=== PATIENT | male | born 1965 | race Caucasian/White ===

== ENCOUNTER 2019-03-23 18:26 | Emergency (ER) | payer OTHER, SELFPAY ==
--- NOTE | 2019-03-23 18:22 | DI.CT.S_ITS ---
PROCEDURE: CT HEAD/BRAIN WO CON INDICATIONS: LOC/CODE STROKE TECHNIQUE: Noncontrast 4.5 mm thick angled axial sections acquired from the foramen magnum to the vertex, with coronal and sagittal reformats. For radiation dose reduction, the following was used: automated exposure control, adjustment of mA and/or kV according to patient size. COMPARISON: [facility], CT, CT ANGIO HEAD AND NECK, 03/23/2019, 18:19. FINDINGS: Image quality: Diagnostic CSF spaces: Basal cisterns are patent. No extra-axial fluid collections. Ventricles are normal in size and shape. Brain: No midline shift. No intracranial masses or hemorrhage. Finn-white matter interface is normal. Skull and face: Calvarium and visualized facial bones are intact, without suspicious lesions. Sinuses: Visualized sinuses and mastoids are clear. IMPRESSION: No acute intracranial hemorrhage is seen. If there is strong clinical suspicion for an acute stroke, please consider an MRI for further evaluation, as it is more sensitive (assuming that there is no contraindication to MRI). Note: Case discussed by telephone with Crystal Pierre at 7:26 PM on 03/23/19. Dictated by: Felix Barrera M.D. on 03/23/2019 at 19:25 Approved by: Felix Barrera M.D. on 03/23/2019 at 19:29
--- NOTE | 2019-03-23 18:24 | DI.CT.S_ITS ---
PROCEDURE: CT ANGIO HEAD AND NECK INDICATIONS: left weakness eye deviation code stroke TECHNIQUE: Pre-contrast 4.5 mm thick sections acquired from the foramen magnum to the vertex. After the administration of intravenous contrast, 1 mm thick sections acquired from the aortic arch through the [place] of [place]. Post-contrast 4.5 mm thick sections then re-acquired from the foramen magnum to the vertex. 3-dimensional vwymbhp-jsrfhbxnc-xgiesuymcq (MIP) and/or volume rendering reformats were acquired of the central intracranial vasculature and neck separately. COMPARISON: [facility], CT, CT HEAD/BRAIN WO CON, 03/23/2019, 18:19. FINDINGS: Image quality: Excellent. BRAIN: CSF spaces: Ventricles are normal in size and shape. Basal cisterns are patent. No extra-axial fluid collections. Brain: No midline shift. No intracranial bleeds or masses. Finn-white matter interface appears intact. Skull and face: Calvarium and facial bones appear intact, without suspicious lesions. Orbits appear normal. Sinuses: Sinuses and mastoids are clear. HEAD CT ANGIOGRAPHY: Anterior circulation: There is almost no flow seen within the intracranial internal carotid artery, with a small amount of retrograde flow supplied by collateral circulation. The flow within the paired anterior cerebral arteries is normal and symmetric. The flow within the middle cerebral arteries is normal and symmetric. The anterior communicating artery is seen. No aneurysms are seen. Posterior circulation: Visualized portions of the vertebral arteries demonstrate normal caliber, and join to form a normal appearing basilar artery. Flow within the posterior cerebral arteries is normal and symmetric. No aneurysms are seen. NECK CT ANGIOGRAPHY: Carotid system: The great vessels demonstrate a conventional anatomy as they arise from the aortic arch. The origins of the common carotid arteries appear patent. The common carotid arteries demonstrate normal caliber and courses. There is occlusion of the right internal carotid artery near the craniocervical junction, as on series 20 image 58. No significant abnormality of the left true carotid artery is seen. Posterior circulation: The origins of the vertebral arteries both appear widely patent. The more superior extracranial portions of both vertebral arteries also demonstrate normal courses and calibers. They join to form a normal appearing basilar artery. Soft tissues: Visualized neck soft tissues demonstrate no suspicious abnormalities. Bones: No suspicious bony lesions. Visualized cervical spine appears normally aligned. Lower cervical spine degenerative changes are seen. 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 Please correlate with dissection. Note: Case discussed by telephone with Crystal Ignacio at 7:29 PM on 03/23/19. Any quantitative measurements of stenosis were performed using NASCET criteria. Dictated by: Felix Barrera M.D. on 03/23/2019 at 19:29 Approved by: eFlix Barrera M.D. on 03/23/2019 at 19:33
[2019-03-23 18:33] VITALS: BP 152/90; PULSE 73; RESP 20; O2SAT 99
--- NOTE | 2019-03-23 18:47 | ED.NEUROSD ---
HPI - Neuro Symptoms/Deficit General Chief Complaint: Neuro Symptoms/Deficit Stated Complaint: unresponsive, code Time Seen by Provider: 03/23/19 18:29 Source: patient, family and EMS Mode of arrival: EMS Limitations: no limitations History of Present Illness HPI Narrative: Patient comes emergency department after being found on the floor with an unknown down time by his . states that the last time she talked to the patient was at 7:30 a.m. this morning, and that the patient at that time was feeling nauseated and done well. states the entire family has had the same illness, and that they have all been vomiting. states the patient dropped their daughter off at school and 930 this morning. It is unknown what happened after that, as the states she texted her several times during the day and that while he normally answers, he did not answer today. When she got home, she found him at the bottom of the stairs on the floor. She states there was feces and vomit around, and that the patient stated he had slipped in his vomit and rolled down the stairs. states the patient was not moving his left side. Patient states currently that his back hurts him. He denies any neck pain. No headache. he was not aware of having any weakness on 1 side or the other. He states that he only remembers slipping and vomit. He does not remember anything else that happened today between dropping his daughter off at school and the fall. He denies chest pain, abdominal pain, or shortness breath. no other complaints at this time. Related Data Previous Rx's Medication Instructions Recorded albuterol sulfate [Ventolin HFA] 0 INH Q4H #8 gm 09/20/16 benzonatate [Tessalon Perles] 100 mg PO TID #12 cap 09/20/16 prednisone 0 PO QDAY #7 tab 09/20/16 promethazine-codeine 5 - 10 ml PO Q4HP PRN #60 ml 09/20/16 azithromycin [Zithromax] 0 PO QDAY #1 packet 09/21/16 Allergies Allergy/AdvReac Type Severity Reaction Status Date / Time No Known Allergies Allergy Uncoded 10/16/17 12:42 Review of Systems Constitutional Constitutional: Denies chills, Denies fatigue, Denies fever(s), Denies frequent falls, Denies lethargy and Denies weakness Eyes Eyes: Denies change in vision, Denies eye discharge, Denies irritation and Denies loss of vision ENT Ears, Nose, Mouth, and Throat: Denies change in voice, Denies dizziness, Denies neck pain, Denies sore throat and Denies throat swelling Cardiovascular Cardiovascular: Denies chest pain, Denies irregular heart rhythm, Denies lightheadedness, Denies palpitations, Denies dyspnea, Denies dyspnea on exertion and Denies orthopnea Respiratory Respiratory: Denies cough, Denies dyspnea, Denies dyspnea on exertion and Denies wheezing Gastrointestinal Gastrointestinal: Denies abdominal pain, Denies change in bowel habits, Denies diarrhea, Reports nausea and Reports vomiting Genitourinary Genitourinary: Denies hematuria, Denies flank pain, Denies urinary incontinence and Denies urinary urgency Musculoskeletal Musculoskeletal: Reports back pain, Denies muscle weakness, Denies neck pain, Denies numbness and Denies tingling Integumentary/Breasts Skin/Breast: Denies pruritus, Denies erythema, Denies rash and Denies wounds Neurologic Neurologic: Denies behavioral changes, Denies confusion, Denies dizziness, Denies frequent falls, Denies loss of vision, Denies numbness, Denies tingling and Denies weakness Psychiatric Psychiatric: Denies anxiety, Denies behavioral changes, Denies confusion, Denies depression, Denies homicidal ideation and Denies suicidal ideation Endocrine Endocrine: Denies fatigue, Denies flushing and Denies palpitations Hematologic/Lymphatic Hematologic/Lymphatic: Denies easy bruising Allergic/Immunologic Allergic/Immunologic: Denies urticaria, Denies throat swelling and Denies wheezing [facility] Medical History (Updated 03/23/19 @ 20:03 by Blanka Silverio MD) Healthy adult (Acute) Surgical History (Updated 03/23/19 @ 18:58 by Blanka Silverio MD) No pertinent past surgical history (Acute) Social History (Updated 03/23/19 @ 18:58 by Blanka Silverio MD) Smoking Status: Never smoker Social History (Updated 03/23/19 @ 18:58 by Blanka Silverio MD) Smoking Status: Never smoker Exam Initial Vital Signs Initial Vital Signs: Vital Signs Pulse Rate 73 03/23/19 18:33 Respiratory Rate 20 03/23/19 18:33 Blood Pressure 152/90 H 03/23/19 18:33 Pulse Oximetry 99 03/23/19 18:33 Const General: cooperative and well developed Nutritional Appearance: well nourished Orientation: alert, awake, oriented x3 and not confused [facility] Head: normocephalic and atraumatic Ears: external ears normal and TM's normal bilaterally Nose: external nose normal and No nasal discharge Face and sinus: sinuses nontender, face symmetric, no sinus tenderness and No dry mucous membranes Mouth: oral mucosae normal and moist mucous membranes Teeth and gingiva: dentition normal Throat: tonsils normal and uvula midline Eyes General: appearance normal, both eyes and all related structures Eyelids: eyelids normal Conjunctivae: conjunctivae normal Sclera: sclerae normal Pupils: PERRL EOM: EOM intact bilaterally Neck Neck: normal visual inspection, trachea midline, No lymphadenopathy, No midline deformity and No JVD Lymphatic: No lymphedema Chest Chest: normal inspection of the chest Resp Effort & Inspection: normal respiratory effort, able to speak in complete sentences, no respiratory distress and no use of accessory muscles Auscultation: clear to auscultation bilaterally, no rales, no rhonchi and no wheezes Cardio Rate: regular rate Rhythm: regular rhythm Heart Sounds: no click, no gallops, no murmurs and no rubs Pulses: normal peripheral pulses GI Inspection: non-distended Palpation: soft, no hepatosplenomegaly, No guarding, No pulsatile mass and No tender Auscultation: normal bowel sounds Back/Spine/Pelvis Back: No CVA tenderness Cervical Spine: cervical ROM normal and No pain with cervical ROM Thoracic/Lumbar Spine: thoracic and lumbar spine normal to inspection Skin General: no rashes or lesions noted, No jaundice and No petechiae Neuro General: awake and oriented x3 Other: Patient has complete paralysis of his left upper extremity. He has absent sensation the left upper extremity as well. The patient has only slight effort in his left hip flexors, with no movement whatsoever of his left foot or lower leg. Patient has mild left lower facial weakness. Patient has left-sided neglect. His tongue deviates slightly to the left. Patient has 5+ strength in his right upper extremity, without ataxia. He is slightly drowsy, but answers questions appropriately with only slight delay. His speech is slightly slurred. He is able to say his name and the month. His sensation is intact on his left face, but absent in both the left upper and left lower extremities. Sensation is intact in the right upper and lower extremities, as well as the right face. His NIH stroke scale score is 16, with 1 for level of consciousness, 2 for gaze palsy, 1 for minor paralysis of the face, for for left arm motor, 4 for left leg motor, to for sensation, 1 for dysarthria, and 1 for extinction/inattention. Extrem General: full ROM, no clubbing, cyanosis or edema, no pedal edema and no calf tenderness Psych Appearance: well kempt Mental Status: mental status grossly normal Attitude: cooperative Thought Content: normal and suicidality Judgment: judgment good Course Course Course Narrative: Patient was sent for CT of the head immediately upon arrival in the emergency department. This is found to be negative, as the patient immediately had a CT angio of the head and neck performed. Neurology at [facility] was paged, and I spoke with Dr. Vogel, who agreed to accept the patient in transfer, after looking at the patient's CT and determining that it appeared the patient had an MCA distribution CVA. I discussed the plan with the patient and , who were agreeable. Patient was given aspirin in the emergency department. Orders Ordered: Discontinued Medications Aspirin (Aspirin) 300 mg PA NOW ONE Stop: 03/23/19 19:31 Last Admin: 03/23/19 19:56 Dose: 300 mg Documented by: CPRUITT Sodium Chloride (Normal Saline 0.9%) 1,000 mls @ 150 mls/hr IV CONT COCO Sodium Chloride (Normal Saline 0.9%) 1,000 mls @ 1,000 mls/hr IV BOLUS ONE Stop: 03/23/19 20:29 Last Admin: 03/23/19 19:52 Dose: 1,000 mls/hr Documented by: CPRUITT Vital Signs Vital signs: Vital Signs - 8 hr 03/23/19 18:33 Pulse Rate 73 Respiratory Rate 20 Blood Pressure [Right Arm] 152/90 H Pulse Oximetry 99 MDM - Neuro Symptoms/Deficit Medical Records Attestation: I reviewed the patient's medical records. Lab Data Attestation: I reviewed the patient's lab results. Result diagrams: 03/23/19 19:16 03/23/19 18:56 Labs: Lab Results 03/23/19 03/23/19 03/23/19 Range/Units 18:56 19:16 19:16 WBC 9.3 (4.5-11.0) X10^3/uL RBC 4.83 (4.5-5.9) X10^6/uL Hgb 15.1 (13.5-17.5) g/dL Hct 42.9 (41-53) % MCV 88.8 (80-100) fL MCH 31.3 (26-34) PG MCHC 35.3 (30-36) % RDW 13.1 (11.6-14.8) % Plt Count 198 (150-400) X10^3/uL Neut % (Auto) 87.2 H (50-75) % Lymph % (Auto) 8.7 L (25-40) % Love % (Auto) 3.8 (3-14) % Eos % (Auto) 0.0 L (2-4) % Baso % (Auto) 0.3 (0-2) % Neut # (Auto) 8100 H (2654-7675) /uL Lymph # (Auto) 800 L (9482-2244) /uL Love # (Auto) 400 (0-900) /uL Eos # (Auto) 0 (0-450) /uL Baso # (Auto) 0 (0-100) /uL PT 12.2 (10.1-12.7) SECONDS INR 1.1 (0.9-1.3) APTT 30 (26.4-36.2) SECONDS Sodium 137 (137-145) mmol/L Potassium 4.1 (3.4-5.1) mmol/L Chloride 101 (98-107) mmol/L Carbon Dioxide 26 (22-32) mmol/L BUN 12 (9-20) mg/dL Creatinine 0.70 (0.66-1.25) mg/dL Estimated GFR > 60.0 (>60) mL/min BUN/Creatinine Ratio 17.1 (6-22) Glucose 112 H (70-100) mg/dL Calcium 9.0 (8.4-10.2) mg/dL Point of Care Testing Glucose POC [address] scan - head: Radiologist's impression: PROCEDURE: CT HEAD/BRAIN WO CON INDICATIONS: LOC/CODE STROKE TECHNIQUE: Noncontrast 4.5 mm thick angled axial sections acquired from the foramen magnum to the vertex, with coronal and sagittal reformats. For radiation dose reduction, the following was used: automated exposure control, adjustment of mA and/or kV according to patient size. COMPARISON: [facility], CT, CT ANGIO HEAD AND NECK, 03/23/2019, 18:19. FINDINGS: Image quality: Diagnostic CSF spaces: Basal cisterns are patent. No extra-axial fluid collections. Ventricles are normal in size and shape. Brain: No midline shift. No intracranial masses or hemorrhage. Finn-white matter interface is normal. Skull and face: Calvarium and visualized facial bones are intact, without suspicious lesions. Sinuses: Visualized sinuses and mastoids are clear. IMPRESSION: No acute intracranial hemorrhage is seen. If there is strong clinical suspicion for an acute stroke, please consider an MRI for further evaluation, as it is more sensitive (assuming that there is no contraindication to MRI). Note: Case discussed by telephone with Crystal Tonymak at 7:26 PM on 03/23/19. Dictated by: Felix Barrera M.D. on 03/23/2019 at 19:25 Approved by: Felix Barrera M.D. on 03/23/2019 at 19:29 CTA head and neck: Radiologist's impression: PROCEDURE: CT ANGIO HEAD AND NECK INDICATIONS: left weakness eye deviation code stroke TECHNIQUE: Pre-contrast 4.5 mm thick sections acquired from the foramen magnum to the vertex. After the administration of intravenous contrast, 1 mm thick sections acquired from the aortic arch through the [place] of [place]. Post-contrast 4.5 mm thick sections then re-acquired from the foramen magnum to the vertex. 3-dimensional zglterm-uoegxrozf-tqmlrvtblp (MIP) and/or volume rendering reformats were acquired of the central intracranial vasculature and neck separately. COMPARISON: [facility], CT, CT HEAD/BRAIN WO CON, 03/23/2019, 18:19. FINDINGS: Image quality: Excellent. BRAIN: CSF spaces: Ventricles are normal in size and shape. Basal cisterns are patent. No extra-axial fluid collections. Brain: No midline shift. No intracranial bleeds or masses. Finn-white matter interface appears intact. Skull and face: Calvarium and facial bones appear intact, without suspicious lesions. Orbits appear normal. Sinuses: Sinuses and mastoids are clear. HEAD CT ANGIOGRAPHY: Anterior circulation: There is almost no flow seen within the intracranial internal carotid artery, with a small amount of retrograde flow supplied by collateral circulation. The flow within the paired anterior cerebral arteries is normal and symmetric. The flow within the middle cerebral arteries is normal and symmetric. The anterior communicating artery is seen. No aneurysms are seen. Posterior circulation: Visualized portions of the vertebral arteries demonstrate normal caliber, and join to form a normal appearing basilar artery. Flow within the posterior cerebral arteries is normal and symmetric. No aneurysms are seen. NECK CT ANGIOGRAPHY: Carotid system: The great vessels demonstrate a conventional anatomy as they arise from the aortic arch. The origins of the common carotid arteries appear patent. The common carotid arteries demonstrate normal caliber and courses. There is occlusion of the right internal carotid artery near the craniocervical junction, as on series 20 image 58. No significant abnormality of the left true carotid artery is seen. Posterior circulation: The origins of the vertebral arteries both appear widely patent. The more superior extracranial portions of both vertebral arteries also demonstrate normal courses and calibers. They join to form a normal appearing basilar artery. Soft tissues: Visualized neck soft tissues demonstrate no suspicious abnormalities. Bones: No suspicious bony lesions. Visualized cervical spine appears normally aligned. Lower cervical spine degenerative changes are seen. 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 Please correlate with dissection. Note: Case discussed by telephone with Crystal Pierre at 7:29 PM on 03/23/19. Any quantitative measurements of stenosis were performed using NASCET criteria. Dictated by: Felix Barrera M.D. on 03/23/2019 at 19:29 Approved by: Felix Barrera M.D. on 03/23/2019 at 19:33 L spine x-ray: Radiologist's impression: PROCEDURE: XR LUMBAR SPINE 2-3V INDICATIONS: back pain after fall TECHNIQUE: 2 views of the lumbar spine were acquired. COMPARISON: None. FINDINGS: Bones: 5 [id number] vertebrae are present. There is normal bony alignment. No vertebral body compression fractures. No suspicious bony lesions. There is degenerative disc disease, moderate at L5-S1, and mild at other levels. There is moderate facet arthropathy at L5-S1. Soft tissues: Overlying bowel gas pattern is normal. No suspicious soft tissue calcifications. Excreted IV contrast is noted in kidneys. IMPRESSION: No fractures. Degenerative changes in lumbar spine. Dictated by: Lakisha Corrales M.D. on 03/23/2019 at 20:43 Approved by: Lakisha Corrales M.D. on 03/23/2019 at 20:45 Chest x-ray: Radiologist's impression: PROCEDURE: XR CHEST 1V INDICATIONS: fall/diffuse rib pain TECHNIQUE: One view of the chest was acquired. COMPARISON: None. FINDINGS: Surgical changes and devices: None. Lungs and pleura: Shallow inspiration. Lungs are clear. No pleural effusions or pneumothorax. Mediastinum: Mediastinal contours appear normal. Heart size is normal. Bones and chest wall: No suspicious bony lesions. Overlying soft tissues appear unremarkable. IMPRESSION: Shallow inspiration. No acute cardiopulmonary disease. Dictated by: Lakisha Corrales M.D. on 03/23/2019 at 20:42 Approved by: Lakisha Corrales M.D. on 03/23/2019 at 20:43 ECG Data Attestation: I personally reviewed and interpreted this ECG as follows: (No atrial fibrillation; normal sinus rhythm; no significant ST T wave changes; no prior EKG for comparison, as interpreted by ED MD. ) Discharge Plan Departure Patient Disposition: [facility] Clinical Impression: Acute cerebrovascular accident (CVA) Discharge Date/Time: 03/23/19 20:40 Prescriptions: No Action prednisone 20 MG tablet 0 PO QDAY Qty: 7 RF: 0 promethazine-codeine 6.25 MG/10 MG syrup 5 - 10 ml PO Q4HP PRNQty: 60 RF: 0 benzonatate [Tessalon Perles] 100 MG capsule 100 mg PO TID Qty: 12 RF: 0 albuterol sulfate [Ventolin HFA] 90 MCG/PUFF HFA aerosol inhaler 0 INH Q4H Qty: 8 RF: 0 azithromycin [Zithromax] 250 MG tablet 0 PO QDAY Qty: 1 RF: 0
[2019-03-23 18:55] VITALS: BP 152/90; PULSE 67; RESP 20; TEMP 36.6; O2SAT 98; BMI 34.2
[2019-03-23 19:23] LABS: Add Manual Diff / Slide Review NO; Basophils Absolute Auto 0 /uL (0-100); Basophils Percent Auto 0.3 % (0-2); Eosinophils Absolute Auto 0 /uL (0-450); Hematocrit 42.9 % (41-53); Hemoglobin 15.1 g/dL (13.5-17.5); Lymphocytes Absolute Auto 800 /uL (1100-4500); Lymphocytes Percent Auto 8.7 % (25-40); Mean Corpuscular HGB Conc 35.3 % (30-36); Mean Corpuscular Hemoglobin 31.3 PG (26-34); Mean Corpuscular Volume 88.8 fL (80-100); Monocytes Absolute Auto 400 /uL (0-900); Monocytes Percent Auto 3.8 % (3-14); Neutrophils Absolute Auto 8100 /uL (1500-7000); Neutrophils Percent Auto 87.2 % (50-75); Platelet Count 198 X10^3/uL (150-400); Red Blood Cell Count 4.83 X10^6/uL (4.5-5.9); Red Cell Distribution Width 13.1 % (11.6-14.8); White Blood Cell Count 9.3 X10^3/uL (4.5-11.0)
[2019-03-23 19:23] LABS: BUN Creatinine Ratio 17.1 (6-22); Blood Urea Nitrogen 12 mg/dL (9-20); Carbon Dioxide 26 mmol/L (22-32); Chloride 101 mmol/L (98-107); Estimated Glomerular Filt Rate > 60.0 mL/min (>60); Glucose 112 mg/dL (70-100); Potassium 4.1 mmol/L (3.4-5.1); Sodium 137 mmol/L (137-145)
[2019-03-23 19:28] LABS: HEMOLYSIS 68 (0-50)
[2019-03-23 19:33] LABS: INR 1.1 (0.9-1.3); Prothrombin Time 12.2 SECONDS (10.1-12.7)
[2019-03-23 19:35] LABS: PTT Partial Thromboplastin Tim 30 SECONDS (26.4-36.2)
--- NOTE | 2019-03-23 19:51 | DI.RAD.S_ITS ---
PROCEDURE: XR LUMBAR SPINE 2-3V INDICATIONS: back pain after fall TECHNIQUE: 2 views of the lumbar spine were acquired. COMPARISON: None. FINDINGS: Bones: 5 qjr-kex-qtnuneu vertebrae are present. There is normal bony alignment. No vertebral body compression fractures. No suspicious bony lesions. There is degenerative disc disease, moderate at L5-S1, and mild at other levels. There is moderate facet arthropathy at L5-S1. Soft tissues: Overlying bowel gas pattern is normal. No suspicious soft tissue calcifications. Excreted IV contrast is noted in kidneys. IMPRESSION: No fractures. Degenerative changes in lumbar spine. Dictated by: Lakisha Corrales M.D. on 03/23/2019 at 20:43 Approved by: Lakisha Corrales M.D. on 03/23/2019 at 20:45
[2019-03-23] MEDS: SODIUM CHLORIDE 0.9% 1,000 ML 1000 ML IV (19:52)
[2019-03-23] MEDS: ASPIRIN 300 MG SUPP PR (19:56)
--- NOTE | 2019-03-23 19:57 | DI.RAD.S_ITS ---
PROCEDURE: XR CHEST 1V INDICATIONS: fall/diffuse rib pain TECHNIQUE: One view of the chest was acquired. COMPARISON: None. FINDINGS: Surgical changes and devices: None. Lungs and pleura: Shallow inspiration. Lungs are clear. No pleural effusions or pneumothorax. Mediastinum: Mediastinal contours appear normal. Heart size is normal. Bones and chest wall: No suspicious bony lesions. Overlying soft tissues appear unremarkable. IMPRESSION: Shallow inspiration. No acute cardiopulmonary disease. Dictated by: Lakisha Corrales M.D. on 03/23/2019 at 20:42 Approved by: Lakisha Corrales M.D. on 03/23/2019 at 20:43
[2019-03-23 20:15] VITALS: BP 122/106; PULSE 82; RESP 18; O2SAT 99
--- NOTE | 2019-04-06 14:40 | PC.NURSE ---
late entry per RN, IV Fluid of NS completed at 2034 just prior to patient departure.
== END 2019-03-23 20:40 | disposition short-term general hospital (02) ==
PROVIDERS: Emergency Medicine; Emergency Provider Emergency Medicine
DX: I63.9 Cerebral infarction, unspecified (principal); R07.81 Pleurodynia; M54.9 Dorsalgia, unspecified; R11.2 Nausea with vomiting, unspecified; W19.XXXA Unspecified fall, initial encounter
CPT/HCPCS: 70450; 70496; 70498; 71045; 72100; 80048; 82962; 85025; 85610; 85730; 93005; 96360; 96361; 99282; 99291; 99292

== ENCOUNTER 2019-04-27 17:57 | Emergency (ER) | payer OTHER, SELFPAY ==
[2019-04-27 18:00] VITALS: BP 122/97; PULSE 79; RESP 18; O2SAT 94
[2019-04-27 18:02] VITALS: BP 113/91; PULSE 80; RESP 18; TEMP 36.7; O2SAT 95
--- NOTE | 2019-04-27 18:11 | ED_ITS ---
HPI - Fall General Chief Complaint: Fall Stated Complaint: Fall, CVA 1 week ago, L hip Time Seen by Provider: 04/27/19 18:11 Source: patient and EMS Mode of arrival: EMS Limitations: no limitations History of Present Illness HPI Narrative: 54-year-old male comes in with complaint of ground level fall. Patient was sitting in a chair, he states he tried to adjust his weight and fell to his left side out of the chair and onto the ground. He did strike his head. Patient recently had a craniotomy for acute CVA in March. He denies headache, he denies vision changes, he denies any chest pain or shortness of b reath, he denies any nausea or vomiting. No changes with bowel movements. He continues to have a dense left hemiparesis does not have use of his left side, he has some mild to moderate sensation. Patient states that he had has have some pain in his neck but he always has some pain in his neck because he wears a helmet and how he gets position. He is not sure if it is any worse today from the fall. He does not appreciate any other injuries. He states he has had left hip issues and that they partially dislocated his hip at [facility] but that it did not require intervention. He states that he does not think that it was injured today. Patient is currently staying at a care facility. He denies fevers, chills or other new neurologic changes. Related Data Previous Rx's Medication Instructions Recorded albuterol sulfate [Ventolin HFA] 0 INH Q4H #8 gm 09/20/16 benzonatate [Tessalon Perles] 100 mg PO TID #12 cap 09/20/16 prednisone 0 PO QDAY #7 tab 09/20/16 promethazine-codeine 5 - 10 ml PO Q4HP PRN #60 ml 09/20/16 azithromycin [Zithromax] 0 PO QDAY #1 packet 09/21/16 Allergies Allergy/AdvReac Type Severity Reaction Status Date / Time No Known Drug Allergies Allergy Verified 04/27/19 18:09 Review of Systems Review of Systems ROS Unobtainable: All systems reviewed & are unremarkable except as noted in HPI and below Patient History Medical History (Updated 04/27/19 @ 20:33 by Lola Marcum RN) Cerebral infarction due to unspecified occlusion or stenosis of unspecified carotid artery (Acute) Hemiplegia and hemiparesis following cerebral infarction affecting left non- dominant side (Acute) Major depressive disorder (Acute) Surgical History (Updated 04/27/19 @ 20:33 by Lola Marcum RN) H/O craniotomy (Acute) Social History Smoking Status: Never smoker alcohol intake frequency: 0-2 drinks per day Substance Use Type: does not use Exam Narrative Exam Narrative: GEN: Patient appears in no acute distress. HEAD: No evidence of trauma, no raccoon/Albrecht sign. NECK: Nontender, painless range of motion, trachea midline Negative Nexus criteria, no line tenderness, distracting injury, altered mental status, positive neuro deficit although this is patient's prior deficit from his recent CVA, no recent EtOH. EYES: PERRLA, EOMI ENT: External inspection normal, trachea is midline, TM's are normal no hemotypanum, Nares are clear, no septal hematoma, no dental or oral injury, airway is normal and with normal occlusion, No bony tenderness RESP: Chest is nontender and has symmetric movement, no ecchymosis, breath soun ds are normal no crackles, wheezes or rales CVS: Heart sounds are normal, no murmur noted, No JVD. ABG/GI: Nontender, soft, normal bowel sounds, no distention, no organomegaly, pelvic rock is negative NEURO: Oriented AOx3, patient has normal movement of his right upper and left lower extremity, patient has left hemiparesis, normal sensation on the right, on the left patient does have some sensation but states it has decreased and his typical baseline, cranial nerves II through XII are intact, GCS is 15 PSYCH: Normal mood and affect SKIN: Intact, warm and dry, no crepitus and without decubitus BACK: No CVA tenderness, no vertebral tenderness, no step-off's, no crepitus EXT: Atraumatic, hips are nontender, no pedal edema, normal color and temperature, normal range of motion of right extremity, with normal tendon exam bilaterally, 2+ pulses in all four extremities Initial Vital Signs Initial Vital Signs: Vital Signs Pulse Rate 79 04/27/19 18:00 Respiratory Rate 18 04/27/19 18:00 Blood Pressure 122/97 H 04/27/19 18:00 Pulse Oximetry 94 04/27/19 18:00 Scores GCS [place] coma scale eye opening: Spontaneous [place] coma scale verbal response: Orientated [place] coma scale motor response: Obey commands [place] coma scale total score: 15 Course Orders Ordered: ED Orders 04/27/19 18:22 CT cervical spine wo con Stat CT head/brain wo con Stat 04/27/19 18:55 Complete Blood Count AUTO DIFF Stat Comprehensive Metabolic Panel Stat Partial Thromboplastin Time Stat Prothrombin Time INR Stat Vital Signs Vital signs: Vital Signs - 8 hr 04/27/19 18:00 04/27/19 18:02 04/27/19 18:30 Temperature 98.1 F Pulse Rate 79 80 74 Respiratory Rate 18 18 14 Blood Pressure 113/91 H Blood Pressure [Right Arm] 122/97 H 106/61 Pulse Oximetry 94 95 98 04/27/19 20:00 Temperature Pulse Rate 72 Respiratory Rate 14 Blood Pressure Blood Pressure [Right Arm] 117/70 Pulse Oximetry 98 MDM - Fall Lab Data Attestation: I reviewed the patient's lab results. Result diagrams: 04/27/19 18:55 04/27/19 18:55 Labs: Lab Results 04/27/19 04/27/19 04/27/19 Range/Units 18:55 18:55 18:55 WBC 4.6 (4.5-11.0) X10^3/uL RBC 4.76 (4.5-5.9) X10^6/uL Hgb 14.9 (13.5-17.5) g/dL Hct 43.3 (41-53) % MCV 91.0 (80-100) fL MCH 31.3 (26-34) PG MCHC 34.4 (30-36) % RDW 14.5 (11.6-14.8) % Plt Count 163 (150-400) X10^3/uL Neut % (Auto) 65.3 (50-75) % Lymph % (Auto) 23.3 L (25-40) % [place] % (Auto) 7.4 (3-14) % Eos % (Auto) 3.4 (2-4) % Baso % (Auto) 0.6 (0-2) % Neut # (Auto) 3000 (5435-2508) /uL Lymph # (Auto) 1100 (7180-4958) /uL [place] # (Auto) 300 (0-900) /uL Eos # (Auto) 200 (0-450) /uL Baso # (Auto) 0 (0-100) /uL PT 15.8 H (10.1-12.7) SECONDS INR 1.4 H (0.9-1.3) APTT 36 D (26.4-36.2) SECONDS Sodium 136 L (137-145) mmol/L Potassium 4.1 (3.4-5.1) mmol/L Chloride 100 (98-107) mmol/L Carbon Dioxide 30 (22-32) mmol/L BUN 12 (9-20) mg/dL Creatinine 0.80 (0.66-1.25) mg/dL Estimated GFR > 60.0 (>60) mL/min BUN/Creatinine Ratio 15.0 (6-22) Glucose 117 H (70-100) mg/dL Calcium 9.2 (8.4-10.2) mg/dL Total Bilirubin 1.0 (0.2-1.3) mg/dL AST 24 (17-59) IU/L ALT 48 (21-72) IU/L Alkaline Phosphatase 87 (38-126) U/L Total Protein 6.4 (6.3-8.2) g/dL Albumin 3.9 (3.5-5.0) g/dL Globulin 2.5 (1.7-4.1) g/dL Albumin/Globulin Ratio 1.6 (1.0-2.8) Imaging Data CT scan - head: Radiologist's impression: [place] [address] CT Scan Report Signed Patient: Jose Le#: [id number] : 1965Acct:[id number] Age/Sex: 54 / MDate of Service: 04/27/19 Loc: ED Accession Number: [id number] Procedure: CT head/brain wo con Ordering Provider: Marcia Zuniga D.O. PROCEDURE: CT HEAD/BRAIN WO CON INDICATIONS: fall, recent craniotomy, hit head, no helmet on. no pain TECHNIQUE: Noncontrast 4.5 mm thick angled axial sections acquired from the foramen magnum to the vertex, with coronal and sagittal reformats. For radiation dose reduction, the following was used: automated exposure control, adjustment of mA and/or kV according to patient size. COMPARISON: [facility], CT, CT ANGIO HEAD AND NECK, 03/23/2019, 18:19. [facility], CT, CT HEAD/BRAIN WO CON, 03/23/2019, 18:19. FINDINGS: Image quality: Artifact is present within the right cerebral hemisphere secondary to recent postsurgical change. CSF spaces: Basal cisterns are patent. No extra-axial fluid collections. Ventricles are normal in size and shape. Prominent focus of hypoattenuation is present within the distribution of the right middle cerebral artery consistent with ischemia. Brain: No midline shift. No intracranial masses or hemorrhage. Finn-white matter interface is normal. Skull and face: Calvarium and visualized facial bones are intact, without suspicious lesions. Sinuses: Visualized sinuses and mastoids are clear. IMPRESSION: 1. Prominent right MCA distribution infarction which has evolved as expected since 03/23/19. No visualized superimposed hemorrhage. Adjacent craniotomy defect is identified. Dictated by: Nuria Frey M.D. on 04/27/2019 at 19:06 Approved by: Nuria Frey M.D. on 04/27/2019 at 19:10 CT C-spine: Radiologist's impression: [place] [address] CT Scan Report Signed Patient: Jose Le#: [id number] : 1965Acct:[id number] Age/Sex: 54 / MDate of Service: 04/27/19 Loc: ED Accession Number: [id number] Procedure: CT cervical spine wo con Ordering Provider: Marcia Zuniga D.O. PROCEDURE: CT CERVICAL SPINE WO CON INDICATIONS: ? acute vs chronic neck pain TECHNIQUE: Noncontrast 3 mm thick sections acquired from the skull base to the T4 level. Sagittal and coronal reformats were then constructed. For radiation dose reduction, the following was used: automated exposure control, adjustment of mA and/or kV according to patient size. COMPARISON: [facility], CT, CT HEAD/BRAIN WO CON, 04/27/2019, 18:29. FINDINGS: Image quality: Excellent. Bones: No fractures or dislocations. Visualized superior ribs are intact. Multilevel degenerative changes are present. Soft tissues: Prevertebral soft tissues are normal in thickness. No paravertebral hematomas. No apical pneumothoraces. IMPRESSION: 1. Degenerative changes without visualized fracture. Dictated by: Nuria Frey M.D. on 04/27/2019 at 19:10 Approved by: Nuria Frey M.D. on 04/27/2019 at 19:12 [facility] Narrative Medical decision making narrative: Head CT and C-spine are negative, lab work does not show major changes. Patient needs to wear his helmet regularly so that he does not fall out of chairs and hit his head when he does not have a skull. Discharge Plan Departure Patient Disposition: Home Clinical Impression: Fall, S/P craniotomy Discharge Date/Time: 04/27/19 22:00 Activity Restrictions/Additional Instructions: Patient needs to wear his helmet at all times. Continue home medications as prescribed. Return to the emergency department for new changes in mental status, new headaches, vision changes, persistent vomiting, new neck or back pain, new neurologic changes or other new or concerning symptoms. Prescriptions: No Action prednisone 20 MG tablet 0 PO QDAY Qty: 7 RF: 0 promethazine-codeine 6.25 MG/10 MG syrup 5 - 10 ml PO Q4HP PRNQty: 60 RF: 0 benzonatate [Tessalon Perles] 100 MG capsule 100 mg PO TID Qty: 12 RF: 0 albuterol sulfate [Ventolin HFA] 90 MCG/PUFF HFA aerosol inhaler 0 INH Q4H Qty: 8 RF: 0 azithromycin [Zithromax] 250 MG tablet 0 PO QDAY Qty: 1 RF: 0
--- NOTE | 2019-04-27 18:22 | DI.CT.S_ITS ---
PROCEDURE: CT HEAD/BRAIN WO CON INDICATIONS: fall, recent craniotomy, hit head, no helmet on. no pain TECHNIQUE: Noncontrast 4.5 mm thick angled axial sections acquired from the foramen magnum to the vertex, with coronal and sagittal reformats. For radiation dose reduction, the following was used: automated exposure control, adjustment of mA and/or kV according to patient size. COMPARISON: [facility], CT, CT ANGIO HEAD AND NECK, 03/23/2019, 18:19. [facility], CT, CT HEAD/BRAIN WO CON, 03/23/2019, 18:19. FINDINGS: Image quality: Artifact is present within the right cerebral hemisphere secondary to recent postsurgical change. CSF spaces: Basal cisterns are patent. No extra-axial fluid collections. Ventricles are normal in size and shape. Prominent focus of hypoattenuation is present within the distribution of the right middle cerebral artery consistent with ischemia. Brain: No midline shift. No intracranial masses or hemorrhage. Finn-white matter interface is normal. Skull and face: Calvarium and visualized facial bones are intact, without suspicious lesions. Sinuses: Visualized sinuses and mastoids are clear. IMPRESSION: 1. Prominent right MCA distribution infarction which has evolved as expected since 03/23/19. No visualized superimposed hemorrhage. Adjacent craniotomy defect is identified. Dictated by: Nuria Frey M.D. on 04/27/2019 at 19:06 Approved by: Nuria Frey M.D. on 04/27/2019 at 19:10
--- NOTE | 2019-04-27 18:22 | DI.CT.S_ITS ---
PROCEDURE: CT CERVICAL SPINE WO CON INDICATIONS: ? acute vs chronic neck pain TECHNIQUE: Noncontrast 3 mm thick sections acquired from the skull base to the T4 level. Sagittal and coronal reformats were then constructed. For radiation dose reduction, the following was used: automated exposure control, adjustment of mA and/or kV according to patient size. COMPARISON: [facility], CT, CT HEAD/BRAIN WO CON, 04/27/2019, 18:29. FINDINGS: Image quality: Excellent. Bones: No fractures or dislocations. Visualized superior ribs are intact. Multilevel degenerative changes are present. Soft tissues: Prevertebral soft tissues are normal in thickness. No paravertebral hematomas. No apical pneumothoraces. IMPRESSION: 1. Degenerative changes without visualized fracture. Dictated by: Nuria Frey M.D. on 04/27/2019 at 19:10 Approved by: Nuria Frey M.D. on 04/27/2019 at 19:12
[2019-04-27 18:30] VITALS: BP 106/61; PULSE 74; RESP 14; O2SAT 98
[2019-04-27 19:08] LABS: Add Manual Diff / Slide Review NO; Basophils Absolute Auto 0 /uL (0-100); Basophils Percent Auto 0.6 % (0-2); Eosinophils Absolute Auto 200 /uL (0-450); Eosinophils Percent Auto 3.4 % (2-4); Hematocrit 43.3 % (41-53); Hemoglobin 14.9 g/dL (13.5-17.5); Lymphocytes Absolute Auto 1100 /uL (1100-4500); Lymphocytes Percent Auto 23.3 % (25-40); Mean Corpuscular HGB Conc 34.4 % (30-36); Mean Corpuscular Hemoglobin 31.3 PG (26-34); Monocytes Absolute Auto 300 /uL (0-900); Monocytes Percent Auto 7.4 % (3-14); Neutrophils Absolute Auto 3000 /uL (1500-7000); Neutrophils Percent Auto 65.3 % (50-75); Platelet Count 163 X10^3/uL (150-400); Red Blood Cell Count 4.76 X10^6/uL (4.5-5.9); Red Cell Distribution Width 14.5 % (11.6-14.8); White Blood Cell Count 4.6 X10^3/uL (4.5-11.0)
[2019-04-27 19:16] LABS: INR 1.4 (0.9-1.3); Prothrombin Time 15.8 SECONDS (10.1-12.7)
[2019-04-27 19:18] LABS: PTT Partial Thromboplastin Tim 36 SECONDS (26.4-36.2)
[2019-04-27 19:19] LABS: Alanine Aminotransferase 48 IU/L (21-72); Albumin 3.9 g/dL (3.5-5.0); Albumin Globulin Ratio 1.6 (1.0-2.8); Alkaline Phosphatase 87 U/L (38-126); Aspartate Aminotransferase 24 IU/L (17-59); Blood Urea Nitrogen 12 mg/dL (9-20); Calcium 9.2 mg/dL (8.4-10.2); Carbon Dioxide 30 mmol/L (22-32); Chloride 100 mmol/L (98-107); Estimated Glomerular Filt Rate > 60.0 mL/min (>60); Globulin 2.5 g/dL (1.7-4.1); Glucose 117 mg/dL (70-100); Potassium 4.1 mmol/L (3.4-5.1); Sodium 136 mmol/L (137-145); Total Protein 6.4 g/dL (6.3-8.2)
[2019-04-27 19:27] LABS: HEMOLYSIS < 15 (0-50)
[2019-04-27 20:00] VITALS: BP 117/70; PULSE 72; RESP 14; O2SAT 98
--- NOTE | 2019-04-27 21:02 | PC.NURSE ---
Per pt request, message left for his , Nohemy, at [phone].
== END 2019-04-27 22:00 | disposition home or self-care (01) ==
PROVIDERS: Emergency Provider Emergency Medicine
DX: Z98.890 Other specified postprocedural states (principal); S09.90XA Unspecified injury of head, initial encounter; M54.2 Cervicalgia; W18.30XA Fall on same level, unspecified, initial encounter
CPT/HCPCS: 36415; 70450; 72125; 80053; 85025; 85610; 85730; 99284

== ENCOUNTER 2019-05-08 10:48 | Emergency (ER) | payer OTHER, SELFPAY ==
--- NOTE | 2019-05-08 10:57 | ED_ITS ---
HPI - General Adult General Chief complaint: Headache Stated complaint: swelling on head/post op Time Seen by Provider: 05/08/19 10:57 Source: patient, family and EMS Mode of arrival: EMS Limitations: no limitations History of Present Illness HPI narrative: This is a 54-year-old male who comes to the emergency department with complaint of swelling in his head and headache. Patient had a stroke in craniotomy for acute CVA in March patient ended up having edema and had a craniotomy secondary to the edema. patient continues to have left-sided hemiplegia. Today he had a bowel movement, was on the call button but done nursing did not make it in time this made him nauseated and vomit and he and his states that he has swelling at the craniotomy site. Patient has been complaining of a headache for a couple days. He states that he does feel nauseated at this time. He has photophobia but states that he often has photophobia. Patient denies any changes to bowel movements or new changes to urination. He takes Tylenol sometimes for headaches. He did have a fall on 04/27 and was evaluated here by myself and had a negative head CT at that time. Patient has not had any other new neurologic changes or changes in his neurologic status according to him or his . She states he seems at his nor mal baseline. He is verbal and able to answer majority of questions himself. Related Data Home Medications Medication Instructions Recorded Confirmed Health Shake 240 ml PO TID 05/08/19 05/08/19 acetaminophen 650 mg PO Q4H PRN MDD 3000 mg 05/08/19 05/08/19 amantadine HCl 100 mg PO BID 05/08/19 05/08/19 amlodipine 10 mg PO DAILY 05/08/19 05/08/19 apixaban 5 mg PO BID 05/08/19 05/08/19 aspirin 81 mg PO DAILY 05/08/19 05/08/19 atorvastatin 20 mg PO BEDTIME 05/08/19 05/08/19 bisacodyl 5 mg PO PRN PRN 05/08/19 05/08/19 bisacodyl 10 mg ND PRN PRN 05/08/19 05/08/19 famotidine 20 mg PO BID 05/08/19 05/08/19 fluoxetine 20 mg PO DAILY 05/08/19 05/08/19 ondansetron 4 mg PO QID 05/08/19 05/08/19 polyethylene glycol 3350 17 g PO DAILY 05/08/19 05/08/19 polyethylene glycol 3350 [Miralax] 17 g PO PRN PRN 05/08/19 05/08/19 sennosides [senna] 8.6 mg PO DAILY 05/08/19 05/08/19 Allergies Allergy/AdvReac Type Severity Reaction Status Date / Time No Known Drug Allergies Allergy Verified 04/27/19 18:09 Review of Systems Review of Systems ROS Unobtainable: All systems reviewed & are unremarkable except as noted in HPI and below Patient History Medical History Cerebral infarction due to unspecified occlusion or stenosis of unspecified carotid artery (Acute) Hemiplegia and hemiparesis following cerebral infarction affecting left non- dominant side (Acute) Major depressive disorder (Acute) Surgical History H/O craniotomy (Acute) Social History Smoking Status: Never smoker alcohol intake frequency: 0-2 drinks per day Substance Use Type: does not use Exam Narrative Exam Narrative: GEN: well nourished, well appearing male, alert and oriented x 3, patient appears to be in mild distress. HEENT: Atraumatic patient does have swelling over the right parietal cranium, it is soft does not feel tense, pupils are equal round reactive to light, mild photophobia, extraocular movements are intact, nares are clear, TMs are clear with no fluid, there is no conjunctival pallor. Throat is clear without any exudates, erythema, tonsillar enlargement or uvular deviation, no facial droop. HEART: Regular rate and rhythm without murmur, clicks, rubs. Pulses are equal in upper and lower extremities LUNGS:Lungs clear to auscultation, no wheezes, rales, crackles, chest moves symmetrically ABD:bowel sounds normal, soft, non-tender, no guarding, rebound, rigidity, no masses noted, no hepatosplenomegaly :No CVA tenderness MSCL: Non-tender, patient has normal range of motion of the right upper and lower extremity, patient has left hemiplegia. NEURO:CN 2-12 intact. SKIN: No erythema, no petechiae, no rashes noted. Initial Vital Signs Initial Vital Signs: Vital Signs Temperature 98.4 F 05/08/19 11:00 Pulse Rate 75 05/08/19 11:00 Respiratory Rate 18 05/08/19 11:00 Blood Pressure 127/95 H 05/08/19 11:00 Pulse Oximetry 97 05/08/19 11:00 Course Orders Ordered: ED Orders 05/08/19 10:57 Complete Blood Count AUTO DIFF Stat Comprehensive Metabolic Panel Stat Lipase Stat 05/08/19 11:01 EKG-12 Lead Routine 05/08/19 11:09 CT head/brain wo con Stat 05/08/19 13:31 Consult to VEGETABLE PREPARER - Doula Stat Discontinued Medications Acetaminophen (Tylenol) 975 mg PO NOW ONE Stop: 05/08/19 11:06 Last Admin: 05/08/19 11:27 Dose: 975 mg Documented by: KASSIDY Morphine Sulfate (Morphine) 2 mg IV NOW ONE Stop: 05/08/19 12:24 Last Admin: 05/08/19 12:39 Dose: 2 mg Documented by: KASSIDY Ondansetron HCl (Zofran) 4 mg IV NOW ONE Stop: 05/08/19 11:06 Last Admin: 05/08/19 11:24 Dose: 4 mg Documented by: KASSIDY Ondansetron HCl (Zofran) 4 mg IV NOW ONE Stop: 05/08/19 13:20 Last Admin: 05/08/19 13:36 Dose: 4 mg Documented by: KASSIDY Vital Signs Vital signs: Vital Signs - 8 hr 05/08/19 11:00 05/08/19 11:30 05/08/19 12:29 Temperature 98.4 F Pulse Rate 75 77 64 Respiratory Rate 18 17 16 Blood Pressure 127/95 H Blood Pressure [Left Arm] 136/89 137/94 H Pulse Oximetry 97 94 94 05/08/19 13:21 05/08/19 14:06 Temperature Pulse Rate 65 72 Respiratory Rate 15 12 Blood Pressure Blood Pressure [Left Arm] 127/90 142/89 H Pulse Oximetry 93 95 Medical Decision Making Lab Data Lab results reviewed: Yes I reviewed the patient's lab results. Result diagrams: 05/08/19 10:57 05/08/19 10:57 Labs: Lab Results 05/08/19 05/08/19 Range/Units 10:57 10:57 WBC 5.0 (4.5-11.0) X10^3/uL RBC 4.90 (4.5-5.9) X10^6/uL Hgb 15.4 (13.5-17.5) g/dL Hct 44.0 (41-53) % MCV 89.8 (80-100) fL MCH 31.5 (26-34) PG MCHC 35.0 (30-36) % RDW 14.4 (11.6-14.8) % Plt Count 208 (150-400) X10^3/uL Neut % (Auto) 68.3 (50-75) % Lymph % (Auto) 22.8 L (25-40) % [place] % (Auto) 6.0 (3-14) % Eos % (Auto) 2.4 (2-4) % Baso % (Auto) 0.5 (0-2) % Neut # (Auto) 3400 (1924-1031) /uL Lymph # (Auto) 1100 (0977-6300) /uL [place] # (Auto) 300 (0-900) /uL Eos # (Auto) 100 (0-450) /uL Baso # (Auto) 0 (0-100) /uL Sodium 137 (137-145) mmol/L Potassium 4.0 (3.4-5.1) mmol/L Chloride 100 (98-107) mmol/L Carbon Dioxide 27 (22-32) mmol/L BUN 7 L (9-20) mg/dL Creatinine 0.60 L (0.66-1.25) mg/dL Estimated GFR > 60.0 (>60) mL/min BUN/Creatinine Ratio 11.7 (6-22) Glucose 111 H (70-100) mg/dL Calcium 9.4 (8.4-10.2) mg/dL Total Bilirubin 1.2 (0.2-1.3) mg/dL AST 33 (17-59) IU/L ALT 36 (<50) IU/L Alkaline Phosphatase 91 (38-126) U/L Total Protein 6.6 (6.3-8.2) g/dL Albumin 4.3 (3.5-5.0) g/dL Globulin 2.3 (1.7-4.1) g/dL Albumin/Globulin Ratio 1.9 (1.0-2.8) Lipase 116 (23-300) U/L [facility] Narrative Medical decision making narrative: Recheck to after Tylenol and Zofran Patient's head CT has prominent brain edema and swelling today, no superimposed hemorrhagic transformation noted. Patient does appear to have more edema than he did on prior head CT 1021. He does have headache, he has been nauseated but not actively vomiting except for once while at the nursing and this was medially after had a bowel movement was sitting in his own stool which he states is what made him vomit. Images were pushed to Finnish and case discussed with Dr. Mcarthur patient's neurosurgeon. He recommends repeat imaging in 1 week, and they will set up follow-up in the office. Patient's family and caregivers are to watch for acute neurologic changes, increased somnolence. He recommends patient being more upright than lying flat as frequently as possible. If patient starts exhibit these changes they would ask that patient return immediately to the emergency department. Discussed with patient's . She is comfortable the plan with Neurosurgery but they are not particularly happy with his care at their care facility. Patient family preferred patient to be at a no other facility but they were told that facility was not available to them. I did have social work consult and evaluate. That facility was outside their care plan. But they were encouraged to follow up with disability as patient would likely qualify. Discharge Plan Departure Patient Disposition: Home Clinical Impression: Brain edema, H/O craniotomy, Status post craniotomy Discharge Date/Time: 05/08/19 15:47 Activity Restrictions/Additional Instructions: Follow up with Dr. Mcarthur for recheck in the next week. Dr. Mcarthur would like for you to have a repeat Head CT in 1 week and done prior to your office visit. Take a copy of the images with you to the visit. Continue home medications as prescribed. Return to the emergency department for fevers greater 100.4 F, new changes to mental status, new neurologic changes such as new weakness, new changes speech, sudden vision changes, persistent vomiting, new chest pain, shortness of breath or other new or concerning symptoms. Prescriptions: No Action amantadine HCl 100 mg Tablet 100 mg PO BID RF: 0 sennosides [senna] 8.6 mg Tablet 8.6 mg PO DAILY RF: 0 atorvastatin 20 mg Tablet 20 mg PO BEDTIME RF: 0 polyethylene glycol 3350 17 gram Powder In Packet 17 g PO DAILY RF: 0 aspirin 81 mg Tablet,Delayed Release (Dr/Ec) 81 mg PO DAILY RF: 0 famotidine 20 mg Tablet 20 mg PO BID RF: 0 amlodipine 10 mg Tablet 10 mg PO DAILY RF: 0 fluoxetine 20 mg Tablet 20 mg PO DAILY RF: 0 ondansetron 4 mg Tablet,Disintegrating 4 mg PO QID RF: 0 apixaban 5 mg Tablet 5 mg PO BID RF: 0 Health Shake liquid 240 ml PO TID RF: 0 acetaminophen 325 mg Tablet 650 mg PO Q4H MDD 3000 mg PRN (Reason: pain) RF: 0 polyethylene glycol 3350 [Miralax] 17 gram Powder In Packet 17 g PO PRN PRN (Reason: no BM x 3 days) RF: 0 bisacodyl 10 mg Suppository 10 mg ND PRN PRN (Reason: Constipation) RF: 0 bisacodyl 5 mg Tablet,Delayed Release (Dr/Ec) 5 mg PO PRN PRN (Reason: no bm x 3 days) RF: 0 Referrals: Pavan Gallgeo MD [Primary Care Provider] -
[2019-05-08 11:00] VITALS: BP 127/95; PULSE 75; RESP 18; TEMP 36.9; O2SAT 97
--- NOTE | 2019-05-08 11:09 | DI.CT.S_ITS ---
PROCEDURE: CT HEAD/BRAIN WO CON INDICATIONS: swelling at craniotomy site, post op had CVA prior TECHNIQUE: Noncontrast 4.5 mm thick angled axial sections acquired from the foramen magnum to the vertex, with coronal and sagittal reformats. For radiation dose reduction, the following was used: automated exposure control, adjustment of mA and/or kV according to patient size. COMPARISON: [facility], CT, CT HEAD/BRAIN WO CON, 03/23/2019, 18:19. [facility], CT, CT ANGIO HEAD AND NECK, 03/23/2019, 18:19. [facility], CT, CT HEAD/BRAIN WO CON, 04/27/2019, 18:29. FINDINGS: Image quality: Excellent. CSF spaces: Basal cisterns are patent. No extra-axial fluid collections. Ventricles are normal in size and shape. Brain: There is a prominent right MCA distribution infarction seen, with associated edema and brain swelling. No superimposed acute hemorrhage can be seen. No midline shift. No intracranial masses or hemorrhage. Finn-white matter interface is normal. Skull and face: Right sided craniectomy changes are seen. Calvarium and visualized facial bones are intact, without suspicious lesions. Sinuses: Visualized sinuses and mastoids are clear. IMPRESSION: Prominent right MCA distribution infarction with prominent brain edema and swelling. No superimposed hemorrhagic transformation can be seen. Craniectomy changes are seen. Dictated by: Felix Barrera M.D. on 05/08/2019 at 10:30 Approved by: Felix Barrera M.D. on 05/08/2019 at 10:32
[2019-05-08 11:12] LABS: Add Manual Diff / Slide Review NO; Basophils Absolute Auto 0 /uL (0-100); Basophils Percent Auto 0.5 % (0-2); Eosinophils Absolute Auto 100 /uL (0-450); Eosinophils Percent Auto 2.4 % (2-4); Hemoglobin 15.4 g/dL (13.5-17.5); Lymphocytes Absolute Auto 1100 /uL (1100-4500); Lymphocytes Percent Auto 22.8 % (25-40); Mean Corpuscular Hemoglobin 31.5 PG (26-34); Mean Corpuscular Volume 89.8 fL (80-100); Monocytes Absolute Auto 300 /uL (0-900); Neutrophils Absolute Auto 3400 /uL (1500-7000); Neutrophils Percent Auto 68.3 % (50-75); Platelet Count 208 X10^3/uL (150-400); Red Cell Distribution Width 14.4 % (11.6-14.8)
[2019-05-08 11:18] LABS: Alanine Aminotransferase 36 IU/L (<50); Albumin 4.3 g/dL (3.5-5.0); Albumin Globulin Ratio 1.9 (1.0-2.8); Alkaline Phosphatase 91 U/L (38-126); Aspartate Aminotransferase 33 IU/L (17-59); BUN Creatinine Ratio 11.7 (6-22); Bilirubin Total 1.2 mg/dL (0.2-1.3); Blood Urea Nitrogen 7 mg/dL (9-20); Calcium 9.4 mg/dL (8.4-10.2); Carbon Dioxide 27 mmol/L (22-32); Chloride 100 mmol/L (98-107); Estimated Glomerular Filt Rate > 60.0 mL/min (>60); Globulin 2.3 g/dL (1.7-4.1); Glucose 111 mg/dL (70-100); HEMOLYSIS 32 (0-50); Lipase 116 U/L (23-300); Sodium 137 mmol/L (137-145); Total Protein 6.6 g/dL (6.3-8.2)
[2019-05-08] MEDS: ONDANSETRON 4 MG/2 ML INJ IV ×2 (11:24→13:36)
[2019-05-08] MEDS: ACETAMINOPHEN 325 MG TABLET 975 MG PO (11:27)
[2019-05-08 11:30] VITALS: BP 136/89; PULSE 77; RESP 17; O2SAT 94
[2019-05-08 12:29] VITALS: BP 137/94; PULSE 64; RESP 16; O2SAT 94
[2019-05-08] MEDS: MORPHINE 2 MG/ML INJ IV (12:39)
[2019-05-08 13:21] VITALS: BP 127/90; PULSE 65; RESP 15; O2SAT 93
--- NOTE | 2019-05-08 13:45 | PC.NURSE ---
patient spouse is speaking with our [employer] [facility]CHNICIAN in [facility].
[2019-05-08 14:06] VITALS: BP 142/89; PULSE 72; RESP 12; O2SAT 95
--- NOTE | 2019-05-08 15:09 | PC.NURSE ---
, Kaitlyn updated on pt's condition and length of ambulance ride wait. I called [facility] and asked them to send his wheelchair so we could eddie him into his chair and he can return to [facility] sooner. Report called to [facility] [phone]. they are sending a wheelchair over at this time.
== END 2019-05-08 15:47 | disposition home or self-care (01) ==
PROVIDERS: Emergency Provider Emergency Medicine; Family Provider Family Medicine; PCP Family Medicine
DX: G93.6 Cerebral edema (principal); Z98.890 Other specified postprocedural states; R51 Headache; R11.2 Nausea with vomiting, unspecified
CPT/HCPCS: 70450; 80053; 83690; 85025; 93005; 93010; 96374; 96375; 96376; 99283; 99285; J2270; J2405

== ENCOUNTER 2019-05-10 08:02 | Emergency (ER) | payer OTHER, SELFPAY ==
[2019-05-10 07:59] VITALS: BP 119/87; PULSE 73; RESP 18; TEMP 37; O2SAT 93
[2019-05-10] MEDS: ACETAMINOPHEN 325 MG TABLET 650 MG PO (08:42)
--- NOTE | 2019-05-10 08:50 | ED_ITS ---
HPI - Neuro Symptoms/Deficit General Chief Complaint: Neuro Symptoms/Deficit Stated Complaint: Tingling L Side Time Seen by Provider: 05/10/19 08:05 Source: patient, family and EMS Mode of arrival: Ambulatory History of Present Illness HPI Narrative: Patient comes emergency department complaining tingling of his left ribs area that started this morning after he turned over onto his side. Patient states that the tingling is still there, but has not progressed. Patient denies any fevers or chills. No nausea vomiting. No new headache. No visual changes or new weakness. Patient is recovering from an extensive MCA distribution CVA and craniotomy in March, and has chronic left-sided deficits. He is currently residing at [facility] and undergoing physical therapy. Related Data Home Medications Medication Instructions Recorded Confirmed Health Shake 240 ml PO TID 05/08/19 05/08/19 acetaminophen 650 mg PO Q4H PRN MDD 3000 mg 05/08/19 05/08/19 amantadine HCl 100 mg PO BID 05/08/19 05/08/19 amlodipine 10 mg PO DAILY 05/08/19 05/08/19 apixaban 5 mg PO BID 05/08/19 05/08/19 aspirin 81 mg PO DAILY 05/08/19 05/08/19 atorvastatin 20 mg PO BEDTIME 05/08/19 05/08/19 bisacodyl 5 mg PO PRN PRN 05/08/19 05/08/19 bisacodyl 10 mg NE PRN PRN 05/08/19 05/08/19 famotidine 20 mg PO BID 05/08/19 05/08/19 fluoxetine 20 mg PO DAILY 05/08/19 05/08/19 ondansetron 4 mg PO QID 05/08/19 05/08/19 polyethylene glycol 3350 17 g PO DAILY 05/08/19 05/08/19 polyethylene glycol 3350 [Miralax] 17 g PO PRN PRN 05/08/19 05/08/19 sennosides [senna] 8.6 mg PO DAILY 05/08/19 05/08/19 Allergies Allergy/AdvReac Type Severity Reaction Status Date / Time No Known Drug Allergies Allergy Verified 05/10/19 08:27 Review of Systems Constitutional Constitutional: Denies chills, Denies fatigue, Denies fever(s), Denies frequent falls, Reports headache(s), Denies lethargy and Denies weakness Eyes Eyes: Denies change in vision, Denies eye discharge, Denies irritation and Denies loss of vision ENT Ears, Nose, Mouth, and Throat: Denies change in voice, Denies dizziness, Reports headache(s), Denies neck pain, Denies sore throat and Denies throat swelling Cardiovascular Cardiovascular: Denies chest pain, Denies irregular heart rhythm, Denies lightheadedness, Denies palpitations, Denies dyspnea, Denies dyspnea on exertion and Denies orthopnea Respiratory Respiratory: Denies cough, Denies dyspnea, Denies dyspnea on exertion and Denies wheezing Gastrointestinal Gastrointestinal: Denies abdominal pain, Denies change in bowel habits, Denies diarrhea, Denies nausea and Denies vomiting Genitourinary Genitourinary: Denies hematuria, Denies flank pain, Denies urinary incontinence and Denies urinary urgency Musculoskeletal Musculoskeletal: Denies back pain, Denies muscle weakness, Denies neck pain, Denies numbness and Reports tingling (Left ribs) Integumentary/Breasts Skin/Breast: Denies pruritus, Denies erythema, Denies rash and Denies wounds Neurologic Neurologic: Denies behavioral changes, Denies confusion, Denies dizziness, Denies frequent falls, Reports headache(s), Denies loss of vision, Denies numbness, Reports tingling (Left ribs) and Denies weakness Psychiatric Psychiatric: Denies anxiety, Denies behavioral changes, Denies confusion, Denies depression, Denies homicidal ideation and Denies suicidal ideation Endocrine Endocrine: Denies fatigue, Denies flushing and Denies palpitations Hematologic/Lymphatic Hematologic/Lymphatic: Denies easy bruising Allergic/Immunologic Allergic/Immunologic: Denies urticaria, Denies throat swelling and Denies whee zing Patient History Medical History Cerebral infarction due to unspecified occlusion or stenosis of unspecified carotid artery (Acute) Hemiplegia and hemiparesis following cerebral infarction affecting left non- dominant side (Acute) Major depressive disorder (Acute) Surgical History H/O craniotomy (Acute) Social History Smoking Status: Never smoker alcohol intake frequency: 0-2 drinks per day Substance Use Type: does not use Exam Initial Vital Signs Initial Vital Signs: Vital Signs Temperature 98.6 F 05/10/19 07:59 Pulse Rate 73 05/10/19 07:59 Respiratory Rate 18 05/10/19 07:59 Blood Pressure 119/87 05/10/19 07:59 Pulse Oximetry 93 05/10/19 07:59 Const General: cooperative and well developed Nutritional Appearance: well nourished Orientation: alert, awake, oriented x3 and not confused [facility] Head: normocephalic and atraumatic Ears: external ears normal and TM's normal bilaterally Nose: external nose normal and No nasal discharge Face and sinus: sinuses nontender, face symmetric, no sinus tenderness and No dry mucous membranes Mouth: oral mucosae normal and moist mucous membranes Teeth and gingiva: dentition normal Throat: tonsils normal and uvula midline Eyes General: appearance normal, both eyes and all related structures Eyelids: eyelids normal Conjunctivae: conjunctivae normal Sclera: sclerae normal Pupils: PERRL EOM: EOM intact bilaterally Neck Neck: normal visual inspection, trachea midline, No lymphadenopathy, No midline deformity and No JVD Lymphatic: No lymphedema Chest Chest: normal inspection of the chest Resp Effort & Inspection: normal respiratory effort, able to speak in complete sentences, no respiratory distress and no use of accessory muscles Auscultation: clear to auscultation bilaterally, no rales, no rhonchi and no wheezes Cardio Rate: regular rate Rhythm: regular rhythm Heart Sounds: no click, no gallops, no murmurs and no rubs Pulses: normal peripheral pulses GI Inspection: non-distended Palpation: soft, no hepatosplenomegaly, No guarding, No pulsatile mass and No tender Auscultation: normal bowel sounds Back/Spine/Pelvis Back: No CVA tenderness Cervical Spine: cervical ROM normal and No pain with cervical ROM Thoracic/Lumbar Spine: thoracic and lumbar spine normal to inspection Skin General: no rashes or lesions noted, No jaundice and No petechiae Neuro General: alert, awake and oriented x3 Speech: speech normal Other: Patient has flaccid weakness of his left arm leg. No weakness of the right side noted on exam. Extrem General: full ROM, no clubbing, cyanosis or edema, no pedal edema and no calf tenderness Psych Appearance: well kempt Mental Status: mental status grossly normal Attitude: cooperative Thought Content: normal and suicidality Judgment: judgment good Course Course Course Narrative: The patient came to the emergency department reporting left truncal tingling, but otherwise, no new symptoms of any kind. He was alert and coherent, and patient's stated they preferred that the patient not have a CT scan unless significant or concerning new symptoms were identified. I did discuss with the patient and his that at this point in time, the patient already has extensive left-sided deficits of both a motor and sensory nature, and that the tingling does not necessarily warrant another CT. The patient has had 2 CT scans of the brain in the last 2 weeks and is scheduled for another one via his neurosurgeon in the next week. We have discussed that if there are new, significant right-sided symptoms, or change in mental status, then CT of the head should certainly be considered. This time, however, the patient has requested a dose of Tylenol for headache, and he and his are both comfortable with him returning to his care facility. We have discussed the usual indications for return. Orders Ordered: Discontinued Medications Acetaminophen (Tylenol) 650 mg PO NOW ONE Stop: 05/10/19 08:37 Last Admin: 05/10/19 08:42 Dose: 650 mg Documented by: ESTIVEN Vital Signs Vital signs: Vital Signs - 8 hr 05/10/19 07:59 Temperature 98.6 F Pulse Rate 73 Respiratory Rate 18 Blood Pressure 119/87 Pulse Oximetry 93 MDM - Neuro Symptoms/Deficit Medical Records Attestation: I reviewed the patient's medical records. Discharge Plan Departure Patient Disposition: Home Clinical Impression: Paresthesia Discharge Date/Time: 05/10/19 09:00 Instructions: DI for Numbness/tingling Prescriptions: No Action amantadine HCl 100 mg Tablet 100 mg PO BID RF: 0 sennosides [senna] 8.6 mg Tablet 8.6 mg PO DAILY RF: 0 atorvastatin 20 mg Tablet 20 mg PO BEDTIME RF: 0 polyethylene glycol 3350 17 gram Powder In Packet 17 g PO DAILY RF: 0 aspirin 81 mg Tablet,Delayed Release (Dr/Ec) 81 mg PO DAILY RF: 0 famotidine 20 mg Tablet 20 mg PO BID RF: 0 amlodipine 10 mg Tablet 10 mg PO DAILY RF: 0 fluoxetine 20 mg Tablet 20 mg PO DAILY RF: 0 ondansetron 4 mg Tablet,Disintegrating 4 mg PO QID RF: 0 apixaban 5 mg Tablet 5 mg PO BID RF: 0 Health Shake liquid 240 ml PO TID RF: 0 acetaminophen 325 mg Tablet 650 mg PO Q4H MDD 3000 mg PRN (Reason: pain) RF: 0 polyethylene glycol 3350 [Miralax] 17 gram Powder In Packet 17 g PO PRN PRN (Reason: no BM x 3 days) RF: 0 bisacodyl 10 mg Suppository 10 mg NE PRN PRN (Reason: Constipation) RF: 0 bisacodyl 5 mg Tablet,Delayed Release (Dr/Ec) 5 mg PO PRN PRN (Reason: no bm x 3 days) RF: 0 Referrals: Pavan Gallego MD [Primary Care Provider] -
== END 2019-05-10 09:00 | disposition home or self-care (01) ==
PROVIDERS: Emergency Provider Emergency Medicine; PCP Family Medicine
DX: R20.2 Paresthesia of skin (principal); R51 Headache
CPT/HCPCS: 99282; 99283

== ENCOUNTER → 2019-05-11 14:36 | Outpatient (CLI) | payer OTHER, SELFPAY ==
--- NOTE | 2019-05-11 | DI.CT.S_ITS ---
PROCEDURE: CT HEAD/BRAIN WO CON INDICATIONS: Cerebral edema TECHNIQUE: Noncontrast 4.5 mm thick angled axial sections acquired from the foramen magnum to the vertex, with coronal and sagittal reformats. For radiation dose reduction, the following was used: automated exposure control, adjustment of mA and/or kV according to patient size. COMPARISON: [facility], CT, CT HEAD/BRAIN WO CON, 04/27/2019, 18:29. [facility], CT, CT HEAD/BRAIN WO CON, 03/23/2019, 18:19. [facility], CT, CT HEAD/BRAIN WO CON, 05/08/2019, 11:08. FINDINGS: Image quality: Excellent. CSF spaces: Basal cisterns are patent. Right subdural hygroma unchanged, herniated outside of the previous right calvarium through a right frontotemporal calvarial defect . Ventricles midline. Ex-vacuo dilatation of the right lateral ventricle is unchanged. Brain: Large right MCA distribution infarct again noted, with quite low density consistent with a combination of encephalomalacia and persistent edema, with unchanged herniation of infarcted brain parenchyma outside of the calvarial defect. No interval hemorrhage. No new infarcts. Skull and face: Right frontotemporal craniotomy, as before. Calvarium and visualized facial bones are otherwise intact, without suspicious lesions. Sinuses: Visualized sinuses and mastoids are clear. IMPRESSION: 1. Findings are stable since 04/27/19. Patient has undergone a right-sided craniotomy for a large right MCA distribution infarct. There is a right subdural hygroma, and there is infarcted right MCA distribution brain parenchyma, which is undergone a combination of encephalomalacia and edema, and extends beyond the previous location of the calvarium. 2. No interval infarct or hemorrhage. 3. Ventricles are midline. Dictated by: Darren Ayala M.D. on 05/11/2019 at 16:27 Approved by: Darren Ayala M.D. on 05/11/2019 at 16:35
== END ==
PROVIDERS: Family Provider Family Medicine; PCP Family Medicine; Visit Provider Emergency Medicine
DX: G93.6 Cerebral edema (principal); G93.89 Other specified disorders of brain; G96.0 Cerebrospinal fluid leak; Z86.73 Personal history of transient ischemic attack (TIA), and cerebral infarction without residual deficits; Z98.890 Other specified postprocedural states
CPT/HCPCS: 70450

== ENCOUNTER 2019-07-31 16:57 | Emergency (ER) | payer OTHER, SELFPAY ==
--- NOTE | 2019-07-31 16:57 | DI.CT.S_ITS ---
PROCEDURE: CT HEAD/BRAIN WO CON INDICATIONS: seizure TECHNIQUE: Noncontrast 4.5 mm thick angled axial sections acquired from the foramen magnum to the vertex, with coronal and sagittal reformats. For radiation dose reduction, the following was used: automated exposure control, adjustment of mA and/or kV according to patient size. COMPARISON: None. FINDINGS: Image quality: Excellent. CSF spaces: Basal cisterns are patent. No extra-axial fluid collections. Compensatory enlargement of the right lateral ventricle post large chronic right MCA infarct with encephalomalacia. Ventricles are otherwise normal in size and shape. Brain: No midline shift. No intracranial masses or hemorrhage. Large chronic right MCA infarct with encephalomalacia. Finn-white matter interface is otherwise normal. no acute stroke, hemorrhage, or mass. Skull and face: Interval conversion of right temporal craniectomy 2 right temporal craniotomy with replacement of calvarium. There is no longer herniation of brain parenchyma outside the expected confines of the skull. Calvarium and visualized facial bones are otherwise intact, without suspicious lesions. Sinuses: Visualized sinuses and mastoids are clear. IMPRESSION: 1. Large old right MCA distribution infarct. 2. No evidence of acute stroke, hemorrhage, or mass. Dictated by: Darren Ayala M.D. on 07/31/2019 at 16:15 Approved by: Darren Ayala M.D. on 07/31/2019 at 16:18
[2019-07-31] MEDS: ONDANSETRON 4 MG/2 ML INJ ×2 (17:04→18:44)
[2019-07-31] MEDS: SODIUM CHLORIDE 0.9% 1,000 ML 1000 ML IV (17:26)
[2019-07-31] MEDS: levETIRAcetam 1,000 MG in SODIUM CHLORIDE 0.9% 100 ML 440 ML IV (17:26)
[2019-07-31 17:30] VITALS: BP 113/70; PULSE 82; RESP 15; O2SAT 95
[2019-07-31 17:32] VITALS: BP 113/70; PULSE 85; RESP 18; TEMP 36.7; O2SAT 94; BMI 29.2
--- NOTE | 2019-07-31 17:32 | ED.SEIZURE ---
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 The patient has been on antihypertensive agents as well as anticholesterol medications. He was originally on Eliquis which was changed to Pradaxa and the patient took his 1st dose last night. The patient was intensely nauseous today and was given Zofran at 4:00 p.m. and shortly afterwards had a generalized grand mal seizure witnessed by his . She states that the seizure seem to of lasted for ever but probably lasted only 1 minutes. The patient remains in a postictal state at this time. There is a questionable history of hypertension but no diabetes mellitus and no myocardial infarction. The patient did not use any drugs drink alcohol to tobacco vapor or smoke cigarettes. 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 The patient was sick and up all night which she thought was secondary to the Pradaxa. He was extremely nauseous but did not vomit last night but vomited multiple times today. He has had no diarrhea or chest pain the patient has had a headache with chills but no documented fever. The patient has periodic sweats. He has had no loss of vision or diplopia. He has been having nasal drainage with sinus congestion and a sore throat. He has had a congested cough productive of a clear sputum. Related Data Home Medications Medication Instructions Recorded Confirmed acetaminophen 650 mg PO Q4H PRN MDD 3000 mg 05/08/19 05/08/19 amantadine HCl 100 mg PO BID 05/08/19 05/08/19 amlodipine 10 mg PO DAILY 05/08/19 07/31/19 aspirin 81 mg PO DAILY 05/08/19 05/08/19 atorvastatin 20 mg PO BEDTIME 05/08/19 07/31/19 famotidine 20 mg PO BID 05/08/19 07/31/19 fluoxetine 20 mg PO DAILY 05/08/19 05/08/19 ondansetron 4 mg PO QID 05/08/19 05/08/19 dabigatran etexilate [Pradaxa] 150 mg PO BID 07/31/19 07/31/19 gabapentin 300 mg PO TID 07/31/19 07/31/19 potassium chloride 10 meq PO DAILY 07/31/19 07/31/19 quetiapine 25 mg PO DAILY 07/31/19 07/31/19 Previous Rx's Medication Instructions Recorded levetiracetam [Keppra] 500 mg PO Q12H #60 tab 07/31/19 ondansetron HCl [Zofran] 8 mg PO Q8H #14 tab 07/31/19 Allergies Allergy/AdvReac Type Severity Reaction Status Date / Time No Known Drug Allergies Allergy Verified 05/10/19 08:27 Review of Systems <Nasir Talbert MD - Last Filed: 08/03/19 20:58> Review of Systems Narrative: All review of systems were negative except for those mentioned in the history of present illness. Patient History <Nasir Talbert MD - Last Filed: 08/03/19 20:58> Medical History Cerebral infarction due to unspecified occlusion or stenosis of unspecified carotid artery (Acute) Hemiplegia and hemiparesis following cerebral infarction affecting left non-dominant side (Acute) Major depressive disorder (Acute) Surgical History H/O craniotomy (Acute) Social History household members: spouse and children Smoking Status: Never smoker Smoking Status: Never smoker alcohol intake frequency: 0-2 drinks per day Substance Use Type: does not use Exam <Nasir Talbert MD - Last Filed: 08/03/19 20:58> Narrative Exam Narrative: PHYSICAL EXAM: CONSTITUTIONAL: The patient is lying supine in bed periodically speaks clearly requesting a blanket because he is cold but exposed ictal and slow to respond otherwise. HEAD: AT/NC EENT: PERRL, FROM of eyes, No epistaxis or nasal drainage Oral mucosa is moist and pink, posterior pharynx is without erythema or exudate. NECK: Supple, no obvious JVD, Trachea is midline without stridor, no palpable LN or masses. SPINE: No gross deformity, no palpable tenderness of the cervical, spine. THORAX: No deformity, retractions, chest wall tenderness, subcutaneous air or crepitice. LUNGS: Clear with symmetrical breath sounds without respiratory distress HEART: Normal heart tones, regular rhythm and rate without murmur. Heart tones are distant and muffled ABDOMEN: Soft, non-tender, normal bowel sounds without guarding, rebound, rigidity or palpable mass EXTREMITIES: No edema, cyanosis, deformity or tenderness. SKIN: No rash, bruising, petechiae or purpura. NEURO: The patient is postictal. There is no focal facial asymmetry. Cranial nerves appear to be symmetrical. The patient does not move his left arm or his left leg and has increased tone. Initial Vital Signs Initial Vital Signs: Vital Signs Pulse Rate 82 07/31/19 17:30 Respiratory Rate 15 07/31/19 17:30 Blood Pressure 113/70 07/31/19 17:30 Pulse Oximetry 95 07/31/19 17:30 <Geoffrey Araiza DO - Last Filed: 08/01/19 06:54> Initial Vital Signs Initial Vital Signs: Vital Signs Pulse Rate 82 07/31/19 17:30 Respiratory Rate 15 07/31/19 17:30 Blood Pressure 113/70 07/31/19 17:30 Pulse Oximetry 95 07/31/19 17:30 <Tameka Rosales DO - Last Filed: 08/01/19 16:59> Initial Vital Signs Initial Vital Signs: Vital Signs Pulse Rate 82 07/31/19 17:30 Respiratory Rate 15 07/31/19 17:30 Blood Pressure 113/70 07/31/19 17:30 Pulse Oximetry 95 07/31/19 17:30 Course <Nasir Talbert MD - Last Filed: 08/03/19 20:58> Course Course Narrative: 174: With a history that the patient has been on Eliquis change to Pradaxa yesterday, and his history of having had a major stroke with left hemiparesis with a witnessed grand mal seizure the patient was immediately sent to CT scan and a loading dose of Keppra 1000 mg ordered for the patient. With the Smith complaints of the patient's recent illness and upper respiratory infections the patient will be checked for influenza and a chest x-ray obtained to rule out pneumonia. [address] scan reveals that he has a large old right middle cerebral artery distribution infarct. There are no new acute stroke hemorrhage or mass noted. His laboratory chemistries revealed his CBC to be within normal limits an acceptable as well as a glucose at 1:11 a.m.. His electrolytes were also normal. 1900 the patient chest x-ray suggested slight edema with increased vascularity there is no evidence of any pneumonia or infiltrate. The patient continues to complain of a severe headache after his seizure. He was administered Toradol 30 mg for the pain and discomfort. He continues to be nauseous and has been administered a total of 12 mg of Zofran. His laboratory chemistries remain pending. Or report will be provided Dr. Araiza. Orders Ordered: Discontinued Medications Acetaminophen (Tylenol) 975 mg PO NOW ONE Stop: 07/31/19 20:22 Last Admin: 07/31/19 20:37 Dose: 975 mg Documented by: АЛЕКСАНДР Dabigatran (Pradaxa) 150 mg PO NOW ONE Stop: 08/01/19 08:20 Last Admin: 08/01/19 08:47 Dose: 150 mg Documented by: JEREMIAH Levetiracetam 1,000 mg/ Sodium (Chloride) 110 mls @ 440 mls/hr IV NOW ONE Stop: 07/31/19 17:04 Last Infusion: 07/31/19 17:45 Dose: 0 mls/hr Documented by: АЛЕКАСНДР Admin: 07/31/19 17:26 Dose: 440 mls/hr Documented by: АЛЕКСАНДР Sodium Chloride (Normal Saline 0.9%) 1,000 mls @ 1,000 mls/hr IV BOLUS ONE Stop: 07/31/19 18:02 Last Infusion: 07/31/19 18:40 Dose: 0 mls/hr Documented by: АЛЕКСАНДР Admin: 07/31/19 17:26 Dose: 1,000 mls/hr Documented by: АЛЕКСАНДР Ketorolac Tromethamine (Toradol) 30 mg IV NOW ONE Stop: 07/31/19 18:45 Last Admin: 07/31/19 18:51 Dose: 30 mg Documented by: АЛЕКСАНДР Levetiracetam (Keppra) 500 mg PO NOW ONE Stop: 08/01/19 05:26 Last Admin: 08/01/19 05:34 Dose: 500 mg Documented by: HAIM Levetiracetam (Keppra) 500 mg PO NOW ONE Stop: 08/01/19 16:52 Last Admin: 08/01/19 17:11 Dose: 500 mg Documented by: JAME Metoclopramide HCl (Reglan) 10 mg IV NOW ONE Stop: 07/31/19 21:15 Last Admin: 07/31/19 21:47 Dose: 10 mg Documented by: АЛЕКСАНДР Ondansetron HCl (Zofran) 4 mg IV NOW ONE Stop: 07/31/19 18:46 Last Admin: 07/31/19 18:52 Dose: 4 mg Documented by: АЛЕКСАНДР Vital Signs Vital signs: Vital Signs - 8 hr 08/01/19 09:45 08/01/19 10:45 08/01/19 11:42 Pulse Rate 71 67 Respiratory Rate 18 21 Blood Pressure [Left Arm] 195/74 H 132/70 117/79 08/01/19 12:33 Pulse Rate 68 Respiratory Rate 15 Blood Pressure [Left Arm] 118/69 <Geoffrey Araiza DO - Last Filed: 08/01/19 06:54> Orders Ordered: Discontinued Medications Acetaminophen (Tylenol) 975 mg PO NOW ONE Stop: 07/31/19 20:22 Last Admin: 07/31/19 20:37 Dose: 975 mg Documented by: АЛЕКСАНДР Dabigatran (Pradaxa) 150 mg PO NOW ONE Stop: 08/01/19 08:20 Last Admin: 08/01/19 08:47 Dose: 150 mg Documented by: JEREMIAH Levetiracetam 1,000 mg/ Sodium (Chloride) 110 mls @ 440 mls/hr IV NOW ONE Stop: 07/31/19 17:04 Last Infusion: 07/31/19 17:45 Dose: 0 mls/hr Documented by: АЛЕКСАНДР Admin: 07/31/19 17:26 Dose: 440 mls/hr Documented by: АЛЕКСАНДР Sodium Chloride (Normal Saline 0.9%) 1,000 mls @ 1,000 mls/hr IV BOLUS ONE Stop: 07/31/19 18:02 Last Infusion: 07/31/19 18:40 Dose: 0 mls/hr Documented by: АЛЕКСАНДР Admin: 07/31/19 17:26 Dose: 1,000 mls/hr Documented by: АЛЕКСАНДР Ketorolac Tromethamine (Toradol) 30 mg IV NOW ONE Stop: 07/31/19 18:45 Last Admin: 07/31/19 18:51 Dose: 30 mg Documented by: АЛЕКСАНДР Levetiracetam (Keppra) 500 mg PO NOW ONE Stop: 08/01/19 05:26 Last Admin: 08/01/19 05:34 Dose: 500 mg Documented by: HAIM Levetiracetam (Keppra) 500 mg PO NOW ONE Stop: 08/01/19 16:52 Last Admin: 08/01/19 17:11 Dose: 500 mg Documented by: JAME Metoclopramide HCl (Reglan) 10 mg IV NOW ONE Stop: 07/31/19 21:15 Last Admin: 07/31/19 21:47 Dose: 10 mg Documented by: АЛЕКСАНДР Ondansetron HCl (Zofran) 4 mg IV NOW ONE Stop: 07/31/19 18:46 Last Admin: 07/31/19 18:52 Dose: 4 mg Documented by: АЛЕКСАНДР Vital Signs Vital signs: Vital Signs - 8 hr 08/01/19 09:45 08/01/19 10:45 08/01/19 11:42 Pulse Rate 71 67 Respiratory Rate 18 21 Blood Pressure [Left Arm] 195/74 H 132/70 117/79 08/01/19 12:33 Pulse Rate 68 Respiratory Rate 15 Blood Pressure [Left Arm] 118/69 <Tameka Rosales DO - Last Filed: 08/01/19 16:59> Orders Ordered: Discontinued Medications Acetaminophen (Tylenol) 975 mg PO NOW ONE Stop: 07/31/19 20:22 Last Admin: 07/31/19 20:37 Dose: 975 mg Documented by: АЛЕКСАНДР Dabigatran (Pradaxa) 150 mg PO NOW ONE Stop: 08/01/19 08:20 Last Admin: 08/01/19 08:47 Dose: 150 mg Documented by: JEREMIAH Levetiracetam 1,000 mg/ Sodium (Chloride) 110 mls @ 440 mls/hr IV NOW ONE Stop: 07/31/19 17:04 Last Infusion: 07/31/19 17:45 Dose: 0 mls/hr Documented by: АЛЕКСАНДР Admin: 07/31/19 17:26 Dose: 440 mls/hr Documented by: АЛЕКСАНДР Sodium Chloride (Normal Saline 0.9%) 1,000 mls @ 1,000 mls/hr IV BOLUS ONE Stop: 07/31/19 18:02 Last Infusion: 07/31/19 18:40 Dose: 0 mls/hr Documented by: АЛЕКСАНДР Admin: 07/31/19 17:26 Dose: 1,000 mls/hr Documented by: АЛЕКСАНДР Ketorolac Tromethamine (Toradol) 30 mg IV NOW ONE Stop: 07/31/19 18:45 Last Admin: 07/31/19 18:51 Dose: 30 mg Documented by: АЛЕКСАНДР Levetiracetam (Keppra) 500 mg PO NOW ONE Stop: 08/01/19 05:26 Last Admin: 08/01/19 05:34 Dose: 500 mg Documented by: HAIM Levetiracetam (Keppra) 500 mg PO NOW ONE Stop: 08/01/19 16:52 Last Admin: 08/01/19 17:11 Dose: 500 mg Documented by: JAME Metoclopramide HCl (Reglan) 10 mg IV NOW ONE Stop: 07/31/19 21:15 Last Admin: 07/31/19 21:47 Dose: 10 mg Documented by: АЛЕКСАНДР Ondansetron HCl (Zofran) 4 mg IV NOW ONE Stop: 07/31/19 18:46 Last Admin: 07/31/19 18:52 Dose: 4 mg Documented by: АЛЕКСАНДР Vital Signs Vital signs: Vital Signs - 8 hr 08/01/19 09:45 08/01/19 10:45 08/01/19 11:42 Pulse Rate 71 67 Respiratory Rate 18 21 Blood Pressure [Left Arm] 195/74 H 132/70 117/79 08/01/19 12:33 Pulse Rate 68 Respiratory Rate 15 Blood Pressure [Left Arm] 118/69 MDM - Seizure <Nasir Talbert MD - Last Filed: 08/03/19 20:58> Lab Data Result diagrams: 07/31/19 18:50 07/31/19 18:50 Labs: Lab Results 07/31/19 07/31/19 07/31/19 Range/Units 17:55 18:50 18:50 WBC 9.1 (4.5-11.0) X10^3/uL RBC 4.95 (4.5-5.9) X10^6/uL Hgb 15.1 (13.5-17.5) g/dL Hct 43.4 (41-53) % MCV 87.7 (80-100) fL MCH 30.5 (26-34) PG MCHC 34.8 (30-36) % RDW 13.6 (11.6-14.8) % Plt Count 220 (150-400) X10^3/uL Neut % (Auto) 90.7 H (50-75) % Lymph % (Auto) 6.2 L (25-40) % [place] % (Auto) 2.9 L (3-14) % Eos % (Auto) 0.1 L (2-4) % Baso % (Auto) 0.1 (0-2) % Neut # (Auto) 8200 H (3452-4575) /uL Lymph # (Auto) 600 L (9600-2046) /uL [place] # (Auto) 300 (0-900) /uL Eos # (Auto) 0 (0-450) /uL Baso # (Auto) 0 (0-100) /uL Sodium 140 (137-145) mmol/L Potassium 3.8 (3.4-5.1) mmol/L Chloride 103 (98-107) mmol/L Carbon Dioxide 26 (22-32) mmol/L BUN 10 (9-20) mg/dL Creatinine 0.60 L (0.66-1.25) mg/dL Estimated GFR > 60.0 (>60) mL/min BUN/Creatinine Ratio 16.7 (6-22) Glucose 129 H (70-100) mg/dL Calcium 9.7 (8.4-10.2) mg/dL Magnesium 2.1 (1.6-2.3) mg/dL Prolactin 15.4 (3.7-17.9) ng/mL Urine Color Urine Appearance Urine pH (4.5-8.0) Ur Specific [place] (1.000-1.035) Urine Protein (Negative) Urine Glucose (UA) (Negative) g/dL Urine Ketones (NEGATIVE) Urine Occult Blood (Negative) Urine Nitrate (Negative) Urine Bilirubin (NEGATIVE) Urine Urobilinogen (0.2) E.U./dL Ur Leukocyte Esterase (NEGATIVE) U Opiates 300ng/mL cut (Negative) Ur Oxycodone Screen (Negative) Urine Methadone Screen (Negative) Ur Barbiturates Screen (Negative) U Tricyclic Antidepress (Negative) Ur Phencyclidine Scrn (Negative) Ur Amphetamines Screen (Negative) U Methamphetamines Scrn (Negative) Ur MDMA Scrn (Ecstasy) (Negative) U Benzodiazepines Scrn (Negative) Urine Cocaine Screen (Negative) U Marijuana (THC) Screen (Negative) Influenza A (RT-PCR) Flu a negative (NEGATIVE) Influenza B (RT-PCR) Flu b negative (NEGATIVE) 07/31/19 07/31/19 Range/Units 20:15 20:15 WBC (4.5-11.0) X10^3/uL RBC (4.5-5.9) X10^6/uL Hgb (13.5-17.5) g/dL Hct (41-53) % MCV (80-100) fL MCH (26-34) PG MCHC (30-36) % RDW (11.6-14.8) % Plt Count (150-400) X10^3/uL Neut % (Auto) (50-75) % Lymph % (Auto) (25-40) % [place] % (Auto) (3-14) % Eos % (Auto) (2-4) % Baso % (Auto) (0-2) % Neut # (Auto) (9908-9770) /uL Lymph # (Auto) (2967-9340) /uL [place] # (Auto) (0-900) /uL Eos # (Auto) (0-450) /uL Baso # (Auto) (0-100) /uL Sodium (137-145) mmol/L Potassium (3.4-5.1) mmol/L Chloride (98-107) mmol/L Carbon Dioxide (22-32) mmol/L BUN (9-20) mg/dL Creatinine (0.66-1.25) mg/dL Estimated GFR (>60) mL/min BUN/Creatinine Ratio (6-22) Glucose (70-100) mg/dL Calcium (8.4-10.2) mg/dL Magnesium (1.6-2.3) mg/dL Prolactin (3.7-17.9) ng/mL Urine Color Yellow Urine Appearance Clear Urine pH 7.0 (4.5-8.0) Ur Specific [place] 1.020 (1.000-1.035) Urine Protein Trace H (Negative) Urine Glucose (UA) Negative (Negative) g/dL Urine Ketones Trace H (NEGATIVE) Urine Occult Blood Negative (Negative) Urine Nitrate Negative (Negative) Urine Bilirubin Negative (NEGATIVE) Urine Urobilinogen 0.2 (0.2) E.U./dL Ur Leukocyte Esterase Negative (NEGATIVE) U Opiates 300ng/mL cut Negative (Negative) Ur Oxycodone Screen Negative (Negative) Urine Methadone Screen Negative (Negative) Ur Barbiturates Screen Negative (Negative) U Tricyclic Antidepress Negative (Negative) Ur Phencyclidine Scrn Negative (Negative) Ur Amphetamines Screen Negative (Negative) U Methamphetamines Scrn Negative (Negative) Ur MDMA Scrn (Ecstasy) Negative (Negative) U Benzodiazepines Scrn Negative (Negative) Urine Cocaine Screen Negative (Negative) U Marijuana (THC) Screen Negative (Negative) Influenza A (RT-PCR) (NEGATIVE) Influenza B (RT-PCR) (NEGATIVE) Point of Care Testing Glucose POC 174 ECG Data Attestation: I personally reviewed and interpreted this ECG as follows: Interpretation: The patient's EKG obtained on July 31, 2019 reveals a sinus rhythm ventricular rate 88. QRS is 100 milliseconds QTC is 431 milliseconds. EKG has low voltage. Which axis is normal. The computer reads of the EKG as normal however the patient has noises in the baseline and unable to really accurately read the EKG in leads II III AVF aVL. The patient's T-waves appear inverted in leads V1. There are no other acute diagnostic ST or T-wave changes noted. There is noise artifact that is regular throughout the entire EKG. The EKG will need to be repeated. <Geoffrey Araiza, DO - Last Filed: 08/01/19 06:54> Lab Data Labs: Lab Results 07/31/19 07/31/19 07/31/19 Range/Units 17:55 18:50 18:50 WBC 9.1 (4.5-11.0) X10^3/uL RBC 4.95 (4.5-5.9) X10^6/uL Hgb 15.1 (13.5-17.5) g/dL Hct 43.4 (41-53) % MCV 87.7 (80-100) fL MCH 30.5 (26-34) PG MCHC 34.8 (30-36) % RDW 13.6 (11.6-14.8) % Plt Count 220 (150-400) X10^3/uL Neut % (Auto) 90.7 H (50-75) % Lymph % (Auto) 6.2 L (25-40) % [place] % (Auto) 2.9 L (3-14) % Eos % (Auto) 0.1 L (2-4) % Baso % (Auto) 0.1 (0-2) % Neut # (Auto) 8200 H (2409-1166) /uL Lymph # (Auto) 600 L (9260-0202) /uL [place] # (Auto) 300 (0-900) /uL Eos # (Auto) 0 (0-450) /uL Baso # (Auto) 0 (0-100) /uL Sodium 140 (137-145) mmol/L Potassium 3.8 (3.4-5.1) mmol/L Chloride 103 (98-107) mmol/L Carbon Dioxide 26 (22-32) mmol/L BUN 10 (9-20) mg/dL Creatinine 0.60 L (0.66-1.25) mg/dL Estimated GFR > 60.0 (>60) mL/min BUN/Creatinine Ratio 16.7 (6-22) Glucose 129 H (70-100) mg/dL Calcium 9.7 (8.4-10.2) mg/dL Magnesium 2.1 (1.6-2.3) mg/dL Prolactin 15.4 (3.7-17.9) ng/mL Urine Color Urine Appearance Urine pH (4.5-8.0) Ur Specific [place] (1.000-1.035) Urine Protein (Negative) Urine Glucose (UA) (Negative) g/dL Urine Ketones (NEGATIVE) Urine Occult Blood (Negative) Urine Nitrate (Negative) Urine Bilirubin (NEGATIVE) Urine Urobilinogen (0.2) E.U./dL Ur Leukocyte Esterase (NEGATIVE) U Opiates 300ng/mL cut (Negative) Ur Oxycodone Screen (Negative) Urine Methadone Screen (Negative) Ur Barbiturates Screen (Negative) U Tricyclic Antidepress (Negative) Ur Phencyclidine Scrn (Negative) Ur Amphetamines Screen (Negative) U Methamphetamines Scrn (Negative) Ur MDMA Scrn (Ecstasy) (Negative) U Benzodiazepines Scrn (Negative) Urine Cocaine Screen (Negative) U Marijuana (THC) Screen (Negative) Influenza A (RT-PCR) Flu a negative (NEGATIVE) Influenza B (RT-PCR) Flu b negative (NEGATIVE) 07/31/19 07/31/19 Range/Units 20:15 20:15 WBC (4.5-11.0) X10^3/uL RBC (4.5-5.9) X10^6/uL Hgb (13.5-17.5) g/dL Hct (41-53) % MCV (80-100) fL MCH (26-34) PG MCHC (30-36) % RDW (11.6-14.8) % Plt Count (150-400) X10^3/uL Neut % (Auto) (50-75) % Lymph % (Auto) (25-40) % [place] % (Auto) (3-14) % Eos % (Auto) (2-4) % Baso % (Auto) (0-2) % Neut # (Auto) (7513-3311) /uL Lymph # (Auto) (1133-5146) /uL [place] # (Auto) (0-900) /uL Eos # (Auto) (0-450) /uL Baso # (Auto) (0-100) /uL Sodium (137-145) mmol/L Potassium (3.4-5.1) mmol/L Chloride (98-107) mmol/L Carbon Dioxide (22-32) mmol/L BUN (9-20) mg/dL Creatinine (0.66-1.25) mg/dL Estimated GFR (>60) mL/min BUN/Creatinine Ratio (6-22) Glucose (70-100) mg/dL Calcium (8.4-10.2) mg/dL Magnesium (1.6-2.3) mg/dL Prolactin (3.7-17.9) ng/mL Urine Color Yellow Urine Appearance Clear Urine pH 7.0 (4.5-8.0) Ur Specific [place] 1.020 (1.000-1.035) Urine Protein Trace H (Negative) Urine Glucose (UA) Negative (Negative) g/dL Urine Ketones Trace H (NEGATIVE) Urine Occult Blood Negative (Negative) Urine Nitrate Negative (Negative) Urine Bilirubin Negative (NEGATIVE) Urine Urobilinogen 0.2 (0.2) E.U./dL Ur Leukocyte Esterase Negative (NEGATIVE) U Opiates 300ng/mL cut Negative (Negative) Ur Oxycodone Screen Negative (Negative) Urine Methadone Screen Negative (Negative) Ur Barbiturates Screen Negative (Negative) U Tricyclic Antidepress Negative (Negative) Ur Phencyclidine Scrn Negative (Negative) Ur Amphetamines Screen Negative (Negative) U Methamphetamines Scrn Negative (Negative) Ur MDMA Scrn (Ecstasy) Negative (Negative) U Benzodiazepines Scrn Negative (Negative) Urine Cocaine Screen Negative (Negative) U Marijuana (THC) Screen Negative (Negative) Influenza A (RT-PCR) (NEGATIVE) Influenza B (RT-PCR) (NEGATIVE) Point of Care Testing Glucose POC 174 Imaging Data Extremity x-ray #1: Radiologist's Impression: [address] [address] XRay Report Signed Patient: Jose Le#: [id number] : 1965Acct:[id number] Age/Sex: 54 / MDate of Service: 07/31/19 Loc: ED Accession Number: [id number] Procedure: XR shoulder LT min 2V Ordering Provider: Geoffrey Araiza D.O. PROCEDURE: XR SHOULDER LT MIN 2V INDICATIONS: pain after seizure TECHNIQUE: 2 views of the shoulder were acquired. COMPARISON: None. FINDINGS: Bones: No fractures or dislocations. No suspicious bony lesions. Visualized ribs appear intact. There is slight subluxation of the humeral head at the glenohumeral joint without dislocation. Acromioclavicular degenerative narrowing is present. Soft tissues: No suspicious soft tissue calcifications. IMPRESSION: No visualized acute fracture or dislocation. However, if clinical concern and/or pain persist, short interval imaging followup in 7-10 days is recommended, as occult injury cannot be definitively excluded. Dictated by: Nuria Frey M.D. on 07/31/2019 at 21:52 Approved by: Nuria Frey M.D. on 07/31/2019 at 21:53 MDM Narrative Medical decision making narrative: Dr araiza: Received turned over from day provider. Reviewed patient's history and physical and labs and note up to this point. Patient does have a history of a right-sided CVA with left-sided hemiplegia. Recently he had medications changed which I do not think caused his seizure today. Given his CVA history of not surprised that he is having a seizure. He is at risk for this. He has never had a seizure prior to this. Does seem to have a been a very traumatic event for the family. Initial plan from the day provider was to have the patient discharged home however the family refused to take him home. I did discuss with Clement about a transfer to a facility that has neurology however there was no bed availability. Patient was observed here overnight. He slept overnight without any seizure-like activity. Was able to tolerate his medications this morning. During my evaluation he was complaining of left arm pain. The x-ray shows no acute fractures or dislocations. Social work consult was placed. I feel that now he is tolerating oral intake. Has a reason to be having seizures. He has no signs of any acute pathology on any of his labs or radiologic studies. I do not feel the patient needs admitted to the hospital however does seem to be quite a bit of social/family anxiety given his presentation. We were unable to get in touch with his primary doctor. I did inform the patient that he will most likely be discharged today after he Sees social work. Care was turned over to do provided a follow-up after social work <Tameka Rosales DO - Last Filed: 08/01/19 16:59> Lab Data Labs: Lab Results 07/31/19 07/31/19 07/31/19 Range/Units 17:55 18:50 18:50 WBC 9.1 (4.5-11.0) X10^3/uL RBC 4.95 (4.5-5.9) X10^6/uL Hgb 15.1 (13.5-17.5) g/dL Hct 43.4 (41-53) % MCV 87.7 (80-100) fL MCH 30.5 (26-34) PG MCHC 34.8 (30-36) % RDW 13.6 (11.6-14.8) % Plt Count 220 (150-400) X10^3/uL Neut % (Auto) 90.7 H (50-75) % Lymph % (Auto) 6.2 L (25-40) % [place] % (Auto) 2.9 L (3-14) % Eos % (Auto) 0.1 L (2-4) % Baso % (Auto) 0.1 (0-2) % Neut # (Auto) 8200 H (3085-2884) /uL Lymph # (Auto) 600 L (4187-6907) /uL [place] # (Auto) 300 (0-900) /uL Eos # (Auto) 0 (0-450) /uL Baso # (Auto) 0 (0-100) /uL Sodium 140 (137-145) mmol/L Potassium 3.8 (3.4-5.1) mmol/L Chloride 103 (98-107) mmol/L Carbon Dioxide 26 (22-32) mmol/L BUN 10 (9-20) mg/dL Creatinine 0.60 L (0.66-1.25) mg/dL Estimated GFR > 60.0 (>60) mL/min BUN/Creatinine Ratio 16.7 (6-22) Glucose 129 H (70-100) mg/dL Calcium 9.7 (8.4-10.2) mg/dL Magnesium 2.1 (1.6-2.3) mg/dL Prolactin 15.4 (3.7-17.9) ng/mL Urine Color Urine Appearance Urine pH (4.5-8.0) Ur Specific [place] (1.000-1.035) Urine Protein (Negative) Urine Glucose (UA) (Negative) g/dL Urine Ketones (NEGATIVE) Urine Occult Blood (Negative) Urine Nitrate (Negative) Urine Bilirubin (NEGATIVE) Urine Urobilinogen (0.2) E.U./dL Ur Leukocyte Esterase (NEGATIVE) U Opiates 300ng/mL cut (Negative) Ur Oxycodone Screen (Negative) Urine Methadone Screen (Negative) Ur Barbiturates Screen (Negative) U Tricyclic Antidepress (Negative) Ur Phencyclidine Scrn (Negative) Ur Amphetamines Screen (Negative) U Methamphetamines Scrn (Negative) Ur MDMA Scrn (Ecstasy) (Negative) U Benzodiazepines Scrn (Negative) Urine Cocaine Screen (Negative) U Marijuana (THC) Screen (Negative) Influenza A (RT-PCR) Flu a negative (NEGATIVE) Influenza B (RT-PCR) Flu b negative (NEGATIVE) 07/31/19 07/31/19 Range/Units 20:15 20:15 WBC (4.5-11.0) X10^3/uL RBC (4.5-5.9) X10^6/uL Hgb (13.5-17.5) g/dL Hct (41-53) % MCV (80-100) fL MCH (26-34) PG MCHC (30-36) % RDW (11.6-14.8) % Plt Count (150-400) X10^3/uL Neut % (Auto) (50-75) % Lymph % (Auto) (25-40) % [place] % (Auto) (3-14) % Eos % (Auto) (2-4) % Baso % (Auto) (0-2) % Neut # (Auto) (2441-7184) /uL Lymph # (Auto) (8552-2755) /uL Weakley # (Auto) (0-900) /uL Eos # (Auto) (0-450) /uL Baso # (Auto) (0-100) /uL Sodium (137-145) mmol/L Potassium (3.4-5.1) mmol/L Chloride (98-107) mmol/L Carbon Dioxide (22-32) mmol/L BUN (9-20) mg/dL Creatinine (0.66-1.25) mg/dL Estimated GFR (>60) mL/min BUN/Creatinine Ratio (6-22) Glucose (70-100) mg/dL Calcium (8.4-10.2) mg/dL Magnesium (1.6-2.3) mg/dL Prolactin (3.7-17.9) ng/mL Urine Color Yellow Urine Appearance Clear Urine pH 7.0 (4.5-8.0) Ur Specific [place] 1.020 (1.000-1.035) Urine Protein Trace H (Negative) Urine Glucose (UA) Negative (Negative) g/dL Urine Ketones Trace H (NEGATIVE) Urine Occult Blood Negative (Negative) Urine Nitrate Negative (Negative) Urine Bilirubin Negative (NEGATIVE) Urine Urobilinogen 0.2 (0.2) E.U./dL Ur Leukocyte Esterase Negative (NEGATIVE) U Opiates 300ng/mL cut Negative (Negative) Ur Oxycodone Screen Negative (Negative) Urine Methadone Screen Negative (Negative) Ur Barbiturates Screen Negative (Negative) U Tricyclic Antidepress Negative (Negative) Ur Phencyclidine Scrn Negative (Negative) Ur Amphetamines Screen Negative (Negative) U Methamphetamines Scrn Negative (Negative) Ur MDMA Scrn (Ecstasy) Negative (Negative) U Benzodiazepines Scrn Negative (Negative) Urine Cocaine Screen Negative (Negative) U Marijuana (THC) Screen Negative (Negative) Influenza A (RT-PCR) (NEGATIVE) Influenza B (RT-PCR) (NEGATIVE) Point of Care Testing Glucose POC 174 MDM Narrative Medical decision making narrative: Patient signed out to me by Dr. Araiza. Patient is currently sleeping. I've discussed case with social Work who is happy to help set up home services for patient of needs to be at bedside. I've called and spoken with the she is very concerned about him not getting his Pradaxa. She again states that she is unable to take him home and will not pick him. I've called and spoken with social Work who has reached out to her they are currently working on options. Patient has been in the emergency department for almost 16 hours he has had no recurrent seizure he has had [address] Cathie Osei, Neurology through [facility] has been updated patient's symptoms and test results agrees with 500 mg b.i.d. I've spoken with the [facility] doctor as well who was playing and urgent referral for [facility]. Request social work has worked long and hard all day to help get what she needs, which includes long-term care facility however they [address]. Unfortunately this request cannot be met today. However social work has done the best they can. Please refer to their notes 5:00 p.m. is now here to take patient home The patient is given 3rd dose of Keppra in the emergency department. Discharge Plan Departure Patient Disposition: Home Clinical Impression: Grand mal seizure, Intractable nausea and vomiting Discharge Date/Time: 08/01/19 17:15 Instructions: DI for Febrile Seizures, DI for Seizure (Not Epilepsy/Seizure Disorder) Activity Restrictions/Additional Instructions: You need to follow-up with your family physician to monitor your Keppra and adjust the doses as necessary for seizures. The seizure is the result of your previous stroke. You have been prescribed Keppra 500 mg twice a day. You need to follow-up with your family doctor because that medication may need to be increased. Your influenza swabs were negative your chest x-ray was negative for any pneumonia. Your blood work chemistries are within normal limits. Take the Zofran for nausea and vomiting and for your headache you can take Tylenol 1 g every 6 hours. Prescriptions: New levetiracetam [Keppra] 500 mg tablet 500 mg PO Q12H Qty: 60 RF: 0 ondansetron HCl [Zofran] 8 mg tablet 8 mg PO Q8H Qty: 14 RF: 0 No Action amantadine HCl 100 mg Tablet 100 mg PO BID RF: 0 atorvastatin 20 mg Tablet 20 mg PO BEDTIME RF: 0 aspirin 81 mg Tablet,Delayed Release (Dr/Ec) 81 mg PO DAILY RF: 0 famotidine 20 mg Tablet 20 mg PO BID RF: 0 amlodipine 10 mg Tablet 10 mg PO DAILY RF: 0 fluoxetine 20 mg Tablet 20 mg PO DAILY RF: 0 ondansetron 4 mg Tablet,Disintegrating 4 mg PO QID RF: 0 acetaminophen 325 mg Tablet 650 mg PO Q4H MDD 3000 mg PRN (Reason: pain) RF: 0 quetiapine 25 mg Tablet 25 mg PO DAILY RF: 0 potassium chloride 10 mEq Capsule, Extended Release 10 meq PO DAILY RF: 0 gabapentin 300 mg Capsule 300 mg PO TID RF: 0 Pradaxa 150 mg Capsule 150 mg PO BID RF: 0 Referrals: Pavan Gallego MD [Primary Care Provider] -
--- NOTE | 2019-07-31 17:46 | DI.RAD.S_ITS ---
PROCEDURE: XR CHEST 1V INDICATIONS: stroke, left hemiparesis, productive cough,seizure TECHNIQUE: One view of the chest was acquired. COMPARISON: None. FINDINGS: Surgical changes and devices: None. Lungs and pleura: Mild increased pulmonary vascularity is present. Mediastinum: Mediastinal contours appear normal. Heart size is enlarged. Bones and chest wall: No suspicious bony lesions. Overlying soft tissues appear unremarkable. IMPRESSION: Mild increased vascularity suggestive of edema. Dictated by: Nuria Frey M.D. on 07/31/2019 at 18:00 Approved by: Nuria Frey M.D. on 07/31/2019 at 18:01
[2019-07-31 18:00] VITALS: BP 142/76; PULSE 68; RESP 16; O2SAT 92
[2019-07-31 18:34] LABS: Influenza A - CEPHEID Flu A NEGATIVE (NEGATIVE); Influenza B - CEPHEID Flu B NEGATIVE (NEGATIVE)
[2019-07-31] MEDS: KETOROLAC 60 MG/2 ML VIAL 30 MG IV (18:51)
[2019-07-31] MEDS: ONDANSETRON 4 MG/2 ML INJ IV (18:52)
[2019-07-31 19:01] LABS: Add Manual Diff / Slide Review NO; Basophils Absolute Auto 0 /uL (0-100); Basophils Percent Auto 0.1 % (0-2); Eosinophils Absolute Auto 0 /uL (0-450); Eosinophils Percent Auto 0.1 % (2-4); Hematocrit 43.4 % (41-53); Hemoglobin 15.1 g/dL (13.5-17.5); Lymphocytes Absolute Auto 600 /uL (1100-4500); Lymphocytes Percent Auto 6.2 % (25-40); Mean Corpuscular HGB Conc 34.8 % (30-36); Mean Corpuscular Hemoglobin 30.5 PG (26-34); Mean Corpuscular Volume 87.7 fL (80-100); Monocytes Absolute Auto 300 /uL (0-900); Monocytes Percent Auto 2.9 % (3-14); Neutrophils Absolute Auto 8200 /uL (1500-7000); Neutrophils Percent Auto 90.7 % (50-75); Platelet Count 220 X10^3/uL (150-400); Red Blood Cell Count 4.95 X10^6/uL (4.5-5.9); Red Cell Distribution Width 13.6 % (11.6-14.8); White Blood Cell Count 9.1 X10^3/uL (4.5-11.0)
[2019-07-31 19:14] LABS: BUN Creatinine Ratio 16.7 (6-22); Blood Urea Nitrogen 10 mg/dL (9-20); Calcium 9.7 mg/dL (8.4-10.2); Carbon Dioxide 26 mmol/L (22-32); Chloride 103 mmol/L (98-107); Estimated Glomerular Filt Rate > 60.0 mL/min (>60); Glucose 129 mg/dL (70-100); HEMOLYSIS < 15 (0-50); Magnesium 2.1 mg/dL (1.6-2.3); Potassium 3.8 mmol/L (3.4-5.1); Sodium 140 mmol/L (137-145)
[2019-07-31 19:29] VITALS: BP 126/88; PULSE 87; RESP 16; O2SAT 93
[2019-07-31 19:31] LABS: Prolactin 15.4 ng/mL (3.7-17.9)
[2019-07-31 20:02] VITALS: BP 122/72; PULSE 75; RESP 14; O2SAT 98
[2019-07-31] MEDS: ACETAMINOPHEN 325 MG TABLET 975 MG PO (20:37)
[2019-07-31 20:50] LABS: Appearance Urine UA CLEAR; Bilirubin Urine UA NEGATIVE (NEGATIVE); Color Urine UA YELLOW; Glucose Urine UA NEGATIVE (Negative); Ketones Urine UA TRACE (NEGATIVE); Leukocyte Esterase Urine UA NEGATIVE (NEGATIVE); Nitrite Urine UA NEGATIVE (Negative); Occult Blood Urine UA NEGATIVE (Negative); Protein Urine UA TRACE (Negative); Urobilinogen Urine UA 0.2 E.U./dL (0.2)
[2019-07-31 21:00] LABS: UR Morphine/Opiate cutoff 300 Negative (Negative); Ur Creatinine Normal (Normal); Ur Specific Gravity Normal (Normal); Urine Amphetamines Negative (Negative); Urine Barbiturates Negative (Negative); Urine Benzodiazepines Negative (Negative); Urine Cocaine Negative (Negative); Urine MDMA Negative (Negative); Urine Methadone Negative (Negative); Urine Methamphetamines Negative (Negative); Urine Oxycodone Negative (Negative); Urine Phencyclidine Negative (Negative); Urine Tetrahydrocannabinol Negative (Negative); Urine Tricyclic Antidepressant Negative (Negative); Urine pH Normal (Normal)
--- NOTE | 2019-07-31 21:14 | DI.RAD.S_ITS ---
PROCEDURE: XR SHOULDER LT MIN 2V INDICATIONS: pain after seizure TECHNIQUE: 2 views of the shoulder were acquired. COMPARISON: None. FINDINGS: Bones: No fractures or dislocations. No suspicious bony lesions. Visualized ribs appear intact. There is slight subluxation of the humeral head at the glenohumeral joint without dislocation. Acromioclavicular degenerative narrowing is present. Soft tissues: No suspicious soft tissue calcifications. IMPRESSION: No visualized acute fracture or dislocation. However, if clinical concern and/or pain persist, short interval imaging followup in 7-10 days is recommended, as occult injury cannot be definitively excluded. Dictated by: Nuria Frey M.D. on 07/31/2019 at 21:52 Approved by: Nuria Frey M.D. on 07/31/2019 at 21:53
--- NOTE | 2019-07-31 21:26 | PC.NURSE ---
Call Pt , Nohemy Le, at [phone] if Pt is transferred.
[2019-07-31] MEDS: METOCLOPRAMIDE 10 MG/2 ML INJ IV (21:47)
[2019-07-31 22:16] VITALS: BP 110/67; PULSE 89; RESP 18; O2SAT 96
--- NOTE | 2019-07-31 22:17 | PC.NURSE ---
Pts o2 sats dropped to mid 80's with a steady pleth. JOVON Llanes aware and pt was put on 2L of o2 via nasal cannula. Pt now has o2 sat of 98 with a steady pleth
--- NOTE | 2019-07-31 22:52 | PC.NURSE ---
2150 hours: Pt administered evening dose of Pradaxa. Per EDP, Pt will take home medications while boarding.
[2019-08-01] VITALS (11 sets, daily range): BP systolic 110–195; BP diastolic 69–83; PULSE 61–71; RESP 12–21; O2SAT 93–100
--- NOTE | 2019-08-01 02:02 | PC.NURSE ---
assisted patient with urinal. Patient then reported he has to pass stool. Commode brought to right side of bed and patient was able to slide transfer to commode with close 1pa help from this nurse. Pt wiped self. Patient required a heavy 1pa transfer to standing where he was then able to sit self on edge of stretcher. Patient layed self down and rewquired help getting straight in bed. Patient assisted with a boost using his left leg. Patient denies further needs at this time. Call light placed on right side of bed and bed is plugged in so patient can adjust per needs.
[2019-08-01] MEDS: levETIRAcetam 250 MG TABLET 500 MG PO ×2 (05:34→17:11)
--- NOTE | 2019-08-01 07:21 | PC.NURSE ---
Pt was 2 person assist to use commode.
--- NOTE | 2019-08-01 07:48 | PC.NURSE ---
pt made a remark, im dying, i had seizure yesterday, my cant handle me anymore, im too much for her plan waiting for social consult.
[2019-08-01] MEDS: DABIGATRAN 75 MG CAPSULE 150 MG PO (08:47)
--- NOTE | 2019-08-01 12:00 | PT.IIE ---
Surgical History (Last Reviewed 07/31/19 @ 17:41 by Nasir Talbert MD) H/O craniotomy (Acute) Medical History (Last Reviewed 07/31/19 @ 17:41 by Nasir Talbert MD) Cerebral infarction due to unspecified occlusion or stenosis of unspecified carotid artery (Acute) Hemiplegia and hemiparesis following cerebral infarction affecting left non-dominant side (Acute) Major depressive disorder (Acute) Physical Therapy Inpatient Evaluation/Re-Eval M1 PT/OT-IP Prior Functional Status Start: 08/01/19 14:14 Freq: Status: Active Protocol: Document 08/01/19 12:00 AB (Rec: 08/01/19 14:34 AB [id number]) Medical Review Prior Functional Status Medical History Reviewed Yes Communication pt able to make needs known Mobility and Gait [id number] in room and stated that pt requires max a X 1-2 with all mobilities. pt is non-ambulatory and has a manual w/c but ALEJANDRA stated that he is unable to maneuver w/c by himself and needs assistance. pt transfers using a transfer pole. pt also goes down to the floor and does a sitting bump up 15 steps to get to main level of the house and 2 person assists him to get up from the floor. Social History Household Members spouse,children Living Arrangements House Number of Floors (Floors) Two Floors Number of Stairs To Enter/Railing? 15 steps to main level of the house with R rail ascending Home Equipment Manual Wheelchair Additional Social History Comment pt has a transfer pole to transfer toilet/ bed <>w/c M2 PT-IP Current Condition Start: 08/01/19 14:14 Freq: Status: Active Protocol: Document 08/01/19 12:00 AB (Rec: 08/01/19 14:34 [id number]) Physical Therapy Current Condition Current Condition Evaluation Date 08/01/19 Treatment Diagnosis seizure; generalized weakness Onset Date 08/01/2019 Precautions Other Precautions falls; seizures M3 PT-IP Subjective Start: 08/01/19 14:14 Freq: Status: Active Protocol: Document 08/01/19 12:00 AB (Rec: 08/01/19 14:34 [id number]) Subjective Physical Therapy Visit Type Type Initial Evaluation Visit Start Time 12:00 Visit Stop Time 13:12 Total Visit Minutes 72 Number of POOL INSTALLER Visits 0 Physical Therapy Visit Comments Patient Comments pt initially asleep and needs cues to wake up but able to stay awake afterwards M4 PT-IP Mobility and Gait Start: 08/01/19 14:14 Freq: Status: Active Protocol: Document 08/01/19 12:00 AB (Rec: 08/01/19 14:34 AB [id number]) PT-Bed Mobility Assessment Supine to Sit Supine to Sit Minimal Assistance,Bedrails Sit to Supine Sit to Supine Maximum Assistance,2 Person Assistance PT-Transfer Assessment Sit to and From Stand Sit to and from Stand Maximum Assistance,2 Person Assistance,Use of Upper Extremities Equipment Transfer Assistive Device [place] Walker Orthotic/Prosthetic Devices or Brace: No Transfers Transfer Destination Bedside Commode Transfer Technique Stand Step Pivot Transfer Ability Level of Assist Maximum Assistance,2 Person Assistance,Use of Upper Extremities Comments Mobility Comments pt with [id number] in room. pt is very impulsive. completed supine to sit min A and cues using bed rail. has increase posterior trunk leaning requiring min A to lean forward and for balance. pt with increase LLE extensor tone but increase flexor tone on LUE. pt completed sit to stand from EOB max A x 2 and max cues. requires assist to stabilize LLE. completed step pivot max A x 2 and max cues and requires assist with weight shifting to be able to move LLE. pt sat on bedside commode midway through transfer despite cues to take more steps and required max A for controlled descent and for positioning. pt completed stand step transfer back to bed using hemiwalker max A x 2 and max cues. completed sit to supine max A x 2 and max cues. positioned pt in bed. Left pt with family in room. PT-Balance Assessment Sitting Balance and Reactions Static Sitting Balance Ability Fair Dynamic Sitting Balance Ability Poor Standing Balance and Reactions Static Standing Balance Ability Poor Dynamic Standing Balance Ability Poor Device Used hemiwalker M5 PT-IP Objective Assessments Start: 08/01/19 14:14 Freq: Status: Active Protocol: Document 08/01/19 12:00 AB (Rec: 08/01/19 14:34 AB [id number]) Orientation Orientation/Cognition Level of Alertness Alert Orientation Name Safety Awareness Decreased Safety Awareness Gross Range of Motion Lower Extremity ROM Assessment Left Impaired Impairments L ankle ~ 5 degrees less to neutral Strength Lower Extremity Strength Assessment Left Impaired Hip 2+/5 Knee 2-/5 Ankle 1/5 Muscle Tone Muscle Tone WNL No Muscle Tone Location Left Upper Extremity Type of Tone Hypertonicity,Flexor Severity of Tone Moderate Left Lower Extremity Type of Tone Hypertonicity,Extensor,Clonus Severity of Tone Moderate Manifistation of Tone Fluctuation M6 PT-IP Treatment Start: 08/01/19 14:14 Freq: Status: Active Protocol: Document 08/01/19 12:00 AB (Rec: 08/01/19 14:34 AB [id number]) Physical Therapy Treatment Education Education Provided Safety M7 PT-IP Assessment and Plan Start: 08/01/19 14:14 Freq: Status: Active Protocol: Document 08/01/19 12:00 AB (Rec: 08/01/19 14:34 AB [id number]) PT Summary Assessment and Plan Potential Rehabilitation Potential Fair Status of Condition at Evaluation Evolving Summary Impairments Pain,ROM,Strength,Balance, Coordination,Sensation,Tone, Cognition,Bed Mobility, Transfers,Gait,Activity Tolerance Assessment Summary pt requiring max A x 2 and max ues and is impulsive . Pt requires max cues with all tasks for techniques and safety. pt is not safe to go home and will require SNF rehab and possible LTC depending on assistance available at home and pt's progress but at this time, pt is requiring max A x 2 and max cues. Goals Bed Mobility Goal Standby Assistance Transfer Goal Moderate Assistance Gait Goal Moderate Assistance,[place] Walker Gait Distance 25 Days to Meet Goals 10 Frequency of Treatment Frequency Of Treatment Twice a Day Treatment Plan Physical Therapy Treatment Plan Bed Mobility Training,Transfer Training,Gait Training, Therapeutic Exercise,Balance Retraining,Post Op Education, Discharge Planning,Hot or Cold Pack,Neuromuscular Re-ed, Coordination Retraining,Manual Therapy Other Recommendations and Next Treatment sitting/standing balance Focus tolerance, transfers Recommendations To Nursing Amount of Assist Needed 2 Person Assist,Mechanical Lift Discharge Recommendations PT Discharge Recommendations SNF Rehab Transportation Needs at Discharge Wheelchair/Cabulance
--- NOTE | 2019-08-01 14:50 | CM.SWNOTE ---
Addendum entered by LISSET Rebollar 08/01/19 15:59: ADD: Return call from [facility] and their physician review team denied SNF auth. LOPEZ requested they also contact spouse to update as she has been the main person coordinating care for the pt. LOPEZ updated MD on [facility] denial. LOPEZ called spouse and she confirms that [facility] called her with denial. SW updated her that [facility] admissions Elza is aware of pt here and his status and will review their records and call spouse josé miguel with financial information regarding private pay SNF for the pt and determine if spouse is agreeable. SW updated spouse that her second choice for [facility] SNF of [facility] does not accept new admissions over the weekend. Spouse discussed that if [facility] is not a financial option or doesn't have openings then they will figure out taking pt home and continuing to call SNF's to determine if they can find one that has an opening and is somewhat affordable. SW updated MD who plans to call spouse in about half an hour to determine d/c plan of home vs private pay SNF at [facility]. BF Original Note: Patient is a 54 year old male who was admitted on 08/01/19 to [facility] for seizure. SW confirmed that PT kindly agreed to manage to assess pt in the ED for PT eval and recommendation is SNF. SW called [facility] olga/pam [facility] SNF coordinator and updated and return call from [facility] [place] who is reviewing pt for SNF and aware that PT note will be faxed now and will continue review. SW confirmed that their closest SNF's contracted near [place] is [facility] in [place] or [facility]. SW called pt's spouse Nohemy and updated on [facility] ongoing review and discussed SNF preference and spouse states that if [facility] approves SNF then preference would be 1) [facility] 2) [facility] in [place]. Spouse states if [facility] denies SNF auth then preference is 1) [facility] 2) [facility] for private pay SNF. Plan: SW to follow for ongoing [facility] review to determine if they will auth SNF and referrals to SNF's for placement either under pt's insurance or private pay. BF Discharge Planning/Care Management COMMERCIAL CREDIT LEAD - Physician Ophthalmologist Assessment Start: 08/01/19 11:13 Freq: Status: Active Protocol: Document 08/01/19 11:13 BF (Rec: 08/01/19 11:24 BF [id number]) COMMERCIAL CREDIT LEAD/Physician Ophthalmologist Assessment Start date 08/01/19 Visit Start Time 10:00 Orientation (Person/Place/Time) Alert and Oriented x3 Affect tearful, concerned Suicidal Ideation (Plan) No Homicidal Ideation (Plan) No Intervention Patient was admitted to [facility] for seizure activity and has hx of stroke in Mar 2019 with Acute Rehab and SNF rehab at [facility] with recent d/c home on 06/30/19 with [facility] currently open. Spouse states that pt has required 24/7 care and is typically a 2PA at baseline and that she and friends/family have been informally caring for pt in the home but he is requiring too much assist at this time for them to safely keep him in the home. Pt and spouse also have a 7 year old Dtr who has had to help call 911 when pt had seizure yesterday and family had to do chest compressions. 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 Spouse clearly states she cannot safely take pt home at this point and ideally she requests support with [facility] auth for SNF short rehab while they are trying to get [facility] care in place. COMMERCIAL CREDIT LEAD discussed the need for [facility] to review and determine if pt meets criteria for SNF and that pt may be denied and back up plan needed if [facility] does not auth. Spouse confirms she is aware of the [facility] process for SNF and states that she would be willing to private pay for SNF if [facility] does not allow. Pt has hx at [facility] but is considering SNF in [place] and requests support with getting list of [place] SNF's and aware that private pay SNF could be around $300 a day. RA Plan COMMERCIAL CREDIT LEAD updated who is agreeable to place PT order for eval towards possible SNF placement and called weekend Clement Barboza ([phone]) and updated on pt status and she requests COMMERCIAL CREDIT LEAD call the [facility] ER #[phone]) since pt has not been admitted to start the process and she will review clinicals that COMMERCIAL CREDIT LEAD just faxed and aware we are waiting for PT eval. SW called PT and left vocera msg requesting urgent eval if possible. COMMERCIAL CREDIT LEAD to follow closely for PT eval, [facility] review of pt and getting list of [place] [facility]F's for spouse to make preference and begin the process of [facility] approved vs private pay SNF.
== END 2019-08-01 17:15 | disposition home or self-care (01) ==
PROVIDERS: Emergency Medicine; Emergency Provider Emergency Medicine; Family Provider Family Medicine; PCP Family Medicine
DX: G40.409 Other generalized epilepsy and epileptic syndromes, not intractable, without status epilepticus (principal); R11.2 Nausea with vomiting, unspecified; M25.512 Pain in left shoulder
CPT/HCPCS: 36415; 70450; 71045; 73030; 80048; 80305; 81003; 82962; 83735; 84146; 85025; 87502; 93005; 93010; 96361; 96365; 96375; 96376; 97162; 99285; J1885; J1953; J2405; J2765

== ENCOUNTER 2020-07-05 09:30 | Outpatient (RCR) | payer OTHER, SELFPAY ==
--- NOTE | 2020-06-20 15:30 | OT.OP.EVAL ---
Visit Care Team Role Provider Type Pavan Gallego MD Primary Care Provider Non-Staff Specialty: Family Practice Address: [address] [place] [address], [id number] Email: Edson Mesa PA-C Attending Provider Non-Staff Referring Provider Specialty: Medical Address: [address] [place] [address], [phone] Fax: Email: Occupational Therapy Initial Evaluation OT Outpatient Adult Evaluation Start: 06/21/20 09:21 Freq: Status: Active Protocol: Document 06/20/20 15:30 AMS (Rec: 06/21/20 09:28 AMS [id number]) General Information Visit Start Time 12:30 Visit Stop Time 13:20 Total Visit Minutes 50 Plan of Care Dates 06/20/20-09/12/20 Treatment Setting Outpatient Care Note Type Initial Evaluation Identification Confirmed Yes: patient/uncle Goals Treatment ROM. Tone management. Education. Detention Goals 1. Patient will be modified independent with execution of upper extremity home exercise program utilizing provided written and visual instructions with the support of his family and/or caregivers. 2. Patient will be actively utilizing distal left upper extremity functional brace to maintain/minimize contracture formation of the digits/wrist on a daily basis requiring support from his family and/or caregivers with at least donning the brace. 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 Ajith has an 8 year-old daughter and is currently in the process of getting . He receives 24 hour care from his parents and siblings. PMH: Depression; Grand mal seizure (07/2019); h/ o home health PLOF: Independent. Full-time construction coordinator (concrete) . Patient Goals: Be able to cook with his daughter. Evaluation Findings: Arrived in w/c. Has GivMohr sling; did not arrive with sling on. Has Softpro functional distal L UE wrist/hand brace (size Large). Reportedly patient has not been wearing brace d/t issues w/ donning secondary to tone. Has custom AFO. Cueing to support safe transfer. Min phys assist w/c -> EOM going to R; Supervision w/ EOM -> w/ c R. Supervision w/ EOM <-> supine. Functional abilities: Per patient, he is able to don/doff sweatshirt without assistance; he is mod independent with toileting, self-feeding, and g/h tasks ( however, he does receive assistance from sister w/ shaving). He also reported that he needs assistance with bathing (has shower stool that is in shower stall). Additional Findings: Impaired L UE sensation. L sided neglect. Decreased awareness of L UE in space. L g/h subluxation. Poor tone management. R UE AROM WNL. L SHOULDER AROM: 0-0 degrees active L sh flex; 0-10 degrees active L sh ext; 0-0 degrees active L sh abd; 0-0 degrees active L sh ER; 0-0 degrees active L sh IR. ELBOW AROM: 0 -65 degrees active L elbow flex; 0-80 degrees active L elbow ext. 0-0 degrees active forearm pronation/supination. WRIST/HAND AROM: No AROM of wrist/digits/hand observed time of initial evaluation. Poor safety awareness. Cognitive/memory impairments. Poor self-directed tone management. Outpatient OT is recommended to provide education (to maintain available ROM and/or minimize/prevent contracture formation of UE), support identification/use of appropriate g/h subluxation sling, support use of current functional tone wrist/digit brace vs identification of alternative brace to support carry-over, support use of NMES for UE, and to support family's success w/ carry-over of an appropriate HEP and to maintain available functional ROM. Comment 12 weeks Treatment Frequency Once a Week Therapeutic Contents Active Range of Motion, Adaptive Equipment Education, Client Education,Cognitive Skills Development,Functional Activities,Home Exercise Program,Joint Protection, Education,Neurodevelopment Treatment,Neuromuscular Re- Education,Splinting,Stretching /Flexibility Activities, Therapeutic Activities, Therapeutic Exercises, Modalities,Sensory Re- education Modalities As Needed,As Prescribed Types of Modalities E-Stim,Functional Stimulation (FES),T.E.N. Stimulation,TENS Placement/Application
--- NOTE | 2020-06-28 12:25 | OT.OP.TRT ---
Visit Care Team Role Provider Type Pavan Gallego MD Primary Care Provider Non-Staff Specialty: Family Practice Address: [address] [place] [address], [phone] Email: Edson Mesa PA-C Attending Provider Non-Staff Referring Provider Specialty: Medical Address: [address] [place] [address], [phone] Fax: Email: Occupational Therapy Treatment Note OT Outpatient Treatment Note - Adult Start: 06/21/20 09:21 Freq: Status: Active Protocol: Document 06/28/20 12:12 AMS (Rec: 06/28/20 12:25 AMS [id number]) OT Outpatient Adult Treatment Note Session Time Visit Start Time 09:30 Visit Stop Time 10:20 Total Visit Minutes 50 Visit Information Plan of Care Dates 06/20/20-09/12/20 Setting Treatment Setting Outpatient Care Visit Type Note Type Treatment Note General Information General Information Patient is a 55 year-old right hand dominant male referred to outpatient OT secondary to L hemiparesis s/p R CVA which occurred in March of 2019. Ajith has an 8 year-old daughter and is currently in the process of getting . He receives 24 hour care from his parents and siblings. PMH: Depression; Grand mal seizure (07/2019); h/ o home health - Subjective Identification Type Name Identification Reconciled With Medical Record Observations Uncle provided transportation of Ajith to and from treatment session. - Objective Objective Measurements Please refer to below for progress towards meeting established OT goals. Tank Hoop Bender Goals 1. Patient will be modified independent with execution of upper extremity home exercise program utilizing provided written and visual instructions with the support of his family and/or caregivers. 2. Patient will be actively utilizing distal left upper extremity functional brace to maintain/minimize contracture formation of the digits/wrist on a daily basis requiring support from his family and/or caregivers with at least donning the brace. - Treatment 1 Descriptor Tone management. Orientation to midline. Awareness of L UE in space. Exercises 5 Descriptor Theraband L UE exercises. Elbow ext. TB #1. 1x10. Modified sh ext. TB #1. 1x10. 4 Descriptor Elbow AROM. Elbow flex/ext. 1x10. 3 Descriptor Cane exercises. Elbow flex/ext. 1x10. Trunk rotation. 1x10. 2 Descriptor Scapular squeezes. 2x10. 1 Descriptor TT L UE exercises. 2x10. - Assessment Assessment of Improvement Patient did not arrive to treatment session w/ GivMohr sling. Poor tone management. Decreased safety awareness. L sided neglect; decreased attention to L UE (outside of protecting UE while seated - placement of UE in lap). Decreased initiation. Support required throughout exercises to support execution of repetitions. Able to participate in UE exercises with support. Initiated HEP w/ focus on maintaining available L sh ROM for functional purposes ( positioning UE out of yvrose pattern). Outpatient OT is recommended to provide education (to maintain available ROM and/or minimize/prevent contracture formation of UE), support identification/use of appropriate g/h subluxation sling, support use of current functional tone wrist/digit brace vs identification of alternative brace to support carry-over, support use of NMES for UE, and to support family's success w/ carry-over of an appropriate HEP and to maintain available functional ROM. Home Exercise Program Provided written/visual instructions. Focus on positioning of L UE out of yvrose pattern w/ sh abd (no > 90 degrees). - Plan Therapy Recommendations Continue with Current Program, Advance per Rehabilitation Protocol Additional Therapy Recommendations Consult w/ PT.
--- NOTE | 2020-07-05 14:08 | OT.OP.TRT ---
Visit Care Team Role Provider Type Pavan Gallego MD Primary Care Provider Non-Staff Specialty: Family Practice Address: [address] [place] [address], [phone] Email: Edson Mesa PA-C Attending Provider Non-Staff Referring Provider Specialty: Medical Address: [address] [place] [address], [phone] Fax: Email: Occupational Therapy Treatment Note OT Outpatient Treatment Note - Adult Start: 06/21/20 09:21 Freq: Status: Active Protocol: Document 07/05/20 13:58 AMS (Rec: 07/05/20 14:08 AMS [id number]) OT Outpatient Adult Treatment Note Session Time Visit Start Time 09:30 Visit Stop Time 10:20 Total Visit Minutes 50 Visit Information Plan of Care Dates 06/20/20-09/12/20 Setting Treatment Setting Outpatient Care Visit Type Note Type Treatment Note General Information General Information Patient is a 55 year-old right hand dominant male referred to outpatient OT secondary to L hemiparesis s/p R CVA which occurred in March of 2019. Ajith has an 8 year-old daughter and is currently in the process of getting . He receives 24 hour care from his parents and siblings. PMH: Depression; Grand mal seizure (07/2019); h/ o home health - Subjective Identification Type Name Identification Reconciled With Medical Record Observations Uncle provided transportation of Ajith to and from treatment session. Last visit for outpatient OT allowed for 2019 per outpatient clinic front office agent staff. - Objective Objective Measurements Please refer to below for progress towards meeting established OT goals. Fruit Press Operator Goals 1. Patient will be modified independent with execution of upper extremity home exercise program utilizing provided written and visual instructions with the support of his family and/or caregivers. 2. Patient will be actively utilizing distal left upper extremity functional brace to maintain/minimize contracture formation of the digits/wrist on a daily basis requiring support from his family and/or caregivers with at least donning the brace. - Treatment 1 Descriptor Tone management. Orientation to midline. Awareness of L UE in space. Exercises 5 Descriptor Theraband L UE exercises. Elbow ext. TB #1. 1x10. Modified sh ext. TB #1. 1x10. 4 Descriptor Elbow AROM. Elbow flex/ext. 1x10. 3 Descriptor Cane exercises. Elbow flex/ext. 1x10. Trunk rotation. 1x10. 2 Descriptor Scapular squeezes. 2x10. 1 Descriptor TT L UE exercises. 2x10. - Assessment Assessment of Improvement Patient did not arrive to treatment session w/ GivMohr sling (on and/or with him); patient was unable to identify specific reason for non- compliance. Patient reported that he has been trying to stretch his L UE out to the side as previously directed. L sided neglect; decreased attention to L UE. Poor tone management; assistance required to support weight bearing in sitting/standing. Increased success w/ weight bearing in sitting versus standing. Assistance required to support execution of exercises. Last treatment session allotted per 2019. Need to confer w/ outpatient PT to determine ongoing plan. Outpatient OT is recommended to provide education (to maintain available ROM and/or minimize/prevent contracture formation of UE), support identification/use of appropriate g/h subluxation sling, support use of current functional tone wrist/digit brace vs identification of alternative brace to support carry-over, support use of NMES for UE, and to support family's success w/ carry-over of an appropriate HEP and to maintain available functional ROM. Home Exercise Program No changes. - Plan Additional Therapy Recommendations Consult w/ PT.
--- NOTE | 2020-09-14 12:37 | OT.OP.DC ---
Visit Care Team Role Provider Type Pavan Gallego MD Primary Care Provider Non-Staff Address: [address] [place] [address], [id number] Email: dEson Mesa PA-C Attending Provider Non-Staff Referring Provider Address: [address] [place] [address], [phone] Fax: Email: OT Outpatient OT Outpatient Adult Evaluation Start: 06/21/20 09:21 Freq: Status: Active Protocol: Document 06/20/20 15:30 AMS (Rec: 06/21/20 09:28 AMS [id number]) General Information Session Time Visit Start Time 12:30 Visit Stop Time 13:20 Total Visit Minutes 50 Visit Information Plan of Care Dates 06/20/20-09/12/20 Setting Treatment Setting Outpatient Care Visit Type Note Type Initial Evaluation Identification Identification Confirmed Yes: patient/uncle Goals Treatment Treatment ROM. Tone management. Education. Director Funeral Goals Penitentiary Goals 1. Patient will be modified independent with execution of upper extremity home exercise program utilizing provided written and visual instructions with the support of his family and/or caregivers. 2. Patient will be actively utilizing distal left upper extremity functional brace to maintain/minimize contracture formation of the digits/wrist on a daily basis requiring support from his family and/or caregivers with at least donning the brace. Assessment/Plan Assessment Treatment Assessment Patient is a 55 year-old right hand dominant male referred to outpatient OT secondary to L hemiparesis s/p R CVA which occurred in March of 2019. Ajith has an 8 year-old daughter and is currently in the process of getting . He receives 24 hour care from his parents and siblings. PMH: Depression; Grand mal seizure (07/2019); h/ o home health PLOF: Independent. Full-time construction producer (concrete) . Patient Goals: Be able to cook with his daughter. Evaluation Findings: Arrived in w/c. Has GivMohr sling; did not arrive with sling on. Has Softpro functional distal L UE wrist/hand brace (size Large). Reportedly patient has not been wearing brace d/t issues w/ donning secondary to tone. Has custom AFO. Cueing to support safe transfer. Min phys assist w/c -> EOM going to R; Supervision w/ EOM -> w/ c R. Supervision w/ EOM <-> supine. Functional abilities: Per patient, he is able to don/doff sweatshirt without assistance; he is mod independent with toileting, self-feeding, and g/h tasks ( however, he does receive assistance from sister w/ shaving). He also reported that he needs assistance with bathing (has shower stool that is in shower stall). Additional Findings: Impaired L UE sensation. L sided neglect. Decreased awareness of L UE in space. L g/h subluxation. Poor tone management. R UE AROM WNL. L SHOULDER AROM: 0-0 degrees active L sh flex; 0-10 degrees active L sh ext; 0-0 degrees active L sh abd; 0-0 degrees active L sh ER; 0-0 degrees active L sh IR. ELBOW AROM: 0 -65 degrees active L elbow flex; 0-80 degrees active L elbow ext. 0-0 degrees active forearm pronation/supination. WRIST/HAND AROM: No AROM of wrist/digits/hand observed time of initial evaluation. Poor safety awareness. Cognitive/memory impairments. Poor self-directed tone management. Outpatient OT is recommended to provide education (to maintain available ROM and/or minimize/prevent contracture formation of UE), support identification/use of appropriate g/h subluxation sling, support use of current functional tone wrist/digit brace vs identification of alternative brace to support carry-over, support use of NMES for UE, and to support family's success w/ carry-over of an appropriate HEP and to maintain available functional ROM. Plan Comment 12 weeks Treatment Frequency Once a Week Therapeutic Contents Active Range of Motion, Adaptive Equipment Education, Client Education,Cognitive Skills Development,Functional Activities,Home Exercise Program,Joint Protection, Education,Neurodevelopment Treatment,Neuromuscular Re- Education,Splinting,Stretching /Flexibility Activities, Therapeutic Activities, Therapeutic Exercises, Modalities,Sensory Re- education Modalities As Needed,As Prescribed Types of Modalities E-Stim,Functional Stimulation (FES),T.E.N. Stimulation,TENS Placement/Application Sensory Assessment Sensory Profile2 Functional Wrist/Hand Scan Hand Side OT Outpatient Treatment Note - Adult Start: 06/21/20 09:21 Freq: Status: Active Protocol: Document 09/14/20 12:35 AMS (Rec: 09/14/20 12:37 [facility] [id number]) OT Outpatient Adult Treatment Note Visit Information Plan of Care Dates 06/20/20-09/12/20 Setting Treatment Setting Outpatient Care Visit Type Note Type Discharge Summary General Information General Information Patient is a 55 year-old right hand dominant male referred to outpatient OT secondary to L hemiparesis s/p R CVA which occurred in March of 2019. Ajith has an 8 year-old daughter and is currently in the process of getting . He receives 24 hour care from his parents and siblings. PMH: Depression; Grand mal seizure (07/2019); h/ o home health - Subjective Observations Patient has not been in the outpatient setting for OT since 07/05/2020 and the POC on 09/12/20. Thus, recommend d/c and resume outpatient services as deemed appropriate by PCP w/ new referral. - Objective Objective Measurements Please refer to below for progress towards meeting established OT goals. Director Funeral Goals ALL GOALS D/C OF 09/14/20 1. Patient will be modified independent with execution of upper extremity home exercise program utilizing provided written and visual instructions with the support of his family and/or caregivers. 2. Patient will be actively utilizing distal left upper extremity functional brace to maintain/minimize contracture formation of the digits/wrist on a daily basis requiring support from his family and/or caregivers with at least donning the brace. - - Assessment Assessment of Improvement Patient has not been in the outpatient setting for OT since 07/05/2020 and the POC on 09/12/20. Thus, recommend d/c and resume outpatient services as deemed appropriate by PCP w/ new referral. - Plan Therapy Recommendations Discharge from Occupational Therapy
== END 2020-09-30 10:49 ==
LOC: OT 09:30
PROVIDERS: PCP Family Medicine; Referring Provider Physician Assistant; Visit Provider Physician Assistant
DX: G81.94 Hemiplegia, unspecified affecting left nondominant side (principal); R53.1 Weakness
CPT/HCPCS: 97110; 97112; 97166

== ENCOUNTER 2020-09-21 11:00 | Outpatient (RCR) | payer OTHER, SELFPAY ==
--- NOTE | 2020-04-15 16:15 | PT.OIE ---
Current Diagnoses Hemiplegia, unspecified affecting left nondominant side (04/15/20) Other reduced mobility (04/15/20) Past Medical History (Last Reviewed 07/31/19 @ 17:41 by Nasir Talbert MD) Cerebral infarction due to unspecified occlusion or stenosis of unspecified carotid artery (Acute) Hemiplegia and hemiparesis following cerebral infarction affecting left non-dominant side (Acute) Major depressive disorder (Acute) Past Surgical History (Last Reviewed 07/31/19 @ 17:41 by Nasir Talbert MD) H/O craniotomy (Acute) Visit Care Team Role Provider Type Pavan Gallego MD Attending Provider Non-Staff Family Provider Primary Care Provider Referring Provider Specialty: Family Practice Address: [address] [place] [address], [facility] Email: Physical Therapy Initial Evaluation PT-OP-A Visit Information Start: 04/15/20 09:54 Freq: Status: Active Protocol: Document 04/15/20 11:00 AMB (Rec: 04/16/20 15:53 AMB [email or web address]) Out-Patient Physical Therapy Visit Information Visit Information Visit Type Initial Evaluation Visit Start Time 11:00 Visit Stop Time 11:55 Total Visit Minutes 55 Visit Number 1 PT-OP-B Current Condition Start: 04/15/20 09:54 Freq: Status: Active Protocol: Document 04/15/20 10:58 AMB (Rec: 04/15/20 11:58 AMB [id number]) Current Condition History of Current Condition Onset Date Mar 2019 Current Complaints L yvrose s/p R CVA History of Current Condition Ajith had a carotid dissection with subsequent craniotomy 13 months ago. He lives in a 2 level home and just finished with home health. He has an 8 year old daughter and is currently getting . He has 24 hour care from his parents, brother and sisters, he no longer lives with his or daughter. Per his brother's report he transfers independently from his w/c to the couch/bed, but he has had 2 recent falls at home where he got his feet wound up in blankets and then slid out of his bed onto the floor. He has a manual w/c, yvrose walker, and quad cane at home. He doesn't really use the cane or walker. He does walk around the kitchen island if there is someone close by for practice . Treatment Goals Patient/Caregiver Goals To be independent. He wants to be able to go outside with his daughter and work in the yard. 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 Current Functional Impairments (Reported) Functional Limitations- Mobility/Gait Ajith uses a w/c for all mobility, he can transfer in and out of the w/c. Personal Factors Other Personal Factors That May Effect Prior history of ACL and Therapy/Recovery meniscus surgery in college. depression. 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 PT-OP-C Subjective Start: 04/15/20 09:54 Freq: Status: Active Protocol: Document 04/15/20 11:00 AMB (Rec: 04/16/20 15:53 AMB [email or web address]) OP-PT Pain Assessment Location Shoulder Pain Location Details L>R shoulder Intensity 4 Scale Used Numeric (0 - 10) PT-OP-G Mobility & Gait Start: 04/15/20 09:54 Freq: Status: Active Protocol: Document 04/15/20 11:00 AMB (Rec: 04/16/20 15:53 AMB [email or web address]) OP Mobility Evaluation Bed Mobility Rolling Cici- pt with poor form but was able to do with cueing. Supine to and from Sit Supervision- required cueing for form, but did not need physical assistance, hooks yvrose leg to move it with his unaffected leg. Transfers Sit to Stand ModA for stabilization at L knee and steadying. Pt needed verbal cues to look at L foot and make sure it was in a good position before transfer. Bed to Chair Transfers Pt can perform at home with supervision per brother's report if he is in his w/c and removes the arm rest and performs a squat pivot transfer to the right only, pt is unable to perform wiht supervision if he tranfers to his yvrose side. Car Transfers Not witnessed by this PT, but from report sounds like Mod/ Arleth with pt performing a standing pivot transfer with heavy R UE use- pt needs a sturdy handle to hold onto. Floor Transfers Dependent Wheelchair Management Assessment Details Pt attended appointment in transport chair. Per report has manual w/c at home that he can propel for short distances over smooth terrain. OP Gait Assessment Comments Gait Comments Ambulated 2 lengths of the paralel bars with custom AFO and ModA, one loss of balance required assist due to yvrose knee giving way. Overall poor form with heavy use of UE, circumduction during swing of the yvrose leg, and poor quad control leads to unsteadiness during stance. PT-OP-H Neuro Start: 04/15/20 09:54 Freq: Status: Active Protocol: Document 04/15/20 11:00 AMB (Rec: 04/16/20 15:53 AMB [email or web address]) Sensation Evaluation Gross Sensation Gross Sensation Left UE Impaired,Left LE Impaired Sensation Description Numbness Comments Summary Comments Pt reports ability to sense deep pressure, but otherwise diminished sensation throughout entire left side. Deep Tendon Reflex & Clonus Assessment Ankle Clonus Left Clonus Assessment Sustained Muscle Tone Tone Assessment Left Lower Extremity Extensor Tone Description Moderate Hypertonicity Muscle Tone Comments with lying supine pt goes into extensor tone PT-OP-K Range of Motion Start: 04/15/20 09:54 Freq: Status: Active Protocol: Document 04/15/20 11:00 AMB (Rec: 04/16/20 15:53 AMB [email or web address]) Ankle and Foot Goniometric Range of Motion Ankle and Foot Left Passive Comments 20 degree plantarflexion contracture PT-OP-M Strength Start: 04/16/20 15:34 Freq: Status: Active Protocol: Document 04/15/20 11:00 AMB (Rec: 04/16/20 15:53 AMB [email or web address]) Hip Strength Hip Manual Muscle Testing Left Flexion (L2) 3- Fair- Abduction 2+ Poor+ Adduction 2+ Poor+ External Rotation 3- Fair- Internal Rotation 3 Fair Comments difficult for pt to move in a straight plane of motion, when asked to go into hip flexion, also abducts and rotates hip Knee Strength Knee Manual Muscle Testing Left Flexion (S2) 2- Poor- Extension (L3) 0 Zero Ankle/Foot Strength Ankle and Foot Manual Muscle Testing Left Dorsiflexion (L4) 0 Zero Plantarflexion (S1) 2 Poor Toe Strength Toe Manual Muscle Testing Left Great Toe Flexion 2 Poor Extension 2 Poor PT-OP-T Assessment and Plan Start: 04/15/20 09:54 Freq: Status: Active Protocol: Document 04/15/20 11:00 AMB (Rec: 04/16/20 16:15 AMB [email or web address]) Physical Therapy Assessment Rehab Potential Rehabilitation Potential Good Evaluation Complexity Number of Personal Factors/Comorbidities 3 or More Number of Body Systems Impaired 4 or More Clinical Presentation at Evaluation Unstable Impairments Impairments Activity Tolerance,Balance, Functional Activities, Functional Mobility,Gait,Pain, ROM,Sensation,Strength,Tone, Transfers Other Concerns Fall Risk yes Goals Four Impairment Standing balance Short Term Goal (STG) Ajith will senior marketing coordinator the paralel bars without physical assistance for 1 minute without loss of balance. STG Duration 4 weeks Shelter Goal (LTG) Ajith will stand with Arleth and a yvrose walker for 1 minute without loss of balance. LTG Duration 8 weeks Three Impairment Home exercise program Short Term Goal (STG) Ajith will be independent with a stretching program to prevent a worsening of his ankle contracture. STG Duration 6 weeks Ground Layer Goal (LTG) Ajith will be independent with a strengthening home exercise program. LTG Duration 12 weeks Two Impairment Transfers Short Term Goal (STG) Ajith will perform a squat pivot transfer from his wheelchair to flat surface from both the right and the left sides with ModA. STG Duration 6 weeks Shelter Goal (LTG) Ajith will perform a squat pivot transfer with supervision to both the right and left. LTG Duration 12 weeks One Impairment Gait Short Term Goal (STG) Ajith will ambulate in the paralel bars for Assessment Summary Assessment Ajith attends outpatient PT 1 year s/p CVA with resultant left sided hemiplegia. He is currently going through a divorce, and his parents are the ones who are home with him most, although it is difficult for them to provide physical care since he is 200 pounds and 5'11. He has a plantarflexion contracture, absent ankle dorisflexion and tone that promotes the contracture. This will make gait more challenging. Likely the most functional things we can work on are transfers- making them safer. But he may be able to ambulate short distances with a hemiwalker since he is already doing that in the paralel bars, so it is worth working on since that is one of his goals. Physical therapy will therefore work on making his mobility as safe as possible, limiting factors will be his short term memory loss and depression. Physical Therapy Plan Frequency and Duration Frequency of Treatment 2x/Week Duration of Treatment 12 weeks Plan of Care Start Date 04/15/20 Plan of Care End Date 07/08/20 Therapeutic Interventions Therapeutic Interventions Balance Training,Gait Training ,Home Exercise Program,Manual Therapy,Neuromuscular Re- education,Self-Care/Home Management,Therapeutic Activities,Therapeutic Exercises,Wheelchair Management Next Visit Focus/Plan Next Note Type Treatment Note Next Visit Plan Assess HEP, transfer training, gait training- assess safety with hemiwalker
--- NOTE | 2020-04-15 16:16 | PT.OPPOC ---
Physical, Occupational & Speech Therapy At [facility] Current Diagnoses Hemiplegia, unspecified affecting left nondominant side (04/15/20) Other reduced mobility (04/15/20) Visit Care Team Role Provider Type Pavan Gallego MD Attending Provider Non-Staff Family Provider Primary Care Provider Referring Provider Specialty: Family Practice Address: [address] [place] [address], [facility] Email: Plan Of Care PT-OP-T Assessment and Plan Start: 04/15/20 09:54 Freq: Status: Active Protocol: Document 04/15/20 11:00 AMB (Rec: 04/16/20 16:15 AMB [email or web address]) Physical Therapy Assessment Rehab Potential Rehabilitation Potential Good Evaluation Complexity Number of Personal Factors/Comorbidities 3 or More Number of Body Systems Impaired 4 or More Clinical Presentation at Evaluation Unstable Impairments Impairments Activity Tolerance,Balance, Functional Activities, Functional Mobility,Gait,Pain, ROM,Sensation,Strength,Tone, Transfers Other Concerns Fall Risk yes Goals Four Impairment Standing balance Short Term Goal (STG) Ajith will international organizer the parallel bars without physical assistance for 1 minute without loss of balance. STG Duration 4 weeks Silica Mixer Operator Goal (LTG) Ajith will stand with Arlteh and a yvrose walker for 1 minute without loss of balance. LTG Duration 8 weeks Three Impairment Home exercise program Short Term Goal (STG) Ajith will be independent with a stretching program to prevent a worsening of his ankle contracture. STG Duration 6 weeks Silica Mixer Operator Goal (LTG) Ajith will be independent with a strengthening home exercise program. LTG Duration 12 weeks Two Impairment Transfers Short Term Goal (STG) Ajith will perform a squat pivot transfer from his wheelchair to flat surface from both the right and the left sides with ModA. STG Duration 6 weeks Penitentiary Goal (LTG) Ajith will perform a squat pivot transfer with supervision to both the right and left. LTG Duration 12 weeks One Impairment Gait Short Term Goal (STG) Ajith will ambulate in the parallel bars for Assessment Summary Assessment Ajith attends outpatient PT 1 year s/p CVA with resultant left sided hemiplegia. He is currently going through a divorce, and his parents are the ones who are home with him most, although it is difficult for them to provide physical care since he is 200 pounds and 5'11. He has a plantarflexion contracture, absent ankle dorisflexion and tone that promotes the contracture. This will make gait more challenging. Likely the most functional things we can work on are transfers- making them safer. But he may be able to ambulate short distances with a hemiwalker since he is already doing that in the parallel bars, so it is worth working on since that is one of his goals. Physical therapy will therefore work on making his mobility as safe as possible, limiting factors will be his short term memory loss and depression. Physical Therapy Plan Frequency and Duration Frequency of Treatment 2x/Week Duration of Treatment 12 weeks Plan of Care Start Date 04/15/20 Plan of Care End Date 07/08/20 Therapeutic Interventions Therapeutic Interventions Balance Training,Gait Training ,Home Exercise Program,Manual Therapy,Neuromuscular Re- education,Self-Care/Home Management,Therapeutic Activities,Therapeutic Exercises,Wheelchair Management Next Visit Focus/Plan Next Note Type Treatment Note Next Visit Plan Assess HEP, transfer training, gait training- assess safety with hemiwalker Plan of Care Dates Plan of Care Start Date 04/15/20 Plan of Care End Date 07/08/20 Electronically Signed by: Cecy Mccarthy, PT 04/16/20 1869 Please Sign and Return: I have reviewed this Plan of Care and certify that the skilled therapy services above are required to meet the patient?s needs. Physician Signature Date Printed Name and Credentials Clinical Instructor Signature Printed Name and Credentials
--- NOTE | 2020-04-20 15:56 | PT.OTN ---
Current Diagnoses Hemiplegia, unspecified affecting left nondominant side (04/20/20) Other reduced mobility (04/20/20) Physical Therapy Treatment Note PT-OP-A Visit Information Start: 04/15/20 09:54 Freq: Status: Active Protocol: Document 04/20/20 13:00 AMB (Rec: 04/20/20 13:34 AMB [id number]) Out-Patient Physical Therapy Visit Information Visit Information Visit Type Treatment Note Visit Start Time 13:00 Visit Stop Time 13:45 Total Visit Minutes 45 Visit Number 2 PT-OP-B Current Condition Start: 04/15/20 09:54 Freq: Status: Active Protocol: Document 04/15/20 10:58 AMB (Rec: 04/15/20 11:58 AMB [id number]) Current Condition History of Current Condition Onset Date Mar 2019 Current Complaints L yvrose s/p R CVA History of Current Condition Ajith had a carotid dissection with subsequent craniotomy 13 months ago. He lives in a 2 level home and just finished with home health. He has an 8 year old daughter and is currently getting . He has 24 hour care from his parents, brother and sisters, he no longer lives with his or daughter. Per his brother's report he transfers independently from his w/c to the couch/bed, but he has had 2 recent falls at home where he got his feet wound up in blankets and then slid out of his bed onto the floor. He has a manual w/c, yvrose walker, and quad cane at home. He doesn't really use the cane or walker. He does walk around the kitchen island if there is someone close by for practice . Treatment Goals Patient/Caregiver Goals To be independent. He wants to be able to go outside with his daughter and work in the yard. 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 Current Functional Impairments (Reported) Functional Limitations- Mobility/Gait Ajith uses a w/c for all mobility, he can transfer in and out of the w/c. Personal Factors Other Personal Factors That May Effect Prior history of ACL and Therapy/Recovery meniscus surgery in college. depression. 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 PT-OP-C Subjective Start: 04/15/20 09:54 Freq: Status: Active Protocol: Document 04/20/20 13:00 AMB (Rec: 04/20/20 13:34 AMB [id number]) OP-PT Subjective Patient Comments Patient Comments Pt states he is doing ok, ready to work hard PT-OP-G Mobility & Gait Start: 04/15/20 09:54 Freq: Status: Active Protocol: Document 04/15/20 11:00 AMB (Rec: 04/16/20 15:53 AMB [email or web address]) OP Mobility Evaluation Bed Mobility Rolling Cici- pt with poor form but was able to do with cueing. Supine to and from Sit Supervision- required cueing for form, but did not need physical assistance, hooks yvrose leg to move it with his unaffected leg. Transfers Sit to Stand ModA for stabilization at L knee and steadying. Pt needed verbal cues to look at L foot and make sure it was in a good position before transfer. Bed to Chair Transfers Pt can perform at home with supervision per brother's report if he is in his w/c and removes the arm rest and performs a squat pivot transfer to the right only, pt is unable to perform wiht supervision if he tranfers to his yvrose side. Car Transfers Not witnessed by this PT, but from report sounds like Mod/ Arleth with pt performing a standing pivot transfer with heavy R UE use- pt needs a sturdy handle to hold onto. Floor Transfers Dependent Wheelchair Management Assessment Details Pt attended appointment in transport chair. Per report has manual w/c at home that he can propel for short distances over smooth terrain. OP Gait Assessment Comments Gait Comments Ambulated 2 lengths of the paralel bars with custom AFO and ModA, one loss of balance required assist due to yvrose knee giving way. Overall poor form with heavy use of UE, circumduction during swing of the yvrose leg, and poor quad control leads to unsteadiness during stance. PT-OP-H Neuro Start: 04/15/20 09:54 Freq: Status: Active Protocol: Document 04/15/20 11:00 AMB (Rec: 04/16/20 15:53 AMB [email or web address]) Sensation Evaluation Gross Sensation Gross Sensation Left UE Impaired,Left LE Impaired Sensation Description Numbness Comments Summary Comments Pt reports ability to sense deep pressure, but otherwise diminished sensation throughout entire left side. Deep Tendon Reflex & Clonus Assessment Ankle Clonus Left Clonus Assessment Sustained Muscle Tone Tone Assessment Left Lower Extremity Extensor Tone Description Moderate Hypertonicity Muscle Tone Comments with lying supine pt goes into extensor tone PT-OP-K Range of Motion Start: 04/15/20 09:54 Freq: Status: Active Protocol: Document 04/15/20 11:00 AMB (Rec: 04/16/20 15:53 AMB [email or web address]) Ankle and Foot Goniometric Range of Motion Ankle and Foot Left Passive Comments 20 degree plantarflexion contracture PT-OP-M Strength Start: 04/16/20 15:34 Freq: Status: Active Protocol: Document 04/15/20 11:00 AMB (Rec: 04/16/20 15:53 AMB [email or web address]) Hip Strength Hip Manual Muscle Testing Left Flexion (L2) 3- Fair- Abduction 2+ Poor+ Adduction 2+ Poor+ External Rotation 3- Fair- Internal Rotation 3 Fair Comments difficult for pt to move in a straight plane of motion, when asked to go into hip flexion, also abducts and rotates hip Knee Strength Knee Manual Muscle Testing Left Flexion (S2) 2- Poor- Extension (L3) 0 Zero Ankle/Foot Strength Ankle and Foot Manual Muscle Testing Left Dorsiflexion (L4) 0 Zero Plantarflexion (S1) 2 Poor Toe Strength Toe Manual Muscle Testing Left Great Toe Flexion 2 Poor Extension 2 Poor PT-OP-Q Treatments Start: 04/15/20 09:54 Freq: Status: Active Protocol: Document 04/20/20 13:00 AMB (Rec: 04/20/20 15:56 AMB [email or web address]) Therapeutic Exercises Sitting Exercises 4 Sitting Exercise Name achilles stretch Comments seated pushing knee down 3 Sitting Exercise Name seated ball squeeze 2 Sitting Exercise Name hamstring curl Comments with physical assistance 1 Sitting Exercise Name TKE Comments with physical assistance Gait Training Gait Activity 2 Description weight shifting Device Used //bars Level of Assistance Arleth Comments need assist for L foot placement and keeping knee straight 1 Description //bars Level of Assistance Arleth Distance/Duration 2 lengths of // bars Comments forward walking, turned, then side stepping PT-OP-T Assessment and Plan Start: 04/15/20 09:54 Freq: Status: Active Protocol: Document 04/20/20 13:00 AMB (Rec: 04/20/20 15:56 AMB [email or web address]) Physical Therapy Assessment Assessment Summary Assessment Ajith was visibly more depressed today. His mom states he has a hard time motivating himself to do his exercises. Encouraged him to do them one time between now and next visit. Quad continues to be very limited which limits his standing/ weight shifting/walking. Pt continues to have goals that are likely higher than what he will safely be able to do (ie cooking while standing). Physical Therapy Plan Next Visit Focus/Plan Next Note Type Treatment Note Next Visit Plan continue transfer training, strengthening
--- NOTE | 2020-04-22 11:53 | PT.OTN ---
Current Diagnoses Hemiplegia, unspecified affecting left nondominant side (04/22/20) Other reduced mobility (04/22/20) Physical Therapy Treatment Note PT-OP-A Visit Information Start: 04/15/20 09:54 Freq: Status: Active Protocol: Document 04/22/20 10:59 AMB (Rec: 04/22/20 11:26 AMB [id number]) Out-Patient Physical Therapy Visit Information Visit Information Visit Type Treatment Note Visit Start Time 11:00 Visit Stop Time 11:45 Total Visit Minutes 45 Visit Number 3 PT-OP-B Current Condition Start: 04/15/20 09:54 Freq: Status: Active Protocol: Document 04/15/20 10:58 AMB (Rec: 04/15/20 11:58 AMB [id number]) Current Condition History of Current Condition Onset Date Mar 2019 Current Complaints L yvrose s/p R CVA History of Current Condition Ajith had a carotid dissection with subsequent craniotomy 13 months ago. He lives in a 2 level home and just finished with home health. He has an 8 year old daughter and is currently getting . He has 24 hour care from his parents, brother and sisters, he no longer lives with his or daughter. Per his brother's report he transfers independently from his w/c to the couch/bed, but he has had 2 recent falls at home where he got his feet wound up in blankets and then slid out of his bed onto the floor. He has a manual w/c, yvrose walker, and quad cane at home. He doesn't really use the cane or walker. He does walk around the kitchen island if there is someone close by for practice . Treatment Goals Patient/Caregiver Goals To be independent. He wants to be able to go outside with his daughter and work in the yard. 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 Current Functional Impairments (Reported) Functional Limitations- Mobility/Gait Ajith uses a w/c for all mobility, he can transfer in and out of the w/c. Personal Factors Other Personal Factors That May Effect Prior history of ACL and Therapy/Recovery meniscus surgery in college. depression. 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 PT-OP-C Subjective Start: 04/15/20 09:54 Freq: Status: Active Protocol: Document 04/22/20 10:59 AMB (Rec: 04/22/20 11:26 AMB [id number]) OP-PT Subjective Patient Comments Patient Comments Pt states he did his exercises yesterday. PT-OP-G Mobility & Gait Start: 04/15/20 09:54 Freq: Status: Active Protocol: Document 04/15/20 11:00 AMB (Rec: 04/16/20 15:53 AMB [email or web address]) OP Mobility Evaluation Bed Mobility Rolling Cici- pt with poor form but was able to do with cueing. Supine to and from Sit Supervision- required cueing for form, but did not need physical assistance, hooks yvrose leg to move it with his unaffected leg. Transfers Sit to Stand ModA for stabilization at L knee and steadying. Pt needed verbal cues to look at L foot and make sure it was in a good position before transfer. Bed to Chair Transfers Pt can perform at home with supervision per brother's report if he is in his w/c and removes the arm rest and performs a squat pivot transfer to the right only, pt is unable to perform wiht supervision if he tranfers to his yvrose side. Car Transfers Not witnessed by this PT, but from report sounds like Mod/ Arleth with pt performing a standing pivot transfer with heavy R UE use- pt needs a sturdy handle to hold onto. Floor Transfers Dependent Wheelchair Management Assessment Details Pt attended appointment in transport chair. Per report has manual w/c at home that he can propel for short distances over smooth terrain. OP Gait Assessment Comments Gait Comments Ambulated 2 lengths of the paralel bars with custom AFO and ModA, one loss of balance required assist due to yvrose knee giving way. Overall poor form with heavy use of UE, circumduction during swing of the yvrose leg, and poor quad control leads to unsteadiness during stance. PT-OP-H Neuro Start: 04/15/20 09:54 Freq: Status: Active Protocol: Document 04/15/20 11:00 AMB (Rec: 04/16/20 15:53 AMB [email or web address]) Sensation Evaluation Gross Sensation Gross Sensation Left UE Impaired,Left LE Impaired Sensation Description Numbness Comments Summary Comments Pt reports ability to sense deep pressure, but otherwise diminished sensation throughout entire left side. Deep Tendon Reflex & Clonus Assessment Ankle Clonus Left Clonus Assessment Sustained Muscle Tone Tone Assessment Left Lower Extremity Extensor Tone Description Moderate Hypertonicity Muscle Tone Comments with lying supine pt goes into extensor tone PT-OP-K Range of Motion Start: 04/15/20 09:54 Freq: Status: Active Protocol: Document 04/15/20 11:00 AMB (Rec: 04/16/20 15:53 AMB [email or web address]) Ankle and Foot Goniometric Range of Motion Ankle and Foot Left Passive Comments 20 degree plantarflexion contracture PT-OP-M Strength Start: 04/16/20 15:34 Freq: Status: Active Protocol: Document 04/15/20 11:00 AMB (Rec: 04/16/20 15:53 AMB [email or web address]) Hip Strength Hip Manual Muscle Testing Left Flexion (L2) 3- Fair- Abduction 2+ Poor+ Adduction 2+ Poor+ External Rotation 3- Fair- Internal Rotation 3 Fair Comments difficult for pt to move in a straight plane of motion, when asked to go into hip flexion, also abducts and rotates hip Knee Strength Knee Manual Muscle Testing Left Flexion (S2) 2- Poor- Extension (L3) 0 Zero Ankle/Foot Strength Ankle and Foot Manual Muscle Testing Left Dorsiflexion (L4) 0 Zero Plantarflexion (S1) 2 Poor Toe Strength Toe Manual Muscle Testing Left Great Toe Flexion 2 Poor Extension 2 Poor PT-OP-Q Treatments Start: 04/15/20 09:54 Freq: Status: Active Protocol: Document 04/22/20 11:00 AMB (Rec: 04/22/20 11:53 AMB [id number]) Therapeutic Activity Therapeutic Activity 1 Name squat pivot transfer Reps/Minutes 4 Comments leading with unaffected side, Arleth Gait Training Gait Activity 2 Description weight shifting Device Used //bars Level of Assistance Arleth Treatment Focus mirror Comments need assist for L foot placement and keeping knee straight 1 Description //bars Level of Assistance Arleth Distance/Duration 2 lengths of // bars Comments forward walking with 2 turns PT-OP-T Assessment and Plan Start: 04/15/20 09:54 Freq: Status: Active Protocol: Document 04/22/20 11:00 AMB (Rec: 04/22/20 11:53 AMB [id number]) Physical Therapy Assessment Assessment Summary Assessment Ajith needed to go to the bathroom and was able to transfer I to the toilet and back to the chair with the grab bars. Agreed with him and his dad that he would do his standing exercises 2x in the next 4 days. He continues to need near constant cues to weightbear through his yvrose leg with standing walking. Physical Therapy Plan Next Visit Focus/Plan Next Note Type Treatment Note Next Visit Plan continue transfer training, strengthening
--- NOTE | 2020-04-27 15:52 | PT.OTN ---
Current Diagnoses Hemiplegia, unspecified affecting left nondominant side (04/27/20) Other reduced mobility (04/27/20) Physical Therapy Treatment Note PT-OP-A Visit Information Start: 04/15/20 09:54 Freq: Status: Active Protocol: Document 04/27/20 11:00 AMB (Rec: 04/27/20 11:57 AMB [email or web address]) Out-Patient Physical Therapy Visit Information Visit Information Visit Type Treatment Note Visit Start Time 11:00 Visit Stop Time 11:45 Total Visit Minutes 45 Visit Number 4 PT-OP-B Current Condition Start: 04/15/20 09:54 Freq: Status: Active Protocol: Document 04/15/20 10:58 AMB (Rec: 04/15/20 11:58 AMB [id number]) Current Condition History of Current Condition Onset Date Mar 2019 Current Complaints L yvrose s/p R CVA History of Current Condition Ajith had a carotid dissection with subsequent craniotomy 13 months ago. He lives in a 2 level home and just finished with home health. He has an 8 year old daughter and is currently getting . He has 24 hour care from his parents, brother and sisters, he no longer lives with his or daughter. Per his brother's report he transfers independently from his w/c to the couch/bed, but he has had 2 recent falls at home where he got his feet wound up in blankets and then slid out of his bed onto the floor. He has a manual w/c, yvrose walker, and quad cane at home. He doesn't really use the cane or walker. He does walk around the kitchen island if there is someone close by for practice . Treatment Goals Patient/Caregiver Goals To be independent. He wants to be able to go outside with his daughter and work in the yard. 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 Current Functional Impairments (Reported) Functional Limitations- Mobility/Gait Ajith uses a w/c for all mobility, he can transfer in and out of the w/c. Personal Factors Other Personal Factors That May Effect Prior history of ACL and Therapy/Recovery meniscus surgery in college. depression. 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 PT-OP-C Subjective Start: 04/15/20 09:54 Freq: Status: Active Protocol: Document 04/27/20 11:00 AMB (Rec: 04/27/20 11:57 AMB [email or web address]) OP-PT Subjective Patient Comments Patient Comments Pt reports a fall on Saturday. He was doing his standing exercises with his sister, and his knee went out and she was unable to prevent the fall. He fell on his left hip, and it is tender still. PT-OP-G Mobility & Gait Start: 04/15/20 09:54 Freq: Status: Active Protocol: Document 04/15/20 11:00 AMB (Rec: 04/16/20 15:53 AMB [email or web address]) OP Mobility Evaluation Bed Mobility Rolling Cici- pt with poor form but was able to do with cueing. Supine to and from Sit Supervision- required cueing for form, but did not need physical assistance, hooks yvrose leg to move it with his unaffected leg. Transfers Sit to Stand ModA for stabilization at L knee and steadying. Pt needed verbal cues to look at L foot and make sure it was in a good position before transfer. Bed to Chair Transfers Pt can perform at home with supervision per brother's report if he is in his w/c and removes the arm rest and performs a squat pivot transfer to the right only, pt is unable to perform wiht supervision if he tranfers to his yvrose side. Car Transfers Not witnessed by this PT, but from report sounds like Mod/ Arleth with pt performing a standing pivot transfer with heavy R UE use- pt needs a sturdy handle to hold onto. Floor Transfers Dependent Wheelchair Management Assessment Details Pt attended appointment in transport chair. Per report has manual w/c at home that he can propel for short distances over smooth terrain. OP Gait Assessment Comments Gait Comments Ambulated 2 lengths of the paralel bars with custom AFO and ModA, one loss of balance required assist due to yvrose knee giving way. Overall poor form with heavy use of UE, circumduction during swing of the yvrose leg, and poor quad control leads to unsteadiness during stance. PT-OP-H Neuro Start: 04/15/20 09:54 Freq: Status: Active Protocol: Document 04/15/20 11:00 AMB (Rec: 04/16/20 15:53 AMB [email or web address]) Sensation Evaluation Gross Sensation Gross Sensation Left UE Impaired,Left LE Impaired Sensation Description Numbness Comments Summary Comments Pt reports ability to sense deep pressure, but otherwise diminished sensation throughout entire left side. Deep Tendon Reflex & Clonus Assessment Ankle Clonus Left Clonus Assessment Sustained Muscle Tone Tone Assessment Left Lower Extremity Extensor Tone Description Moderate Hypertonicity Muscle Tone Comments with lying supine pt goes into extensor tone PT-OP-K Range of Motion Start: 04/15/20 09:54 Freq: Status: Active Protocol: Document 04/15/20 11:00 AMB (Rec: 04/16/20 15:53 AMB [email or web address]) Ankle and Foot Goniometric Range of Motion Ankle and Foot Left Passive Comments 20 degree plantarflexion contracture PT-OP-M Strength Start: 04/16/20 15:34 Freq: Status: Active Protocol: Document 04/15/20 11:00 AMB (Rec: 04/16/20 15:53 AMB [email or web address]) Hip Strength Hip Manual Muscle Testing Left Flexion (L2) 3- Fair- Abduction 2+ Poor+ Adduction 2+ Poor+ External Rotation 3- Fair- Internal Rotation 3 Fair Comments difficult for pt to move in a straight plane of motion, when asked to go into hip flexion, also abducts and rotates hip Knee Strength Knee Manual Muscle Testing Left Flexion (S2) 2- Poor- Extension (L3) 0 Zero Ankle/Foot Strength Ankle and Foot Manual Muscle Testing Left Dorsiflexion (L4) 0 Zero Plantarflexion (S1) 2 Poor Toe Strength Toe Manual Muscle Testing Left Great Toe Flexion 2 Poor Extension 2 Poor PT-OP-Q Treatments Start: 04/15/20 09:54 Freq: Status: Active Protocol: Document 04/27/20 11:00 AMB (Rec: 04/27/20 12:47 AMB [email or web address]) Therapeutic Exercises Supine Exercises 3 Supine Exercise Name lower trunk rotation in hooklying Reps/Minutes 30x3 2 Supine Exercise Name bridges Reps/Minutes 10 Comments with support at knees to avoid knee falling out 1 Supine Exercise Name passive hamstring stretch Reps/Minutes 30x2 Therapeutic Activity Therapeutic Activity 1 Name squat pivot transfer Reps/Minutes 30 Comments leading with unaffected and then affected side, with affected needed Arleth then was able to do with SBA but ended up landing on wheel lock. Does need to remove arm rest. PT-OP-T Assessment and Plan Start: 04/15/20 09:54 Freq: Status: Active Protocol: Document 04/27/20 11:00 AMB (Rec: 04/27/20 11:57 AMB [email or web address]) Physical Therapy Assessment Assessment Summary Assessment Ajith was able to transfer with SBA to his yvrose side, but did land on the wheel lock and needs the arm rest removed . Physical Therapy Plan Next Visit Focus/Plan Next Note Type Treatment Note Next Visit Plan continue transfer training, strengthening
--- NOTE | 2020-05-03 15:06 | PT.OTN ---
Current Diagnoses Hemiplegia, unspecified affecting left nondominant side (05/03/20) Other reduced mobility (05/03/20) Physical Therapy Treatment Note PT-OP-A Visit Information Start: 04/15/20 09:54 Freq: Status: Active Protocol: Document 05/03/20 10:15 AMB (Rec: 05/03/20 15:06 AMB [email or web address]) Out-Patient Physical Therapy Visit Information Visit Information Visit Type Treatment Note Visit Start Time 10:15 Visit Stop Time 11:00 Total Visit Minutes 45 Visit Number 5 PT-OP-B Current Condition Start: 04/15/20 09:54 Freq: Status: Active Protocol: Document 04/15/20 10:58 AMB (Rec: 04/15/20 11:58 AMB [id number]) Current Condition History of Current Condition Onset Date Mar 2019 Current Complaints L yvrose s/p R CVA History of Current Condition Ajith had a carotid dissection with subsequent craniotomy 13 months ago. He lives in a 2 level home and just finished with home health. He has an 8 year old daughter and is currently getting . He has 24 hour care from his parents, brother and sisters, he no longer lives with his or daughter. Per his brother's report he transfers independently from his w/c to the couch/bed, but he has had 2 recent falls at home where he got his feet wound up in blankets and then slid out of his bed onto the floor. He has a manual w/c, yvrose walker, and quad cane at home. He doesn't really use the cane or walker. He does walk around the kitchen island if there is someone close by for practice . Treatment Goals Patient/Caregiver Goals To be independent. He wants to be able to go outside with his daughter and work in the yard. 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 Current Functional Impairments (Reported) Functional Limitations- Mobility/Gait Ajith uses a w/c for all mobility, he can transfer in and out of the w/c. Personal Factors Other Personal Factors That May Effect Prior history of ACL and Therapy/Recovery meniscus surgery in college. depression. 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 PT-OP-C Subjective Start: 04/15/20 09:54 Freq: Status: Active Protocol: Document 05/03/20 10:15 AMB (Rec: 05/03/20 15:06 AMB [email or web address]) OP-PT Subjective Patient Comments Patient Comments Pt reports his dad's back is worse so his uncle brought him here today. PT-OP-G Mobility & Gait Start: 04/15/20 09:54 Freq: Status: Active Protocol: Document 04/15/20 11:00 AMB (Rec: 04/16/20 15:53 AMB [email or web address]) OP Mobility Evaluation Bed Mobility Rolling Cici- pt with poor form but was able to do with cueing. Supine to and from Sit Supervision- required cueing for form, but did not need physical assistance, hooks yvrose leg to move it with his unaffected leg. Transfers Sit to Stand ModA for stabilization at L knee and steadying. Pt needed verbal cues to look at L foot and make sure it was in a good position before transfer. Bed to Chair Transfers Pt can perform at home with supervision per brother's report if he is in his w/c and removes the arm rest and performs a squat pivot transfer to the right only, pt is unable to perform wiht supervision if he tranfers to his yvrose side. Car Transfers Not witnessed by this PT, but from report sounds like Mod/ Arleth with pt performing a standing pivot transfer with heavy R UE use- pt needs a sturdy handle to hold onto. Floor Transfers Dependent Wheelchair Management Assessment Details Pt attended appointment in transport chair. Per report has manual w/c at home that he can propel for short distances over smooth terrain. OP Gait Assessment Comments Gait Comments Ambulated 2 lengths of the paralel bars with custom AFO and ModA, one loss of balance required assist due to yvrose knee giving way. Overall poor form with heavy use of UE, circumduction during swing of the yvrose leg, and poor quad control leads to unsteadiness during stance. PT-OP-H Neuro Start: 04/15/20 09:54 Freq: Status: Active Protocol: Document 04/15/20 11:00 AMB (Rec: 04/16/20 15:53 AMB [email or web address]) Sensation Evaluation Gross Sensation Gross Sensation Left UE Impaired,Left LE Impaired Sensation Description Numbness Comments Summary Comments Pt reports ability to sense deep pressure, but otherwise diminished sensation throughout entire left side. Deep Tendon Reflex & Clonus Assessment Ankle Clonus Left Clonus Assessment Sustained Muscle Tone Tone Assessment Left Lower Extremity Extensor Tone Description Moderate Hypertonicity Muscle Tone Comments with lying supine pt goes into extensor tone PT-OP-K Range of Motion Start: 04/15/20 09:54 Freq: Status: Active Protocol: Document 04/15/20 11:00 AMB (Rec: 04/16/20 15:53 AMB [email or web address]) Ankle and Foot Goniometric Range of Motion Ankle and Foot Left Passive Comments 20 degree plantarflexion contracture PT-OP-M Strength Start: 04/16/20 15:34 Freq: Status: Active Protocol: Document 04/15/20 11:00 AMB (Rec: 04/16/20 15:53 AMB [email or web address]) Hip Strength Hip Manual Muscle Testing Left Flexion (L2) 3- Fair- Abduction 2+ Poor+ Adduction 2+ Poor+ External Rotation 3- Fair- Internal Rotation 3 Fair Comments difficult for pt to move in a straight plane of motion, when asked to go into hip flexion, also abducts and rotates hip Knee Strength Knee Manual Muscle Testing Left Flexion (S2) 2- Poor- Extension (L3) 0 Zero Ankle/Foot Strength Ankle and Foot Manual Muscle Testing Left Dorsiflexion (L4) 0 Zero Plantarflexion (S1) 2 Poor Toe Strength Toe Manual Muscle Testing Left Great Toe Flexion 2 Poor Extension 2 Poor PT-OP-Q Treatments Start: 04/15/20 09:54 Freq: Status: Active Protocol: Document 05/03/20 10:15 AMB (Rec: 05/03/20 15:06 AMB [email or web address]) Therapeutic Exercises Supine Exercises 4 Supine Exercise Name SAQ Side left Reps/Minutes 30 min Comments c NMES Gait Training Gait Activity 2 Description weight shifting Device Used //bars Level of Assistance Arleth Treatment Focus mirror Comments need assist for L foot placement and keeping knee straight 1 Description //bars Level of Assistance Arleth Distance/Duration 3 lengths of // bars Comments forward walking with 2 turns, one rest break PT-OP-T Assessment and Plan Start: 04/15/20 09:54 Freq: Status: Active Protocol: Document 05/03/20 10:15 AMB (Rec: 05/03/20 15:06 AMB [email or web address]) Physical Therapy Assessment Assessment Summary Assessment Ajith did well with NMES for quad stimulation, able to do SAQ, but then with gait continued to show poor quad control Physical Therapy Plan Next Visit Focus/Plan Next Note Type Treatment Note Next Visit Plan continue transfer training, consider possible hemiwalker
--- NOTE | 2020-05-06 12:00 | PT.OTN ---
Current Diagnoses Hemiplegia, unspecified affecting left nondominant side (05/06/20) Other reduced mobility (05/06/20) Physical Therapy Treatment Note PT-OP-A Visit Information Start: 04/15/20 09:54 Freq: Status: Active Protocol: Document 05/06/20 10:15 AMB (Rec: 05/06/20 11:03 AMB [id number]) Out-Patient Physical Therapy Visit Information Visit Information Visit Type Treatment Note Visit Start Time 10:15 Visit Stop Time 11:00 Total Visit Minutes 45 Visit Number 6 PT-OP-B Current Condition Start: 04/15/20 09:54 Freq: Status: Active Protocol: Document 04/15/20 10:58 AMB (Rec: 04/15/20 11:58 AMB [id number]) Current Condition History of Current Condition Onset Date Mar 2019 Current Complaints L yvrose s/p R CVA History of Current Condition Ajith had a carotid dissection with subsequent craniotomy 13 months ago. He lives in a 2 level home and just finished with home health. He has an 8 year old daughter and is currently getting . He has 24 hour care from his parents, brother and sisters, he no longer lives with his or daughter. Per his brother's report he transfers independently from his w/c to the couch/bed, but he has had 2 recent falls at home where he got his feet wound up in blankets and then slid out of his bed onto the floor. He has a manual w/c, yvrose walker, and quad cane at home. He doesn't really use the cane or walker. He does walk around the kitchen island if there is someone close by for practice . Treatment Goals Patient/Caregiver Goals To be independent. He wants to be able to go outside with his daughter and work in the yard. 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 Current Functional Impairments (Reported) Functional Limitations- Mobility/Gait Ajith uses a w/c for all mobility, he can transfer in and out of the w/c. Personal Factors Other Personal Factors That May Effect Prior history of ACL and Therapy/Recovery meniscus surgery in college. depression. 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 PT-OP-C Subjective Start: 04/15/20 09:54 Freq: Status: Active Protocol: Document 05/06/20 10:15 AMB (Rec: 05/06/20 11:03 AMB [id number]) OP-PT Subjective Patient Comments Patient Comments Pt appearing fairly depressed today, saying that he hasn't been able to see his daughter and this is very upsetting. PT-OP-G Mobility & Gait Start: 04/15/20 09:54 Freq: Status: Active Protocol: Document 04/15/20 11:00 AMB (Rec: 04/16/20 15:53 AMB [email or web address]) OP Mobility Evaluation Bed Mobility Rolling Cici- pt with poor form but was able to do with cueing. Supine to and from Sit Supervision- required cueing for form, but did not need physical assistance, hooks yvrose leg to move it with his unaffected leg. Transfers Sit to Stand ModA for stabilization at L knee and steadying. Pt needed verbal cues to look at L foot and make sure it was in a good position before transfer. Bed to Chair Transfers Pt can perform at home with supervision per brother's report if he is in his w/c and removes the arm rest and performs a squat pivot transfer to the right only, pt is unable to perform wiht supervision if he tranfers to his yvrose side. Car Transfers Not witnessed by this PT, but from report sounds like Mod/ Arleth with pt performing a standing pivot transfer with heavy R UE use- pt needs a sturdy handle to hold onto. Floor Transfers Dependent Wheelchair Management Assessment Details Pt attended appointment in transport chair. Per report has manual w/c at home that he can propel for short distances over smooth terrain. OP Gait Assessment Comments Gait Comments Ambulated 2 lengths of the paralel bars with custom AFO and ModA, one loss of balance required assist due to yvrose knee giving way. Overall poor form with heavy use of UE, circumduction during swing of the yvrose leg, and poor quad control leads to unsteadiness during stance. PT-OP-H Neuro Start: 04/15/20 09:54 Freq: Status: Active Protocol: Document 04/15/20 11:00 AMB (Rec: 04/16/20 15:53 AMB [email or web address]) Sensation Evaluation Gross Sensation Gross Sensation Left UE Impaired,Left LE Impaired Sensation Description Numbness Comments Summary Comments Pt reports ability to sense deep pressure, but otherwise diminished sensation throughout entire left side. Deep Tendon Reflex & Clonus Assessment Ankle Clonus Left Clonus Assessment Sustained Muscle Tone Tone Assessment Left Lower Extremity Extensor Tone Description Moderate Hypertonicity Muscle Tone Comments with lying supine pt goes into extensor tone PT-OP-K Range of Motion Start: 04/15/20 09:54 Freq: Status: Active Protocol: Document 04/15/20 11:00 AMB (Rec: 04/16/20 15:53 AMB [email or web address]) Ankle and Foot Goniometric Range of Motion Ankle and Foot Left Passive Comments 20 degree plantarflexion contracture PT-OP-M Strength Start: 04/16/20 15:34 Freq: Status: Active Protocol: Document 04/15/20 11:00 AMB (Rec: 04/16/20 15:53 AMB [email or web address]) Hip Strength Hip Manual Muscle Testing Left Flexion (L2) 3- Fair- Abduction 2+ Poor+ Adduction 2+ Poor+ External Rotation 3- Fair- Internal Rotation 3 Fair Comments difficult for pt to move in a straight plane of motion, when asked to go into hip flexion, also abducts and rotates hip Knee Strength Knee Manual Muscle Testing Left Flexion (S2) 2- Poor- Extension (L3) 0 Zero Ankle/Foot Strength Ankle and Foot Manual Muscle Testing Left Dorsiflexion (L4) 0 Zero Plantarflexion (S1) 2 Poor Toe Strength Toe Manual Muscle Testing Left Great Toe Flexion 2 Poor Extension 2 Poor PT-OP-Q Treatments Start: 04/15/20 09:54 Freq: Status: Active Protocol: Document 05/06/20 10:15 AMB (Rec: 05/06/20 12:00 AMB [id number]) Therapeutic Exercises Supine Exercises 4 Supine Exercise Name SAQ Side left Reps/Minutes 30 min Comments c NMES 1 Supine Exercise Name passive hamstring stretch, with achilles stretch Reps/Minutes 5 min Gait Training Gait Activity 1 Description //bars Level of Assistance Arleth Distance/Duration 3 lengths of // bars Comments forward walking with 2 turns, no rest break PT-OP-T Assessment and Plan Start: 04/15/20 09:54 Freq: Status: Active Protocol: Document 05/06/20 10:15 AMB (Rec: 05/06/20 12:00 AMB [id number]) Physical Therapy Assessment Assessment Summary Assessment Ajith was pretty depressed today which affected his treatment. He had pain in his hip on the left side with supine to sit transfer when rolling onto the left side. States it is still painful from his fall. Checked his skin today and no redspots noted, but did ask family to wash a bit more between his toes as he had an excessive buildup of skin cells. Physical Therapy Plan Next Visit Focus/Plan Next Note Type Treatment Note Next Visit Plan continue transfer training, consider possible hemiwalker
--- NOTE | 2020-05-10 11:00 | PT.OTN ---
Current Diagnoses Hemiplegia, unspecified affecting left nondominant side (05/10/20) Other reduced mobility (05/10/20) Physical Therapy Treatment Note PT-OP-A Visit Information Start: 04/15/20 09:54 Freq: Status: Active Protocol: Document 05/10/20 10:15 AMB (Rec: 05/10/20 15:59 AMB [email or web address]) Out-Patient Physical Therapy Visit Information Visit Information Visit Type Treatment Note Visit Start Time 10:15 Visit Stop Time 11:00 Total Visit Minutes 45 Visit Number 7 PT-OP-B Current Condition Start: 04/15/20 09:54 Freq: Status: Active Protocol: Document 04/15/20 10:58 AMB (Rec: 04/15/20 11:58 AMB [id number]) Current Condition History of Current Condition Onset Date Mar 2019 Current Complaints L yvrose s/p R CVA History of Current Condition Ajith had a carotid dissection with subsequent craniotomy 13 months ago. He lives in a 2 level home and just finished with home health. He has an 8 year old daughter and is currently getting . He has 24 hour care from his parents, brother and sisters, he no longer lives with his or daughter. Per his brother's report he transfers independently from his w/c to the couch/bed, but he has had 2 recent falls at home where he got his feet wound up in blankets and then slid out of his bed onto the floor. He has a manual w/c, yvrose walker, and quad cane at home. He doesn't really use the cane or walker. He does walk around the kitchen island if there is someone close by for practice . Treatment Goals Patient/Caregiver Goals To be independent. He wants to be able to go outside with his daughter and work in the yard. 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 Current Functional Impairments (Reported) Functional Limitations- Mobility/Gait Ajith uses a w/c for all mobility, he can transfer in and out of the w/c. Personal Factors Other Personal Factors That May Effect Prior history of ACL and Therapy/Recovery meniscus surgery in college. depression. 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 PT-OP-C Subjective Start: 04/15/20 09:54 Freq: Status: Active Protocol: Document 05/10/20 10:15 AMB (Rec: 05/11/20 07:57 AMB [email or web address]) OP-PT Subjective Patient Comments Patient Comments Pt reports he fell when transferring with his brother. His left hip continues to hurt from that and previous fall. PT-OP-G Mobility & Gait Start: 04/15/20 09:54 Freq: Status: Active Protocol: Document 04/15/20 11:00 AMB (Rec: 04/16/20 15:53 AMB [email or web address]) OP Mobility Evaluation Bed Mobility Rolling Cici- pt with poor form but was able to do with cueing. Supine to and from Sit Supervision- required cueing for form, but did not need physical assistance, hooks yvrose leg to move it with his unaffected leg. Transfers Sit to Stand ModA for stabilization at L knee and steadying. Pt needed verbal cues to look at L foot and make sure it was in a good position before transfer. Bed to Chair Transfers Pt can perform at home with supervision per brother's report if he is in his w/c and removes the arm rest and performs a squat pivot transfer to the right only, pt is unable to perform wiht supervision if he tranfers to his yvrose side. Car Transfers Not witnessed by this PT, but from report sounds like Mod/ Arleth with pt performing a standing pivot transfer with heavy R UE use- pt needs a sturdy handle to hold onto. Floor Transfers Dependent Wheelchair Management Assessment Details Pt attended appointment in transport chair. Per report has manual w/c at home that he can propel for short distances over smooth terrain. OP Gait Assessment Comments Gait Comments Ambulated 2 lengths of the paralel bars with custom AFO and ModA, one loss of balance required assist due to yvrose knee giving way. Overall poor form with heavy use of UE, circumduction during swing of the yvrose leg, and poor quad control leads to unsteadiness during stance. PT-OP-H Neuro Start: 04/15/20 09:54 Freq: Status: Active Protocol: Document 04/15/20 11:00 AMB (Rec: 04/16/20 15:53 AMB [email or web address]) Sensation Evaluation Gross Sensation Gross Sensation Left UE Impaired,Left LE Impaired Sensation Description Numbness Comments Summary Comments Pt reports ability to sense deep pressure, but otherwise diminished sensation throughout entire left side. Deep Tendon Reflex & Clonus Assessment Ankle Clonus Left Clonus Assessment Sustained Muscle Tone Tone Assessment Left Lower Extremity Extensor Tone Description Moderate Hypertonicity Muscle Tone Comments with lying supine pt goes into extensor tone PT-OP-K Range of Motion Start: 04/15/20 09:54 Freq: Status: Active Protocol: Document 04/15/20 11:00 AMB (Rec: 04/16/20 15:53 AMB [email or web address]) Ankle and Foot Goniometric Range of Motion Ankle and Foot Left Passive Comments 20 degree plantarflexion contracture PT-OP-M Strength Start: 04/16/20 15:34 Freq: Status: Active Protocol: Document 04/15/20 11:00 AMB (Rec: 04/16/20 15:53 AMB [email or web address]) Hip Strength Hip Manual Muscle Testing Left Flexion (L2) 3- Fair- Abduction 2+ Poor+ Adduction 2+ Poor+ External Rotation 3- Fair- Internal Rotation 3 Fair Comments difficult for pt to move in a straight plane of motion, when asked to go into hip flexion, also abducts and rotates hip Knee Strength Knee Manual Muscle Testing Left Flexion (S2) 2- Poor- Extension (L3) 0 Zero Ankle/Foot Strength Ankle and Foot Manual Muscle Testing Left Dorsiflexion (L4) 0 Zero Plantarflexion (S1) 2 Poor Toe Strength Toe Manual Muscle Testing Left Great Toe Flexion 2 Poor Extension 2 Poor PT-OP-Q Treatments Start: 04/15/20 09:54 Freq: Status: Active Protocol: Document 05/10/20 10:15 AMB (Rec: 05/11/20 07:57 AMB [email or web address]) Therapeutic Exercises Supine Exercises 4 Supine Exercise Name SAQ Side left Reps/Minutes 30 min Comments c NMES 1 Supine Exercise Name passive hamstring stretch, with achilles stretch Reps/Minutes 5 min Gait Training Gait Activity 3 Description gait with hemiwalker Level of Assistance Arleth Distance/Duration 60 feet Comments w/c follow PT-OP-T Assessment and Plan Start: 04/15/20 09:54 Freq: Status: Active Protocol: Document 05/10/20 10:15 AMB (Rec: 05/11/20 07:57 AMB [email or web address]) Physical Therapy Assessment Assessment Summary Assessment Explained to patient and dad that he could purchase NMES unit for home if he wants and would use it. Would need to set up unit for him, given paperwork so he and family can decide. Physical Therapy Plan Next Visit Focus/Plan Next Note Type Treatment Note Next Visit Plan Continue transfer training as pt continues to fall with this , even when transferring to his preferred side. Progress gait training with hemiwalker.
--- NOTE | 2020-05-13 11:00 | PT.OTN ---
Current Diagnoses Hemiplegia, unspecified affecting left nondominant side (05/13/20) Other reduced mobility (05/13/20) Physical Therapy Treatment Note PT-OP-A Visit Information Start: 04/15/20 09:54 Freq: Status: Active Protocol: Document 05/13/20 13:08 MA (Rec: 05/13/20 13:27 MA [email or web address]) Out-Patient Physical Therapy Visit Information Visit Information Visit Type Treatment Note Visit Start Time 10:15 Visit Stop Time 10:57 Total Visit Minutes 42 Visit Number 8 Number of ART INSTALLER Visits 1 PT-OP-B Current Condition Start: 04/15/20 09:54 Freq: Status: Active Protocol: Document 04/15/20 10:58 AMB (Rec: 04/15/20 11:58 AMB [id number]) Current Condition History of Current Condition Onset Date Mar 2019 Current Complaints L yvrose s/p R CVA History of Current Condition Ajith had a carotid dissection with subsequent craniotomy 13 months ago. He lives in a 2 level home and just finished with home health. He has an 8 year old daughter and is currently getting . He has 24 hour care from his parents, brother and sisters, he no longer lives with his or daughter. Per his brother's report he transfers independently from his w/c to the couch/bed, but he has had 2 recent falls at home where he got his feet wound up in blankets and then slid out of his bed onto the floor. He has a manual w/c, yvrose walker, and quad cane at home. He doesn't really use the cane or walker. He does walk around the kitchen island if there is someone close by for practice . Treatment Goals Patient/Caregiver Goals To be independent. He wants to be able to go outside with his daughter and work in the yard. 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 Current Functional Impairments (Reported) Functional Limitations- Mobility/Gait Ajith uses a w/c for all mobility, he can transfer in and out of the w/c. Personal Factors Other Personal Factors That May Effect Prior history of ACL and Therapy/Recovery meniscus surgery in college. depression. 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 PT-OP-C Subjective Start: 04/15/20 09:54 Freq: Status: Active Protocol: Document 05/13/20 13:08 MA (Rec: 05/13/20 13:27 MA [email or web address]) OP-PT Subjective Patient Comments Patient Comments Pt reports bad fall previous night when transfering from toilet to chair. Pt states that the space is narrow and he often has trouble with this transfer. Pt also states he does not wear his sling for LUE PT-OP-G Mobility & Gait Start: 04/15/20 09:54 Freq: Status: Active Protocol: Document 04/15/20 11:00 AMB (Rec: 04/16/20 15:53 AMB [email or web address]) OP Mobility Evaluation Bed Mobility Rolling Cici- pt with poor form but was able to do with cueing. Supine to and from Sit Supervision- required cueing for form, but did not need physical assistance, hooks yvrose leg to move it with his unaffected leg. Transfers Sit to Stand ModA for stabilization at L knee and steadying. Pt needed verbal cues to look at L foot and make sure it was in a good position before transfer. Bed to Chair Transfers Pt can perform at home with supervision per brother's report if he is in his w/c and removes the arm rest and performs a squat pivot transfer to the right only, pt is unable to perform wiht supervision if he tranfers to his yvrose side. Car Transfers Not witnessed by this PT, but from report sounds like Mod/ Arleth with pt performing a standing pivot transfer with heavy R UE use- pt needs a sturdy handle to hold onto. Floor Transfers Dependent Wheelchair Management Assessment Details Pt attended appointment in transport chair. Per report has manual w/c at home that he can propel for short distances over smooth terrain. OP Gait Assessment Comments Gait Comments Ambulated 2 lengths of the paralel bars with custom AFO and ModA, one loss of balance required assist due to yvrose knee giving way. Overall poor form with heavy use of UE, circumduction during swing of the yvrose leg, and poor quad control leads to unsteadiness during stance. PT-OP-H Neuro Start: 04/15/20 09:54 Freq: Status: Active Protocol: Document 04/15/20 11:00 AMB (Rec: 04/16/20 15:53 AMB [email or web address]) Sensation Evaluation Gross Sensation Gross Sensation Left UE Impaired,Left LE Impaired Sensation Description Numbness Comments Summary Comments Pt reports ability to sense deep pressure, but otherwise diminished sensation throughout entire left side. Deep Tendon Reflex & Clonus Assessment Ankle Clonus Left Clonus Assessment Sustained Muscle Tone Tone Assessment Left Lower Extremity Extensor Tone Description Moderate Hypertonicity Muscle Tone Comments with lying supine pt goes into extensor tone PT-OP-K Range of Motion Start: 04/15/20 09:54 Freq: Status: Active Protocol: Document 04/15/20 11:00 AMB (Rec: 04/16/20 15:53 AMB [email or web address]) Ankle and Foot Goniometric Range of Motion Ankle and Foot Left Passive Comments 20 degree plantarflexion contracture PT-OP-M Strength Start: 04/16/20 15:34 Freq: Status: Active Protocol: Document 04/15/20 11:00 AMB (Rec: 04/16/20 15:53 AMB [email or web address]) Hip Strength Hip Manual Muscle Testing Left Flexion (L2) 3- Fair- Abduction 2+ Poor+ Adduction 2+ Poor+ External Rotation 3- Fair- Internal Rotation 3 Fair Comments difficult for pt to move in a straight plane of motion, when asked to go into hip flexion, also abducts and rotates hip Knee Strength Knee Manual Muscle Testing Left Flexion (S2) 2- Poor- Extension (L3) 0 Zero Ankle/Foot Strength Ankle and Foot Manual Muscle Testing Left Dorsiflexion (L4) 0 Zero Plantarflexion (S1) 2 Poor Toe Strength Toe Manual Muscle Testing Left Great Toe Flexion 2 Poor Extension 2 Poor PT-OP-Q Treatments Start: 04/15/20 09:54 Freq: Status: Active Protocol: Document 05/13/20 13:08 MA (Rec: 05/13/20 13:27 MA [email or web address]) Therapeutic Exercises Standing Exercises SL Calf Raise Standing Exercise Name RLE calf raises Side right Equipment Used Parallel bars Reps/Minutes 2x10 Comments Calf raises then moved onto practicing pivot of RLE for transfers Other Exercises Sit<>Stand Equipment Used WC Reps/Minutes 10x Comments pt needing minor cues for LLE placement Therapeutic Activity Therapeutic Activity Bed Mobs Name Sit<>supine, rolling right Comments pt only needing minor cues for LUE placement Transfers Name WC<>plinth Reps/Minutes 4x Comments Cues for LUE/LLE placement Neuro Re-Education Treatment Balance Activities Weight Shift Details WS in parallel bars Comments ART INSTALLER blocking LLE to avoid buckling Self-Care/Home Management Treatment Education Other Education Educated both pt and caregiver on importance of sling for LUE to avoid shd dislocation. Requested pt bring sling and usual home WC to next session PT-OP-T Assessment and Plan Start: 04/15/20 09:54 Freq: Status: Active Protocol: Document 05/13/20 13:08 MA (Rec: 05/13/20 13:27 MA [email or web address]) Physical Therapy Assessment Assessment Summary Assessment Pt requiring frequent cues for LUE during activities today. ART INSTALLER educated pt and caregiver on importance of sling for LUE to avoid dislocation. Sit<> stand transfers required mod A for first stand due to pt LOB upon standing; rest of transfers were Min A or CGA. Cues to stand all the way up, pivot on R heel to avoid catching hips on chair arm ( nonremovable on transfer chair ). During calf raises in parallel bars, pt needs cues to keep RLE knee extended. Weight shifts required Mod A with pt struggling to WS onto LLE Physical Therapy Plan Next Visit Focus/Plan Next Note Type Treatment Note Next Visit Plan Use NMES for gait training and ther ex. Practice WS and full stand pivot for transfers to avoid catching armrest on transfer chair
--- NOTE | 2020-05-17 12:00 | PT.OTN ---
Current Diagnoses Hemiplegia, unspecified affecting left nondominant side (05/17/20) Other reduced mobility (05/17/20) Physical Therapy Treatment Note PT-OP-A Visit Information Start: 04/15/20 09:54 Freq: Status: Active Protocol: Document 05/18/20 07:33 AMB (Rec: 05/18/20 07:52 AMB [email or web address]) Out-Patient Physical Therapy Visit Information Visit Information Visit Type Treatment Note Visit Start Time 10:15 Visit Stop Time 11:00 Total Visit Minutes 45 Visit Number 9 Number of SCRIPT SUPERVISOR Visits 0 PT-OP-B Current Condition Start: 04/15/20 09:54 Freq: Status: Active Protocol: Document 04/15/20 10:58 AMB (Rec: 04/15/20 11:58 AMB [id number]) Current Condition History of Current Condition Onset Date Mar 2019 Current Complaints L yvrose s/p R CVA History of Current Condition Ajith had a carotid dissection with subsequent craniotomy 13 months ago. He lives in a 2 level home and just finished with home health. He has an 8 year old daughter and is currently getting . He has 24 hour care from his parents, brother and sisters, he no longer lives with his or daughter. Per his brother's report he transfers independently from his w/c to the couch/bed, but he has had 2 recent falls at home where he got his feet wound up in blankets and then slid out of his bed onto the floor. He has a manual w/c, yvrose walker, and quad cane at home. He doesn't really use the cane or walker. He does walk around the kitchen island if there is someone close by for practice . Treatment Goals Patient/Caregiver Goals To be independent. He wants to be able to go outside with his daughter and work in the yard. 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 Current Functional Impairments (Reported) Functional Limitations- Mobility/Gait Ajith uses a w/c for all mobility, he can transfer in and out of the w/c. Personal Factors Other Personal Factors That May Effect Prior history of ACL and Therapy/Recovery meniscus surgery in college. depression. 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 PT-OP-C Subjective Start: 04/15/20 09:54 Freq: Status: Active Protocol: Document 05/18/20 07:33 AMB (Rec: 05/18/20 07:52 AMB [email or web address]) OP-PT Subjective Patient Comments Patient Comments Pt attends PT with uncle, they report no new falls since last week. They brought in the sling and the hand splint that he has not been using. They come in with his manual wheelchair. PT-OP-G Mobility & Gait Start: 04/15/20 09:54 Freq: Status: Active Protocol: Document 04/15/20 11:00 AMB (Rec: 04/16/20 15:53 AMB [email or web address]) OP Mobility Evaluation Bed Mobility Rolling Cici- pt with poor form but was able to do with cueing. Supine to and from Sit Supervision- required cueing for form, but did not need physical assistance, hooks yvrose leg to move it with his unaffected leg. Transfers Sit to Stand ModA for stabilization at L knee and steadying. Pt needed verbal cues to look at L foot and make sure it was in a good position before transfer. Bed to Chair Transfers Pt can perform at home with supervision per brother's report if he is in his w/c and removes the arm rest and performs a squat pivot transfer to the right only, pt is unable to perform wiht supervision if he tranfers to his yvrose side. Car Transfers Not witnessed by this PT, but from report sounds like Mod/ Arleth with pt performing a standing pivot transfer with heavy R UE use- pt needs a sturdy handle to hold onto. Floor Transfers Dependent Wheelchair Management Assessment Details Pt attended appointment in transport chair. Per report has manual w/c at home that he can propel for short distances over smooth terrain. OP Gait Assessment Comments Gait Comments Ambulated 2 lengths of the paralel bars with custom AFO and ModA, one loss of balance required assist due to yvrose knee giving way. Overall poor form with heavy use of UE, circumduction during swing of the yvrose leg, and poor quad control leads to unsteadiness during stance. PT-OP-H Neuro Start: 04/15/20 09:54 Freq: Status: Active Protocol: Document 04/15/20 11:00 AMB (Rec: 04/16/20 15:53 AMB [email or web address]) Sensation Evaluation Gross Sensation Gross Sensation Left UE Impaired,Left LE Impaired Sensation Description Numbness Comments Summary Comments Pt reports ability to sense deep pressure, but otherwise diminished sensation throughout entire left side. Deep Tendon Reflex & Clonus Assessment Ankle Clonus Left Clonus Assessment Sustained Muscle Tone Tone Assessment Left Lower Extremity Extensor Tone Description Moderate Hypertonicity Muscle Tone Comments with lying supine pt goes into extensor tone PT-OP-K Range of Motion Start: 04/15/20 09:54 Freq: Status: Active Protocol: Document 04/15/20 11:00 AMB (Rec: 04/16/20 15:53 AMB [email or web address]) Ankle and Foot Goniometric Range of Motion Ankle and Foot Left Passive Comments 20 degree plantarflexion contracture PT-OP-M Strength Start: 04/16/20 15:34 Freq: Status: Active Protocol: Document 04/15/20 11:00 AMB (Rec: 04/16/20 15:53 AMB [email or web address]) Hip Strength Hip Manual Muscle Testing Left Flexion (L2) 3- Fair- Abduction 2+ Poor+ Adduction 2+ Poor+ External Rotation 3- Fair- Internal Rotation 3 Fair Comments difficult for pt to move in a straight plane of motion, when asked to go into hip flexion, also abducts and rotates hip Knee Strength Knee Manual Muscle Testing Left Flexion (S2) 2- Poor- Extension (L3) 0 Zero Ankle/Foot Strength Ankle and Foot Manual Muscle Testing Left Dorsiflexion (L4) 0 Zero Plantarflexion (S1) 2 Poor Toe Strength Toe Manual Muscle Testing Left Great Toe Flexion 2 Poor Extension 2 Poor PT-OP-Q Treatments Start: 04/15/20 09:54 Freq: Status: Active Protocol: Document 05/18/20 07:33 AMB (Rec: 05/18/20 07:52 AMB [email or web address]) Therapeutic Activity Therapeutic Activity 2 Name Sling/splint management Comments Education regarding appropriate wear, donning/ doffing Transfers Name WC<>plinth Reps/Minutes 4x Comments squat pivot transfer to yvrose/ unaffected side. Arleth. 1 Name Floor tx training Comments Getting into modified quadruped: on bolster, going from intact side into modifed side plank and up onto bolster - ModA PT-OP-T Assessment and Plan Start: 04/15/20 09:54 Freq: Status: Active Protocol: Document 05/18/20 07:33 AMB (Rec: 05/18/20 07:52 AMB [email or web address]) Physical Therapy Assessment Assessment Summary Assessment Pt's uncle states he will adjust the brake that was loose. Contacted pt's future OT regarding sling, as pt reports it is uncomfortable and that is why he does not wear it. Pt was able to perform squat pivot transfer well with manual w/c that has removable armrest to yvrose and intact side. Physical Therapy Plan Next Visit Focus/Plan Next Note Type Treatment Note Next Visit Plan NMES for gait training, consider home use. Continue tranfer training, squat pivot transfers ok as that is what pt is usually doing, but can fine tune toilet transfer.
--- NOTE | 2020-05-20 14:48 | PT.OTN ---
Current Diagnoses Hemiplegia, unspecified affecting left nondominant side (05/20/20) Other reduced mobility (05/20/20) Physical Therapy Treatment Note PT-OP-A Visit Information Start: 04/15/20 09:54 Freq: Status: Active Protocol: Document 05/20/20 10:15 AMB (Rec: 05/20/20 14:47 AMB [id number]) Out-Patient Physical Therapy Visit Information Visit Information Visit Type Treatment Note Visit Start Time 10:20 Visit Stop Time 11:00 Total Visit Minutes 40 Visit Number 10 Number of CAREER AND TECHNOLOGY EDUCATION TEACHER Visits 0 PT-OP-B Current Condition Start: 04/15/20 09:54 Freq: Status: Active Protocol: Document 04/15/20 10:58 AMB (Rec: 04/15/20 11:58 AMB [id number]) Current Condition History of Current Condition Onset Date Mar 2019 Current Complaints L yvrose s/p R CVA History of Current Condition Ajith had a carotid dissection with subsequent craniotomy 13 months ago. He lives in a 2 level home and just finished with home health. He has an 8 year old daughter and is currently getting . He has 24 hour care from his parents, brother and sisters, he no longer lives with his or daughter. Per his brother's report he transfers independently from his w/c to the couch/bed, but he has had 2 recent falls at home where he got his feet wound up in blankets and then slid out of his bed onto the floor. He has a manual w/c, yvrose walker, and quad cane at home. He doesn't really use the cane or walker. He does walk around the kitchen island if there is someone close by for practice . Treatment Goals Patient/Caregiver Goals To be independent. He wants to be able to go outside with his daughter and work in the yard. 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 Current Functional Impairments (Reported) Functional Limitations- Mobility/Gait Ajith uses a w/c for all mobility, he can transfer in and out of the w/c. Personal Factors Other Personal Factors That May Effect Prior history of ACL and Therapy/Recovery meniscus surgery in college. depression. 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 PT-OP-C Subjective Start: 04/15/20 09:54 Freq: Status: Active Protocol: Document 05/20/20 10:15 AMB (Rec: 05/20/20 14:47 AMB [id number]) OP-PT Subjective Patient Comments Patient Comments Pt attends with dad, he states he has been trying to be very careful at home not to fall. They are interested in purchasing home NMES unit. PT-OP-G Mobility & Gait Start: 04/15/20 09:54 Freq: Status: Active Protocol: Document 04/15/20 11:00 AMB (Rec: 04/16/20 15:53 AMB [email or web address]) OP Mobility Evaluation Bed Mobility Rolling Cici- pt with poor form but was able to do with cueing. Supine to and from Sit Supervision- required cueing for form, but did not need physical assistance, hooks yvrose leg to move it with his unaffected leg. Transfers Sit to Stand ModA for stabilization at L knee and steadying. Pt needed verbal cues to look at L foot and make sure it was in a good position before transfer. Bed to Chair Transfers Pt can perform at home with supervision per brother's report if he is in his w/c and removes the arm rest and performs a squat pivot transfer to the right only, pt is unable to perform wiht supervision if he tranfers to his yvrose side. Car Transfers Not witnessed by this PT, but from report sounds like Mod/ Arleth with pt performing a standing pivot transfer with heavy R UE use- pt needs a sturdy handle to hold onto. Floor Transfers Dependent Wheelchair Management Assessment Details Pt attended appointment in transport chair. Per report has manual w/c at home that he can propel for short distances over smooth terrain. OP Gait Assessment Comments Gait Comments Ambulated 2 lengths of the paralel bars with custom AFO and ModA, one loss of balance required assist due to yvrose knee giving way. Overall poor form with heavy use of UE, circumduction during swing of the yvrose leg, and poor quad control leads to unsteadiness during stance. PT-OP-H Neuro Start: 04/15/20 09:54 Freq: Status: Active Protocol: Document 04/15/20 11:00 AMB (Rec: 04/16/20 15:53 AMB [email or web address]) Sensation Evaluation Gross Sensation Gross Sensation Left UE Impaired,Left LE Impaired Sensation Description Numbness Comments Summary Comments Pt reports ability to sense deep pressure, but otherwise diminished sensation throughout entire left side. Deep Tendon Reflex & Clonus Assessment Ankle Clonus Left Clonus Assessment Sustained Muscle Tone Tone Assessment Left Lower Extremity Extensor Tone Description Moderate Hypertonicity Muscle Tone Comments with lying supine pt goes into extensor tone PT-OP-K Range of Motion Start: 04/15/20 09:54 Freq: Status: Active Protocol: Document 04/15/20 11:00 AMB (Rec: 04/16/20 15:53 AMB [email or web address]) Ankle and Foot Goniometric Range of Motion Ankle and Foot Left Passive Comments 20 degree plantarflexion contracture PT-OP-M Strength Start: 04/16/20 15:34 Freq: Status: Active Protocol: Document 04/15/20 11:00 AMB (Rec: 04/16/20 15:53 AMB [email or web address]) Hip Strength Hip Manual Muscle Testing Left Flexion (L2) 3- Fair- Abduction 2+ Poor+ Adduction 2+ Poor+ External Rotation 3- Fair- Internal Rotation 3 Fair Comments difficult for pt to move in a straight plane of motion, when asked to go into hip flexion, also abducts and rotates hip Knee Strength Knee Manual Muscle Testing Left Flexion (S2) 2- Poor- Extension (L3) 0 Zero Ankle/Foot Strength Ankle and Foot Manual Muscle Testing Left Dorsiflexion (L4) 0 Zero Plantarflexion (S1) 2 Poor Toe Strength Toe Manual Muscle Testing Left Great Toe Flexion 2 Poor Extension 2 Poor PT-OP-Q Treatments Start: 04/15/20 09:54 Freq: Status: Active Protocol: Document 05/20/20 10:15 AMB (Rec: 05/20/20 14:47 AMB [id number]) Therapeutic Exercises Supine Exercises 1 Supine Exercise Name passive hamstring stretch, with achilles stretch Reps/Minutes 8 min Therapeutic Activity Therapeutic Activity Transfers Name w/c<>plinth Reps/Minutes 6x Comments stand pivot transfer to yvrose and unaffected side with NMES, cues for placement, Arleth PT-OP-T Assessment and Plan Start: 04/15/20 09:54 Freq: Status: Active Protocol: Document 05/20/20 10:15 AMB (Rec: 05/20/20 14:47 AMB [id number]) Physical Therapy Assessment Assessment Summary Assessment Pt was able to perform standing pivot transfer well today with NMES both to yvrose and unaffected side. Pt needs cues to stay on task and stay safe, but was able to do so today. Physical Therapy Plan Next Visit Focus/Plan Next Note Type Treatment Note Next Visit Plan Possibly vend NMES unit, advance transfer training
--- NOTE | 2020-05-23 11:08 | PT.OTN ---
Current Diagnoses Hemiplegia, unspecified affecting left nondominant side (05/23/20) Other reduced mobility (05/23/20) Physical Therapy Treatment Note PT-OP-A Visit Information Start: 04/15/20 09:54 Freq: Status: Active Protocol: Document 05/23/20 10:51 MA (Rec: 05/23/20 11:08 MA [email or web address]) Out-Patient Physical Therapy Visit Information Visit Information Visit Type Treatment Note Visit Start Time 10:02 Visit Stop Time 10:48 Total Visit Minutes 46 Visit Number 11 Number of DIGITAL MARKETING INTERN Visits 1 PT-OP-B Current Condition Start: 04/15/20 09:54 Freq: Status: Active Protocol: Document 04/15/20 10:58 AMB (Rec: 04/15/20 11:58 AMB [id number]) Current Condition History of Current Condition Onset Date Mar 2019 Current Complaints L yvrose s/p R CVA History of Current Condition Ajith had a carotid dissection with subsequent craniotomy 13 months ago. He lives in a 2 level home and just finished with home health. He has an 8 year old daughter and is currently getting . He has 24 hour care from his parents, brother and sisters, he no longer lives with his or daughter. Per his brother's report he transfers independently from his w/c to the couch/bed, but he has had 2 recent falls at home where he got his feet wound up in blankets and then slid out of his bed onto the floor. He has a manual w/c, yvrose walker, and quad cane at home. He doesn't really use the cane or walker. He does walk around the kitchen island if there is someone close by for practice . Treatment Goals Patient/Caregiver Goals To be independent. He wants to be able to go outside with his daughter and work in the yard. 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 Current Functional Impairments (Reported) Functional Limitations- Mobility/Gait Ajith uses a w/c for all mobility, he can transfer in and out of the w/c. Personal Factors Other Personal Factors That May Effect Prior history of ACL and Therapy/Recovery meniscus surgery in college. depression. 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 PT-OP-C Subjective Start: 04/15/20 09:54 Freq: Status: Active Protocol: Document 05/23/20 10:51 MA (Rec: 05/23/20 11:08 MA [email or web address]) OP-PT Subjective Patient Comments Patient Comments Pt attends with dad and reports not recent falls since last tx PT-OP-G Mobility & Gait Start: 04/15/20 09:54 Freq: Status: Active Protocol: Document 04/15/20 11:00 AMB (Rec: 04/16/20 15:53 AMB [email or web address]) OP Mobility Evaluation Bed Mobility Rolling Cici- pt with poor form but was able to do with cueing. Supine to and from Sit Supervision- required cueing for form, but did not need physical assistance, hooks yvrose leg to move it with his unaffected leg. Transfers Sit to Stand ModA for stabilization at L knee and steadying. Pt needed verbal cues to look at L foot and make sure it was in a good position before transfer. Bed to Chair Transfers Pt can perform at home with supervision per brother's report if he is in his w/c and removes the arm rest and performs a squat pivot transfer to the right only, pt is unable to perform wiht supervision if he tranfers to his yvrose side. Car Transfers Not witnessed by this PT, but from report sounds like Mod/ Arleth with pt performing a standing pivot transfer with heavy R UE use- pt needs a sturdy handle to hold onto. Floor Transfers Dependent Wheelchair Management Assessment Details Pt attended appointment in transport chair. Per report has manual w/c at home that he can propel for short distances over smooth terrain. OP Gait Assessment Comments Gait Comments Ambulated 2 lengths of the paralel bars with custom AFO and ModA, one loss of balance required assist due to yvrose knee giving way. Overall poor form with heavy use of UE, circumduction during swing of the yvrose leg, and poor quad control leads to unsteadiness during stance. PT-OP-H Neuro Start: 04/15/20 09:54 Freq: Status: Active Protocol: Document 04/15/20 11:00 AMB (Rec: 04/16/20 15:53 AMB [email or web address]) Sensation Evaluation Gross Sensation Gross Sensation Left UE Impaired,Left LE Impaired Sensation Description Numbness Comments Summary Comments Pt reports ability to sense deep pressure, but otherwise diminished sensation throughout entire left side. Deep Tendon Reflex & Clonus Assessment Ankle Clonus Left Clonus Assessment Sustained Muscle Tone Tone Assessment Left Lower Extremity Extensor Tone Description Moderate Hypertonicity Muscle Tone Comments with lying supine pt goes into extensor tone PT-OP-K Range of Motion Start: 04/15/20 09:54 Freq: Status: Active Protocol: Document 04/15/20 11:00 AMB (Rec: 04/16/20 15:53 AMB [email or web address]) Ankle and Foot Goniometric Range of Motion Ankle and Foot Left Passive Comments 20 degree plantarflexion contracture PT-OP-M Strength Start: 04/16/20 15:34 Freq: Status: Active Protocol: Document 04/15/20 11:00 AMB (Rec: 04/16/20 15:53 AMB [email or web address]) Hip Strength Hip Manual Muscle Testing Left Flexion (L2) 3- Fair- Abduction 2+ Poor+ Adduction 2+ Poor+ External Rotation 3- Fair- Internal Rotation 3 Fair Comments difficult for pt to move in a straight plane of motion, when asked to go into hip flexion, also abducts and rotates hip Knee Strength Knee Manual Muscle Testing Left Flexion (S2) 2- Poor- Extension (L3) 0 Zero Ankle/Foot Strength Ankle and Foot Manual Muscle Testing Left Dorsiflexion (L4) 0 Zero Plantarflexion (S1) 2 Poor Toe Strength Toe Manual Muscle Testing Left Great Toe Flexion 2 Poor Extension 2 Poor PT-OP-Q Treatments Start: 04/15/20 09:54 Freq: Status: Active Protocol: Document 05/23/20 10:51 MA (Rec: 05/23/20 11:08 MA [email or web address]) Therapeutic Exercises Supine Exercises SAQ Side left Equipment Used NMES, bolster Reps/Minutes 5 Comments sustained contraction during on time Other Exercises Sit<>Stand Side bilateral Equipment Used NMES L quads Reps/Minutes 5x Comments Standing during on time Therapeutic Activity Therapeutic Activity Transfers Name w/c<>plinth Reps/Minutes 4x Comments stand pivot transfer to yvrose and unaffected side with NMES, cues for placement, Arleth Self-Care/Home Management Treatment Education Other Education Dispensed home NMES unit. Went over settings (20 sec on/27 off, 100 hz, 5 sec ramp). Educated pt and caregiver on use and exercises to do when the light turns on when he feels the contraction. Can use every 3 hours at home PT-OP-T Assessment and Plan Start: 04/15/20 09:54 Freq: Status: Active Protocol: Document 05/23/20 10:51 MA (Rec: 05/23/20 11:08 MA [email or web address]) Physical Therapy Assessment Goals Four Impairment Standing balance Short Term Goal (STG) Ajith will yarn rewinder the paralel bars without physical assistance for 1 minute without loss of balance. STG Duration 4 weeks Fern Picker Goal (LTG) Ajith will stand with Arleth and a yvrose walker for 1 minute without loss of balance. LTG Duration 8 weeks Three Impairment Home exercise program Short Term Goal (STG) Ajith will be independent with a stretching program to prevent a worsening of his ankle contracture. STG Duration 6 weeks Nursing Home Goal (LTG) Ajith will be independent with a strengthening home exercise program. LTG Duration 12 weeks Two Impairment Transfers Short Term Goal (STG) Ajith will perform a squat pivot transfer from his wheelchair to flat surface from both the right and the left sides with ModA. STG Duration 6 weeks Fern Picker Goal (LTG) Ajith will perform a squat pivot transfer with supervision to both the right and left. LTG Duration 12 weeks One Impairment Gait Short Term Goal (STG) Ajith will ambulate in the paralel bars for Assessment Summary Assessment Dispensed NMES, reviewed settings and educated pt/ caregiver on use. (Settings: 100 Hz, 5 sec ramp, on:20/off: 27 sec.) Performed sit<>stands with NMES and short arc quads . Told caregiver they could change the intensity and off time, but not the other settings. Caregiver expressed discomfort with assisting in transfers or sit<>stands but said pt's uncle could assist while using NMES. Educated caregiver on SAQ with NMES instead of standing for when uncle is not home. Requested uncle report to next visit for training on NMES and sit<> stands or transfers. Pt able to get strong quad contractions during SAQ for about 5-10seconds before lowering leg. Transfers to plinth get stronger with each one practiced with first transfer needing mod A and then rest of transfers min A. Pt needs cues to keep feet hip width apart or will tend to have NBOS. Physical Therapy Plan Frequency and Duration Frequency of Treatment 2x/Week Duration of Treatment 12 weeks Plan of Care Start Date 04/15/20 Plan of Care End Date 07/08/20 Next Visit Focus/Plan Next Note Type Treatment Note Next Visit Plan If uncle comes, review NMES unit and safe transfers for home practice and blocking LLE . Review SAQ. Advance transfer training
--- NOTE | 2020-05-25 10:59 | PT.OTN ---
Current Diagnoses Hemiplegia, unspecified affecting left nondominant side (05/25/20) Other reduced mobility (05/25/20) Physical Therapy Treatment Note PT-OP-A Visit Information Start: 04/15/20 09:54 Freq: Status: Active Protocol: Document 05/25/20 10:44 MA (Rec: 05/25/20 10:59 MA [email or web address]) Out-Patient Physical Therapy Visit Information Visit Information Visit Type Treatment Note Visit Start Time 09:58 Visit Stop Time 10:40 Total Visit Minutes 42 Visit Number 12 Number of FINISHER BRUSH Visits 2 PT-OP-B Current Condition Start: 04/15/20 09:54 Freq: Status: Active Protocol: Document 04/15/20 10:58 AMB (Rec: 04/15/20 11:58 AMB [id number]) Current Condition History of Current Condition Onset Date Mar 2019 Current Complaints L yvrose s/p R CVA History of Current Condition Ajith had a carotid dissection with subsequent craniotomy 13 months ago. He lives in a 2 level home and just finished with home health. He has an 8 year old daughter and is currently getting . He has 24 hour care from his parents, brother and sisters, he no longer lives with his or daughter. Per his brother's report he transfers independently from his w/c to the couch/bed, but he has had 2 recent falls at home where he got his feet wound up in blankets and then slid out of his bed onto the floor. He has a manual w/c, yvrose walker, and quad cane at home. He doesn't really use the cane or walker. He does walk around the kitchen island if there is someone close by for practice . Treatment Goals Patient/Caregiver Goals To be independent. He wants to be able to go outside with his daughter and work in the yard. 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 Current Functional Impairments (Reported) Functional Limitations- Mobility/Gait Ajith uses a w/c for all mobility, he can transfer in and out of the w/c. Personal Factors Other Personal Factors That May Effect Prior history of ACL and Therapy/Recovery meniscus surgery in college. depression. 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 PT-OP-C Subjective Start: 04/15/20 09:54 Freq: Status: Active Protocol: Document 05/25/20 10:44 MA (Rec: 05/25/20 10:59 MA [email or web address]) OP-PT Subjective Patient Comments Patient Comments Pt attends with mom and uncle. Mom states they did not use the NMES at home becasue she wanted to learn how to work the unit. Uncle reports because he is the only one able to practice sit/stands with pt PT-OP-G Mobility & Gait Start: 04/15/20 09:54 Freq: Status: Active Protocol: Document 04/15/20 11:00 AMB (Rec: 04/16/20 15:53 AMB [email or web address]) OP Mobility Evaluation Bed Mobility Rolling Cici- pt with poor form but was able to do with cueing. Supine to and from Sit Supervision- required cueing for form, but did not need physical assistance, hooks yvrose leg to move it with his unaffected leg. Transfers Sit to Stand ModA for stabilization at L knee and steadying. Pt needed verbal cues to look at L foot and make sure it was in a good position before transfer. Bed to Chair Transfers Pt can perform at home with supervision per brother's report if he is in his w/c and removes the arm rest and performs a squat pivot transfer to the right only, pt is unable to perform wiht supervision if he tranfers to his yvrose side. Car Transfers Not witnessed by this PT, but from report sounds like Mod/ Arleth with pt performing a standing pivot transfer with heavy R UE use- pt needs a sturdy handle to hold onto. Floor Transfers Dependent Wheelchair Management Assessment Details Pt attended appointment in transport chair. Per report has manual w/c at home that he can propel for short distances over smooth terrain. OP Gait Assessment Comments Gait Comments Ambulated 2 lengths of the paralel bars with custom AFO and ModA, one loss of balance required assist due to yvrose knee giving way. Overall poor form with heavy use of UE, circumduction during swing of the yvrose leg, and poor quad control leads to unsteadiness during stance. PT-OP-H Neuro Start: 04/15/20 09:54 Freq: Status: Active Protocol: Document 04/15/20 11:00 AMB (Rec: 04/16/20 15:53 AMB [email or web address]) Sensation Evaluation Gross Sensation Gross Sensation Left UE Impaired,Left LE Impaired Sensation Description Numbness Comments Summary Comments Pt reports ability to sense deep pressure, but otherwise diminished sensation throughout entire left side. Deep Tendon Reflex & Clonus Assessment Ankle Clonus Left Clonus Assessment Sustained Muscle Tone Tone Assessment Left Lower Extremity Extensor Tone Description Moderate Hypertonicity Muscle Tone Comments with lying supine pt goes into extensor tone PT-OP-K Range of Motion Start: 04/15/20 09:54 Freq: Status: Active Protocol: Document 04/15/20 11:00 AMB (Rec: 04/16/20 15:53 AMB [email or web address]) Ankle and Foot Goniometric Range of Motion Ankle and Foot Left Passive Comments 20 degree plantarflexion contracture PT-OP-M Strength Start: 04/16/20 15:34 Freq: Status: Active Protocol: Document 04/15/20 11:00 AMB (Rec: 04/16/20 15:53 AMB [email or web address]) Hip Strength Hip Manual Muscle Testing Left Flexion (L2) 3- Fair- Abduction 2+ Poor+ Adduction 2+ Poor+ External Rotation 3- Fair- Internal Rotation 3 Fair Comments difficult for pt to move in a straight plane of motion, when asked to go into hip flexion, also abducts and rotates hip Knee Strength Knee Manual Muscle Testing Left Flexion (S2) 2- Poor- Extension (L3) 0 Zero Ankle/Foot Strength Ankle and Foot Manual Muscle Testing Left Dorsiflexion (L4) 0 Zero Plantarflexion (S1) 2 Poor Toe Strength Toe Manual Muscle Testing Left Great Toe Flexion 2 Poor Extension 2 Poor PT-OP-Q Treatments Start: 04/15/20 09:54 Freq: Status: Active Protocol: Document 05/25/20 10:44 MA (Rec: 05/25/20 10:59 MA [email or web address]) Therapeutic Exercises Supine Exercises SAQ Side left Equipment Used NMES, bolster Reps/Minutes 5 Comments sustained contraction during on time Neuro Re-Education Treatment Other Activities NMES Transfers Details Sit<>stand, Stand pivot chair to plinth Reps/Duration 20 min Comments NMES during pivot, practice lifting Right heel for full stand pivot Self-Care/Home Management Treatment Education Other Education Educated mom and NMES unit, educated uncle on sit<>stand safe guarding and blocking LLE , educated pt and family members on proper sling for LUE to avoid shd dislocation and importance of OT consult PT-OP-T Assessment and Plan Start: 04/15/20 09:54 Freq: Status: Active Protocol: Document 05/25/20 10:44 MA (Rec: 05/25/20 10:59 MA [email or web address]) Physical Therapy Assessment Goals Four Impairment Standing balance Short Term Goal (STG) Ajith will insulating machine operator the paralel bars without physical assistance for 1 minute without loss of balance. STG Duration 4 weeks Payroll And Benefits Specialist Goal (LTG) Ajith will stand with Arleth and a yvrose walker for 1 minute without loss of balance. LTG Duration 8 weeks Three Impairment Home exercise program Short Term Goal (STG) Ajith will be independent with a stretching program to prevent a worsening of his ankle contracture. STG Duration 6 weeks Prison Goal (LTG) Ajith will be independent with a strengthening home exercise program. LTG Duration 12 weeks Two Impairment Transfers Short Term Goal (STG) Ajith will perform a squat pivot transfer from his wheelchair to flat surface from both the right and the left sides with ModA. STG Duration 6 weeks Payroll And Benefits Specialist Goal (LTG) Ajith will perform a squat pivot transfer with supervision to both the right and left. LTG Duration 12 weeks One Impairment Gait Short Term Goal (STG) Ajith will ambulate in the paralel bars for Assessment Summary Assessment Educated caregivers on safe transfers, blocking of LLE, proper sling for LUE, and use of NMES unit. Pt was able to sustain contraction during SAQ for up to 10 seconds today, up from 5 sec Saturday, but needs constant cues both verbal to contract and tactile , tapping quads in order to focus on quad facilitation. Pt continues to be easily distracted from tasks at hand but can transfer with min A when directed to focus. Physical Therapy Plan Frequency and Duration Frequency of Treatment 2x/Week Duration of Treatment 12 weeks Plan of Care Start Date 04/15/20 Plan of Care End Date 07/08/20 Next Visit Focus/Plan Next Note Type Treatment Note Next Visit Plan Practice gait per pt's request , maybe starting with weight shifts and work on calf raises RLE to practice for stand- pivot transfers
--- NOTE | 2020-06-01 13:45 | PT.OTN ---
Current Diagnoses Hemiplegia, unspecified affecting left nondominant side (06/01/20) Other reduced mobility (06/01/20) Physical Therapy Treatment Note PT-OP-A Visit Information Start: 04/15/20 09:54 Freq: Status: Active Protocol: Document 06/01/20 13:34 MA (Rec: 06/01/20 13:45 MA [email or web address]) Out-Patient Physical Therapy Visit Information Visit Information Visit Type Treatment Note Visit Start Time 11:55 Visit Stop Time 12:40 Total Visit Minutes 45 Visit Number 13 Number of AIRLINE DISPATCHER Visits 3 PT-OP-B Current Condition Start: 04/15/20 09:54 Freq: Status: Active Protocol: Document 04/15/20 10:58 AMB (Rec: 04/15/20 11:58 AMB [id number]) Current Condition History of Current Condition Onset Date Mar 2019 Current Complaints L yvrose s/p R CVA History of Current Condition Ajith had a carotid dissection with subsequent craniotomy 13 months ago. He lives in a 2 level home and just finished with home health. He has an 8 year old daughter and is currently getting . He has 24 hour care from his parents, brother and sisters, he no longer lives with his or daughter. Per his brother's report he transfers independently from his w/c to the couch/bed, but he has had 2 recent falls at home where he got his feet wound up in blankets and then slid out of his bed onto the floor. He has a manual w/c, yvrose walker, and quad cane at home. He doesn't really use the cane or walker. He does walk around the kitchen island if there is someone close by for practice . Treatment Goals Patient/Caregiver Goals To be independent. He wants to be able to go outside with his daughter and work in the yard. 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 Current Functional Impairments (Reported) Functional Limitations- Mobility/Gait Ajith uses a w/c for all mobility, he can transfer in and out of the w/c. Personal Factors Other Personal Factors That May Effect Prior history of ACL and Therapy/Recovery meniscus surgery in college. depression. 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 PT-OP-C Subjective Start: 04/15/20 09:54 Freq: Status: Active Protocol: Document 06/01/20 13:34 MA (Rec: 06/01/20 13:45 MA [email or web address]) OP-PT Subjective Patient Comments Patient Comments Pt attends with dad who states they have not used the NMES at home still. PT-OP-G Mobility & Gait Start: 04/15/20 09:54 Freq: Status: Active Protocol: Document 04/15/20 11:00 AMB (Rec: 04/16/20 15:53 AMB [email or web address]) OP Mobility Evaluation Bed Mobility Rolling Cici- pt with poor form but was able to do with cueing. Supine to and from Sit Supervision- required cueing for form, but did not need physical assistance, hooks yvrose leg to move it with his unaffected leg. Transfers Sit to Stand ModA for stabilization at L knee and steadying. Pt needed verbal cues to look at L foot and make sure it was in a good position before transfer. Bed to Chair Transfers Pt can perform at home with supervision per brother's report if he is in his w/c and removes the arm rest and performs a squat pivot transfer to the right only, pt is unable to perform wiht supervision if he tranfers to his yvrose side. Car Transfers Not witnessed by this PT, but from report sounds like Mod/ Arleth with pt performing a standing pivot transfer with heavy R UE use- pt needs a sturdy handle to hold onto. Floor Transfers Dependent Wheelchair Management Assessment Details Pt attended appointment in transport chair. Per report has manual w/c at home that he can propel for short distances over smooth terrain. OP Gait Assessment Comments Gait Comments Ambulated 2 lengths of the paralel bars with custom AFO and ModA, one loss of balance required assist due to yvrose knee giving way. Overall poor form with heavy use of UE, circumduction during swing of the yvrose leg, and poor quad control leads to unsteadiness during stance. PT-OP-H Neuro Start: 04/15/20 09:54 Freq: Status: Active Protocol: Document 04/15/20 11:00 AMB (Rec: 04/16/20 15:53 AMB [email or web address]) Sensation Evaluation Gross Sensation Gross Sensation Left UE Impaired,Left LE Impaired Sensation Description Numbness Comments Summary Comments Pt reports ability to sense deep pressure, but otherwise diminished sensation throughout entire left side. Deep Tendon Reflex & Clonus Assessment Ankle Clonus Left Clonus Assessment Sustained Muscle Tone Tone Assessment Left Lower Extremity Extensor Tone Description Moderate Hypertonicity Muscle Tone Comments with lying supine pt goes into extensor tone PT-OP-K Range of Motion Start: 04/15/20 09:54 Freq: Status: Active Protocol: Document 04/15/20 11:00 AMB (Rec: 04/16/20 15:53 AMB [email or web address]) Ankle and Foot Goniometric Range of Motion Ankle and Foot Left Passive Comments 20 degree plantarflexion contracture PT-OP-M Strength Start: 04/16/20 15:34 Freq: Status: Active Protocol: Document 04/15/20 11:00 AMB (Rec: 04/16/20 15:53 AMB [email or web address]) Hip Strength Hip Manual Muscle Testing Left Flexion (L2) 3- Fair- Abduction 2+ Poor+ Adduction 2+ Poor+ External Rotation 3- Fair- Internal Rotation 3 Fair Comments difficult for pt to move in a straight plane of motion, when asked to go into hip flexion, also abducts and rotates hip Knee Strength Knee Manual Muscle Testing Left Flexion (S2) 2- Poor- Extension (L3) 0 Zero Ankle/Foot Strength Ankle and Foot Manual Muscle Testing Left Dorsiflexion (L4) 0 Zero Plantarflexion (S1) 2 Poor Toe Strength Toe Manual Muscle Testing Left Great Toe Flexion 2 Poor Extension 2 Poor PT-OP-Q Treatments Start: 04/15/20 09:54 Freq: Status: Active Protocol: Document 06/01/20 13:34 MA (Rec: 06/01/20 13:45 MA [email or web address]) Therapeutic Exercises Supine Exercises Heel Slides Side left Equipment Used towel Reps/Minutes 3x5 Comments therapist keeping pt from abducting hip SAQ Side left Equipment Used bolster Reps/Minutes 5 Other Exercises Sit<>Stand Side bilateral Reps/Minutes 5x Gait Training Gait Activity 3 Description gait with hemiwalker Distance/Duration 100 feet Comments W/C follow Manual Therapy Treatment Soft Tissue Mobilization HS Body Location L HS Mobilization Type Rolling,Sustained Pressure Intensity/Depth Moderate Body Position Supine Comments Passive HS stretch performed by therapist due to c/o of cramping throughout night last night Self-Care/Home Management Treatment Education Other Education Educated pt and father about the importance of using the NMES at home, doing HEP exercises, and getting up and moving throughout the day. educated dad on how to assist with heel slides, avoiding ABD and for proper hand placement to control descent PT-OP-T Assessment and Plan Start: 04/15/20 09:54 Freq: Status: Active Protocol: Document 06/01/20 13:34 MA (Rec: 06/01/20 13:45 MA [email or web address]) Physical Therapy Assessment Goals Four Impairment Standing balance Short Term Goal (STG) Ajith will interline clerk the paralel bars without physical assistance for 1 minute without loss of balance. STG Duration 4 weeks Snf Goal (LTG) Ajith will stand with Arleth and a yvrose walker for 1 minute without loss of balance. LTG Duration 8 weeks Three Impairment Home exercise program Short Term Goal (STG) Ajith will be independent with a stretching program to prevent a worsening of his ankle contracture. STG Duration 6 weeks Snf Goal (LTG) Ajith will be independent with a strengthening home exercise program. LTG Duration 12 weeks Two Impairment Transfers Short Term Goal (STG) Ajith will perform a squat pivot transfer from his wheelchair to flat surface from both the right and the left sides with ModA. STG Duration 6 weeks Drawing Supervisor Goal (LTG) Ajith will perform a squat pivot transfer with supervision to both the right and left. LTG Duration 12 weeks One Impairment Gait Short Term Goal (STG) Ajith will ambulate in the paralel bars for Assessment Summary Assessment Pt walked 100 feet today with W/C follow CGA with single bout of Min A for L leg buckling. Pt was motivated to work today after therapist talked with pt and dad about staying focused at therapy and the importance of working at home for improved strength. Pt was able to perform heel slides with minor assistance for straightening the leg back out and avoiding ABD of hip. AIRLINE DISPATCHER instructed dad on how to help pt with heel slides at home, proper hand placement and amount of assistance needed. Physical Therapy Plan Frequency and Duration Frequency of Treatment 2x/Week Duration of Treatment 12 weeks Plan of Care Start Date 04/15/20 Plan of Care End Date 07/08/20 Next Visit Focus/Plan Next Note Type Treatment Note Next Visit Plan Start with gait. Continue weight shifts and work on calf raises RLE to practice for stand-pivot transfers
--- NOTE | 2020-06-07 15:22 | PT.OTN ---
Current Diagnoses Hemiplegia, unspecified affecting left nondominant side (06/07/20) Other reduced mobility (06/07/20) Physical Therapy Treatment Note PT-OP-A Visit Information Start: 04/15/20 09:54 Freq: Status: Active Protocol: Document 06/07/20 10:15 AMB (Rec: 06/07/20 15:22 AMB [id number]) Out-Patient Physical Therapy Visit Information Visit Information Visit Type Treatment Note Visit Start Time 10:15 Visit Stop Time 11:00 Total Visit Minutes 45 Visit Number 14 Number of TUFTER OPERATOR Visits 0 PT-OP-B Current Condition Start: 04/15/20 09:54 Freq: Status: Active Protocol: Document 04/15/20 10:58 AMB (Rec: 04/15/20 11:58 AMB [id number]) Current Condition History of Current Condition Onset Date Mar 2019 Current Complaints L yvrose s/p R CVA History of Current Condition Ajith had a carotid dissection with subsequent craniotomy 13 months ago. He lives in a 2 level home and just finished with home health. He has an 8 year old daughter and is currently getting . He has 24 hour care from his parents, brother and sisters, he no longer lives with his or daughter. Per his brother's report he transfers independently from his w/c to the couch/bed, but he has had 2 recent falls at home where he got his feet wound up in blankets and then slid out of his bed onto the floor. He has a manual w/c, yvrose walker, and quad cane at home. He doesn't really use the cane or walker. He does walk around the kitchen island if there is someone close by for practice . Treatment Goals Patient/Caregiver Goals To be independent. He wants to be able to go outside with his daughter and work in the yard. 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 Current Functional Impairments (Reported) Functional Limitations- Mobility/Gait Ajith uses a w/c for all mobility, he can transfer in and out of the w/c. Personal Factors Other Personal Factors That May Effect Prior history of ACL and Therapy/Recovery meniscus surgery in college. depression. 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 PT-OP-C Subjective Start: 04/15/20 09:54 Freq: Status: Active Protocol: Document 06/07/20 10:15 AMB (Rec: 06/07/20 15:22 AMB [id number]) OP-PT Subjective Patient Comments Patient Comments Pt's dad states they have been using the NMES once a day on the patient's quad. He is wondering what type of sling to get. PT-OP-G Mobility & Gait Start: 04/15/20 09:54 Freq: Status: Active Protocol: Document 04/15/20 11:00 AMB (Rec: 04/16/20 15:53 AMB [email or web address]) OP Mobility Evaluation Bed Mobility Rolling Cici- pt with poor form but was able to do with cueing. Supine to and from Sit Supervision- required cueing for form, but did not need physical assistance, hooks yvrose leg to move it with his unaffected leg. Transfers Sit to Stand ModA for stabilization at L knee and steadying. Pt needed verbal cues to look at L foot and make sure it was in a good position before transfer. Bed to Chair Transfers Pt can perform at home with supervision per brother's report if he is in his w/c and removes the arm rest and performs a squat pivot transfer to the right only, pt is unable to perform wiht supervision if he tranfers to his yvrose side. Car Transfers Not witnessed by this PT, but from report sounds like Mod/ Arleth with pt performing a standing pivot transfer with heavy R UE use- pt needs a sturdy handle to hold onto. Floor Transfers Dependent Wheelchair Management Assessment Details Pt attended appointment in transport chair. Per report has manual w/c at home that he can propel for short distances over smooth terrain. OP Gait Assessment Comments Gait Comments Ambulated 2 lengths of the paralel bars with custom AFO and ModA, one loss of balance required assist due to yvrose knee giving way. Overall poor form with heavy use of UE, circumduction during swing of the yvrose leg, and poor quad control leads to unsteadiness during stance. PT-OP-H Neuro Start: 04/15/20 09:54 Freq: Status: Active Protocol: Document 04/15/20 11:00 AMB (Rec: 04/16/20 15:53 AMB [email or web address]) Sensation Evaluation Gross Sensation Gross Sensation Left UE Impaired,Left LE Impaired Sensation Description Numbness Comments Summary Comments Pt reports ability to sense deep pressure, but otherwise diminished sensation throughout entire left side. Deep Tendon Reflex & Clonus Assessment Ankle Clonus Left Clonus Assessment Sustained Muscle Tone Tone Assessment Left Lower Extremity Extensor Tone Description Moderate Hypertonicity Muscle Tone Comments with lying supine pt goes into extensor tone PT-OP-K Range of Motion Start: 04/15/20 09:54 Freq: Status: Active Protocol: Document 04/15/20 11:00 AMB (Rec: 04/16/20 15:53 AMB [email or web address]) Ankle and Foot Goniometric Range of Motion Ankle and Foot Left Passive Comments 20 degree plantarflexion contracture PT-OP-M Strength Start: 04/16/20 15:34 Freq: Status: Active Protocol: Document 04/15/20 11:00 AMB (Rec: 04/16/20 15:53 AMB [email or web address]) Hip Strength Hip Manual Muscle Testing Left Flexion (L2) 3- Fair- Abduction 2+ Poor+ Adduction 2+ Poor+ External Rotation 3- Fair- Internal Rotation 3 Fair Comments difficult for pt to move in a straight plane of motion, when asked to go into hip flexion, also abducts and rotates hip Knee Strength Knee Manual Muscle Testing Left Flexion (S2) 2- Poor- Extension (L3) 0 Zero Ankle/Foot Strength Ankle and Foot Manual Muscle Testing Left Dorsiflexion (L4) 0 Zero Plantarflexion (S1) 2 Poor Toe Strength Toe Manual Muscle Testing Left Great Toe Flexion 2 Poor Extension 2 Poor PT-OP-Q Treatments Start: 04/15/20 09:54 Freq: Status: Active Protocol: Document 06/07/20 10:15 AMB (Rec: 06/07/20 15:22 AMB [id number]) Therapeutic Exercises Supine Exercises Heel Slides Side left Equipment Used towel Reps/Minutes 3x5 Comments therapist keeping pt from abducting hip SAQ Side left Equipment Used bolster Reps/Minutes 5 Comments 10 4 Supine Exercise Name lower trunk rotation Comments 10 Sitting Exercises 1 Sitting Exercise Name LAQ Reps/Minutes 5 Comments challenging for pt, but pt may prefer Therapeutic Activity Therapeutic Activity Transfers Name w/c<>plinth Reps/Minutes 4x Comments stand pivot transfer to yvrose and unaffected side Arleth, cues for foot placement Gait Training Gait Activity 3 Description gait with hemiwalker Distance/Duration 100 feet Comments W/C follow PT-OP-T Assessment and Plan Start: 04/15/20 09:54 Freq: Status: Active Protocol: Document 06/07/20 10:15 AMB (Rec: 06/07/20 15:22 AMB [id number]) Physical Therapy Assessment Assessment Summary Assessment Reviewed HEP per pt's dad's request. Gave handout on givmohr sling as pt asked about sling and pt is still not being seen in OT. Emailed requesting pt get into OT again. Physical Therapy Plan Next Visit Focus/Plan Next Note Type Treatment Note Next Visit Plan Start with gait. Continue weight shifts and work on calf raises RLE to practice for stand-pivot transfers
--- NOTE | 2020-06-09 13:29 | PT.OTN ---
Current Diagnoses Hemiplegia, unspecified affecting left nondominant side (06/09/20) Other reduced mobility (06/09/20) Physical Therapy Treatment Note PT-OP-A Visit Information Start: 04/15/20 09:54 Freq: Status: Active Protocol: Document 06/09/20 10:15 AMB (Rec: 06/09/20 13:29 AMB [email or web address]) Out-Patient Physical Therapy Visit Information Visit Information Visit Type Treatment Note Visit Start Time 10:18 Visit Stop Time 11:00 Total Visit Minutes 42 Visit Number 15 Number of SEAMER PANTY HOSE Visits 0 PT-OP-B Current Condition Start: 04/15/20 09:54 Freq: Status: Active Protocol: Document 04/15/20 10:58 AMB (Rec: 04/15/20 11:58 AMB [id number]) Current Condition History of Current Condition Onset Date Mar 2019 Current Complaints L yvrose s/p R CVA History of Current Condition Ajith had a carotid dissection with subsequent craniotomy 13 months ago. He lives in a 2 level home and just finished with home health. He has an 8 year old daughter and is currently getting . He has 24 hour care from his parents, brother and sisters, he no longer lives with his or daughter. Per his brother's report he transfers independently from his w/c to the couch/bed, but he has had 2 recent falls at home where he got his feet wound up in blankets and then slid out of his bed onto the floor. He has a manual w/c, yvrose walker, and quad cane at home. He doesn't really use the cane or walker. He does walk around the kitchen island if there is someone close by for practice . Treatment Goals Patient/Caregiver Goals To be independent. He wants to be able to go outside with his daughter and work in the yard. 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 Current Functional Impairments (Reported) Functional Limitations- Mobility/Gait Ajith uses a w/c for all mobility, he can transfer in and out of the w/c. Personal Factors Other Personal Factors That May Effect Prior history of ACL and Therapy/Recovery meniscus surgery in college. depression. 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 PT-OP-C Subjective Start: 04/15/20 09:54 Freq: Status: Active Protocol: Document 06/09/20 10:15 AMB (Rec: 06/09/20 13:29 AMB [email or web address]) OP-PT Subjective Patient Comments Patient Comments Pt's mom attends with pt. His dad fell last night and is at the ED. Mom reports they have been doing the NMES at home 1x/day. They have been working on standing exercises. She reports she feels that he had a decline in function when he stopped going to home health, because, per her report, he was able to walk around a kitchen island without holding on to anything with home health. PT-OP-G Mobility & Gait Start: 04/15/20 09:54 Freq: Status: Active Protocol: Document 04/15/20 11:00 AMB (Rec: 04/16/20 15:53 AMB [email or web address]) OP Mobility Evaluation Bed Mobility Rolling Cici- pt with poor form but was able to do with cueing. Supine to and from Sit Supervision- required cueing for form, but did not need physical assistance, hooks yvrose leg to move it with his unaffected leg. Transfers Sit to Stand ModA for stabilization at L knee and steadying. Pt needed verbal cues to look at L foot and make sure it was in a good position before transfer. Bed to Chair Transfers Pt can perform at home with supervision per brother's report if he is in his w/c and removes the arm rest and performs a squat pivot transfer to the right only, pt is unable to perform wiht supervision if he tranfers to his yvrose side. Car Transfers Not witnessed by this PT, but from report sounds like Mod/ Arleth with pt performing a standing pivot transfer with heavy R UE use- pt needs a sturdy handle to hold onto. Floor Transfers Dependent Wheelchair Management Assessment Details Pt attended appointment in transport chair. Per report has manual w/c at home that he can propel for short distances over smooth terrain. OP Gait Assessment Comments Gait Comments Ambulated 2 lengths of the paralel bars with custom AFO and ModA, one loss of balance required assist due to yvrose knee giving way. Overall poor form with heavy use of UE, circumduction during swing of the yvrose leg, and poor quad control leads to unsteadiness during stance. PT-OP-H Neuro Start: 04/15/20 09:54 Freq: Status: Active Protocol: Document 04/15/20 11:00 AMB (Rec: 04/16/20 15:53 AMB [email or web address]) Sensation Evaluation Gross Sensation Gross Sensation Left UE Impaired,Left LE Impaired Sensation Description Numbness Comments Summary Comments Pt reports ability to sense deep pressure, but otherwise diminished sensation throughout entire left side. Deep Tendon Reflex & Clonus Assessment Ankle Clonus Left Clonus Assessment Sustained Muscle Tone Tone Assessment Left Lower Extremity Extensor Tone Description Moderate Hypertonicity Muscle Tone Comments with lying supine pt goes into extensor tone PT-OP-K Range of Motion Start: 04/15/20 09:54 Freq: Status: Active Protocol: Document 04/15/20 11:00 AMB (Rec: 04/16/20 15:53 AMB [email or web address]) Ankle and Foot Goniometric Range of Motion Ankle and Foot Left Passive Comments 20 degree plantarflexion contracture PT-OP-M Strength Start: 04/16/20 15:34 Freq: Status: Active Protocol: Document 04/15/20 11:00 AMB (Rec: 04/16/20 15:53 AMB [email or web address]) Hip Strength Hip Manual Muscle Testing Left Flexion (L2) 3- Fair- Abduction 2+ Poor+ Adduction 2+ Poor+ External Rotation 3- Fair- Internal Rotation 3 Fair Comments difficult for pt to move in a straight plane of motion, when asked to go into hip flexion, also abducts and rotates hip Knee Strength Knee Manual Muscle Testing Left Flexion (S2) 2- Poor- Extension (L3) 0 Zero Ankle/Foot Strength Ankle and Foot Manual Muscle Testing Left Dorsiflexion (L4) 0 Zero Plantarflexion (S1) 2 Poor Toe Strength Toe Manual Muscle Testing Left Great Toe Flexion 2 Poor Extension 2 Poor PT-OP-Q Treatments Start: 04/15/20 09:54 Freq: Status: Active Protocol: Document 06/09/20 10:15 AMB (Rec: 06/09/20 13:29 AMB [email or web address]) Therapeutic Exercises Sitting Exercises 2 Sitting Exercise Name calf raises Reps/Minutes 10 Comments hemiwalker 1 Sitting Exercise Name LAQ Reps/Minutes 5 Comments challenging for pt, but pt may prefer Other Exercises Sit<>Stand Side bilateral Reps/Minutes 10x Comments with yvrose walker Gait Training Gait Activity 3 Description gait with hemiwalker Distance/Duration 100 feet Comments W/C follow Neuro Re-Education Treatment Balance Activities Weight Shift Details stride stance Equipment hemiwalker PT-OP-T Assessment and Plan Start: 04/15/20 09:54 Freq: Status: Active Protocol: Document 06/09/20 10:15 AMB (Rec: 06/09/20 13:29 AMB [email or web address]) Physical Therapy Assessment Goals Four Impairment Standing balance Short Term Goal (STG) Ajith will burglary investigator the paralel bars without physical assistance for 1 minute without loss of balance. STG Duration 4 weeks Jail Goal (LTG) Ajith will stand with Arleth and a yvrose walker for 1 minute without loss of balance. LTG Duration 8 weeks Three Impairment Home exercise program Short Term Goal (STG) Ajith will be independent with a stretching program to prevent a worsening of his ankle contracture. STG Duration 6 weeks Jail Goal (LTG) Ajith will be independent with a strengthening home exercise program. LTG Duration 12 weeks Two Impairment Transfers Short Term Goal (STG) Ajith will perform a squat pivot transfer from his wheelchair to flat surface from both the right and the left sides with ModA. STG Duration 6 weeks Jail Goal (LTG) Ajith will perform a squat pivot transfer with supervision to both the right and left. LTG Duration 12 weeks One Impairment Gait Short Term Goal (STG) Ajith will ambulate in the paralel bars for Assessment Summary Assessment Ajith was especially distractable today, but was able to walk. Per his mom's report he was previously walking better, but while he has been here, he has always had genu recurvatum and hip abduction during swing. Updated family that [facility] referral for OT is still pending, but this therapist was told it should be updated in about 7-14 days.--Pt's mom is having difficulty with dynamic hand splint, but this therapist has also noticed that fingers curl under and do not stay straight in it for more than a few minutes. Physical Therapy Plan Frequency and Duration Frequency of Treatment 2x/Week Duration of Treatment 12 weeks Plan of Care Start Date 04/15/20 Plan of Care End Date 07/08/20 Next Visit Focus/Plan Next Note Type Treatment Note Next Visit Plan Start with gait, continue to work on weight shifts and reinforce standing exercises that he is doing at home.
--- NOTE | 2020-06-14 14:30 | PT.OTN ---
Current Diagnoses Hemiplegia, unspecified affecting left nondominant side (06/14/20) Other reduced mobility (06/14/20) Physical Therapy Treatment Note PT-OP-A Visit Information Start: 04/15/20 09:54 Freq: Status: Active Protocol: Document 06/14/20 13:51 SP (Rec: 06/14/20 16:06 SP [id number]) Out-Patient Physical Therapy Visit Information Visit Information Visit Type Treatment Note Visit Start Time 13:51 Visit Stop Time 14:30 Total Visit Minutes 39 Visit Number 16 Number of MANAGER INPATIENT Visits 1 PT-OP-B Current Condition Start: 04/15/20 09:54 Freq: Status: Active Protocol: Document 04/15/20 10:58 AMB (Rec: 04/15/20 11:58 AMB [id number]) Current Condition History of Current Condition Onset Date Mar 2019 Current Complaints L yvrose s/p R CVA History of Current Condition Ajith had a carotid dissection with subsequent craniotomy 13 months ago. He lives in a 2 level home and just finished with home health. He has an 8 year old daughter and is currently getting . He has 24 hour care from his parents, brother and sisters, he no longer lives with his or daughter. Per his brother's report he transfers independently from his w/c to the couch/bed, but he has had 2 recent falls at home where he got his feet wound up in blankets and then slid out of his bed onto the floor. He has a manual w/c, yvrose walker, and quad cane at home. He doesn't really use the cane or walker. He does walk around the kitchen island if there is someone close by for practice . Treatment Goals Patient/Caregiver Goals To be independent. He wants to be able to go outside with his daughter and work in the yard. 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 Current Functional Impairments (Reported) Functional Limitations- Mobility/Gait Ajith uses a w/c for all mobility, he can transfer in and out of the w/c. Personal Factors Other Personal Factors That May Effect Prior history of ACL and Therapy/Recovery meniscus surgery in college. depression. 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 PT-OP-C Subjective Start: 04/15/20 09:54 Freq: Status: Active Protocol: Document 06/14/20 13:51 SP (Rec: 06/14/20 16:06 SP [id number]) OP-PT Subjective Patient Comments Patient Comments Pt reported received a new L UE stabilization sling and wanting to have assistance on how to don until his referral to OT in approved. PT-OP-G Mobility & Gait Start: 04/15/20 09:54 Freq: Status: Active Protocol: Document 04/15/20 11:00 AMB (Rec: 04/16/20 15:53 AMB [email or web address]) OP Mobility Evaluation Bed Mobility Rolling Cici- pt with poor form but was able to do with cueing. Supine to and from Sit Supervision- required cueing for form, but did not need physical assistance, hooks yvrose leg to move it with his unaffected leg. Transfers Sit to Stand ModA for stabilization at L knee and steadying. Pt needed verbal cues to look at L foot and make sure it was in a good position before transfer. Bed to Chair Transfers Pt can perform at home with supervision per brother's report if he is in his w/c and removes the arm rest and performs a squat pivot transfer to the right only, pt is unable to perform wiht supervision if he tranfers to his yvrose side. Car Transfers Not witnessed by this PT, but from report sounds like Mod/ Arleth with pt performing a standing pivot transfer with heavy R UE use- pt needs a sturdy handle to hold onto. Floor Transfers Dependent Wheelchair Management Assessment Details Pt attended appointment in transport chair. Per report has manual w/c at home that he can propel for short distances over smooth terrain. OP Gait Assessment Comments Gait Comments Ambulated 2 lengths of the paralel bars with custom AFO and ModA, one loss of balance required assist due to yvrose knee giving way. Overall poor form with heavy use of UE, circumduction during swing of the yvrose leg, and poor quad control leads to unsteadiness during stance. PT-OP-H Neuro Start: 04/15/20 09:54 Freq: Status: Active Protocol: Document 04/15/20 11:00 AMB (Rec: 04/16/20 15:53 AMB [email or web address]) Sensation Evaluation Gross Sensation Gross Sensation Left UE Impaired,Left LE Impaired Sensation Description Numbness Comments Summary Comments Pt reports ability to sense deep pressure, but otherwise diminished sensation throughout entire left side. Deep Tendon Reflex & Clonus Assessment Ankle Clonus Left Clonus Assessment Sustained Muscle Tone Tone Assessment Left Lower Extremity Extensor Tone Description Moderate Hypertonicity Muscle Tone Comments with lying supine pt goes into extensor tone PT-OP-K Range of Motion Start: 04/15/20 09:54 Freq: Status: Active Protocol: Document 04/15/20 11:00 AMB (Rec: 04/16/20 15:53 AMB [email or web address]) Ankle and Foot Goniometric Range of Motion Ankle and Foot Left Passive Comments 20 degree plantarflexion contracture PT-OP-M Strength Start: 04/16/20 15:34 Freq: Status: Active Protocol: Document 04/15/20 11:00 AMB (Rec: 04/16/20 15:53 AMB [email or web address]) Hip Strength Hip Manual Muscle Testing Left Flexion (L2) 3- Fair- Abduction 2+ Poor+ Adduction 2+ Poor+ External Rotation 3- Fair- Internal Rotation 3 Fair Comments difficult for pt to move in a straight plane of motion, when asked to go into hip flexion, also abducts and rotates hip Knee Strength Knee Manual Muscle Testing Left Flexion (S2) 2- Poor- Extension (L3) 0 Zero Ankle/Foot Strength Ankle and Foot Manual Muscle Testing Left Dorsiflexion (L4) 0 Zero Plantarflexion (S1) 2 Poor Toe Strength Toe Manual Muscle Testing Left Great Toe Flexion 2 Poor Extension 2 Poor PT-OP-Q Treatments Start: 04/15/20 09:54 Freq: Status: Active Protocol: Document 06/14/20 13:51 SP (Rec: 06/14/20 16:06 SP [id number]) Gait Training Gait Activity 3 Description gait with hemiwalker Level of Assistance CG- 10- % A step to Surface stable Distance/Duration 53 ft, 99ft Treatment Focus upright posture, foot clearance, increase stride Comments W/C followed by therapist (Min A), occasional support at anterior L knee and quad facilitation cuing first few step once in standing and awareness of L knee extension with decrease hip ER. Improved 2nd distance. Self-Care/Home Management Treatment Education Patient Education Joint Protection,Posture Other Education Pt education on donning of new L UE sling/ strap to assist support and stabilization with report of increased comfort. End of the tx, discussed with patient's uncle and father on sequencing L sling from hand > Lelbow > L shld > cross back >to opposite shoulder for caregiver assist trg with verbal confirmation and pointed out the card with visual cuing for proper fit. 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 STG Duration 4 weeks Machine Stonecutter Goal (LTG) Ajith will stand with Arleth and a yvrose walker for 1 minute without loss of balance. LTG Duration 8 weeks Three Impairment Home exercise program Short Term Goal (STG) Ajith will be independent with a stretching program to prevent a worsening of his ankle contracture. STG Duration 6 weeks Usp Goal (LTG) Ajith will be independent with a strengthening home exercise program. LTG Duration 12 weeks Two Impairment Transfers Short Term Goal (STG) Ajith will perform a squat pivot transfer from his wheelchair to flat surface from both the right and the left sides with ModA. STG Duration 6 weeks Usp Goal (LTG) Ajith will perform a squat pivot transfer with supervision to both the right and left. LTG Duration 12 weeks One Impairment Gait Short Term Goal (STG) Ajith will ambulate in the paralel bars for Assessment Summary Assessment Pt decreased distance during gait today but required decreased assist of 1 person for CG- 10% A for wt shift recovery. Cued for L quad facilitation during R LE advancement first couple steps once in standing with good carry over rest of distance. Pt walked further 2nd distance . Physical Therapy Plan Frequency and Duration Frequency of Treatment 2x/Week Duration of Treatment 12 weeks Plan of Care Start Date 04/15/20 Plan of Care End Date 07/08/20 Therapeutic Interventions Therapeutic Interventions Balance Training,Gait Training ,Home Exercise Program,Manual Therapy,Neuromuscular Re- education,Self-Care/Home Management,Therapeutic Activities,Therapeutic Exercises,Wheelchair Management Next Visit Focus/Plan Next Note Type Treatment Note Next Visit Plan Reassess L UE new sling/strap proper positioning. Waiting on OT referral approval. Continue per PT POC: Start with gait, continue to work on weight shifts and reinforce standing exercises that he is doing at home.
--- NOTE | 2020-06-16 13:09 | PT.OPPOC ---
Physical, Occupational & Speech Therapy At [facility] Current Diagnoses Hemiplegia, unspecified affecting left nondominant side (06/16/20) Other reduced mobility (06/16/20) Visit Care Team Role Provider Type Pavan Gallego MD Attending Provider Non-Staff Family Provider Primary Care Provider Referring Provider Specialty: Family Practice Address: [address] [place] [address], [facility] Email: Plan Of Care PT-OP-T Assessment and Plan Start: 04/15/20 09:54 Freq: Status: Active Protocol: Document 06/16/20 10:16 AMB (Rec: 06/16/20 11:09 AMB [id number]) Physical Therapy Assessment Goals Five Impairment Advanced transfers Short Term Goal (STG) Ajith will complete a car transfer with Arleth. STG Duration 6 weeks Diesel Dragline Operator Goal (LTG) Ajith will complete a floor transfer with environmental support and ModA. LTG Duration 12 weeks Four Impairment Standing balance Short Term Goal (STG) Ajith will supervisor paper machine the paralel bars without physical assistance for 1 minute without loss of balance. STG Duration MET Jail Goal (LTG) Ajith will stand with Arleth and a yvrose walker for 1 minute without loss of balance. LTG Duration MET Three Impairment Home exercise program Short Term Goal (STG) Ajith will be independent with a stretching program to prevent a worsening of his ankle contracture. STG Duration 6 weeks Jail Goal (LTG) Ajith will be independent with a strengthening home exercise program. LTG Duration 12 weeks Two Impairment Transfers Short Term Goal (STG) Ajith will perform a squat pivot transfer from his wheelchair to flat surface from both the right and the left sides with ModA. STG Duration MET Jail Goal (LTG) Ajith will perform a squat pivot transfer with supervision to both the right and left. LTG Duration 12 weeks One Impairment Gait Short Term Goal (STG) Ajith will ambulate in the paralel bars for 50 feet. STG Duration MET Jail Goal (LTG) Ajith will ambulate with a hemiwalker for 200' with CGA. Assessment Summary Assessment Ajith has shown improvement with his ability to ambulate distance, but his ankle contracture and continued quad weakness do make this challenging. His family has been struggling to take care of him, since his dad hurt his back, his mother is unable to physically assist him, and his uncle has been coming up from the [facility] to help him into the car with car transfers. Further PT will work on improving his ability to perform more advanced transfers (car transfer/ floor transfer) although he would need to be quite independent with these for safety as his family has difficulty physically assisting him. Physical Therapy Plan Frequency and Duration Frequency of Treatment 1x/Week Duration of Treatment 12 weeks Plan of Care Start Date 06/16/20 Plan of Care End Date 09/08/20 Therapeutic Interventions Therapeutic Interventions Balance Training,Gait Training ,Home Exercise Program,Manual Therapy,Neuromuscular Re- education,Self-Care/Home Management,Therapeutic Activities,Therapeutic Exercises,Wheelchair Management Next Visit Focus/Plan Next Note Type Treatment Note Next Visit Plan Pt seeing OT next week, but can recheck sling. Reinforce ankle stretching for pain with AFO. Plan of Care Dates Plan of Care Start Date 06/16/20 Plan of Care End Date 09/08/20 Electronically Signed by: Cecy Mccarthy, PT 06/16/20 [id number] Please Sign and Return: I have reviewed this Plan of Care and certify that the skilled therapy services above are required to meet the patient?s needs. Physician Signature Date Printed Name and Credentials Clinical Instructor Signature Printed Name and Credentials
--- NOTE | 2020-06-16 13:10 | PT.OTN ---
Current Diagnoses Hemiplegia, unspecified affecting left nondominant side (06/16/20) Other reduced mobility (06/16/20) Physical Therapy Treatment Note PT-OP-A Visit Information Start: 04/15/20 09:54 Freq: Status: Active Protocol: Document 06/16/20 10:15 AMB (Rec: 06/16/20 11:18 AMB [id number]) Out-Patient Physical Therapy Visit Information Visit Information Visit Type Treatment Note Visit Start Time 10:15 Visit Stop Time 11:00 Total Visit Minutes 45 Visit Number 17 Number of CAMPAIGN DEVELOPER Visits 0 PT-OP-B Current Condition Start: 04/15/20 09:54 Freq: Status: Active Protocol: Document 04/15/20 10:58 AMB (Rec: 04/15/20 11:58 AMB [id number]) Current Condition History of Current Condition Onset Date Mar 2019 Current Complaints L yvrose s/p R CVA History of Current Condition Ajith had a carotid dissection with subsequent craniotomy 13 months ago. He lives in a 2 level home and just finished with home health. He has an 8 year old daughter and is currently getting . He has 24 hour care from his parents, brother and sisters, he no longer lives with his or daughter. Per his brother's report he transfers independently from his w/c to the couch/bed, but he has had 2 recent falls at home where he got his feet wound up in blankets and then slid out of his bed onto the floor. He has a manual w/c, yvrose walker, and quad cane at home. He doesn't really use the cane or walker. He does walk around the kitchen island if there is someone close by for practice . Treatment Goals Patient/Caregiver Goals To be independent. He wants to be able to go outside with his daughter and work in the yard. 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 Current Functional Impairments (Reported) Functional Limitations- Mobility/Gait Ajith uses a w/c for all mobility, he can transfer in and out of the w/c. Personal Factors Other Personal Factors That May Effect Prior history of ACL and Therapy/Recovery meniscus surgery in college. depression. 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 PT-OP-C Subjective Start: 04/15/20 09:54 Freq: Status: Active Protocol: Document 06/16/20 10:15 AMB (Rec: 06/16/20 11:18 AMB [id number]) OP-PT Subjective Patient Comments Patient Comments Pt is complaining about ankle pain today. PT-OP-G Mobility & Gait Start: 04/15/20 09:54 Freq: Status: Active Protocol: Document 04/15/20 11:00 AMB (Rec: 04/16/20 15:53 AMB [email or web address]) OP Mobility Evaluation Bed Mobility Rolling Cici- pt with poor form but was able to do with cueing. Supine to and from Sit Supervision- required cueing for form, but did not need physical assistance, hooks yvrose leg to move it with his unaffected leg. Transfers Sit to Stand ModA for stabilization at L knee and steadying. Pt needed verbal cues to look at L foot and make sure it was in a good position before transfer. Bed to Chair Transfers Pt can perform at home with supervision per brother's report if he is in his w/c and removes the arm rest and performs a squat pivot transfer to the right only, pt is unable to perform wiht supervision if he tranfers to his yvrose side. Car Transfers Not witnessed by this PT, but from report sounds like Mod/ Arleth with pt performing a standing pivot transfer with heavy R UE use- pt needs a sturdy handle to hold onto. Floor Transfers Dependent Wheelchair Management Assessment Details Pt attended appointment in transport chair. Per report has manual w/c at home that he can propel for short distances over smooth terrain. OP Gait Assessment Comments Gait Comments Ambulated 2 lengths of the paralel bars with custom AFO and ModA, one loss of balance required assist due to yvrose knee giving way. Overall poor form with heavy use of UE, circumduction during swing of the yvrose leg, and poor quad control leads to unsteadiness during stance. PT-OP-H Neuro Start: 04/15/20 09:54 Freq: Status: Active Protocol: Document 04/15/20 11:00 AMB (Rec: 04/16/20 15:53 AMB [email or web address]) Sensation Evaluation Gross Sensation Gross Sensation Left UE Impaired,Left LE Impaired Sensation Description Numbness Comments Summary Comments Pt reports ability to sense deep pressure, but otherwise diminished sensation throughout entire left side. Deep Tendon Reflex & Clonus Assessment Ankle Clonus Left Clonus Assessment Sustained Muscle Tone Tone Assessment Left Lower Extremity Extensor Tone Description Moderate Hypertonicity Muscle Tone Comments with lying supine pt goes into extensor tone PT-OP-K Range of Motion Start: 04/15/20 09:54 Freq: Status: Active Protocol: Document 04/15/20 11:00 AMB (Rec: 04/16/20 15:53 AMB [email or web address]) Ankle and Foot Goniometric Range of Motion Ankle and Foot Left Passive Comments 20 degree plantarflexion contracture PT-OP-M Strength Start: 04/16/20 15:34 Freq: Status: Active Protocol: Document 04/15/20 11:00 AMB (Rec: 04/16/20 15:53 AMB [email or web address]) Hip Strength Hip Manual Muscle Testing Left Flexion (L2) 3- Fair- Abduction 2+ Poor+ Adduction 2+ Poor+ External Rotation 3- Fair- Internal Rotation 3 Fair Comments difficult for pt to move in a straight plane of motion, when asked to go into hip flexion, also abducts and rotates hip Knee Strength Knee Manual Muscle Testing Left Flexion (S2) 2- Poor- Extension (L3) 0 Zero Ankle/Foot Strength Ankle and Foot Manual Muscle Testing Left Dorsiflexion (L4) 0 Zero Plantarflexion (S1) 2 Poor Toe Strength Toe Manual Muscle Testing Left Great Toe Flexion 2 Poor Extension 2 Poor PT-OP-Q Treatments Start: 04/15/20 09:54 Freq: Status: Active Protocol: Document 06/16/20 10:15 AMB (Rec: 06/16/20 12:52 AMB [email or web address]) Therapeutic Exercises Supine Exercises 3 Supine Exercise Name lower trunk rotation in hooklying Reps/Minutes 30x3 1 Supine Exercise Name passive hamstring stretch, with achilles stretch Reps/Minutes 8 min Comments with achilles stretch Gait Training Gait Activity 3 Description gait with hemiwalker Level of Assistance CGA/ Arleth Surface stable Distance/Duration 100' Treatment Focus upright posture, foot clearance, increase stride Comments W/C followed by therapist (Min A),- 1 LOB post when knee became week at end of walk. Self-Care/Home Management Treatment Education Patient Education Joint Protection,Posture Other Education Pt education on donning/ doffing of new L UE sling/ strap to assist support and stabilization with report of increased comfort. Adjusted for appropriate fit. Will need to reassess Ajith' retention of how to don/doff. May be able to work into independence with this. PT-OP-T Assessment and Plan Start: 04/15/20 09:54 Freq: Status: Active Protocol: Document 06/16/20 10:16 AMB (Rec: 06/16/20 11:09 AMB [id number]) Physical Therapy Assessment Goals Five Impairment Advanced transfers Short Term Goal (STG) Ajith will complete a car transfer with Arleth. STG Duration 6 weeks Folder Tier Goal (LTG) Ajith will complete a floor transfer with environmental support and ModA. 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 STG Duration MET Long-Term Goal (LTG) Ajith will stand with Arleth and a yvrose walker for 1 minute without loss of balance. LTG Duration MET Three Impairment Home exercise program Short Term Goal (STG) Ajith will be independent with a stretching program to prevent a worsening of his ankle contracture. STG Duration 6 weeks Folder Tier Goal (LTG) Ajith will be independent with a strengthening home exercise program. LTG Duration 12 weeks Two Impairment Transfers Short Term Goal (STG) Ajith will perform a squat pivot transfer from his wheelchair to flat surface from both the right and the left sides with ModA. STG Duration MET Folder Tier Goal (LTG) Ajith will perform a squat pivot transfer with supervision to both the right and left. LTG Duration 12 weeks One Impairment Gait Short Term Goal (STG) Ajith will ambulate in the paralel bars for 50 feet. STG Duration MET Folder Tier Goal (LTG) Ajith will ambulate with a hemiwalker for 200' with CGA. Assessment Summary Assessment Ajith has shown improvement with his ability to ambulate distance, but his ankle contracture and continued quad weakness do make this challenging. His family has been struggling to take care of him, since his dad hurt his back, his mother is unable to physically assist him, and his uncle has been coming up from the [facility] to help him into the car with car transfers. Further PT will work on improving his ability to perform more advanced transfers (car transfer/ floor transfer) although he would need to be quite independent with these for safety as his family has difficulty physically assisting him. Physical Therapy Plan Frequency and Duration Frequency of Treatment 1x/Week Duration of Treatment 12 weeks Plan of Care Start Date 06/16/20 Plan of Care End Date 09/08/20 Therapeutic Interventions Therapeutic Interventions Balance Training,Gait Training ,Home Exercise Program,Manual Therapy,Neuromuscular Re- education,Self-Care/Home Management,Therapeutic Activities,Therapeutic Exercises,Wheelchair Management Next Visit Focus/Plan Next Note Type Treatment Note Next Visit Plan Pt seeing OT next week, but can recheck sling. Reinforce ankle stretching for pain with AFO.
--- NOTE | 2020-06-23 10:48 | PT.OTN ---
Current Diagnoses Hemiplegia, unspecified affecting left nondominant side (06/23/20) Other reduced mobility (06/23/20) Physical Therapy Treatment Note PT-OP-A Visit Information Start: 04/15/20 09:54 Freq: Status: Active Protocol: Document 06/23/20 09:00 AMB (Rec: 06/23/20 10:48 AMB [email or web address]) Out-Patient Physical Therapy Visit Information Visit Information Visit Type Treatment Note Visit Start Time 09:00 Visit Stop Time 09:45 Total Visit Minutes 45 Visit Number 18 PT-OP-B Current Condition Start: 04/15/20 09:54 Freq: Status: Active Protocol: Document 04/15/20 10:58 AMB (Rec: 04/15/20 11:58 AMB [id number]) Current Condition History of Current Condition Onset Date Mar 2019 Current Complaints L yvrose s/p R CVA History of Current Condition Ajith had a carotid dissection with subsequent craniotomy 13 months ago. He lives in a 2 level home and just finished with home health. He has an 8 year old daughter and is currently getting . He has 24 hour care from his parents, brother and sisters, he no longer lives with his or daughter. Per his brother's report he transfers independently from his w/c to the couch/bed, but he has had 2 recent falls at home where he got his feet wound up in blankets and then slid out of his bed onto the floor. He has a manual w/c, yvrose walker, and quad cane at home. He doesn't really use the cane or walker. He does walk around the kitchen island if there is someone close by for practice . Treatment Goals Patient/Caregiver Goals To be independent. He wants to be able to go outside with his daughter and work in the yard. 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 Current Functional Impairments (Reported) Functional Limitations- Mobility/Gait Ajith uses a w/c for all mobility, he can transfer in and out of the w/c. Personal Factors Other Personal Factors That May Effect Prior history of ACL and Therapy/Recovery meniscus surgery in college. depression. 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 PT-OP-C Subjective Start: 04/15/20 09:54 Freq: Status: Active Protocol: Document 06/23/20 09:00 AMB (Rec: 06/23/20 10:48 AMB [email or web address]) OP-PT Subjective Patient Comments Patient Comments Pt had a doctors appointment and doctor said that once he meets the hard cap for outpatient PT/OT there won't be any more therapy for 2020. This is upsetting to Ajith. PT-OP-G Mobility & Gait Start: 04/15/20 09:54 Freq: Status: Active Protocol: Document 04/15/20 11:00 AMB (Rec: 04/16/20 15:53 AMB [email or web address]) OP Mobility Evaluation Bed Mobility Rolling Cici- pt with poor form but was able to do with cueing. Supine to and from Sit Supervision- required cueing for form, but did not need physical assistance, hooks yvrose leg to move it with his unaffected leg. Transfers Sit to Stand ModA for stabilization at L knee and steadying. Pt needed verbal cues to look at L foot and make sure it was in a good position before transfer. Bed to Chair Transfers Pt can perform at home with supervision per brother's report if he is in his w/c and removes the arm rest and performs a squat pivot transfer to the right only, pt is unable to perform wiht supervision if he tranfers to his yvrose side. Car Transfers Not witnessed by this PT, but from report sounds like Mod/ Arleth with pt performing a standing pivot transfer with heavy R UE use- pt needs a sturdy handle to hold onto. Floor Transfers Dependent Wheelchair Management Assessment Details Pt attended appointment in transport chair. Per report has manual w/c at home that he can propel for short distances over smooth terrain. OP Gait Assessment Comments Gait Comments Ambulated 2 lengths of the paralel bars with custom AFO and ModA, one loss of balance required assist due to yvrose knee giving way. Overall poor form with heavy use of UE, circumduction during swing of the yvrose leg, and poor quad control leads to unsteadiness during stance. PT-OP-H Neuro Start: 04/15/20 09:54 Freq: Status: Active Protocol: Document 04/15/20 11:00 AMB (Rec: 04/16/20 15:53 AMB [email or web address]) Sensation Evaluation Gross Sensation Gross Sensation Left UE Impaired,Left LE Impaired Sensation Description Numbness Comments Summary Comments Pt reports ability to sense deep pressure, but otherwise diminished sensation throughout entire left side. Deep Tendon Reflex & Clonus Assessment Ankle Clonus Left Clonus Assessment Sustained Muscle Tone Tone Assessment Left Lower Extremity Extensor Tone Description Moderate Hypertonicity Muscle Tone Comments with lying supine pt goes into extensor tone PT-OP-K Range of Motion Start: 04/15/20 09:54 Freq: Status: Active Protocol: Document 04/15/20 11:00 AMB (Rec: 04/16/20 15:53 AMB [email or web address]) Ankle and Foot Goniometric Range of Motion Ankle and Foot Left Passive Comments 20 degree plantarflexion contracture PT-OP-M Strength Start: 04/16/20 15:34 Freq: Status: Active Protocol: Document 04/15/20 11:00 AMB (Rec: 04/16/20 15:53 AMB [email or web address]) Hip Strength Hip Manual Muscle Testing Left Flexion (L2) 3- Fair- Abduction 2+ Poor+ Adduction 2+ Poor+ External Rotation 3- Fair- Internal Rotation 3 Fair Comments difficult for pt to move in a straight plane of motion, when asked to go into hip flexion, also abducts and rotates hip Knee Strength Knee Manual Muscle Testing Left Flexion (S2) 2- Poor- Extension (L3) 0 Zero Ankle/Foot Strength Ankle and Foot Manual Muscle Testing Left Dorsiflexion (L4) 0 Zero Plantarflexion (S1) 2 Poor Toe Strength Toe Manual Muscle Testing Left Great Toe Flexion 2 Poor Extension 2 Poor PT-OP-Q Treatments Start: 04/15/20 09:54 Freq: Status: Active Protocol: Document 06/23/20 09:00 AMB (Rec: 06/23/20 10:48 AMB [email or web address]) Therapeutic Exercises Sitting Exercises 1 Sitting Exercise Name gluteal set Comments seated Other Exercises Sit<>Stand Reps/Minutes 10 Comments Arleth- vc for foot placement, trunk lean Gait Training Gait Activity 3 Description gait with hemiwalker Level of Assistance CGA/ Arleth Surface stable Distance/Duration 150' Treatment Focus upright posture, foot clearance, increase stride Comments W/C followed by therapist Neuro Re-Education Treatment Balance Activities 1 Details standing balance Comments letting go of yvrose walker once balanced to work on standing balance- pt does tend to weightbear through R leg significantly more PT-OP-T Assessment and Plan Start: 04/15/20 09:54 Freq: Status: Active Protocol: Document 06/23/20 09:00 AMB (Rec: 06/23/20 10:48 AMB [email or web address]) Physical Therapy Assessment Assessment Summary Assessment Checked with uncle about what is most difficult with car transfer, and it sounds like [place] driveway is quite steep and that is the difficult part. Physical Therapy Plan Next Visit Focus/Plan Next Note Type Treatment Note Next Visit Plan Recheck HEP: standing balance , w/c mobilization, passive ankle stretch, glut sets, sit to stands
--- NOTE | 2020-07-07 12:15 | PT.OTN ---
Current Diagnoses Hemiplegia, unspecified affecting left nondominant side (07/07/20) Other reduced mobility (07/07/20) Physical Therapy Treatment Note PT-OP-A Visit Information Start: 04/15/20 09:54 Freq: Status: Active Protocol: Document 07/07/20 14:45 MA (Rec: 07/07/20 15:32 MA [email or web address]) Out-Patient Physical Therapy Visit Information Visit Information Visit Type Treatment Note Visit Start Time 11:25 Visit Stop Time 12:10 Total Visit Minutes 45 Visit Number 19 Number of JUNIOR RECRUITER Visits 1 PT-OP-B Current Condition Start: 04/15/20 09:54 Freq: Status: Active Protocol: Document 04/15/20 10:58 AMB (Rec: 04/15/20 11:58 AMB [id number]) Current Condition History of Current Condition Onset Date Mar 2019 Current Complaints L yvrose s/p R CVA History of Current Condition Ajith had a carotid dissection with subsequent craniotomy 13 months ago. He lives in a 2 level home and just finished with home health. He has an 8 year old daughter and is currently getting . He has 24 hour care from his parents, brother and sisters, he no longer lives with his or daughter. Per his brother's report he transfers independently from his w/c to the couch/bed, but he has had 2 recent falls at home where he got his feet wound up in blankets and then slid out of his bed onto the floor. He has a manual w/c, yvrose walker, and quad cane at home. He doesn't really use the cane or walker. He does walk around the kitchen island if there is someone close by for practice . Treatment Goals Patient/Caregiver Goals To be independent. He wants to be able to go outside with his daughter and work in the yard. 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 Current Functional Impairments (Reported) Functional Limitations- Mobility/Gait Ajith uses a w/c for all mobility, he can transfer in and out of the w/c. Personal Factors Other Personal Factors That May Effect Prior history of ACL and Therapy/Recovery meniscus surgery in college. depression. 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 PT-OP-C Subjective Start: 04/15/20 09:54 Freq: Status: Active Protocol: Document 07/07/20 14:45 MA (Rec: 07/07/20 15:32 MA [email or web address]) OP-PT Subjective Patient Comments Patient Comments Pt's dad and uncle arrived with pt today. They stated the pt will be covered for continued PT through September but not OT. Pt is distraut over thought of d/c from therapy. The family would like options for home OTs that they could pay for out of pocket. PT-OP-G Mobility & Gait Start: 04/15/20 09:54 Freq: Status: Active Protocol: Document 04/15/20 11:00 AMB (Rec: 04/16/20 15:53 AMB [email or web address]) OP Mobility Evaluation Bed Mobility Rolling Cici- pt with poor form but was able to do with cueing. Supine to and from Sit Supervision- required cueing for form, but did not need physical assistance, hooks yvrose leg to move it with his unaffected leg. Transfers Sit to Stand ModA for stabilization at L knee and steadying. Pt needed verbal cues to look at L foot and make sure it was in a good position before transfer. Bed to Chair Transfers Pt can perform at home with supervision per brother's report if he is in his w/c and removes the arm rest and performs a squat pivot transfer to the right only, pt is unable to perform wiht supervision if he tranfers to his yvrose side. Car Transfers Not witnessed by this PT, but from report sounds like Mod/ Arleth with pt performing a standing pivot transfer with heavy R UE use- pt needs a sturdy handle to hold onto. Floor Transfers Dependent Wheelchair Management Assessment Details Pt attended appointment in transport chair. Per report has manual w/c at home that he can propel for short distances over smooth terrain. OP Gait Assessment Comments Gait Comments Ambulated 2 lengths of the paralel bars with custom AFO and ModA, one loss of balance required assist due to yvrose knee giving way. Overall poor form with heavy use of UE, circumduction during swing of the yvrose leg, and poor quad control leads to unsteadiness during stance. PT-OP-H Neuro Start: 04/15/20 09:54 Freq: Status: Active Protocol: Document 04/15/20 11:00 AMB (Rec: 04/16/20 15:53 AMB [email or web address]) Sensation Evaluation Gross Sensation Gross Sensation Left UE Impaired,Left LE Impaired Sensation Description Numbness Comments Summary Comments Pt reports ability to sense deep pressure, but otherwise diminished sensation throughout entire left side. Deep Tendon Reflex & Clonus Assessment Ankle Clonus Left Clonus Assessment Sustained Muscle Tone Tone Assessment Left Lower Extremity Extensor Tone Description Moderate Hypertonicity Muscle Tone Comments with lying supine pt goes into extensor tone PT-OP-K Range of Motion Start: 04/15/20 09:54 Freq: Status: Active Protocol: Document 04/15/20 11:00 AMB (Rec: 04/16/20 15:53 AMB [email or web address]) Ankle and Foot Goniometric Range of Motion Ankle and Foot Left Passive Comments 20 degree plantarflexion contracture PT-OP-M Strength Start: 04/16/20 15:34 Freq: Status: Active Protocol: Document 04/15/20 11:00 AMB (Rec: 04/16/20 15:53 AMB [email or web address]) Hip Strength Hip Manual Muscle Testing Left Flexion (L2) 3- Fair- Abduction 2+ Poor+ Adduction 2+ Poor+ External Rotation 3- Fair- Internal Rotation 3 Fair Comments difficult for pt to move in a straight plane of motion, when asked to go into hip flexion, also abducts and rotates hip Knee Strength Knee Manual Muscle Testing Left Flexion (S2) 2- Poor- Extension (L3) 0 Zero Ankle/Foot Strength Ankle and Foot Manual Muscle Testing Left Dorsiflexion (L4) 0 Zero Plantarflexion (S1) 2 Poor Toe Strength Toe Manual Muscle Testing Left Great Toe Flexion 2 Poor Extension 2 Poor PT-OP-Q Treatments Start: 04/15/20 09:54 Freq: Status: Active Protocol: Document 07/07/20 14:45 MA (Rec: 07/07/20 15:32 MA [email or web address]) Therapeutic Exercises Supine Exercises HS curl Side left Equipment Used red theraball and gait belt Reps/Minutes 10x Comments therapist assisted LLE to avoid ER of hip SAQ Side left Equipment Used bolster Reps/Minutes 8x Sitting Exercises 1 Sitting Exercise Name gluteal set Comments supine today Other Exercises Sit<>Stand Reps/Minutes 4x Comments Arleth- vc for foot placement, trunk lean Gait Training Gait Activity 3 Description gait with hemiwalker Level of Assistance CGA/ Arleth Surface stable Distance/Duration 100', 80' Treatment Focus upright posture, foot clearance, increase stride Comments W/C follow by aide, seated rest break after 100' due to pt starting to fatigue and drag LLE 2 Description weight shifting Level of Assistance Arleth, 1x max A for LOB Comments single episode posterior LOB, max A lowered into chair Manual Therapy Treatment Soft Tissue Mobilization Gastroc Body Location L Mobilization Type Myofascial Release,Sustained Pressure,Trigger Point Release Intensity/Depth Moderate Body Position Supine Self-Care/Home Management Treatment Education Patient Education Home Exercise Program,Safety Caregiver Education Discussed home health options, paying out of pocket for OT/ PT when insurance no longer covers care in September Other Education Pt would like to buy theraball for HS curls after seeing other pt's do the exercise here in therapy. Discussed how pt is unsafe to perform HS curls with LLE at home without assistance due to decreased control with LLE. After performing during session, pt thinks he could do it on the couch to keep the ball from rolling laterally and family member could help with knee tracking. Educated pt on how we would need to do caregiver training to be sure it is done correctly to avoid causing knee pain. PT-OP-T Assessment and Plan Start: 04/15/20 09:54 Freq: Status: Active Protocol: Document 07/07/20 14:45 MA (Rec: 07/07/20 15:32 MA [email or web address]) Physical Therapy Assessment Goals Five Impairment Advanced transfers Short Term Goal (STG) Ajith will complete a car transfer with Arleth. STG Duration 6 weeks Chcf Goal (LTG) Ajith will complete a floor transfer with environmental support and ModA. LTG Duration 12 weeks Four Impairment Standing balance Short Term Goal (STG) Ajith will reinsurance claim analyst the paralel bars without physical assistance for 1 minute without loss of balance. STG Duration MET Pigs Feet Cleaner Goal (LTG) Ajith will stand with Arleth and a yvrose walker for 1 minute without loss of balance. LTG Duration MET Three Impairment Home exercise program Short Term Goal (STG) Ajith will be independent with a stretching program to prevent a worsening of his ankle contracture. STG Duration 6 weeks Pigs Feet Cleaner Goal (LTG) Ajith will be independent with a strengthening home exercise program. LTG Duration 12 weeks Two Impairment Transfers Short Term Goal (STG) Ajith will perform a squat pivot transfer from his wheelchair to flat surface from both the right and the left sides with ModA. STG Duration MET Pigs Feet Cleaner Goal (LTG) Ajith will perform a squat pivot transfer with supervision to both the right and left. LTG Duration 12 weeks One Impairment Gait Short Term Goal (STG) Ajith will ambulate in the paralel bars for 50 feet. STG Duration MET Chcf Goal (LTG) Ajith will ambulate with a hemiwalker for 200' with CGA. Assessment Summary Assessment Mj is upset during today's session because he feels like he is just starting to be motivated and would like to continue with therapies, but according to family, the insurance company will no longer pay for OT. PT is allowed to continue through September 2020. They would like home health OT options next session. Pt had one posterior LOB during weight shifts where he was Max A lowered to chair by JUNIOR RECRUITER. During gait training, pt was able to complete 100 feet before therapist decided pt needed seated rest break due to LLE fatigue. Pt stated he could have kept going, but he was beginning to drag LLE needing heavier assist by JUNIOR RECRUITER to avoid LOB. After 2 min seated rest break, pt was able to complete 80 more feet CGA. Pt requested trying HS curls with theraball b/c he has seen people do it when he is in therapy and he would like to try. Pt needs Mod A to aovid L hip ER and vc to use L HS more than pull on gait belt with RUE. During SAQ today pt tended to flex hip and lift LE instead of straighten knee due to quad fatigue. Physical Therapy Plan Frequency and Duration Frequency of Treatment 1x/Week Duration of Treatment 12 weeks Plan of Care Start Date 06/16/20 Plan of Care End Date 09/08/20 Therapeutic Interventions Therapeutic Interventions Balance Training,Gait Training ,Home Exercise Program,Manual Therapy,Neuromuscular Re- education,Self-Care/Home Management,Therapeutic Activities,Therapeutic Exercises,Wheelchair Management Next Visit Focus/Plan Next Note Type Treatment Note Next Visit Plan standing balance, increase gait distance, w/c mobilization, passive ankle stretch, glute sets, sit to stands
--- NOTE | 2020-07-12 15:00 | PT.OTN ---
Current Diagnoses Hemiplegia, unspecified affecting left nondominant side (07/12/20) Other reduced mobility (07/12/20) Physical Therapy Treatment Note PT-OP-A Visit Information Start: 04/15/20 09:54 Freq: Status: Active Protocol: Document 07/12/20 11:00 AMB (Rec: 07/12/20 11:59 AMB [email or web address]) Out-Patient Physical Therapy Visit Information Visit Information Visit Type Treatment Note Visit Start Time 11:00 Visit Stop Time 11:45 Total Visit Minutes 45 Visit Number 20 Number of EQUIPMENT WASHER Visits 0 PT-OP-B Current Condition Start: 04/15/20 09:54 Freq: Status: Active Protocol: Document 04/15/20 10:58 AMB (Rec: 04/15/20 11:58 AMB [id number]) Current Condition History of Current Condition Onset Date Mar 2019 Current Complaints L yvrose s/p R CVA History of Current Condition Ajith had a carotid dissection with subsequent craniotomy 13 months ago. He lives in a 2 level home and just finished with home health. He has an 8 year old daughter and is currently getting . He has 24 hour care from his parents, brother and sisters, he no longer lives with his or daughter. Per his brother's report he transfers independently from his w/c to the couch/bed, but he has had 2 recent falls at home where he got his feet wound up in blankets and then slid out of his bed onto the floor. He has a manual w/c, yvrose walker, and quad cane at home. He doesn't really use the cane or walker. He does walk around the kitchen island if there is someone close by for practice . Treatment Goals Patient/Caregiver Goals To be independent. He wants to be able to go outside with his daughter and work in the yard. 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 Current Functional Impairments (Reported) Functional Limitations- Mobility/Gait Ajith uses a w/c for all mobility, he can transfer in and out of the w/c. Personal Factors Other Personal Factors That May Effect Prior history of ACL and Therapy/Recovery meniscus surgery in college. depression. 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 PT-OP-C Subjective Start: 04/15/20 09:54 Freq: Status: Active Protocol: Document 07/12/20 11:00 AMB (Rec: 07/12/20 11:59 AMB [email or web address]) OP-PT Subjective Patient Comments Patient Comments Spoke with uncle today, and he and Ajith were unsure about OT, family and this provider are very confused as to why they think that insurance won' t cover more OT. PT-OP-G Mobility & Gait Start: 04/15/20 09:54 Freq: Status: Active Protocol: Document 04/15/20 11:00 AMB (Rec: 04/16/20 15:53 AMB [email or web address]) OP Mobility Evaluation Bed Mobility Rolling Cici- pt with poor form but was able to do with cueing. Supine to and from Sit Supervision- required cueing for form, but did not need physical assistance, hooks yvrose leg to move it with his unaffected leg. Transfers Sit to Stand ModA for stabilization at L knee and steadying. Pt needed verbal cues to look at L foot and make sure it was in a good position before transfer. Bed to Chair Transfers Pt can perform at home with supervision per brother's report if he is in his w/c and removes the arm rest and performs a squat pivot transfer to the right only, pt is unable to perform wiht supervision if he tranfers to his yvrose side. Car Transfers Not witnessed by this PT, but from report sounds like Mod/ Arleth with pt performing a standing pivot transfer with heavy R UE use- pt needs a sturdy handle to hold onto. Floor Transfers Dependent Wheelchair Management Assessment Details Pt attended appointment in transport chair. Per report has manual w/c at home that he can propel for short distances over smooth terrain. OP Gait Assessment Comments Gait Comments Ambulated 2 lengths of the paralel bars with custom AFO and ModA, one loss of balance required assist due to yvrose knee giving way. Overall poor form with heavy use of UE, circumduction during swing of the yvrose leg, and poor quad control leads to unsteadiness during stance. PT-OP-H Neuro Start: 04/15/20 09:54 Freq: Status: Active Protocol: Document 04/15/20 11:00 AMB (Rec: 04/16/20 15:53 AMB [email or web address]) Sensation Evaluation Gross Sensation Gross Sensation Left UE Impaired,Left LE Impaired Sensation Description Numbness Comments Summary Comments Pt reports ability to sense deep pressure, but otherwise diminished sensation throughout entire left side. Deep Tendon Reflex & Clonus Assessment Ankle Clonus Left Clonus Assessment Sustained Muscle Tone Tone Assessment Left Lower Extremity Extensor Tone Description Moderate Hypertonicity Muscle Tone Comments with lying supine pt goes into extensor tone PT-OP-K Range of Motion Start: 04/15/20 09:54 Freq: Status: Active Protocol: Document 04/15/20 11:00 AMB (Rec: 04/16/20 15:53 AMB [email or web address]) Ankle and Foot Goniometric Range of Motion Ankle and Foot Left Passive Comments 20 degree plantarflexion contracture PT-OP-M Strength Start: 04/16/20 15:34 Freq: Status: Active Protocol: Document 04/15/20 11:00 AMB (Rec: 04/16/20 15:53 AMB [email or web address]) Hip Strength Hip Manual Muscle Testing Left Flexion (L2) 3- Fair- Abduction 2+ Poor+ Adduction 2+ Poor+ External Rotation 3- Fair- Internal Rotation 3 Fair Comments difficult for pt to move in a straight plane of motion, when asked to go into hip flexion, also abducts and rotates hip Knee Strength Knee Manual Muscle Testing Left Flexion (S2) 2- Poor- Extension (L3) 0 Zero Ankle/Foot Strength Ankle and Foot Manual Muscle Testing Left Dorsiflexion (L4) 0 Zero Plantarflexion (S1) 2 Poor Toe Strength Toe Manual Muscle Testing Left Great Toe Flexion 2 Poor Extension 2 Poor PT-OP-Q Treatments Start: 04/15/20 09:54 Freq: Status: Active Protocol: Document 07/12/20 11:00 AMB (Rec: 07/12/20 16:08 AMB [id number]) Therapeutic Exercises Supine Exercises SAQ Side left Equipment Used bolster Reps/Minutes 8x Sitting Exercises 1 Sitting Exercise Name gluteal set Comments supine today Other Exercises Sit<>Stand Reps/Minutes 4x Comments Arleth- vc for foot placement, trunk lean Gait Training Gait Activity 3 Description gait with hemiwalker Level of Assistance CGA/ Arleth Surface stable Distance/Duration 120' Treatment Focus upright posture, foot clearance, increase stride Comments W/C follow by therapist 2 Description weight shifting Level of Assistance Arleth, Comments //bars Manual Therapy Treatment Soft Tissue Mobilization Gastroc Body Location L Comments passive achilles stretch PT-OP-T Assessment and Plan Start: 04/15/20 09:54 Freq: Status: Active Protocol: Document 07/12/20 11:00 AMB (Rec: 07/12/20 11:59 AMB [email or web address]) Physical Therapy Assessment Assessment Summary Assessment Ajith' ankle continues to be very tight, encourage to wear ankle splint at night, pt states he is not sure where it went. Physical Therapy Plan Next Visit Focus/Plan Next Note Type Treatment Note Next Visit Plan standing balance, increase gait distance, w/c mobilization, passive ankle stretch, glute sets, sit to stands
--- NOTE | 2020-07-20 11:56 | PT.OTN ---
Current Diagnoses Hemiplegia, unspecified affecting left nondominant side (07/20/20) Other reduced mobility (07/20/20) Physical Therapy Treatment Note PT-OP-A Visit Information Start: 04/15/20 09:54 Freq: Status: Active Protocol: Document 07/20/20 10:15 AMB (Rec: 07/20/20 11:56 AMB [id number]) Out-Patient Physical Therapy Visit Information Visit Information Visit Type Treatment Note Visit Start Time 10:15 Visit Stop Time 11:00 Total Visit Minutes 45 Visit Number 21 Number of CABLE ENGINEER Visits 0 PT-OP-B Current Condition Start: 04/15/20 09:54 Freq: Status: Active Protocol: Document 04/15/20 10:58 AMB (Rec: 04/15/20 11:58 AMB [id number]) Current Condition History of Current Condition Onset Date Mar 2019 Current Complaints L yvrose s/p R CVA History of Current Condition Ajith had a carotid dissection with subsequent craniotomy 13 months ago. He lives in a 2 level home and just finished with home health. He has an 8 year old daughter and is currently getting . He has 24 hour care from his parents, brother and sisters, he no longer lives with his or daughter. Per his brother's report he transfers independently from his w/c to the couch/bed, but he has had 2 recent falls at home where he got his feet wound up in blankets and then slid out of his bed onto the floor. He has a manual w/c, yvrose walker, and quad cane at home. He doesn't really use the cane or walker. He does walk around the kitchen island if there is someone close by for practice . Treatment Goals Patient/Caregiver Goals To be independent. He wants to be able to go outside with his daughter and work in the yard. 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 Current Functional Impairments (Reported) Functional Limitations- Mobility/Gait Ajith uses a w/c for all mobility, he can transfer in and out of the w/c. Personal Factors Other Personal Factors That May Effect Prior history of ACL and Therapy/Recovery meniscus surgery in college. depression. 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 PT-OP-C Subjective Start: 04/15/20 09:54 Freq: Status: Active Protocol: Document 07/20/20 10:15 AMB (Rec: 07/20/20 11:56 AMB [id number]) OP-PT Subjective Patient Comments Patient Comments Ajith states they may have found someone to help him with exercises at his home a couple days a week. PT-OP-G Mobility & Gait Start: 04/15/20 09:54 Freq: Status: Active Protocol: Document 04/15/20 11:00 AMB (Rec: 04/16/20 15:53 AMB [email or web address]) OP Mobility Evaluation Bed Mobility Rolling Cici- pt with poor form but was able to do with cueing. Supine to and from Sit Supervision- required cueing for form, but did not need physical assistance, hooks yvrose leg to move it with his unaffected leg. Transfers Sit to Stand ModA for stabilization at L knee and steadying. Pt needed verbal cues to look at L foot and make sure it was in a good position before transfer. Bed to Chair Transfers Pt can perform at home with supervision per brother's report if he is in his w/c and removes the arm rest and performs a squat pivot transfer to the right only, pt is unable to perform wiht supervision if he tranfers to his yvrose side. Car Transfers Not witnessed by this PT, but from report sounds like Mod/ Arleth with pt performing a standing pivot transfer with heavy R UE use- pt needs a sturdy handle to hold onto. Floor Transfers Dependent Wheelchair Management Assessment Details Pt attended appointment in transport chair. Per report has manual w/c at home that he can propel for short distances over smooth terrain. OP Gait Assessment Comments Gait Comments Ambulated 2 lengths of the paralel bars with custom AFO and ModA, one loss of balance required assist due to yvrose knee giving way. Overall poor form with heavy use of UE, circumduction during swing of the yvrose leg, and poor quad control leads to unsteadiness during stance. PT-OP-H Neuro Start: 04/15/20 09:54 Freq: Status: Active Protocol: Document 04/15/20 11:00 AMB (Rec: 04/16/20 15:53 AMB [email or web address]) Sensation Evaluation Gross Sensation Gross Sensation Left UE Impaired,Left LE Impaired Sensation Description Numbness Comments Summary Comments Pt reports ability to sense deep pressure, but otherwise diminished sensation throughout entire left side. Deep Tendon Reflex & Clonus Assessment Ankle Clonus Left Clonus Assessment Sustained Muscle Tone Tone Assessment Left Lower Extremity Extensor Tone Description Moderate Hypertonicity Muscle Tone Comments with lying supine pt goes into extensor tone PT-OP-K Range of Motion Start: 04/15/20 09:54 Freq: Status: Active Protocol: Document 04/15/20 11:00 AMB (Rec: 04/16/20 15:53 AMB [email or web address]) Ankle and Foot Goniometric Range of Motion Ankle and Foot Left Passive Comments 20 degree plantarflexion contracture PT-OP-M Strength Start: 04/16/20 15:34 Freq: Status: Active Protocol: Document 04/15/20 11:00 AMB (Rec: 04/16/20 15:53 AMB [email or web address]) Hip Strength Hip Manual Muscle Testing Left Flexion (L2) 3- Fair- Abduction 2+ Poor+ Adduction 2+ Poor+ External Rotation 3- Fair- Internal Rotation 3 Fair Comments difficult for pt to move in a straight plane of motion, when asked to go into hip flexion, also abducts and rotates hip Knee Strength Knee Manual Muscle Testing Left Flexion (S2) 2- Poor- Extension (L3) 0 Zero Ankle/Foot Strength Ankle and Foot Manual Muscle Testing Left Dorsiflexion (L4) 0 Zero Plantarflexion (S1) 2 Poor Toe Strength Toe Manual Muscle Testing Left Great Toe Flexion 2 Poor Extension 2 Poor PT-OP-Q Treatments Start: 04/15/20 09:54 Freq: Status: Active Protocol: Document 07/20/20 10:15 AMB (Rec: 07/20/20 11:56 AMB [id number]) Gym Equipment Shuttle Recovery Unilateral Squats Details L Resistance 12 Shuttle Recovery Platform Stable Reps/Time 2x10 Gait Training Gait Activity 3 Description gait with hemiwalker Level of Assistance CGA/ Arleth Surface stable Distance/Duration 80' Treatment Focus upright posture, foot clearance, increase stride Comments W/C follow by therapist 2 Description weight shifting Level of Assistance Arleth, Comments //bars PT-OP-T Assessment and Plan Start: 04/15/20 09:54 Freq: Status: Active Protocol: Document 07/20/20 10:15 AMB (Rec: 07/20/20 11:56 AMB [id number]) Physical Therapy Assessment Assessment Summary Assessment Work with family to educate workplace trainer and assessor in person if possible. Ajith wants to continue using leg press machine, but required physical assist to prevent knee from falling out only able to go through partial ROM. Physical Therapy Plan Next Visit Focus/Plan Next Note Type Treatment Note Next Visit Plan standing balance, increase gait distance, w/c mobilization, passive ankle stretch, glute sets, sit to stands
--- NOTE | 2020-07-27 13:27 | PT.OTN ---
Current Diagnoses Hemiplegia, unspecified affecting left nondominant side (07/27/20) Other reduced mobility (07/27/20) Physical Therapy Treatment Note PT-OP-A Visit Information Start: 04/15/20 09:54 Freq: Status: Active Protocol: Document 07/27/20 10:15 AMB (Rec: 07/27/20 13:27 AMB [email or web address]) Out-Patient Physical Therapy Visit Information Visit Information Visit Type Treatment Note Visit Start Time 10:15 Visit Stop Time 11:00 Total Visit Minutes 45 Visit Number 22 PT-OP-B Current Condition Start: 04/15/20 09:54 Freq: Status: Active Protocol: Document 04/15/20 10:58 AMB (Rec: 04/15/20 11:58 AMB [id number]) Current Condition History of Current Condition Onset Date Mar 2019 Current Complaints L yvrose s/p R CVA History of Current Condition Ajith had a carotid dissection with subsequent craniotomy 13 months ago. He lives in a 2 level home and just finished with home health. He has an 8 year old daughter and is currently getting . He has 24 hour care from his parents, brother and sisters, he no longer lives with his or daughter. Per his brother's report he transfers independently from his w/c to the couch/bed, but he has had 2 recent falls at home where he got his feet wound up in blankets and then slid out of his bed onto the floor. He has a manual w/c, yvrose walker, and quad cane at home. He doesn't really use the cane or walker. He does walk around the kitchen island if there is someone close by for practice . Treatment Goals Patient/Caregiver Goals To be independent. He wants to be able to go outside with his daughter and work in the yard. 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 Current Functional Impairments (Reported) Functional Limitations- Mobility/Gait Ajith uses a w/c for all mobility, he can transfer in and out of the w/c. Personal Factors Other Personal Factors That May Effect Prior history of ACL and Therapy/Recovery meniscus surgery in college. depression. 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 PT-OP-C Subjective Start: 04/15/20 09:54 Freq: Status: Active Protocol: Document 07/27/20 10:15 AMB (Rec: 07/27/20 13:27 AMB [email or web address]) OP-PT Subjective Patient Comments Patient Comments Ajith states that the personal attendant is coming 2x/week. He is happy with that. PT-OP-G Mobility & Gait Start: 04/15/20 09:54 Freq: Status: Active Protocol: Document 04/15/20 11:00 AMB (Rec: 04/16/20 15:53 AMB [email or web address]) OP Mobility Evaluation Bed Mobility Rolling Cici- pt with poor form but was able to do with cueing. Supine to and from Sit Supervision- required cueing for form, but did not need physical assistance, hooks yvrose leg to move it with his unaffected leg. Transfers Sit to Stand ModA for stabilization at L knee and steadying. Pt needed verbal cues to look at L foot and make sure it was in a good position before transfer. Bed to Chair Transfers Pt can perform at home with supervision per brother's report if he is in his w/c and removes the arm rest and performs a squat pivot transfer to the right only, pt is unable to perform wiht supervision if he tranfers to his yvrose side. Car Transfers Not witnessed by this PT, but from report sounds like Mod/ Arleth with pt performing a standing pivot transfer with heavy R UE use- pt needs a sturdy handle to hold onto. Floor Transfers Dependent Wheelchair Management Assessment Details Pt attended appointment in transport chair. Per report has manual w/c at home that he can propel for short distances over smooth terrain. OP Gait Assessment Comments Gait Comments Ambulated 2 lengths of the paralel bars with custom AFO and ModA, one loss of balance required assist due to yvrose knee giving way. Overall poor form with heavy use of UE, circumduction during swing of the yvrose leg, and poor quad control leads to unsteadiness during stance. PT-OP-H Neuro Start: 04/15/20 09:54 Freq: Status: Active Protocol: Document 04/15/20 11:00 AMB (Rec: 04/16/20 15:53 AMB [email or web address]) Sensation Evaluation Gross Sensation Gross Sensation Left UE Impaired,Left LE Impaired Sensation Description Numbness Comments Summary Comments Pt reports ability to sense deep pressure, but otherwise diminished sensation throughout entire left side. Deep Tendon Reflex & Clonus Assessment Ankle Clonus Left Clonus Assessment Sustained Muscle Tone Tone Assessment Left Lower Extremity Extensor Tone Description Moderate Hypertonicity Muscle Tone Comments with lying supine pt goes into extensor tone PT-OP-K Range of Motion Start: 04/15/20 09:54 Freq: Status: Active Protocol: Document 04/15/20 11:00 AMB (Rec: 04/16/20 15:53 AMB [email or web address]) Ankle and Foot Goniometric Range of Motion Ankle and Foot Left Passive Comments 20 degree plantarflexion contracture PT-OP-M Strength Start: 04/16/20 15:34 Freq: Status: Active Protocol: Document 04/15/20 11:00 AMB (Rec: 04/16/20 15:53 AMB [email or web address]) Hip Strength Hip Manual Muscle Testing Left Flexion (L2) 3- Fair- Abduction 2+ Poor+ Adduction 2+ Poor+ External Rotation 3- Fair- Internal Rotation 3 Fair Comments difficult for pt to move in a straight plane of motion, when asked to go into hip flexion, also abducts and rotates hip Knee Strength Knee Manual Muscle Testing Left Flexion (S2) 2- Poor- Extension (L3) 0 Zero Ankle/Foot Strength Ankle and Foot Manual Muscle Testing Left Dorsiflexion (L4) 0 Zero Plantarflexion (S1) 2 Poor Toe Strength Toe Manual Muscle Testing Left Great Toe Flexion 2 Poor Extension 2 Poor PT-OP-Q Treatments Start: 04/15/20 09:54 Freq: Status: Active Protocol: Document 07/27/20 10:15 AMB (Rec: 07/27/20 13:27 AMB [email or web address]) Cardio Equipment Recumbent Stepper (Sci-Fit) Duration (Minutes) 5 Resistance 1 Gym Equipment Shuttle Recovery Unilateral Squats Details L Resistance 12 Shuttle Recovery Platform Stable Reps/Time 3x10- small ROM, physical assist for alignment Therapeutic Activity Therapeutic Activity 2 Name stand pivot transfer Comments to from scifit and to from shuttle recovery-- ModA and heavy verbal cues for safety and positioning/sequencing Gait Training Gait Activity 3 Description gait with hemiwalker Level of Assistance CGA/ Arleth Surface stable Distance/Duration 80' Treatment Focus upright posture, foot clearance, increase stride Comments on LOB that required Arleth to recover PT-OP-T Assessment and Plan Start: 04/15/20 09:54 Freq: Status: Active Protocol: Document 01/20/21 10:15 AMB (Rec: 07/27/20 13:27 AMB [email or web address]) Physical Therapy Assessment Assessment Summary Assessment Continued to ask family to facilitate personal attendant coming to an appointment or two for training. Ajith continues have somewhat unrealistic goals,- biking and running- so trying to find a happy medium and redirect him to more reasonable goals: walking with a hemiwalker in his house independently. Physical Therapy Plan Next Visit Focus/Plan Next Note Type Treatment Note Next Visit Plan standing balance, increase gait distance, w/c mobilization, passive ankle stretch, glute sets, sit to stands
--- NOTE | 2020-08-03 10:52 | PT.OTN ---
Current Diagnoses Hemiplegia, unspecified affecting left nondominant side (08/03/20) Other reduced mobility (08/03/20) Physical Therapy Treatment Note PT-OP-A Visit Information Start: 04/15/20 09:54 Freq: Status: Active Protocol: Document 08/03/20 10:42 AMB (Rec: 08/03/20 10:52 AMB [email or web address]) Out-Patient Physical Therapy Visit Information Visit Information Visit Type Treatment Note Visit Note pt was seen for 15 minutes before mentioning that he had new onset head cold sx. He was then sent home. Visit Start Time 10:15 Visit Stop Time 10:30 Total Visit Minutes 15 Visit Number 23 PT-OP-B Current Condition Start: 04/15/20 09:54 Freq: Status: Active Protocol: Document 04/15/20 10:58 AMB (Rec: 04/15/20 11:58 AMB [id number]) Current Condition History of Current Condition Onset Date Mar 2019 Current Complaints L yvrose s/p R CVA History of Current Condition Ajith had a carotid dissection with subsequent craniotomy 13 months ago. He lives in a 2 level home and just finished with home health. He has an 8 year old daughter and is currently getting . He has 24 hour care from his parents, brother and sisters, he no longer lives with his or daughter. Per his brother's report he transfers independently from his w/c to the couch/bed, but he has had 2 recent falls at home where he got his feet wound up in blankets and then slid out of his bed onto the floor. He has a manual w/c, yvrose walker, and quad cane at home. He doesn't really use the cane or walker. He does walk around the kitchen island if there is someone close by for practice . Treatment Goals Patient/Caregiver Goals To be independent. He wants to be able to go outside with his daughter and work in the yard. 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 Current Functional Impairments (Reported) Functional Limitations- Mobility/Gait Ajith uses a w/c for all mobility, he can transfer in and out of the w/c. Personal Factors Other Personal Factors That May Effect Prior history of ACL and Therapy/Recovery meniscus surgery in college. depression. 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 PT-OP-C Subjective Start: 04/15/20 09:54 Freq: Status: Active Protocol: Document 08/03/20 10:42 AMB (Rec: 08/03/20 10:52 AMB [email or web address]) OP-PT Subjective Patient Comments Patient Comments Ajith states that his brace is really biting him today. Later in the session mentions that he has had a headcold since Saturday. His dad was tested for COVID but they don' t have the test results back yet. PT-OP-G Mobility & Gait Start: 04/15/20 09:54 Freq: Status: Active Protocol: Document 04/15/20 11:00 AMB (Rec: 04/16/20 15:53 AMB [email or web address]) OP Mobility Evaluation Bed Mobility Rolling Cici- pt with poor form but was able to do with cueing. Supine to and from Sit Supervision- required cueing for form, but did not need physical assistance, hooks yvrose leg to move it with his unaffected leg. Transfers Sit to Stand ModA for stabilization at L knee and steadying. Pt needed verbal cues to look at L foot and make sure it was in a good position before transfer. Bed to Chair Transfers Pt can perform at home with supervision per brother's report if he is in his w/c and removes the arm rest and performs a squat pivot transfer to the right only, pt is unable to perform wiht supervision if he tranfers to his yvrose side. Car Transfers Not witnessed by this PT, but from report sounds like Mod/ Arleth with pt performing a standing pivot transfer with heavy R UE use- pt needs a sturdy handle to hold onto. Floor Transfers Dependent Wheelchair Management Assessment Details Pt attended appointment in transport chair. Per report has manual w/c at home that he can propel for short distances over smooth terrain. OP Gait Assessment Comments Gait Comments Ambulated 2 lengths of the paralel bars with custom AFO and ModA, one loss of balance required assist due to yvrose knee giving way. Overall poor form with heavy use of UE, circumduction during swing of the yvrose leg, and poor quad control leads to unsteadiness during stance. PT-OP-H Neuro Start: 04/15/20 09:54 Freq: Status: Active Protocol: Document 04/15/20 11:00 AMB (Rec: 04/16/20 15:53 AMB [email or web address]) Sensation Evaluation Gross Sensation Gross Sensation Left UE Impaired,Left LE Impaired Sensation Description Numbness Comments Summary Comments Pt reports ability to sense deep pressure, but otherwise diminished sensation throughout entire left side. Deep Tendon Reflex & Clonus Assessment Ankle Clonus Left Clonus Assessment Sustained Muscle Tone Tone Assessment Left Lower Extremity Extensor Tone Description Moderate Hypertonicity Muscle Tone Comments with lying supine pt goes into extensor tone PT-OP-K Range of Motion Start: 04/15/20 09:54 Freq: Status: Active Protocol: Document 04/15/20 11:00 AMB (Rec: 04/16/20 15:53 AMB [email or web address]) Ankle and Foot Goniometric Range of Motion Ankle and Foot Left Passive Comments 20 degree plantarflexion contracture PT-OP-M Strength Start: 04/16/20 15:34 Freq: Status: Active Protocol: Document 04/15/20 11:00 AMB (Rec: 04/16/20 15:53 AMB [email or web address]) Hip Strength Hip Manual Muscle Testing Left Flexion (L2) 3- Fair- Abduction 2+ Poor+ Adduction 2+ Poor+ External Rotation 3- Fair- Internal Rotation 3 Fair Comments difficult for pt to move in a straight plane of motion, when asked to go into hip flexion, also abducts and rotates hip Knee Strength Knee Manual Muscle Testing Left Flexion (S2) 2- Poor- Extension (L3) 0 Zero Ankle/Foot Strength Ankle and Foot Manual Muscle Testing Left Dorsiflexion (L4) 0 Zero Plantarflexion (S1) 2 Poor Toe Strength Toe Manual Muscle Testing Left Great Toe Flexion 2 Poor Extension 2 Poor PT-OP-Q Treatments Start: 04/15/20 09:54 Freq: Status: Active Protocol: Document 08/03/20 10:42 AMB (Rec: 08/03/20 10:52 AMB [email or web address]) Therapeutic Exercises Sitting Exercises 1 Sitting Exercise Name achilles stretching Comments passive and active in seated PT-OP-T Assessment and Plan Start: 04/15/20 09:54 Freq: Status: Active Protocol: Document 08/03/20 10:42 AMB (Rec: 08/03/20 10:52 AMB [email or web address]) Physical Therapy Assessment Assessment Summary Assessment Encouraged Ajith to stretch his achilles and wear his night splint so that his brace fits better, and then it will feel better. Educated family that he cannot be here if he has head cold sx. Physical Therapy Plan Next Visit Focus/Plan Next Note Type Treatment Note Next Visit Plan standing balance, increase gait distance, w/c mobilization, passive ankle stretch, glute sets, sit to stands
--- NOTE | 2020-08-10 15:59 | PT.OTN ---
Current Diagnoses Hemiplegia, unspecified affecting left nondominant side (08/10/20) Other reduced mobility (08/10/20) Physical Therapy Treatment Note PT-OP-A Visit Information Start: 04/15/20 09:54 Freq: Status: Active Protocol: Document 08/10/20 10:15 AMB (Rec: 08/10/20 11:00 AMB [id number]) Out-Patient Physical Therapy Visit Information Visit Information Visit Type Treatment Note Visit Start Time 10:15 Visit Stop Time 10:55 Total Visit Minutes 40 Visit Number 24 PT-OP-B Current Condition Start: 04/15/20 09:54 Freq: Status: Active Protocol: Document 04/15/20 10:58 AMB (Rec: 04/15/20 11:58 AMB [id number]) Current Condition History of Current Condition Onset Date Mar 2019 Current Complaints L yvrose s/p R CVA History of Current Condition Ajith had a carotid dissection with subsequent craniotomy 13 months ago. He lives in a 2 level home and just finished with home health. He has an 8 year old daughter and is currently getting . He has 24 hour care from his parents, brother and sisters, he no longer lives with his or daughter. Per his brother's report he transfers independently from his w/c to the couch/bed, but he has had 2 recent falls at home where he got his feet wound up in blankets and then slid out of his bed onto the floor. He has a manual w/c, yvrose walker, and quad cane at home. He doesn't really use the cane or walker. He does walk around the kitchen island if there is someone close by for practice . Treatment Goals Patient/Caregiver Goals To be independent. He wants to be able to go outside with his daughter and work in the yard. 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 Current Functional Impairments (Reported) Functional Limitations- Mobility/Gait Ajith uses a w/c for all mobility, he can transfer in and out of the w/c. Personal Factors Other Personal Factors That May Effect Prior history of ACL and Therapy/Recovery meniscus surgery in college. depression. 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 PT-OP-C Subjective Start: 04/15/20 09:54 Freq: Status: Active Protocol: Document 08/10/20 10:15 AMB (Rec: 08/10/20 11:00 AMB [id number]) OP-PT Subjective Patient Comments Patient Comments Ajith denies current cold sx. He is living at [facility] now. He is unsure if this is for a short term or more permanent. PT-OP-G Mobility & Gait Start: 04/15/20 09:54 Freq: Status: Active Protocol: Document 04/15/20 11:00 AMB (Rec: 04/16/20 15:53 AMB [email or web address]) OP Mobility Evaluation Bed Mobility Rolling Cici- pt with poor form but was able to do with cueing. Supine to and from Sit Supervision- required cueing for form, but did not need physical assistance, hooks yvrose leg to move it with his unaffected leg. Transfers Sit to Stand ModA for stabilization at L knee and steadying. Pt needed verbal cues to look at L foot and make sure it was in a good position before transfer. Bed to Chair Transfers Pt can perform at home with supervision per brother's report if he is in his w/c and removes the arm rest and performs a squat pivot transfer to the right only, pt is unable to perform wiht supervision if he tranfers to his yvrose side. Car Transfers Not witnessed by this PT, but from report sounds like Mod/ Arleth with pt performing a standing pivot transfer with heavy R UE use- pt needs a sturdy handle to hold onto. Floor Transfers Dependent Wheelchair Management Assessment Details Pt attended appointment in transport chair. Per report has manual w/c at home that he can propel for short distances over smooth terrain. OP Gait Assessment Comments Gait Comments Ambulated 2 lengths of the paralel bars with custom AFO and ModA, one loss of balance required assist due to yvrose knee giving way. Overall poor form with heavy use of UE, circumduction during swing of the yvrose leg, and poor quad control leads to unsteadiness during stance. PT-OP-H Neuro Start: 04/15/20 09:54 Freq: Status: Active Protocol: Document 04/15/20 11:00 AMB (Rec: 04/16/20 15:53 AMB [email or web address]) Sensation Evaluation Gross Sensation Gross Sensation Left UE Impaired,Left LE Impaired Sensation Description Numbness Comments Summary Comments Pt reports ability to sense deep pressure, but otherwise diminished sensation throughout entire left side. Deep Tendon Reflex & Clonus Assessment Ankle Clonus Left Clonus Assessment Sustained Muscle Tone Tone Assessment Left Lower Extremity Extensor Tone Description Moderate Hypertonicity Muscle Tone Comments with lying supine pt goes into extensor tone PT-OP-K Range of Motion Start: 04/15/20 09:54 Freq: Status: Active Protocol: Document 04/15/20 11:00 AMB (Rec: 04/16/20 15:53 AMB [email or web address]) Ankle and Foot Goniometric Range of Motion Ankle and Foot Left Passive Comments 20 degree plantarflexion contracture PT-OP-M Strength Start: 04/16/20 15:34 Freq: Status: Active Protocol: Document 04/15/20 11:00 AMB (Rec: 04/16/20 15:53 AMB [email or web address]) Hip Strength Hip Manual Muscle Testing Left Flexion (L2) 3- Fair- Abduction 2+ Poor+ Adduction 2+ Poor+ External Rotation 3- Fair- Internal Rotation 3 Fair Comments difficult for pt to move in a straight plane of motion, when asked to go into hip flexion, also abducts and rotates hip Knee Strength Knee Manual Muscle Testing Left Flexion (S2) 2- Poor- Extension (L3) 0 Zero Ankle/Foot Strength Ankle and Foot Manual Muscle Testing Left Dorsiflexion (L4) 0 Zero Plantarflexion (S1) 2 Poor Toe Strength Toe Manual Muscle Testing Left Great Toe Flexion 2 Poor Extension 2 Poor PT-OP-Q Treatments Start: 04/15/20 09:54 Freq: Status: Active Protocol: Document 08/10/20 10:15 AMB (Rec: 08/10/20 15:59 AMB [email or web address]) Gym Equipment Shuttle Recovery Unilateral Squats Details L Resistance 12 Shuttle Recovery Platform Stable Reps/Time 2x10- small ROM, physical assist for alignment Gait Training Gait Activity 3 Description gait with hemiwalker Level of Assistance CGA/ Arleth Surface stable Distance/Duration 80' Treatment Focus upright posture, foot clearance, increase stride Wheelchair Management Treatment Wheelchair Activity 1 Comments Adjusted Ajith' break as it came in completely non- functional on his w/c. Ajith was able to mobilize w/c over smooth terrain using LE, but is slow, was able to independently lock both breaks after this PT fixed break. PT-OP-T Assessment and Plan Start: 04/15/20 09:54 Freq: Status: Active Protocol: Document 08/10/20 10:15 AMB (Rec: 08/10/20 15:59 AMB [email or web address]) Physical Therapy Assessment Assessment Summary Assessment Ajith had a difficult day today, he states he isn't sleeping well at [facility] because it is noisy. He is obviously depressed about this recent change, and had a difficult time in PT today. Physical Therapy Plan Next Visit Focus/Plan Next Note Type Treatment Note Next Visit Plan standing balance, increase gait distance, w/c mobilization, passive ankle stretch, glute sets, sit to stands
--- NOTE | 2020-08-17 13:17 | PT.OTN ---
Current Diagnoses Hemiplegia, unspecified affecting left nondominant side (08/17/20) Other reduced mobility (08/17/20) Physical Therapy Treatment Note PT-OP-A Visit Information Start: 04/15/20 09:54 Freq: Status: Active Protocol: Document 08/17/20 10:22 AMB (Rec: 08/17/20 10:56 AMB [id number]) Out-Patient Physical Therapy Visit Information Visit Information Visit Type Treatment Note Visit Start Time 10: Visit Stop Time 11:00 Total Visit Minutes 38 Visit Number 25 PT-OP-B Current Condition Start: 04/15/20 09:54 Freq: Status: Active Protocol: Document 04/15/20 10:58 AMB (Rec: 04/15/20 11:58 AMB [id number]) Current Condition History of Current Condition Onset Date Mar 2019 Current Complaints L yvrose s/p R CVA History of Current Condition Ajith had a carotid dissection with subsequent craniotomy 13 months ago. He lives in a 2 level home and just finished with home health. He has an 8 year old daughter and is currently getting . He has 24 hour care from his parents, brother and sisters, he no longer lives with his or daughter. Per his brother's report he transfers independently from his w/c to the couch/bed, but he has had 2 recent falls at home where he got his feet wound up in blankets and then slid out of his bed onto the floor. He has a manual w/c, yvrose walker, and quad cane at home. He doesn't really use the cane or walker. He does walk around the kitchen island if there is someone close by for practice . Treatment Goals Patient/Caregiver Goals To be independent. He wants to be able to go outside with his daughter and work in the yard. 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 Current Functional Impairments (Reported) Functional Limitations- Mobility/Gait Ajith uses a w/c for all mobility, he can transfer in and out of the w/c. Personal Factors Other Personal Factors That May Effect Prior history of ACL and Therapy/Recovery meniscus surgery in college. depression. 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 He is late today, and comes with his AFO only partially on. He states they have been transferring him with his soft brace on, not the AFO. PT-OP-G Mobility & Gait Start: 04/15/20 09:54 Freq: Status: Active Protocol: Document 04/15/20 11:00 AMB (Rec: 04/16/20 15:53 AMB [email or web address]) OP Mobility Evaluation Bed Mobility Rolling Cici- pt with poor form but was able to do with cueing. Supine to and from Sit Supervision- required cueing for form, but did not need physical assistance, hooks yvrose leg to move it with his unaffected leg. Transfers Sit to Stand ModA for stabilization at L knee and steadying. Pt needed verbal cues to look at L foot and make sure it was in a good position before transfer. Bed to Chair Transfers Pt can perform at home with supervision per brother's report if he is in his w/c and removes the arm rest and performs a squat pivot transfer to the right only, pt is unable to perform wiht supervision if he tranfers to his yvrose side. Car Transfers Not witnessed by this PT, but from report sounds like Mod/ Arleth with pt performing a standing pivot transfer with heavy R UE use- pt needs a sturdy handle to hold onto. Floor Transfers Dependent Wheelchair Management Assessment Details Pt attended appointment in transport chair. Per report has manual w/c at home that he can propel for short distances over smooth terrain. OP Gait Assessment Comments Gait Comments Ambulated 2 lengths of the paralel bars with custom AFO and ModA, one loss of balance required assist due to yvrose knee giving way. Overall poor form with heavy use of UE, circumduction during swing of the yvrose leg, and poor quad control leads to unsteadiness during stance. PT-OP-H Neuro Start: 04/15/20 09:54 Freq: Status: Active Protocol: Document 04/15/20 11:00 AMB (Rec: 04/16/20 15:53 AMB [email or web address]) Sensation Evaluation Gross Sensation Gross Sensation Left UE Impaired,Left LE Impaired Sensation Description Numbness Comments Summary Comments Pt reports ability to sense deep pressure, but otherwise diminished sensation throughout entire left side. Deep Tendon Reflex & Clonus Assessment Ankle Clonus Left Clonus Assessment Sustained Muscle Tone Tone Assessment Left Lower Extremity Extensor Tone Description Moderate Hypertonicity Muscle Tone Comments with lying supine pt goes into extensor tone PT-OP-K Range of Motion Start: 04/15/20 09:54 Freq: Status: Active Protocol: Document 04/15/20 11:00 AMB (Rec: 04/16/20 15:53 AMB [email or web address]) Ankle and Foot Goniometric Range of Motion Ankle and Foot Left Passive Comments 20 degree plantarflexion contracture PT-OP-M Strength Start: 04/16/20 15:34 Freq: Status: Active Protocol: Document 04/15/20 11:00 AMB (Rec: 04/16/20 15:53 AMB [email or web address]) Hip Strength Hip Manual Muscle Testing Left Flexion (L2) 3- Fair- Abduction 2+ Poor+ Adduction 2+ Poor+ External Rotation 3- Fair- Internal Rotation 3 Fair Comments difficult for pt to move in a straight plane of motion, when asked to go into hip flexion, also abducts and rotates hip Knee Strength Knee Manual Muscle Testing Left Flexion (S2) 2- Poor- Extension (L3) 0 Zero Ankle/Foot Strength Ankle and Foot Manual Muscle Testing Left Dorsiflexion (L4) 0 Zero Plantarflexion (S1) 2 Poor Toe Strength Toe Manual Muscle Testing Left Great Toe Flexion 2 Poor Extension 2 Poor PT-OP-Q Treatments Start: 04/15/20 09:54 Freq: Status: Active Protocol: Document 08/17/20 10:15 AMB (Rec: 08/17/20 13:16 AMB [email or web address]) Gait Training Gait Activity 2 Description gait training in // bars Comments SBA- focus on good step length Neuro Re-Education Treatment Balance Activities 2 Details stepping over sabrina Comments Arleth pt tends to abduct hip rather than pure hip flexion 1 Details standing balance Comments letting go of yvrose walker once balanced to work on standing balance- pt does tend to weightbear through R leg significantly more Weight Shift Details stride stance Equipment // bars Comments physical cueing for knee extension in stance PT-OP-T Assessment and Plan Start: 04/15/20 09:54 Freq: Status: Active Protocol: Document 08/17/20 10:22 AMB (Rec: 08/17/20 10:56 AMB [id number]) Physical Therapy Assessment Assessment Summary Assessment Ajith was fatigued today. Needed increased rest breaks, depression likely a contributing factor. Physical Therapy Plan Next Visit Focus/Plan Next Note Type Treatment Note Next Visit Plan standing balance, increase gait distance, w/c mobilization, passive ankle stretch, glute sets, sit to stands
--- NOTE | 2020-08-31 16:05 | PT.OTN ---
Current Diagnoses Hemiplegia, unspecified affecting left nondominant side (08/31/20) Other reduced mobility (08/31/20) Physical Therapy Treatment Note PT-OP-A Visit Information Start: 04/15/20 09:54 Freq: Status: Active Protocol: Document 08/31/20 10:15 AMB (Rec: 08/31/20 16:05 AMB [id number]) Out-Patient Physical Therapy Visit Information Visit Information Visit Type Treatment Note Visit Start Time 10:15 Visit Stop Time 10:55 Total Visit Minutes 40 Visit Number 26 PT-OP-B Current Condition Start: 04/15/20 09:54 Freq: Status: Active Protocol: Document 04/15/20 10:58 AMB (Rec: 04/15/20 11:58 AMB [id number]) Current Condition History of Current Condition Onset Date Mar 2019 Current Complaints L yvrose s/p R CVA History of Current Condition Ajith had a carotid dissection with subsequent craniotomy 13 months ago. He lives in a 2 level home and just finished with home health. He has an 8 year old daughter and is currently getting . He has 24 hour care from his parents, brother and sisters, he no longer lives with his or daughter. Per his brother's report he transfers independently from his w/c to the couch/bed, but he has had 2 recent falls at home where he got his feet wound up in blankets and then slid out of his bed onto the floor. He has a manual w/c, yvrose walker, and quad cane at home. He doesn't really use the cane or walker. He does walk around the kitchen island if there is someone close by for practice . Treatment Goals Patient/Caregiver Goals To be independent. He wants to be able to go outside with his daughter and work in the yard. 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 Current Functional Impairments (Reported) Functional Limitations- Mobility/Gait Ajith uses a w/c for all mobility, he can transfer in and out of the w/c. Personal Factors Other Personal Factors That May Effect Prior history of ACL and Therapy/Recovery meniscus surgery in college. depression. 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 PT-OP-C Subjective Start: 04/15/20 09:54 Freq: Status: Active Protocol: Document 08/31/20 10:15 AMB (Rec: 08/31/20 16:05 AMB [id number]) OP-PT Subjective Patient Comments Patient Comments Pt continued to exhibit signs of depression that made it difficult to motivate today. States that he had a stomach bug all of last week and just started feeling better yesterday. PT-OP-G Mobility & Gait Start: 04/15/20 09:54 Freq: Status: Active Protocol: Document 04/15/20 11:00 AMB (Rec: 04/16/20 15:53 AMB [email or web address]) OP Mobility Evaluation Bed Mobility Rolling Cici- pt with poor form but was able to do with cueing. Supine to and from Sit Supervision- required cueing for form, but did not need physical assistance, hooks yvrose leg to move it with his unaffected leg. Transfers Sit to Stand ModA for stabilization at L knee and steadying. Pt needed verbal cues to look at L foot and make sure it was in a good position before transfer. Bed to Chair Transfers Pt can perform at home with supervision per brother's report if he is in his w/c and removes the arm rest and performs a squat pivot transfer to the right only, pt is unable to perform wiht supervision if he tranfers to his yvrose side. Car Transfers Not witnessed by this PT, but from report sounds like Mod/ Arleth with pt performing a standing pivot transfer with heavy R UE use- pt needs a sturdy handle to hold onto. Floor Transfers Dependent Wheelchair Management Assessment Details Pt attended appointment in transport chair. Per report has manual w/c at home that he can propel for short distances over smooth terrain. OP Gait Assessment Comments Gait Comments Ambulated 2 lengths of the paralel bars with custom AFO and ModA, one loss of balance required assist due to yvrose knee giving way. Overall poor form with heavy use of UE, circumduction during swing of the yvrose leg, and poor quad control leads to unsteadiness during stance. PT-OP-H Neuro Start: 04/15/20 09:54 Freq: Status: Active Protocol: Document 04/15/20 11:00 AMB (Rec: 04/16/20 15:53 AMB [email or web address]) Sensation Evaluation Gross Sensation Gross Sensation Left UE Impaired,Left LE Impaired Sensation Description Numbness Comments Summary Comments Pt reports ability to sense deep pressure, but otherwise diminished sensation throughout entire left side. Deep Tendon Reflex & Clonus Assessment Ankle Clonus Left Clonus Assessment Sustained Muscle Tone Tone Assessment Left Lower Extremity Extensor Tone Description Moderate Hypertonicity Muscle Tone Comments with lying supine pt goes into extensor tone PT-OP-K Range of Motion Start: 04/15/20 09:54 Freq: Status: Active Protocol: Document 04/15/20 11:00 AMB (Rec: 04/16/20 15:53 AMB [email or web address]) Ankle and Foot Goniometric Range of Motion Ankle and Foot Left Passive Comments 20 degree plantarflexion contracture PT-OP-M Strength Start: 04/16/20 15:34 Freq: Status: Active Protocol: Document 04/15/20 11:00 AMB (Rec: 04/16/20 15:53 AMB [email or web address]) Hip Strength Hip Manual Muscle Testing Left Flexion (L2) 3- Fair- Abduction 2+ Poor+ Adduction 2+ Poor+ External Rotation 3- Fair- Internal Rotation 3 Fair Comments difficult for pt to move in a straight plane of motion, when asked to go into hip flexion, also abducts and rotates hip Knee Strength Knee Manual Muscle Testing Left Flexion (S2) 2- Poor- Extension (L3) 0 Zero Ankle/Foot Strength Ankle and Foot Manual Muscle Testing Left Dorsiflexion (L4) 0 Zero Plantarflexion (S1) 2 Poor Toe Strength Toe Manual Muscle Testing Left Great Toe Flexion 2 Poor Extension 2 Poor PT-OP-Q Treatments Start: 04/15/20 09:54 Freq: Status: Active Protocol: Document 08/31/20 10:15 AMB (Rec: 08/31/20 16:05 AMB [id number]) Therapeutic Exercises Supine Exercises SAQ Side left Equipment Used bolster Reps/Minutes 8x 2 Supine Exercise Name achilles stretch passive 1 Supine Exercise Name hamstring stretch- passive Therapeutic Activity Therapeutic Activity Transfers Name w/c<>plinth Reps/Minutes 4x Comments squat pivot transfer to yvrose and unaffected side Arleth, cues for foot placement Gait Training Gait Activity 3 Description gait with hemiwalker Level of Assistance CGA/ Arleth Surface stable Distance/Duration 120' Treatment Focus upright posture, foot clearance, increase stride PT-OP-T Assessment and Plan Start: 04/15/20 09:54 Freq: Status: Active Protocol: Document 08/31/20 10:15 AMB (Rec: 02/24/21 16:05 AMB [id number]) Physical Therapy Assessment Assessment Summary Assessment Ajith continues to come to PT with his AFO barely fitting him. He does state that he is wearing his night splint, but his ankle contracture continues to worsen. Did stretch today, and was able to get AFO to fit appropriately afterward, but it rarely is positioned correctly when he gets to PT. Physical Therapy Plan Next Visit Focus/Plan Next Note Type Treatment Note Next Visit Plan standing balance, increase gait distance, w/c mobilization, passive ankle stretch, glute sets, sit to stands
--- NOTE | 2020-09-07 11:58 | PT.OTN ---
Current Diagnoses Hemiplegia, unspecified affecting left nondominant side (09/07/20) Other reduced mobility (09/07/20) Physical Therapy Treatment Note PT-OP-A Visit Information Start: 04/15/20 09:54 Freq: Status: Active Protocol: Document 09/07/20 10:15 AMB (Rec: 09/07/20 11:50 AMB [email or web address]) Out-Patient Physical Therapy Visit Information Visit Information Visit Type Treatment Note Visit Start Time 10:15 Visit Stop Time 11:00 Total Visit Minutes 45 Visit Number 27 PT-OP-B Current Condition Start: 04/15/20 09:54 Freq: Status: Active Protocol: Document 04/15/20 10:58 AMB (Rec: 04/15/20 11:58 AMB [id number]) Current Condition History of Current Condition Onset Date Mar 2019 Current Complaints L yvrose s/p R CVA History of Current Condition Ajith had a carotid dissection with subsequent craniotomy 13 months ago. He lives in a 2 level home and just finished with home health. He has an 8 year old daughter and is currently getting . He has 24 hour care from his parents, brother and sisters, he no longer lives with his or daughter. Per his brother's report he transfers independently from his w/c to the couch/bed, but he has had 2 recent falls at home where he got his feet wound up in blankets and then slid out of his bed onto the floor. He has a manual w/c, yvrose walker, and quad cane at home. He doesn't really use the cane or walker. He does walk around the kitchen island if there is someone close by for practice . Treatment Goals Patient/Caregiver Goals To be independent. He wants to be able to go outside with his daughter and work in the yard. 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 Current Functional Impairments (Reported) Functional Limitations- Mobility/Gait Ajith uses a w/c for all mobility, he can transfer in and out of the w/c. Personal Factors Other Personal Factors That May Effect Prior history of ACL and Therapy/Recovery meniscus surgery in college. depression. 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 PT-OP-C Subjective Start: 04/15/20 09:54 Freq: Status: Active Protocol: Document 09/07/20 10:15 AMB (Rec: 09/07/20 11:50 AMB [email or web address]) OP-PT Subjective Patient Comments Patient Comments Ajith reports he is going back home next week. PT-OP-G Mobility & Gait Start: 04/15/20 09:54 Freq: Status: Active Protocol: Document 04/15/20 11:00 AMB (Rec: 04/16/20 15:53 AMB [email or web address]) OP Mobility Evaluation Bed Mobility Rolling Cici- pt with poor form but was able to do with cueing. Supine to and from Sit Supervision- required cueing for form, but did not need physical assistance, hooks yvrose leg to move it with his unaffected leg. Transfers Sit to Stand ModA for stabilization at L knee and steadying. Pt needed verbal cues to look at L foot and make sure it was in a good position before transfer. Bed to Chair Transfers Pt can perform at home with supervision per brother's report if he is in his w/c and removes the arm rest and performs a squat pivot transfer to the right only, pt is unable to perform wiht supervision if he tranfers to his yvrose side. Car Transfers Not witnessed by this PT, but from report sounds like Mod/ Arleth with pt performing a standing pivot transfer with heavy R UE use- pt needs a sturdy handle to hold onto. Floor Transfers Dependent Wheelchair Management Assessment Details Pt attended appointment in transport chair. Per report has manual w/c at home that he can propel for short distances over smooth terrain. OP Gait Assessment Comments Gait Comments Ambulated 2 lengths of the paralel bars with custom AFO and ModA, one loss of balance required assist due to yvrose knee giving way. Overall poor form with heavy use of UE, circumduction during swing of the yvrose leg, and poor quad control leads to unsteadiness during stance. PT-OP-H Neuro Start: 04/15/20 09:54 Freq: Status: Active Protocol: Document 04/15/20 11:00 AMB (Rec: 04/16/20 15:53 AMB [email or web address]) Sensation Evaluation Gross Sensation Gross Sensation Left UE Impaired,Left LE Impaired Sensation Description Numbness Comments Summary Comments Pt reports ability to sense deep pressure, but otherwise diminished sensation throughout entire left side. Deep Tendon Reflex & Clonus Assessment Ankle Clonus Left Clonus Assessment Sustained Muscle Tone Tone Assessment Left Lower Extremity Extensor Tone Description Moderate Hypertonicity Muscle Tone Comments with lying supine pt goes into extensor tone PT-OP-K Range of Motion Start: 04/15/20 09:54 Freq: Status: Active Protocol: Document 09/07/20 10:32 AMB (Rec: 09/07/20 10:32 AMB [id number]) Ankle and Foot Goniometric Range of Motion Ankle and Foot Left Passive Comments 20 degree plantarflexion contracture PT-OP-M Strength Start: 04/16/20 15:34 Freq: Status: Active Protocol: Document 04/15/20 11:00 AMB (Rec: 04/16/20 15:53 AMB [email or web address]) Hip Strength Hip Manual Muscle Testing Left Flexion (L2) 3- Fair- Abduction 2+ Poor+ Adduction 2+ Poor+ External Rotation 3- Fair- Internal Rotation 3 Fair Comments difficult for pt to move in a straight plane of motion, when asked to go into hip flexion, also abducts and rotates hip Knee Strength Knee Manual Muscle Testing Left Flexion (S2) 2- Poor- Extension (L3) 0 Zero Ankle/Foot Strength Ankle and Foot Manual Muscle Testing Left Dorsiflexion (L4) 0 Zero Plantarflexion (S1) 2 Poor Toe Strength Toe Manual Muscle Testing Left Great Toe Flexion 2 Poor Extension 2 Poor PT-OP-Q Treatments Start: 04/15/20 09:54 Freq: Status: Active Protocol: Document 09/07/20 10:15 AMB (Rec: 09/07/20 11:50 AMB [email or web address]) Therapeutic Exercises Supine Exercises SAQ Side left Equipment Used bolster Reps/Minutes 10x 2 Supine Exercise Name achilles stretch passive 1 Supine Exercise Name hamstring stretch- passive Therapeutic Activity Therapeutic Activity Transfers Name w/c<>plinth Reps/Minutes 4x Comments squat pivot transfer to yvrose and unaffected side Min A to affected side, SBA to unaffected side, cues for foot placement Gait Training Gait Activity 3 Description gait with hemiwalker Level of Assistance CGA Surface stable Distance/Duration 200' Treatment Focus upright posture, foot clearance, increase stride Comments no LOB, vc to reduce ER patterning of L LE PT-OP-T Assessment and Plan Start: 04/15/20 09:54 Freq: Status: Active Protocol: Document 09/07/20 10:32 AMB (Rec: 09/07/20 10:35 AMB [id number]) Physical Therapy Assessment Goals Five Impairment Advanced transfers Short Term Goal (STG) Ajith will complete a car transfer with Arleth. STG Duration 6 weeks Half-Way Goal (LTG) Ajith will complete a floor transfer with environmental support and ModA. LTG Duration 12 weeks Four Impairment Standing balance Short Term Goal (STG) Ajith will audience coordinator the paralel bars without physical assistance for 1 minute without loss of balance. STG Duration MET Half-Way Goal (LTG) Ajith will stand with Arleth and a yvrose walker for 1 minute without loss of balance. LTG Duration MET Three Impairment Home exercise program Short Term Goal (STG) Ajith will be independent with a stretching program to prevent a worsening of his ankle contracture. STG Duration MET Half-Way Goal (LTG) Ajith will be independent with a strengthening home exercise program. LTG Duration MET Two Impairment Transfers Short Term Goal (STG) Ajith will perform a squat pivot transfer from his wheelchair to flat surface from both the right and the left sides with ModA. STG Duration MET Half-Way Goal (LTG) Ajith will perform a squat pivot transfer with supervision to both the right and left. REquires Arleth to affected side. LTG Duration 12 weeks One Impairment Gait Short Term Goal (STG) Ajith will ambulate in the paralel bars for 50 feet. STG Duration MET Half-Way Goal (LTG) Ajith will ambulate with a hemiwalker for 200' with CGA. LTG Duration MET Assessment Summary Assessment Physical therapy has so far been unsucessful in making progress with the patient's plantarflexion contracture. Tone continues to be an issue. Pt states he is using night splint. Pt has met many of his PT goals, and we will likely be d/cing soon so we don't use all of his PT appts in the year. He continues to voice goals that are honestly extremely unlikely and did try to have an honest conversation with him today about this. Pt does understandably have a lot of depression and this has been a factor with his progress with physical therapy. Physical Therapy Plan Frequency and Duration Frequency of Treatment 1x/Week Duration of Treatment 4weeks Plan of Care Start Date 09/07/20 Plan of Care End Date 10/05/20 Therapeutic Interventions Therapeutic Interventions Balance Training,Gait Training ,Home Exercise Program,Manual Therapy,Neuromuscular Re- education,Self-Care/Home Management,Therapeutic Activities,Therapeutic Exercises,Wheelchair Management Next Visit Focus/Plan Next Note Type Treatment Note Next Visit Plan standing balance, increase gait distance, w/c mobilization, passive ankle stretch, glute sets, sit to stands
--- NOTE | 2020-09-07 14:34 | PT.OPPOC ---
Physical, Occupational & Speech Therapy At [facility] Current Diagnoses Hemiplegia, unspecified affecting left nondominant side (09/07/20) Other reduced mobility (09/07/20) Visit Care Team Role Provider Type Pavan Gallego MD Attending Provider Non-Staff Family Provider Primary Care Provider Referring Provider Specialty: Family Practice Address: [address] [place] [address], [facility] Email: Plan Of Care PT-OP-T Assessment and Plan Start: 04/15/20 09:54 Freq: Status: Active Protocol: Document 09/07/20 10:32 AMB (Rec: 09/07/20 10:35 AMB [id number]) Physical Therapy Assessment Goals Five Impairment Advanced transfers Short Term Goal (STG) Ajith will complete a car transfer with Arleth. STG Duration 6 weeks Kersey Department Supervisor Goal (LTG) Ajith will complete a floor transfer with environmental support and ModA. LTG Duration 12 weeks Four Impairment Standing balance Short Term Goal (STG) Ajith will independent trader the paralel bars without physical assistance for 1 minute without loss of balance. STG Duration MET Group Home Goal (LTG) Ajith will stand with Arleth and a yvrose walker for 1 minute without loss of balance. LTG Duration MET Three Impairment Home exercise program Short Term Goal (STG) Ajith will be independent with a stretching program to prevent a worsening of his ankle contracture. STG Duration MET Group Home Goal (LTG) Ajith will be independent with a strengthening home exercise program. LTG Duration MET Two Impairment Transfers Short Term Goal (STG) Ajith will perform a squat pivot transfer from his wheelchair to flat surface from both the right and the left sides with ModA. STG Duration MET [place]sey Department Supervisor Goal (LTG) Ajith will perform a squat pivot transfer with supervision to both the right and left. REquires Arleth to affected side. LTG Duration 12 weeks One Impairment Gait Short Term Goal (STG) Ajith will ambulate in the paralel bars for 50 feet. STG Duration MET Group Home Goal (LTG) Ajith will ambulate with a hemiwalker for 200' with CGA. LTG Duration MET Assessment Summary Assessment Physical therapy has so far been unsucessful in making progress with the patient's plantarflexion contracture. Tone continues to be an issue. Pt states he is using night splint. Pt has met many of his PT goals, and we will likely be d/cing soon so we don't use all of his PT appts in the year. He continues to voice goals that are honestly extremely unlikely and did try to have an honest conversation with him today about this. Pt does understandably have a lot of depression and this has been a factor with his progress with physical therapy. Physical Therapy Plan Frequency and Duration Frequency of Treatment 1x/Week Duration of Treatment 4weeks Plan of Care Start Date 09/07/20 Plan of Care End Date 10/05/20 Therapeutic Interventions Therapeutic Interventions Balance Training,Gait Training ,Home Exercise Program,Manual Therapy,Neuromuscular Re- education,Self-Care/Home Management,Therapeutic Activities,Therapeutic Exercises,Wheelchair Management Next Visit Focus/Plan Next Note Type Treatment Note Next Visit Plan standing balance, increase gait distance, w/c mobilization, passive ankle stretch, glute sets, sit to stands Plan of Care Dates Plan of Care Start Date 09/07/20 Plan of Care End Date 10/05/20 Electronically Signed by: Cecy Mccarthy, PT 09/07/20 0554 Please Sign and Return: I have reviewed this Plan of Care and certify that the skilled therapy services above are required to meet the patient?s needs. Physician Signature Date Printed Name and Credentials Clinical Instructor Signature Printed Name and Credentials
--- NOTE | 2020-09-21 15:53 | PT.OTN ---
Current Diagnoses Hemiplegia, unspecified affecting left nondominant side (09/21/20) Other reduced mobility (09/21/20) Physical Therapy Treatment Note PT-OP-A Visit Information Start: 04/15/20 09:54 Freq: Status: Active Protocol: Document 09/21/20 11:00 AMB (Rec: 09/21/20 15:53 AMB [email or web address]) Out-Patient Physical Therapy Visit Information Visit Information Visit Type Discharge Summary Visit Start Time 11:00 Visit Stop Time 11:50 Total Visit Minutes 50 Visit Number 28 PT-OP-B Current Condition Start: 04/15/20 09:54 Freq: Status: Active Protocol: Document 04/15/20 10:58 AMB (Rec: 04/15/20 11:58 AMB [id number]) Current Condition History of Current Condition Onset Date Mar 2019 Current Complaints L yvrose s/p R CVA History of Current Condition Ajith had a carotid dissection with subsequent craniotomy 13 months ago. He lives in a 2 level home and just finished with home health. He has an 8 year old daughter and is currently getting . He has 24 hour care from his parents, brother and sisters, he no longer lives with his or daughter. Per his brother's report he transfers independently from his w/c to the couch/bed, but he has had 2 recent falls at home where he got his feet wound up in blankets and then slid out of his bed onto the floor. He has a manual w/c, yvrose walker, and quad cane at home. He doesn't really use the cane or walker. He does walk around the kitchen island if there is someone close by for practice . Treatment Goals Patient/Caregiver Goals To be independent. He wants to be able to go outside with his daughter and work in the yard. 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 Current Functional Impairments (Reported) Functional Limitations- Mobility/Gait Ajith uses a w/c for all mobility, he can transfer in and out of the w/c. Personal Factors Other Personal Factors That May Effect Prior history of ACL and Therapy/Recovery meniscus surgery in college. depression. 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 PT-OP-C Subjective Start: 04/15/20 09:54 Freq: Status: Active Protocol: Document 09/21/20 11:00 AMB (Rec: 09/21/20 15:53 AMB [email or web address]) OP-PT Subjective Patient Comments Patient Comments Ajith attends physical therapy with his mom. PT-OP-G Mobility & Gait Start: 04/15/20 09:54 Freq: Status: Active Protocol: Document 09/21/20 11:00 AMB (Rec: 09/21/20 15:36 AMB [email or web address]) OP Mobility Evaluation Bed Mobility Rolling Independent Supine to and from Sit I when coming up with unaffected arm underneath, otherwise needs to pull on rail or needs Arleth Transfers Sit to Stand SBA from tall surface, Arleth from low surface, continues to need cueing for setup Bed to Chair Transfers CGA to either side if pt sets up well, pt continues to require cues at times for setup Car Transfers Continues to be difficult for family due to incline of driveway OP Gait Assessment Comments Gait Comments Ambulates up to 200' with CGA, custom AFO, hemiwalker but with poor form, pt usually can tell when knee will give way, continues to have circumduction gait PT-OP-H Neuro Start: 04/15/20 09:54 Freq: Status: Active Protocol: Document 04/15/20 11:00 AMB (Rec: 04/16/20 15:53 AMB [email or web address]) Sensation Evaluation Gross Sensation Gross Sensation Left UE Impaired,Left LE Impaired Sensation Description Numbness Comments Summary Comments Pt reports ability to sense deep pressure, but otherwise diminished sensation throughout entire left side. Deep Tendon Reflex & Clonus Assessment Ankle Clonus Left Clonus Assessment Sustained Muscle Tone Tone Assessment Left Lower Extremity Extensor Tone Description Moderate Hypertonicity Muscle Tone Comments with lying supine pt goes into extensor tone PT-OP-K Range of Motion Start: 04/15/20 09:54 Freq: Status: Active Protocol: Document 09/07/20 10:32 AMB (Rec: 09/07/20 10:32 AMB [id number]) Ankle and Foot Goniometric Range of Motion Ankle and Foot Left Passive Comments 20 degree plantarflexion contracture PT-OP-M Strength Start: 04/16/20 15:34 Freq: Status: Active Protocol: Document 09/21/20 11:00 AMB (Rec: 09/21/20 15:36 AMB [email or web address]) Knee Strength Knee Manual Muscle Testing Left Flexion (S2) 1 Trace Extension (L3) 2+ Poor+ PT-OP-Q Treatments Start: 04/15/20 09:54 Freq: Status: Active Protocol: Document 09/21/20 11:00 AMB (Rec: 09/21/20 15:53 AMB [email or web address]) Therapeutic Exercises Other Exercises 1 Other Exercise Name HEP: passive calf stretch, passive hamstring stretch, SAQ supine, Reps/Minutes 40 minutes Comments sit to stand and standing balance PT-OP-T Assessment and Plan Start: 04/15/20 09:54 Freq: Status: Active Protocol: Document 09/21/20 11:00 AMB (Rec: 09/21/20 15:53 AMB [email or web address]) Physical Therapy Assessment Goals Five Impairment Advanced transfers Short Term Goal (STG) Ajith will complete a car transfer with Arleth. STG Duration NOT MET Jewel Bearing Maker Goal (LTG) Ajith will complete a floor transfer with environmental support and ModA. LTG Duration NOT MET Four Impairment Standing balance Short Term Goal (STG) Ajith will solaris administrator the paralel bars without physical assistance for 1 minute without loss of balance. STG Duration MET Mcc Goal (LTG) Ajith will stand with Arleth and a yvrose walker for 1 minute without loss of balance. LTG Duration MET Three Impairment Home exercise program Short Term Goal (STG) Ajith will be independent with a stretching program to prevent a worsening of his ankle contracture. STG Duration MET Jewel Bearing Maker Goal (LTG) Ajith will be independent with a strengthening home exercise program. LTG Duration MET Two Impairment Transfers Short Term Goal (STG) Ajith will perform a squat pivot transfer from his wheelchair to flat surface from both the right and the left sides with ModA. STG Duration MET Jewel Bearing Maker Goal (LTG) Ajith will perform a squat pivot transfer with supervision to both the right and left. REquires CGA to affected side. LTG Duration PROGRESS MADE One Impairment Gait Short Term Goal (STG) Ajith will ambulate in the paralel bars for 50 feet. STG Duration MET Mcc Goal (LTG) Ajith will ambulate with a hemiwalker for 200' with CGA. LTG Duration MET Assessment Summary Assessment Ajith and his mom attended today's session. Given HEP and instruction regarding importance of calf stretching (pt had been stating he had been wearing night splint, but mother states that he doesn't wear it). Also hamstring stretching, short arc quad, sit to stand, and standing balance. Pt will be continuing with his manager personal, and was encouraged that he could return to physical therapy at the end of the year, but didn't want to use all of his insurance benefits this early in the year. Encouraged pt and mom in safe outdoor activities ( raised garden pots on patio, or going for w/c rides on paved flat trails), but's yard is quite steep so explained to pt that this is not a safe goal at this time. Pt has shown progress with physical therapy, but is starting to plateau, so would encourage independent management at this time and could recheck in 6 months to assess for change at that time.
== END 2020-09-30 11:30 ==
LOC: PHYS 11:00
PROVIDERS: Family Provider Family Medicine; PCP Family Medicine; Referring Provider Family Medicine; Visit Provider Family Medicine
DX: G81.94 Hemiplegia, unspecified affecting left nondominant side (principal); Z74.09 Other reduced mobility
CPT/HCPCS: 97110; 97112; 97116; 97140; 97163; 97530; 97535; 97542

== ENCOUNTER → 2020-10-19 12:48 | Outpatient (CLI) | payer OTHER, SELFPAY ==
--- NOTE | 2020-10-19 | DI.US.S_ITS ---
PROCEDURE: US PERIPH VENOUS LOW EXTREM LT INDICATIONS: F/U DVT LEFT LEG TECHNIQUE: Real-time imaging, as well as color and pulse Doppler interrogation, were performed of the lower extremity deep veins from the inguinal ligament to the popliteal fossa. COMPARISON: Outside Facility, [facility], LOWER EXTREMITY VASCULAR BILATERAL, 05/28/2019, 11:29. FINDINGS: The common femoral, femoral and popliteal veins are normally compressible, and free of intraluminal thrombus. Color and pulse Doppler demonstrate normal phasic intraluminal flow. There is normal augmentation response to distal compression maneuver. IMPRESSION: Negative for deep venous thrombosis. Dictated by: Felix Barrera M.D. on 10/19/2020 at 12:37 Approved by: Felix Barrera M.D. on 10/19/2020 at 12:38
== END ==
PROVIDERS: PCP Family Medicine; Referring Provider Physical Medicine & Rehabilitation; Visit Provider Physical Medicine & Rehabilitation
DX: Z09 Encounter for follow-up examination after completed treatment for conditions other than malignant neoplasm (principal); Z86.718 Personal history of other venous thrombosis and embolism
CPT/HCPCS: 93971

== ENCOUNTER → 2020-11-17 12:30 | Outpatient (CLI) | payer OTHER, SELFPAY ==
--- NOTE | 2020-11-17 12:37 | DI.RAD.S_ITS ---
PROCEDURE: XR KNEE LT 1TO2V INDICATIONS: LT KNEE PAIN TECHNIQUE: 2 views of the knee were acquired. COMPARISON: None. FINDINGS: Bones: No fractures or dislocations. Mild tricompartmental osteoarthritis is seen. No suspicious bony lesions. Soft tissues: No significant joint effusion. No suspicious soft tissue calcifications. IMPRESSION: Mild tricompartmental osteoarthritis. No left knee fracture or dislocation. No significant joint effusion. Dictated by: Darrell Santos M.D. on 11/17/2020 at 14:37 Approved by: Darrell Santos M.D. on 11/17/2020 at 14:37
[2020-11-17 18:30] LABS: Alanine Aminotransferase 58 IU/L (<50); Albumin 4.4 g/dL (3.5-5.0); Albumin Globulin Ratio 1.6 (1.0-2.8); Alkaline Phosphatase 76 U/L (38-126); Aspartate Aminotransferase 40 IU/L (17-59); Bilirubin Total 1.2 mg/dL (0.2-1.3); Bilirubin Unconjugated 1.1 mg/dL (0.0-1.1); Globulin 2.7 g/dL (1.7-4.1); HEMOLYSIS < 15 (0-50); Total Protein 7.1 g/dL (6.3-8.2)
== END ==
PROVIDERS: PCP Physical Medicine & Rehabilitation; Referring Provider Physical Medicine & Rehabilitation; Visit Provider Physical Medicine & Rehabilitation
DX: M25.562 Pain in left knee (principal); M17.12 Unilateral primary osteoarthritis, left knee; R51.9 Headache, unspecified; G89.29 Other chronic pain
CPT/HCPCS: 36415; 73560; 80076

== ENCOUNTER → 2020-12-21 15:26 | Outpatient (CLI) | payer OTHER, SELFPAY ==
[2020-12-21 16:47] LABS: Alanine Aminotransferase 29 IU/L (<50); Albumin 4.6 g/dL (3.5-5.0); Albumin Globulin Ratio 1.8 (1.0-2.8); Alkaline Phosphatase 68 U/L (38-126); Aspartate Aminotransferase 27 IU/L (17-59); Bilirubin Total 1.2 mg/dL (0.2-1.3); Bilirubin Unconjugated 1.1 mg/dL (0.0-1.1); Globulin 2.6 g/dL (1.7-4.1); HEMOLYSIS < 15 (0-50); Total Protein 7.2 g/dL (6.3-8.2)
== END ==
PROVIDERS: PCP Internal Medicine; Referring Provider Physical Medicine & Rehabilitation; Visit Provider Physical Medicine & Rehabilitation
DX: R51.9 Headache, unspecified (principal)
CPT/HCPCS: 36415; 80076

== ENCOUNTER 2021-04-27 10:30 | Outpatient (RCR) | payer OTHER, MEDICAID, SELFPAY ==
--- NOTE | 2020-12-22 16:13 | PT.OIE ---
Current Diagnoses Hemiplegia, unspecified affecting left nondominant side (12/22/20) Paralytic gait (12/22/20) Personal history of transient ischemic attack (TIA), and cerebral infarction without residual deficits (12/22/20) Past Medical History (Last Reviewed 07/31/19 @ 17:41 by Nasir Talbert MD) Cerebral infarction due to unspecified occlusion or stenosis of unspecified carotid artery Hemiplegia and hemiparesis following cerebral infarction affecting left non-dominant side Major depressive disorder Past Surgical History (Last Reviewed 07/31/19 @ 17:41 by Nasir Talbert MD) H/O craniotomy Visit Care Team Role Provider Type Haider Albarado MD Attending Provider Non-Staff Primary Care Provider Referring Provider Specialty: Internal Medicine Address: [address] [place] [address], [id number] Email: Physical Therapy Initial Evaluation PT-OP-A Visit Information Start: 12/22/20 07:36 Freq: Status: Active Protocol: Document 12/22/20 08:15 AMB (Rec: 12/22/20 15:30 AMB [id number]) Out-Patient Physical Therapy Visit Information Visit Information Visit Type Initial Evaluation Visit Start Time 08:15 Visit Stop Time 09:00 Total Visit Minutes 45 Visit Number 1 PT-OP-B Current Condition Start: 12/22/20 07:36 Freq: Status: Active Protocol: Document 12/22/20 08:01 AMB (Rec: 12/22/20 08:19 AMB [id number]) Current Condition History of Current Condition Onset Date Mar 2019 Current Complaints L yvrose s/p R CVA History of Current Condition Ajith had a carotid dissection with subsequent craniotomy almost 2 years ago. He lives in a 2 level home and is well known to this therapist. He has an 9 year old daughter and is currently getting , this is significantly impacting his depression. He has 24 hour care from his parents, brother and sisters, he no longer lives with his or daughter. He has a manual w/c, yvrose walker, and quad cane at home. Uses hemiwalker to walk with call center trainer 3x/week, and has a new AFO that has been helpful. Treatment Goals Patient/Caregiver Goals Improve walking, standing in kitchen, cooking. 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 Doesn't get down on ground. Can transfer from w/c to bed and couch independently. Personal Factors Other Personal Factors That May Effect Depression, lacks insight into Therapy/Recovery condition PT-OP-E Functional Tests Start: 12/22/20 07:36 Freq: Status: Active Protocol: Document 12/22/20 08:15 AMB (Rec: 12/22/20 15:41 AMB [id number]) Functional Tests 10 Meter Walk Test Distance 1 min 12 sec Device Used hemiwalker PT-OP-G Mobility & Gait Start: 12/22/20 07:36 Freq: Status: Active Protocol: Document 12/22/20 08:15 AMB (Rec: 12/22/20 15:41 AMB [id number]) OP Mobility Evaluation Bed Mobility Rolling BUCK Supine to and from Sit BUCK Transfers Sit to Stand SBA Bed to Chair Transfers SBA Car Transfers From description Min/ModA- pt' s driveway is on a hill and this makes car transfers more challenging Floor Transfers Likely MaxA/dependent, but not tested today OP Gait Assessment Comments Gait Comments Step to gait pattern with hemiwalker and CGA with gait belt. Small steps with yvrose leg externally rotated and adducting when flexed forward. PT-OP-K Range of Motion Start: 12/22/20 07:36 Freq: Status: Active Protocol: Document 12/22/20 08:15 AMB (Rec: 12/22/20 15:37 AMB [id number]) Ankle and Foot Goniometric Range of Motion Ankle and Foot Left Passive Comments lacking 34 degrees from neutral dorsiflexion PT-OP-M Strength Start: 12/22/20 07:36 Freq: Status: Active Protocol: Document 12/22/20 08:15 AMB (Rec: 12/22/20 15:37 AMB [id number]) Hip Strength Hip Manual Muscle Testing Left Flexion (L2) 2- Poor- Extension (S1) 1 Trace Abduction 2- Poor- Knee Strength Knee Manual Muscle Testing Left Flexion (S2) 1 Trace Extension (L3) 2- Poor- Ankle/Foot Strength Ankle and Foot Manual Muscle Testing Left Dorsiflexion (L4) 0 Zero Plantarflexion (S1) 2 Poor Toe Strength Toe Manual Muscle Testing Left Great Toe Extension 3 Fair PT-OP-T Assessment and Plan Start: 12/22/20 07:36 Freq: Status: Active Protocol: Document 12/22/20 08:15 AMB (Rec: 12/22/20 16:13 AMB [id number]) Physical Therapy Assessment Rehab Potential Rehabilitation Potential Good Evaluation Complexity Number of Personal Factors/Comorbidities 1-2 Number of Body Systems Impaired 4 or More Clinical Presentation at Evaluation Evolving Impairments Impairments Balance,Functional Activities, Functional Mobility,Gait,ROM, Sensation,Strength,Tone, Transfers Goals Five Impairment Standing balance Short Term Goal (STG) Ajith will label machine operator his kitchen without UE support for 5 minutes. STG Duration 6 weeks Four Impairment Transfers Short Term Goal (STG) Ajith will perform a car transfer with Arleth. STG Duration 6 weeks Snf Goal (LTG) Ajith will perform a floor transfer with environmental support with ModA. LTG Duration 12 weeks Three Impairment ankle mobility Short Term Goal (STG) Ajith will consistently wear his night splint throughout the night to prevent worsening of his contracture. STG Duration 6 weeks Snf Goal (LTG) Ajith will reduce his plantarflexion contracture to lacking 20 degrees. LTG Duration 12 weeks Two Impairment HEP Short Term Goal (STG) Ajith will be independent with a strengthening and stretching HEP. STG Duration 6 weeks One Impairment Gait Short Term Goal (STG) Ajith will ambulate 200' with SBA, hemiwalker, and AFO over smooth terrain. STG Duration 6 weeks Snf Goal (LTG) Ajith will ambulate 300' with CGA, hemiwalker and AFO over smooth terrain. 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 He was fortunately able to get a new AFO, but now he struggles to get his yvrose knee into extension during stance because of the contracture. His mom was unsure if he was taking any medication for his tone management, but tone is a huge contributor to his contracture, and he has not been using his night splint much because he can't put it back on himself after he gets up to use the bathroom at night. He continues to have weakness, and poor understanding of his condition . His mom did attend the session with him, and if she continues to be able to attend (previously unable due to covid restrictions) that would be really helpful to his care . Physical therapy will work on strengthening, tone mangement, contracture management, and gait and advanced transfers. Physical Therapy Plan Frequency and Duration Frequency of Treatment 2x/Week Duration of Treatment 12 weeks Plan of Care Start Date 12/22/20 Plan of Care End Date 03/16/21 Therapeutic Interventions Therapeutic Interventions Balance Training,Gait Training ,Home Exercise Program,Manual Therapy,Neuromuscular Re- education,Self-Care/Home Management,Therapeutic Activities,Therapeutic Exercises,Wheelchair Management Next Visit Focus/Plan Next Note Type Treatment Note Next Visit Plan Progress gait/balance, review importance of ankle mobility, LE strengthening as tolerated.
--- NOTE | 2020-12-22 16:14 | PT.OIE ---
Current Diagnoses Hemiplegia, unspecified affecting left nondominant side (12/22/20) Paralytic gait (12/22/20) Personal history of transient ischemic attack (TIA), and cerebral infarction without residual deficits (12/22/20) Past Medical History (Last Reviewed 07/31/19 @ 17:41 by Nasir Talbert MD) Cerebral infarction due to unspecified occlusion or stenosis of unspecified carotid artery Hemiplegia and hemiparesis following cerebral infarction affecting left non-dominant side Major depressive disorder Past Surgical History (Last Reviewed 07/31/19 @ 17:41 by Nasir Talbert MD) H/O craniotomy Visit Care Team Role Provider Type Haider Albarado MD Attending Provider Non-Staff Primary Care Provider Referring Provider Specialty: Internal Medicine Address: [address] [place] [address], [id number] Email: Physical Therapy Initial Evaluation PT-OP-A Visit Information Start: 12/22/20 07:36 Freq: Status: Active Protocol: Document 12/22/20 08:15 AMB (Rec: 12/22/20 15:30 AMB [id number]) Out-Patient Physical Therapy Visit Information Visit Information Visit Type Initial Evaluation Visit Start Time 08:15 Visit Stop Time 09:00 Total Visit Minutes 45 Visit Number 1 PT-OP-B Current Condition Start: 12/22/20 07:36 Freq: Status: Active Protocol: Document 12/22/20 08:01 AMB (Rec: 12/22/20 08:19 AMB [id number]) Current Condition History of Current Condition Onset Date Mar 2019 Current Complaints L yvrose s/p R CVA History of Current Condition Ajith had a carotid dissection with subsequent craniotomy almost 2 years ago. He lives in a 2 level home and is well known to this therapist. He has an 9 year old daughter and is currently getting , this is significantly impacting his depression. He has 24 hour care from his parents, brother and sisters, he no longer lives with his or daughter. He has a manual w/c, yvrose walker, and quad cane at home. Uses hemiwalker to walk with personal development educator 3x/week, and has a new AFO that has been helpful. Treatment Goals Patient/Caregiver Goals Improve walking, standing in kitchen, cooking. 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 Doesn't get down on ground. Can transfer from w/c to bed and couch independently. Personal Factors Other Personal Factors That May Effect Depression, lacks insight into Therapy/Recovery condition PT-OP-E Functional Tests Start: 12/22/20 07:36 Freq: Status: Active Protocol: Document 12/22/20 08:15 AMB (Rec: 12/22/20 15:41 AMB [id number]) Functional Tests 10 Meter Walk Test Distance 1 min 12 sec Device Used hemiwalker PT-OP-G Mobility & Gait Start: 12/22/20 07:36 Freq: Status: Active Protocol: Document 12/22/20 08:15 AMB (Rec: 12/22/20 15:41 AMB [id number]) OP Mobility Evaluation Bed Mobility Rolling BUCK Supine to and from Sit BUCK Transfers Sit to Stand SBA Bed to Chair Transfers SBA Car Transfers From description Min/ModA- pt' s driveway is on a hill and this makes car transfers more challenging Floor Transfers Likely MaxA/dependent, but not tested today OP Gait Assessment Comments Gait Comments Step to gait pattern with hemiwalker and CGA with gait belt. Small steps with yvrose leg externally rotated and adducting when flexed forward. PT-OP-K Range of Motion Start: 12/22/20 07:36 Freq: Status: Active Protocol: Document 12/22/20 08:15 AMB (Rec: 12/22/20 15:37 AMB [id number]) Ankle and Foot Goniometric Range of Motion Ankle and Foot Left Passive Comments lacking 34 degrees from neutral dorsiflexion PT-OP-M Strength Start: 12/22/20 07:36 Freq: Status: Active Protocol: Document 12/22/20 08:15 AMB (Rec: 12/22/20 15:37 AMB [id number]) Hip Strength Hip Manual Muscle Testing Left Flexion (L2) 2- Poor- Extension (S1) 1 Trace Abduction 2- Poor- Knee Strength Knee Manual Muscle Testing Left Flexion (S2) 1 Trace Extension (L3) 2- Poor- Ankle/Foot Strength Ankle and Foot Manual Muscle Testing Left Dorsiflexion (L4) 0 Zero Plantarflexion (S1) 2 Poor Toe Strength Toe Manual Muscle Testing Left Great Toe Extension 3 Fair PT-OP-T Assessment and Plan Start: 12/22/20 07:36 Freq: Status: Active Protocol: Document 12/22/20 08:15 AMB (Rec: 12/22/20 16:13 AMB [id number]) Physical Therapy Assessment Rehab Potential Rehabilitation Potential Good Evaluation Complexity Number of Personal Factors/Comorbidities 1-2 Number of Body Systems Impaired 4 or More Clinical Presentation at Evaluation Evolving Impairments Impairments Balance,Functional Activities, Functional Mobility,Gait,ROM, Sensation,Strength,Tone, Transfers Goals Five Impairment Standing balance Short Term Goal (STG) Ajith will pharmacy technician infusion his kitchen without UE support for 5 minutes. STG Duration 6 weeks Four Impairment Transfers Short Term Goal (STG) Ajith will perform a car transfer with Arleth. STG Duration 6 weeks Chcf Goal (LTG) Ajith will perform a floor transfer with environmental support with ModA. LTG Duration 12 weeks Three Impairment ankle mobility Short Term Goal (STG) Ajith will consistently wear his night splint throughout the night to prevent worsening of his contracture. STG Duration 6 weeks Chcf Goal (LTG) Ajith will reduce his plantarflexion contracture to lacking 20 degrees. LTG Duration 12 weeks Two Impairment HEP Short Term Goal (STG) Ajith will be independent with a strengthening and stretching HEP. STG Duration 6 weeks One Impairment Gait Short Term Goal (STG) Ajith will ambulate 200' with SBA, hemiwalker, and AFO over smooth terrain. STG Duration 6 weeks Chcf Goal (LTG) Ajith will ambulate 300' with CGA, hemiwalker and AFO over smooth terrain. 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 He was fortunately able to get a new AFO, but now he struggles to get his yvrose knee into extension during stance because of the contracture. His mom was unsure if he was taking any medication for his tone management, but tone is a huge contributor to his contracture, and he has not been using his night splint much because he can't put it back on himself after he gets up to use the bathroom at night. He continues to have weakness, and poor understanding of his condition . His mom did attend the session with him, and if she continues to be able to attend (previously unable due to covid restrictions) that would be really helpful to his care . Physical therapy will work on strengthening, tone mangement, contracture management, and gait and advanced transfers. Physical Therapy Plan Frequency and Duration Frequency of Treatment 2x/Week Duration of Treatment 12 weeks Plan of Care Start Date 12/22/20 Plan of Care End Date 03/16/21 Therapeutic Interventions Therapeutic Interventions Balance Training,Gait Training ,Home Exercise Program,Manual Therapy,Neuromuscular Re- education,Self-Care/Home Management,Therapeutic Activities,Therapeutic Exercises,Wheelchair Management Next Visit Focus/Plan Next Note Type Treatment Note Next Visit Plan Progress gait/balance, review importance of ankle mobility, LE strengthening as tolerated.
--- NOTE | 2020-12-22 16:16 | PT.OPPOC ---
Physical, Occupational & Speech Therapy At [facility] Current Diagnoses Hemiplegia, unspecified affecting left nondominant side (12/22/20) Paralytic gait (12/22/20) Personal history of transient ischemic attack (TIA), and cerebral infarction without residual deficits (12/22/20) Visit Care Team Role Provider Type Haider Albarado MD Attending Provider Non-Staff Primary Care Provider Referring Provider Specialty: Internal Medicine Address: [address] [place] [address], [id number] Email: Plan Of Care PT-OP-T Assessment and Plan Start: 12/22/20 07:36 Freq: Status: Active Protocol: Document 12/22/20 08:15 AMB (Rec: 12/22/20 16:13 AMB [id number]) Physical Therapy Assessment Rehab Potential Rehabilitation Potential Good Evaluation Complexity Number of Personal Factors/Comorbidities 1-2 Number of Body Systems Impaired 4 or More Clinical Presentation at Evaluation Evolving Impairments Impairments Balance,Functional Activities, Functional Mobility,Gait,ROM, Sensation,Strength,Tone, Transfers Goals Five Impairment Standing balance Short Term Goal (STG) Ajith will blue line operator his kitchen without UE support for 5 minutes. STG Duration 6 weeks Four Impairment Transfers Short Term Goal (STG) Ajith will perform a car transfer with Arleth. STG Duration 6 weeks Residential Goal (LTG) Ajith will perform a floor transfer with environmental support with ModA. LTG Duration 12 weeks Three Impairment ankle mobility Short Term Goal (STG) Ajith will consistently wear his night splint throughout the night to prevent worsening of his contracture. STG Duration 6 weeks Global Climate Change Researcher Goal (LTG) Ajith will reduce his plantarflexion contracture to lacking 20 degrees. LTG Duration 12 weeks Two Impairment HEP Short Term Goal (STG) Ajith will be independent with a strengthening and stretching HEP. STG Duration 6 weeks One Impairment Gait Short Term Goal (STG) Ajith will ambulate 200' with SBA, hemiwalker, and AFO over smooth terrain. STG Duration 6 weeks Global Climate Change Researcher Goal (LTG) Ajith will ambulate 300' with CGA, hemiwalker and AFO over smooth terrain. 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 He was fortunately able to get a new AFO, but now he struggles to get his yvrose knee into extension during stance because of the contracture. His mom was unsure if he was taking any medication for his tone management, but tone is a huge contributor to his contracture, and he has not been using his night splint much because he can't put it back on himself after he gets up to use the bathroom at night. He continues to have weakness, and poor understanding of his condition . His mom did attend the session with him, and if she continues to be able to attend (previously unable due to covid restrictions) that would be really helpful to his care . Physical therapy will work on strengthening, tone mangement, contracture management, and gait and advanced transfers. Physical Therapy Plan Frequency and Duration Frequency of Treatment 2x/Week Duration of Treatment 12 weeks Plan of Care Start Date 12/22/20 Plan of Care End Date 03/16/21 Therapeutic Interventions Therapeutic Interventions Balance Training,Gait Training ,Home Exercise Program,Manual Therapy,Neuromuscular Re- education,Self-Care/Home Management,Therapeutic Activities,Therapeutic Exercises,Wheelchair Management Next Visit Focus/Plan Next Note Type Treatment Note Next Visit Plan Progress gait/balance, review importance of ankle mobility, LE strengthening as tolerated. Plan of Care Dates Plan of Care Start Date 12/22/20 Plan of Care End Date 03/16/21 Electronically Signed by: Cecy Mccarthy, PT 12/22/20 [id number] Please Sign and Return: I have reviewed this Plan of Care and certify that the skilled therapy services above are required to meet the patient?s needs. Physician Signature Date Printed Name and Credentials Clinical Instructor Signature Printed Name and Credentials
--- NOTE | 2020-12-27 16:04 | PT.OTN ---
Current Diagnoses Hemiplegia, unspecified affecting left nondominant side (12/27/20) Paralytic gait (12/27/20) Personal history of transient ischemic attack (TIA), and cerebral infarction without residual deficits (12/27/20) Physical Therapy Treatment Note PT-OP-A Visit Information Start: 12/22/20 07:36 Freq: Status: Active Protocol: Document 12/27/20 14:15 AMB (Rec: 12/27/20 15:14 AMB [id number]) Out-Patient Physical Therapy Visit Information Visit Information Visit Type Treatment Note Visit Start Time 14:15 Visit Stop Time 15:00 Total Visit Minutes 45 Visit Number 2 PT-OP-B Current Condition Start: 12/22/20 07:36 Freq: Status: Active Protocol: Document 12/22/20 08:01 AMB (Rec: 12/22/20 08:19 AMB [id number]) Current Condition History of Current Condition Onset Date Mar 2019 Current Complaints L yvrose s/p R CVA History of Current Condition Ajith had a carotid dissection with subsequent craniotomy almost 2 years ago. He lives in a 2 level home and is well known to this therapist. He has an 9 year old daughter and is currently getting , this is significantly impacting his depression. He has 24 hour care from his parents, brother and sisters, he no longer lives with his or daughter. He has a manual w/c, yvrose walker, and quad cane at home. Uses hemiwalker to walk with personal injury law specialist 3x/week, and has a new AFO that has been helpful. Treatment Goals Patient/Caregiver Goals Improve walking, standing in kitchen, cooking. 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 Doesn't get down on ground. Can transfer from w/c to bed and couch independently. Personal Factors Other Personal Factors That May Effect Depression, lacks insight into Therapy/Recovery condition PT-OP-C Subjective Start: 12/22/20 07:36 Freq: Status: Active Protocol: Document 12/27/20 14:15 AMB (Rec: 12/27/20 16:04 AMB [email or web address]) OP-PT Subjective Patient Comments Patient Comments Pt states he was able to wear night splint 12 hours last night. He is going to the doctor who is considering a botox shot for his ankle. PT-OP-E Functional Tests Start: 12/22/20 07:36 Freq: Status: Active Protocol: Document 12/22/20 08:15 AMB (Rec: 12/22/20 15:41 AMB [id number]) Functional Tests 10 Meter Walk Test Distance 1 min 12 sec Device Used hemiwalker PT-OP-G Mobility & Gait Start: 12/22/20 07:36 Freq: Status: Active Protocol: Document 12/22/20 08:15 AMB (Rec: 12/22/20 15:41 AMB [id number]) OP Mobility Evaluation Bed Mobility Rolling BUCK Supine to and from Sit BUCK Transfers Sit to Stand SBA Bed to Chair Transfers SBA Car Transfers From description Min/ModA- pt' s driveway is on a hill and this makes car transfers more challenging Floor Transfers Likely MaxA/dependent, but not tested today OP Gait Assessment Comments Gait Comments Step to gait pattern with hemiwalker and CGA with gait belt. Small steps with yvrose leg externally rotated and adducting when flexed forward. PT-OP-K Range of Motion Start: 12/22/20 07:36 Freq: Status: Active Protocol: Document 12/22/20 08:15 AMB (Rec: 12/22/20 15:37 AMB [id number]) Ankle and Foot Goniometric Range of Motion Ankle and Foot Left Passive Comments lacking 34 degrees from neutral dorsiflexion PT-OP-M Strength Start: 12/22/20 07:36 Freq: Status: Active Protocol: Document 12/22/20 08:15 AMB (Rec: 12/22/20 15:37 AMB [id number]) Hip Strength Hip Manual Muscle Testing Left Flexion (L2) 2- Poor- Extension (S1) 1 Trace Abduction 2- Poor- Knee Strength Knee Manual Muscle Testing Left Flexion (S2) 1 Trace Extension (L3) 2- Poor- Ankle/Foot Strength Ankle and Foot Manual Muscle Testing Left Dorsiflexion (L4) 0 Zero Plantarflexion (S1) 2 Poor Toe Strength Toe Manual Muscle Testing Left Great Toe Extension 3 Fair PT-OP-Q Treatments Start: 12/22/20 07:36 Freq: Status: Active Protocol: Document 12/27/20 14:15 AMB (Rec: 06/22/21 16:04 AMB [email or web address]) Therapeutic Exercises Supine Exercises 2 Supine Exercise Name achilles stretch passive 1 Supine Exercise Name hamstring stretch- passive Gait Training Gait Activity 3 Description gait with hemiwalker Level of Assistance CGA Surface stable Distance/Duration 200' Treatment Focus upright posture, foot clearance, increase stride Comments no LOB, vc to reduce ER patterning of L LE Neuro Re-Education Treatment Balance Activities 1 Details standing balance with baloon hitting to reach out of VILLA Comments letting go of yvrose walker once balanced to work on standing balance- pt does tend to weightbear through R leg significantly mor PT-OP-T Assessment and Plan Start: 12/22/20 07:36 Freq: Status: Active Protocol: Document 12/27/20 14:15 AMB (Rec: 12/27/20 16:04 AMB [email or web address]) Physical Therapy Assessment Assessment Summary Assessment Pt did well with gait/balance today, does have difficulty with terminal knee extension due to plantarflexion contracture. Physical Therapy Plan Next Visit Focus/Plan Next Note Type Treatment Note Next Visit Plan Progress gait/balance, review importance of ankle mobility, LE strengthening as tolerated.
--- NOTE | 2020-12-29 15:56 | PT.OTN ---
Current Diagnoses Hemiplegia, unspecified affecting left nondominant side (12/29/20) Paralytic gait (12/29/20) Personal history of transient ischemic attack (TIA), and cerebral infarction without residual deficits (12/29/20) Physical Therapy Treatment Note PT-OP-A Visit Information Start: 12/22/20 07:36 Freq: Status: Active Protocol: Document 12/29/20 08:15 AMB (Rec: 12/29/20 15:56 AMB [email or web address]) Out-Patient Physical Therapy Visit Information Visit Information Visit Type Treatment Note Visit Start Time 08:15 Visit Stop Time 09:00 Total Visit Minutes 45 Visit Number 3 PT-OP-B Current Condition Start: 12/22/20 07:36 Freq: Status: Active Protocol: Document 12/22/20 08:01 AMB (Rec: 12/22/20 08:19 AMB [id number]) Current Condition History of Current Condition Onset Date Mar 2019 Current Complaints L yvrose s/p R CVA History of Current Condition Ajith had a carotid dissection with subsequent craniotomy almost 2 years ago. He lives in a 2 level home and is well known to this therapist. He has an 9 year old daughter and is currently getting , this is significantly impacting his depression. He has 24 hour care from his parents, brother and sisters, he no longer lives with his or daughter. He has a manual w/c, yvrose walker, and quad cane at home. Uses hemiwalker to walk with diabetes trainer 3x/week, and has a new AFO that has been helpful. Treatment Goals Patient/Caregiver Goals Improve walking, standing in kitchen, cooking. 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 Doesn't get down on ground. Can transfer from w/c to bed and couch independently. Personal Factors Other Personal Factors That May Effect Depression, lacks insight into Therapy/Recovery condition PT-OP-C Subjective Start: 12/22/20 07:36 Freq: Status: Active Protocol: Document 12/29/20 08:15 AMB (Rec: 12/29/20 15:56 AMB [email or web address]) OP-PT Subjective Patient Comments Patient Comments Discussed situation with father. Pt's uncle needs to help get pt into the car, but it's not just the car transfer it's the stairs (has a chair lift but still challenging). PT-OP-E Functional Tests Start: 12/22/20 07:36 Freq: Status: Active Protocol: Document 12/22/20 08:15 AMB (Rec: 12/22/20 15:41 AMB [id number]) Functional Tests 10 Meter Walk Test Distance 1 min 12 sec Device Used hemiwalker PT-OP-G Mobility & Gait Start: 12/22/20 07:36 Freq: Status: Active Protocol: Document 12/22/20 08:15 AMB (Rec: 12/22/20 15:41 AMB [id number]) OP Mobility Evaluation Bed Mobility Rolling BUCK Supine to and from Sit BUCK Transfers Sit to Stand SBA Bed to Chair Transfers SBA Car Transfers From description Min/ModA- pt' s driveway is on a hill and this makes car transfers more challenging Floor Transfers Likely MaxA/dependent, but not tested today OP Gait Assessment Comments Gait Comments Step to gait pattern with hemiwalker and CGA with gait belt. Small steps with yvrose leg externally rotated and adducting when flexed forward. PT-OP-K Range of Motion Start: 12/22/20 07:36 Freq: Status: Active Protocol: Document 12/22/20 08:15 AMB (Rec: 12/22/20 15:37 AMB [id number]) Ankle and Foot Goniometric Range of Motion Ankle and Foot Left Passive Comments lacking 34 degrees from neutral dorsiflexion PT-OP-M Strength Start: 12/22/20 07:36 Freq: Status: Active Protocol: Document 12/22/20 08:15 AMB (Rec: 12/22/20 15:37 AMB [id number]) Hip Strength Hip Manual Muscle Testing Left Flexion (L2) 2- Poor- Extension (S1) 1 Trace Abduction 2- Poor- Knee Strength Knee Manual Muscle Testing Left Flexion (S2) 1 Trace Extension (L3) 2- Poor- Ankle/Foot Strength Ankle and Foot Manual Muscle Testing Left Dorsiflexion (L4) 0 Zero Plantarflexion (S1) 2 Poor Toe Strength Toe Manual Muscle Testing Left Great Toe Extension 3 Fair PT-OP-Q Treatments Start: 12/22/20 07:36 Freq: Status: Active Protocol: Document 12/29/20 08:15 AMB (Rec: 12/29/20 15:56 AMB [email or web address]) Gym Equipment Shuttle Recovery Unilateral Squats Details L Resistance 12 Shuttle Recovery Platform Stable Reps/Time 2x10- small ROM, physical assist for alignment Gait Training Gait Activity 3 Description gait with hemiwalker Level of Assistance CGA Surface stable Distance/Duration 200' Treatment Focus upright posture, foot clearance, increase stride Comments no LOB, vc to reduce ER patterning of L LE Neuro Re-Education Treatment Balance Activities 1 Details standing balance with baloon hitting to reach out of VILLA Comments letting go of yvrose walker once balanced to work on standing balance- pt does tend to weightbear through R leg significantly mor PT-OP-T Assessment and Plan Start: 12/22/20 07:36 Freq: Status: Active Protocol: Document 12/29/20 08:15 AMB (Rec: 12/29/20 15:56 AMB [email or web address]) Physical Therapy Assessment Assessment Summary Assessment Pt enjoyed strengthening quad and glutes today. Encouraged pt's dad in ways that they could get the night splint on easier, because it sounds like they are unable to get it on all the way. Physical Therapy Plan Next Visit Focus/Plan Next Note Type Treatment Note Next Visit Plan Progress gait/balance, review importance of ankle mobility, LE strengthening as tolerated.
--- NOTE | 2021-01-10 10:30 | PT.OTN ---
Current Diagnoses Hemiplegia, unspecified affecting left nondominant side (01/10/21) Paralytic gait (01/10/21) Personal history of transient ischemic attack (TIA), and cerebral infarction without residual deficits (01/10/21) Physical Therapy Treatment Note PT-OP-A Visit Information Start: 12/22/20 07:36 Freq: Status: Active Protocol: Document 01/10/21 09:46 SP (Rec: 01/10/21 11:41 SP [id number]) Out-Patient Physical Therapy Visit Information Visit Information Visit Type Treatment Note Visit Note Mother attended tx, observation only and provided feedback throughout tx. Visit Start Time 09:46 Visit Stop Time 10:30 Total Visit Minutes 44 Visit Number 4 Number of HYDRAULIC PRESS OPERATOR Visits 1 Precautions Precautions Mother reported was told at Dr amezcua, not to be WB through LLE other than transfers since last tx to allow L Great toe to heal. PT-OP-B Current Condition Start: 12/22/20 07:36 Freq: Status: Active Protocol: Document 12/22/20 08:01 AMB (Rec: 12/22/20 08:19 AMB [id number]) Current Condition History of Current Condition Onset Date Mar 2019 Current Complaints L yvrose s/p R CVA History of Current Condition Ajith had a carotid dissection with subsequent craniotomy almost 2 years ago. He lives in a 2 level home and is well known to this therapist. He has an 9 year old daughter and is currently getting , this is significantly impacting his depression. He has 24 hour care from his parents, brother and sisters, he no longer lives with his or daughter. He has a manual w/c, yvrose walker, and quad cane at home. Uses hemiwalker to walk with marine mammal trainer 3x/week, and has a new AFO that has been helpful. Treatment Goals Patient/Caregiver Goals Improve walking, standing in kitchen, cooking. 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 Doesn't get down on ground. Can transfer from w/c to bed and couch independently. Personal Factors Other Personal Factors That May Effect Depression, lacks insight into Therapy/Recovery condition PT-OP-C Subjective Start: 12/22/20 07:36 Freq: Status: Active Protocol: Document 01/10/21 09:46 SP (Rec: 01/10/21 11:41 SP [id number]) OP-PT Subjective Patient Comments Patient Comments Pt stated saw Dr Ajith Bowman last Th for medial great toe pain due to thought in grown toe nail. Mother and pt stated at appt they cut back medial toe skin but did not cut nail back and was instructed to limit WB on LLE to allow heal. PT-OP-E Functional Tests Start: 12/22/20 07:36 Freq: Status: Active Protocol: Document 12/22/20 08:15 AMB (Rec: 12/22/20 15:41 AMB [id number]) Functional Tests 10 Meter Walk Test Distance 1 min 12 sec Device Used hemiwalker PT-OP-G Mobility & Gait Start: 12/22/20 07:36 Freq: Status: Active Protocol: Document 12/22/20 08:15 AMB (Rec: 12/22/20 15:41 AMB [id number]) OP Mobility Evaluation Bed Mobility Rolling BUCK Supine to and from Sit BUCK Transfers Sit to Stand SBA Bed to Chair Transfers SBA Car Transfers From description Min/ModA- pt' s driveway is on a hill and this makes car transfers more challenging Floor Transfers Likely MaxA/dependent, but not tested today OP Gait Assessment Comments Gait Comments Step to gait pattern with hemiwalker and CGA with gait belt. Small steps with yvrose leg externally rotated and adducting when flexed forward. PT-OP-K Range of Motion Start: 12/22/20 07:36 Freq: Status: Active Protocol: Document 12/22/20 08:15 AMB (Rec: 12/22/20 15:37 AMB [id number]) Ankle and Foot Goniometric Range of Motion Ankle and Foot Left Passive Comments lacking 34 degrees from neutral dorsiflexion PT-OP-M Strength Start: 12/22/20 07:36 Freq: Status: Active Protocol: Document 12/22/20 08:15 AMB (Rec: 12/22/20 15:37 AMB [id number]) Hip Strength Hip Manual Muscle Testing Left Flexion (L2) 2- Poor- Extension (S1) 1 Trace Abduction 2- Poor- Knee Strength Knee Manual Muscle Testing Left Flexion (S2) 1 Trace Extension (L3) 2- Poor- Ankle/Foot Strength Ankle and Foot Manual Muscle Testing Left Dorsiflexion (L4) 0 Zero Plantarflexion (S1) 2 Poor Toe Strength Toe Manual Muscle Testing Left Great Toe Extension 3 Fair PT-OP-Q Treatments Start: 12/22/20 07:36 Freq: Status: Active Protocol: Document 01/10/21 09:46 SP (Rec: 01/10/21 11:41 SP [id number]) Gym Equipment Shuttle Recovery Unilateral Squats Details L Resistance 12 Shuttle Recovery Platform Stable Reps/Time 2x10- small ROM, physical assist for alignment Therapeutic Exercises Other Exercises Sit<>Stand Reps/Minutes 5x Comments Arleth- vc for foot placement, trunk lean Therapeutic Activity Therapeutic Activity Transfers Name w/c<>shuttle recovery Reps/Minutes 4x Comments squat pivot transfer to unaffected side Min A, Mod A to affected side, cues for foot placement. Gait Training Gait Activity 3 Description gait with hemiwalker w/ RUE Level of Assistance CGA Surface stable Distance/Duration 97 ft Treatment Focus upright posture, foot clearance, increase stride Comments no LOB, vc's to reduce ER patterning of L LE, w/c follow by PT aide. Self-Care/Home Management Treatment Education Patient Education Safety Caregiver Education Extra time spent education with pt and caregiver (mother) on L great toe and lateral malleolus skin inspection for safety pre gait and L knee flexion during Donning AFO. Noted small eracer size scab over medial great toe nail and lateral inferior malleolus scab. Normal color and no redness today, reported no pain anymore just left over scabs healing. PT-OP-T Assessment and Plan Start: 12/22/20 07:36 Freq: Status: Active Protocol: Document 01/10/21 09:46 SP (Rec: 01/10/21 11:41 SP [id number]) Physical Therapy Assessment Goals Five Impairment Standing balance Short Term Goal (STG) Ajith will director of instrumental music his kitchen without UE support for 5 minutes. STG Duration 6 weeks Four Impairment Transfers Short Term Goal (STG) Ajith will perform a car transfer with Arleth. STG Duration 6 weeks Graduate Fellow Goal (LTG) Ajith will perform a floor transfer with environmental support with ModA. LTG Duration 12 weeks Three Impairment ankle mobility Short Term Goal (STG) Ajith will consistently wear his night splint throughout the night to prevent worsening of his contracture. STG Duration 6 weeks Penitentiary Goal (LTG) Ajith will reduce his plantarflexion contracture to lacking 20 degrees. LTG Duration 12 weeks Two Impairment HEP Short Term Goal (STG) Ajith will be independent with a strengthening and stretching HEP. STG Duration 6 weeks One Impairment Gait Short Term Goal (STG) Ajith will ambulate 200' with SBA, hemiwalker, and AFO over smooth terrain. STG Duration 6 weeks Graduate Fellow Goal (LTG) Ajith will ambulate 300' with CGA, hemiwalker and AFO over smooth terrain. LTG Duration 12 weeks Assessment Summary Assessment Assessed L medial great toe skin inspection and lateral inferior malleollus per gait with good presentation and no pain reported anymore so preceeded LLE strengthening on shuttle recovery, sit<> stands and gait using HW. Pt had no pain during WB and distance gait today, CGA initially then increased support by end of distance for support and cues for LLE foot clearance. Pt had no pain during tx in L foot/toe, recommended to pt and mother to inspect L foot/ toe when get home for safety pressure/ redness, verbalized understanding and will do. HYDRAULIC PRESS OPERATOR recommended able to WB through LLE if skin inspection ok but transfers only, will continue to progress in PT into WB and gait. Physical Therapy Plan Frequency and Duration Frequency of Treatment 2x/Week Duration of Treatment 12 weeks Plan of Care Start Date 12/22/20 Plan of Care End Date 03/16/21 Therapeutic Interventions Therapeutic Interventions Balance Training,Gait Training ,Home Exercise Program,Manual Therapy,Neuromuscular Re- education,Self-Care/Home Management,Therapeutic Activities,Therapeutic Exercises,Wheelchair Management Next Visit Focus/Plan Next Note Type Treatment Note Next Visit Plan Progress gait/balance, review importance of ankle mobility, LE strengthening as tolerated.
--- NOTE | 2021-01-12 10:33 | PT.OTN ---
Current Diagnoses Hemiplegia, unspecified affecting left nondominant side (01/12/21) Paralytic gait (01/12/21) Personal history of transient ischemic attack (TIA), and cerebral infarction without residual deficits (01/12/21) Physical Therapy Treatment Note PT-OP-A Visit Information Start: 12/22/20 07:36 Freq: Status: Active Protocol: Document 01/12/21 09:52 SP (Rec: 01/12/21 11:47 SP [id number]) Out-Patient Physical Therapy Visit Information Visit Information Visit Type Treatment Note Visit Note Father assisted pt to waiting room but left to car once started tx, ADOPTION SERVICES MANAGER commented that can stay to assess treatment and see activities can help with at home but father declined. Visit Start Time 09:52 Visit Stop Time 10:33 Total Visit Minutes 41 Visit Number 5 Number of ADOPTION SERVICES MANAGER Visits [address] amezcua for L great toe pain/ infected Medial side tail bed, instructed not to be WB through LLE other than transfers since to allow L Great toe to heal. PT-OP-B Current Condition Start: 12/22/20 07:36 Freq: Status: Active Protocol: Document 12/22/20 08:01 AMB (Rec: 12/22/20 08:19 AMB [id number]) Current Condition History of Current Condition Onset Date Mar 2019 Current Complaints L yvrose s/p R CVA History of Current Condition Ajith had a carotid dissection with subsequent craniotomy almost 2 years ago. He lives in a 2 level home and is well known to this therapist. He has an 9 year old daughter and is currently getting , this is significantly impacting his depression. He has 24 hour care from his parents, brother and sisters, he no longer lives with his or daughter. He has a manual w/c, yvrose walker, and quad cane at home. Uses hemiwalker to walk with interpersonal communications professor 3x/week, and has a new AFO that has been helpful. Treatment Goals Patient/Caregiver Goals Improve walking, standing in kitchen, cooking. 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 Doesn't get down on ground. Can transfer from w/c to bed and couch independently. Personal Factors Other Personal Factors That May Effect Depression, lacks insight into Therapy/Recovery condition PT-OP-C Subjective Start: 12/22/20 07:36 Freq: Status: Active Protocol: Document 01/12/21 09:52 SP (Rec: 01/12/21 11:47 SP [id number]) OP-PT Subjective Patient Comments Patient Comments Pt stated skin check to L foot & great toe after last appt was good, no redness/ irritation and able to stand and walk more at home with family. He reported did fall yesterday in bathroom, LLE got taggled up when turned but did not hurt anything. Pt states has been tired alot lately, maybe due to PT 2x/wk and interpersonal communications professor that comes to the house 3x/wk and so doesn't get a day's recovery but feels needs it to improve mobility. PT-OP-E Functional Tests Start: 12/22/20 07:36 Freq: Status: Active Protocol: Document 12/22/20 08:15 AMB (Rec: 12/22/20 15:41 AMB [id number]) Functional Tests 10 Meter Walk Test Distance 1 min 12 sec Device Used hemiwalker PT-OP-G Mobility & Gait Start: 12/22/20 07:36 Freq: Status: Active Protocol: Document 12/22/20 08:15 AMB (Rec: 12/22/20 15:41 AMB [id number]) OP Mobility Evaluation Bed Mobility Rolling BUCK Supine to and from Sit BUCK Transfers Sit to Stand SBA Bed to Chair Transfers SBA Car Transfers From description Min/ModA- pt' s driveway is on a hill and this makes car transfers more challenging Floor Transfers Likely MaxA/dependent, but not tested today OP Gait Assessment Comments Gait Comments Step to gait pattern with hemiwalker and CGA with gait belt. Small steps with yvrose leg externally rotated and adducting when flexed forward. PT-OP-K Range of Motion Start: 12/22/20 07:36 Freq: Status: Active Protocol: Document 12/22/20 08:15 AMB (Rec: 12/22/20 15:37 AMB [id number]) Ankle and Foot Goniometric Range of Motion Ankle and Foot Left Passive Comments lacking 34 degrees from neutral dorsiflexion PT-OP-M Strength Start: 12/22/20 07:36 Freq: Status: Active Protocol: Document 12/22/20 08:15 AMB (Rec: 12/22/20 15:37 AMB [id number]) Hip Strength Hip Manual Muscle Testing Left Flexion (L2) 2- Poor- Extension (S1) 1 Trace Abduction 2- Poor- Knee Strength Knee Manual Muscle Testing Left Flexion (S2) 1 Trace Extension (L3) 2- Poor- Ankle/Foot Strength Ankle and Foot Manual Muscle Testing Left Dorsiflexion (L4) 0 Zero Plantarflexion (S1) 2 Poor Toe Strength Toe Manual Muscle Testing Left Great Toe Extension 3 Fair PT-OP-Q Treatments Start: 12/22/20 07:36 Freq: Status: Active Protocol: Document 01/12/21 09:52 SP (Rec: 01/12/21 11:47 SP [id number]) Gym Equipment Shuttle Recovery Unilateral Squats Details L >R alternating Resistance 12 Shuttle Recovery Platform Stable Reps/Time 4x10- cues for larger ROM w/ out hyperext on L,physical assist for alignment Gait Training Gait Activity 3 Description gait with hemiwalker w/ RUE Level of Assistance CGA Surface stable Distance/Duration 97 ft w/c follow by PT aide, 20 ft w/out w/c follow shuttle rec to rail Treatment Focus upright posture, foot clearance, increase stride Comments no LOB, vc's to reduce ER patterning of L LE Neuro Re-Education Treatment Balance Activities fwd/bkwd stepping Surface firm Equipment R HR Reps/Duration 20 ft x1 lap Comments cued for upright posture (not looking at feet), L quad facilitation for stability during RLE advacenement, wt shift over RLE to allow LLE foot clearance and decreased wt shift support 1 Details standing balance with baloon hitting to reach out of VILLA Surface firm Equipment in//bars for contact support on R as needed, provided CG> Min A Reps/Duration 5 min Comments letting go of yvrose walker once balanced to work on standing balance- pt does tend to weightbear through R leg significantly more, tapping to L quad for facilitaiton w/ cues for upright posture. Self-Care/Home Management Treatment Education Patient Education Safety Caregiver Education L great toe and lateral L ankle skin inspection post walk for safety WB and skin integrity with noted light pink under leather anterior ankle strap, normal color over L great toe and Lateral L ankle (small scab improving/ healing) PT-OP-T Assessment and Plan Start: 12/22/20 07:36 Freq: Status: Active Protocol: Document 01/12/21 09:52 SP (Rec: 01/12/21 11:47 SP [id number]) Physical Therapy Assessment Goals Five Impairment Standing balance Short Term Goal (STG) Ajith will tailer in his kitchen without UE support for 5 minutes. STG Duration 6 weeks Four Impairment Transfers Short Term Goal (STG) Ajith will perform a car transfer with Arleth. STG Duration 6 weeks Penitentiary Goal (LTG) Ajith will perform a floor transfer with environmental support with ModA. LTG Duration 12 weeks Three Impairment ankle mobility Short Term Goal (STG) Ajith will consistently wear his night splint throughout the night to prevent worsening of his contracture. STG Duration 6 weeks Wet Trimmer Goal (LTG) Ajith will reduce his plantarflexion contracture to lacking 20 degrees. LTG Duration 12 weeks Two Impairment HEP Short Term Goal (STG) Ajith will be independent with a strengthening and stretching HEP. STG Duration 6 weeks One Impairment Gait Short Term Goal (STG) Ajith will ambulate 200' with SBA, hemiwalker, and AFO over smooth terrain. STG Duration 6 weeks Wet Trimmer Goal (LTG) Ajith will ambulate 300' with CGA, hemiwalker and AFO over smooth terrain. LTG Duration 12 weeks Assessment Summary Assessment Mod cues to pt for smaller stepping RLE, larger step LLE with upright trunk posture during gait to allow for improved balance and stability . Pt's LLe noted shaky end of distance in extended positioning/ RLE advancement, improved more stable with decrease RLE smaller step length. Physical Therapy Plan Frequency and Duration Frequency of Treatment 2x/Week Duration of Treatment 12 weeks Plan of Care Start Date 12/22/20 Plan of Care End Date 03/16/21 Therapeutic Interventions Therapeutic Interventions Balance Training,Gait Training ,Home Exercise Program,Manual Therapy,Neuromuscular Re- education,Self-Care/Home Management,Therapeutic Activities,Therapeutic Exercises,Wheelchair Management Next Visit Focus/Plan Next Note Type Treatment Note Next Visit Plan Progress gait/balance, review importance of ankle mobility, LE strengthening as tolerated.
--- NOTE | 2021-01-19 15:31 | PT.OTN ---
Current Diagnoses Hemiplegia, unspecified affecting left nondominant side (01/19/21) Paralytic gait (01/19/21) Personal history of transient ischemic attack (TIA), and cerebral infarction without residual deficits (01/19/21) Physical Therapy Treatment Note PT-OP-A Visit Information Start: 12/22/20 07:36 Freq: Status: Active Protocol: Document 01/19/21 08:15 AMB (Rec: 01/20/21 15:31 AMB [email or web address]) Out-Patient Physical Therapy Visit Information Visit Information Visit Type Treatment Note Visit Note Discussed care with father/ uncle at end of session. Dad states insurance may be changing but they will call in a few days when they know more. Visit Start Time 08:15 Visit Stop Time 09:00 Total Visit Minutes 45 Visit Number 6 Number of WARE FINISHER Visits 0 PT-OP-B Current Condition Start: 12/22/20 07:36 Freq: Status: Active Protocol: Document 12/22/20 08:01 AMB (Rec: 12/22/20 08:19 AMB [id number]) Current Condition History of Current Condition Onset Date Mar 2019 Current Complaints L yvrose s/p R CVA History of Current Condition Ajith had a carotid dissection with subsequent craniotomy almost 2 years ago. He lives in a 2 level home and is well known to this therapist. He has an 9 year old daughter and is currently getting , this is significantly impacting his depression. He has 24 hour care from his parents, brother and sisters, he no longer lives with his or daughter. He has a manual w/c, yvrose walker, and quad cane at home. Uses hemiwalker to walk with personal banking representative 3x/week, and has a new AFO that has been helpful. Treatment Goals Patient/Caregiver Goals Improve walking, standing in kitchen, cooking. 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 Doesn't get down on ground. Can transfer from w/c to bed and couch independently. Personal Factors Other Personal Factors That May Effect Depression, lacks insight into Therapy/Recovery condition PT-OP-C Subjective Start: 12/22/20 07:36 Freq: Status: Active Protocol: Document 01/19/21 08:15 AMB (Rec: 01/20/21 15:31 AMB [email or web address]) OP-PT Subjective Patient Comments Patient Comments Pt states that ingrown nail feels fine. This PT checked it and toe nails are pretty long, so did ask pt's uncle to consider trimming or pt could consider going to [facility] for foot care if that has opened back up again. Otherwise toe appears in good condition, no redness after ambulation from brace. PT-OP-E Functional Tests Start: 12/22/20 07:36 Freq: Status: Active Protocol: Document 12/22/20 08:15 AMB (Rec: 12/22/20 15:41 AMB [id number]) Functional Tests 10 Meter Walk Test Distance 1 min 12 sec Device Used hemiwalker PT-OP-G Mobility & Gait Start: 12/22/20 07:36 Freq: Status: Active Protocol: Document 12/22/20 08:15 AMB (Rec: 12/22/20 15:41 AMB [id number]) OP Mobility Evaluation Bed Mobility Rolling BUCK Supine to and from Sit BUCK Transfers Sit to Stand SBA Bed to Chair Transfers SBA Car Transfers From description Min/ModA- pt' s driveway is on a hill and this makes car transfers more challenging Floor Transfers Likely MaxA/dependent, but not tested today OP Gait Assessment Comments Gait Comments Step to gait pattern with hemiwalker and CGA with gait belt. Small steps with yvrose leg externally rotated and adducting when flexed forward. PT-OP-K Range of Motion Start: 12/22/20 07:36 Freq: Status: Active Protocol: Document 12/22/20 08:15 AMB (Rec: 12/22/20 15:37 AMB [id number]) Ankle and Foot Goniometric Range of Motion Ankle and Foot Left Passive Comments lacking 34 degrees from neutral dorsiflexion PT-OP-M Strength Start: 12/22/20 07:36 Freq: Status: Active Protocol: Document 12/22/20 08:15 AMB (Rec: 12/22/20 15:37 AMB [id number]) Hip Strength Hip Manual Muscle Testing Left Flexion (L2) 2- Poor- Extension (S1) 1 Trace Abduction 2- Poor- Knee Strength Knee Manual Muscle Testing Left Flexion (S2) 1 Trace Extension (L3) 2- Poor- Ankle/Foot Strength Ankle and Foot Manual Muscle Testing Left Dorsiflexion (L4) 0 Zero Plantarflexion (S1) 2 Poor Toe Strength Toe Manual Muscle Testing Left Great Toe Extension 3 Fair PT-OP-Q Treatments Start: 12/22/20 07:36 Freq: Status: Active Protocol: Document 01/19/21 08:15 AMB (Rec: 01/20/21 15:31 AMB [email or web address]) Gym Equipment Shuttle Recovery Unilateral Squats Details L Resistance 12 Shuttle Recovery Platform Stable Reps/Time 2x15- cues for alignment, better with larger ROM today Gait Training Gait Activity 3 Description gait with hemiwalker w/ RUE Level of Assistance CGA Surface stable Distance/Duration no w/c follow 50'x2 Treatment Focus upright posture, foot clearance, increase stride Comments no LOB, vc's to reduce ER patterning of L LE 1 Description walking in //bars Distance/Duration 5x10' Comments focusing on equal step length, good step length PT-OP-T Assessment and Plan Start: 12/22/20 07:36 Freq: Status: Active Protocol: Document 01/19/21 08:15 AMB (Rec: 01/20/21 15:31 AMB [email or web address]) Physical Therapy Assessment Goals Five Impairment Standing balance Short Term Goal (STG) Ajith will food stand manager his kitchen without UE support for 5 minutes. STG Duration 6 weeks Four Impairment Transfers Short Term Goal (STG) Ajith will perform a car transfer with Arleth. STG Duration 6 weeks Sign Maintenance Goal (LTG) Ajith will perform a floor transfer with environmental support with ModA. LTG Duration 12 weeks Three Impairment ankle mobility Short Term Goal (STG) Ajith will consistently wear his night splint throughout the night to prevent worsening of his contracture. STG Duration 6 weeks Senior Living Goal (LTG) Ajith will reduce his plantarflexion contracture to lacking 20 degrees. LTG Duration 12 weeks Two Impairment HEP Short Term Goal (STG) Ajith will be independent with a strengthening and stretching HEP. STG Duration 6 weeks One Impairment Gait Short Term Goal (STG) Ajith will ambulate 200' with SBA, hemiwalker, and AFO over smooth terrain. STG Duration 6 weeks Senior Living Goal (LTG) Ajith will ambulate 300' with CGA, hemiwalker and AFO over smooth terrain. LTG Duration 12 weeks Assessment Summary Assessment Pt showed better gait today with more equal step length. He did state that his legs were fatigued today, earlier in the session than usual. Pt appeared quite depressed about divorce proceedings. Physical Therapy Plan Therapeutic Interventions Therapeutic Interventions Balance Training,Gait Training ,Home Exercise Program,Manual Therapy,Neuromuscular Re- education,Self-Care/Home Management,Therapeutic Activities,Therapeutic Exercises,Wheelchair Management Next Visit Focus/Plan Next Note Type Treatment Note Next Visit Plan Progress gait/balance, review importance of ankle mobility, LE strengthening as tolerated.
--- NOTE | 2021-01-24 15:37 | PT.OTN ---
Current Diagnoses Hemiplegia, unspecified affecting left nondominant side (01/24/21) Paralytic gait (01/24/21) Personal history of transient ischemic attack (TIA), and cerebral infarction without residual deficits (01/24/21) Physical Therapy Treatment Note PT-OP-A Visit Information Start: 12/22/20 07:36 Freq: Status: Active Protocol: Document 01/24/21 12:48 AMB (Rec: 01/24/21 13:40 AMB [id number]) Out-Patient Physical Therapy Visit Information Visit Information Visit Type Treatment Note Visit Start Time 12:45 Visit Stop Time 13:30 Total Visit Minutes 45 Visit Number 7 PT-OP-B Current Condition Start: 12/22/20 07:36 Freq: Status: Active Protocol: Document 12/22/20 08:01 AMB (Rec: 12/22/20 08:19 AMB [id number]) Current Condition History of Current Condition Onset Date Mar 2019 Current Complaints L yvrose s/p R CVA History of Current Condition Ajith had a carotid dissection with subsequent craniotomy almost 2 years ago. He lives in a 2 level home and is well known to this therapist. He has an 9 year old daughter and is currently getting , this is significantly impacting his depression. He has 24 hour care from his parents, brother and sisters, he no longer lives with his or daughter. He has a manual w/c, yvrose walker, and quad cane at home. Uses hemiwalker to walk with retail personal banker 3x/week, and has a new AFO that has been helpful. Treatment Goals Patient/Caregiver Goals Improve walking, standing in kitchen, cooking. 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 Doesn't get down on ground. Can transfer from w/c to bed and couch independently. Personal Factors Other Personal Factors That May Effect Depression, lacks insight into Therapy/Recovery condition PT-OP-C Subjective Start: 12/22/20 07:36 Freq: Status: Active Protocol: Document 01/24/21 15:30 AMB (Rec: 01/24/21 15:36 AMB [email or web address]) OP-PT Subjective Patient Comments Patient Comments Pt attends with his mom. They agree that his insurance is changing, and that the priority is his independence with gait. Pt continues to state he wants to walk outside in his yard, and his mom continues to state that that is inherently unsafe due to how steep the yard is. She states it would even be unsafe in a power chair. PT-OP-E Functional Tests Start: 12/22/20 07:36 Freq: Status: Active Protocol: Document 12/22/20 08:15 AMB (Rec: 12/22/20 15:41 AMB [id number]) Functional Tests 10 Meter Walk Test Distance 1 min 12 sec Device Used hemiwalker PT-OP-G Mobility & Gait Start: 12/22/20 07:36 Freq: Status: Active Protocol: Document 12/22/20 08:15 AMB (Rec: 12/22/20 15:41 AMB [id number]) OP Mobility Evaluation Bed Mobility Rolling BUCK Supine to and from Sit BUCK Transfers Sit to Stand SBA Bed to Chair Transfers SBA Car Transfers From description Min/ModA- pt' s driveway is on a hill and this makes car transfers more challenging Floor Transfers Likely MaxA/dependent, but not tested today OP Gait Assessment Comments Gait Comments Step to gait pattern with hemiwalker and CGA with gait belt. Small steps with yvrose leg externally rotated and adducting when flexed forward. PT-OP-K Range of Motion Start: 12/22/20 07:36 Freq: Status: Active Protocol: Document 12/22/20 08:15 AMB (Rec: 12/22/20 15:37 AMB [id number]) Ankle and Foot Goniometric Range of Motion Ankle and Foot Left Passive Comments lacking 34 degrees from neutral dorsiflexion PT-OP-M Strength Start: 12/22/20 07:36 Freq: Status: Active Protocol: Document 12/22/20 08:15 AMB (Rec: 12/22/20 15:37 AMB [id number]) Hip Strength Hip Manual Muscle Testing Left Flexion (L2) 2- Poor- Extension (S1) 1 Trace Abduction 2- Poor- Knee Strength Knee Manual Muscle Testing Left Flexion (S2) 1 Trace Extension (L3) 2- Poor- Ankle/Foot Strength Ankle and Foot Manual Muscle Testing Left Dorsiflexion (L4) 0 Zero Plantarflexion (S1) 2 Poor Toe Strength Toe Manual Muscle Testing Left Great Toe Extension 3 Fair PT-OP-Q Treatments Start: 12/22/20 07:36 Freq: Status: Active Protocol: Document 01/24/21 15:30 AMB (Rec: 01/24/21 15:36 AMB [email or web address]) Gym Equipment Shuttle Recovery Unilateral Squats Details L and the bilateral Resistance 12 Shuttle Recovery Platform Stable Reps/Time 3x15- cues for alignment, better with larger ROM today Gait Training Gait Activity 3 Description gait with hemiwalker w/ RUE Level of Assistance CGA Surface stable Distance/Duration no w/c follow 50'x2 Treatment Focus upright posture, foot clearance, increase stride Comments no LOB, vc's to reduce ER patterning of L LE 1 Description walking in //bars Distance/Duration 5x10' Comments focusing on equal step length, good step length. forward and lateral stepping for balance- fatigued. PT-OP-T Assessment and Plan Start: 12/22/20 07:36 Freq: Status: Active Protocol: Document 01/24/21 15:30 AMB (Rec: 01/24/21 15:36 AMB [email or web address]) Physical Therapy Assessment Assessment Summary Assessment Ajith did better today with gait, but did fatigue after the leg press machine. Physical Therapy Plan Next Visit Focus/Plan Next Note Type Treatment Note Next Visit Plan Progress gait/balance, review importance of ankle mobility, LE strengthening as tolerated.
--- NOTE | 2021-01-26 09:46 | PT.OTN ---
Current Diagnoses Hemiplegia, unspecified affecting left nondominant side (01/26/21) Paralytic gait (01/26/21) Personal history of transient ischemic attack (TIA), and cerebral infarction without residual deficits (01/26/21) Physical Therapy Treatment Note PT-OP-A Visit Information Start: 12/22/20 07:36 Freq: Status: Active Protocol: Document 01/26/21 08:15 AMB (Rec: 01/26/21 09:40 AMB [email or web address]) Out-Patient Physical Therapy Visit Information Visit Information Visit Type Treatment Note Visit Note Mother attends session Visit Start Time 08:15 Visit Stop Time 09:00 Total Visit Minutes 45 Visit Number 8 PT-OP-B Current Condition Start: 12/22/20 07:36 Freq: Status: Active Protocol: Document 12/22/20 08:01 AMB (Rec: 12/22/20 08:19 AMB [id number]) Current Condition History of Current Condition Onset Date Mar 2019 Current Complaints L yvrose s/p R CVA History of Current Condition Ajith had a carotid dissection with subsequent craniotomy almost 2 years ago. He lives in a 2 level home and is well known to this therapist. He has an 9 year old daughter and is currently getting , this is significantly impacting his depression. He has 24 hour care from his parents, brother and sisters, he no longer lives with his or daughter. He has a manual w/c, yvrose walker, and quad cane at home. Uses hemiwalker to walk with personal service workers 3x/week, and has a new AFO that has been helpful. Treatment Goals Patient/Caregiver Goals Improve walking, standing in kitchen, cooking. 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 Doesn't get down on ground. Can transfer from w/c to bed and couch independently. Personal Factors Other Personal Factors That May Effect Depression, lacks insight into Therapy/Recovery condition PT-OP-C Subjective Start: 12/22/20 07:36 Freq: Status: Active Protocol: Document 01/26/21 08:15 AMB (Rec: 01/26/21 09:40 AMB [email or web address]) OP-PT Subjective Patient Comments Patient Comments Pt has one more appointment scheduled before his uncle is going on vacation and he will have to go on hold for a month due to lack of transportation . His mom forgot to bring his new insurance card in, and is unsure when his [place]. PT-OP-E Functional Tests Start: 12/22/20 07:36 Freq: Status: Active Protocol: Document 12/22/20 08:15 AMB (Rec: 12/22/20 15:41 AMB [id number]) Functional Tests 10 Meter Walk Test Distance 1 min 12 sec Device Used hemiwalker PT-OP-G Mobility & Gait Start: 12/22/20 07:36 Freq: Status: Active Protocol: Document 12/22/20 08:15 AMB (Rec: 12/22/20 15:41 AMB [id number]) OP Mobility Evaluation Bed Mobility Rolling BUCK Supine to and from Sit BUCK Transfers Sit to Stand SBA Bed to Chair Transfers SBA Car Transfers From description Min/ModA- pt' s driveway is on a hill and this makes car transfers more challenging Floor Transfers Likely MaxA/dependent, but not tested today OP Gait Assessment Comments Gait Comments Step to gait pattern with hemiwalker and CGA with gait belt. Small steps with yvrose leg externally rotated and adducting when flexed forward. PT-OP-K Range of Motion Start: 12/22/20 07:36 Freq: Status: Active Protocol: Document 12/22/20 08:15 AMB (Rec: 12/22/20 15:37 AMB [id number]) Ankle and Foot Goniometric Range of Motion Ankle and Foot Left Passive Comments lacking 34 degrees from neutral dorsiflexion PT-OP-M Strength Start: 12/22/20 07:36 Freq: Status: Active Protocol: Document 12/22/20 08:15 AMB (Rec: 12/22/20 15:37 AMB [id number]) Hip Strength Hip Manual Muscle Testing Left Flexion (L2) 2- Poor- Extension (S1) 1 Trace Abduction 2- Poor- Knee Strength Knee Manual Muscle Testing Left Flexion (S2) 1 Trace Extension (L3) 2- Poor- Ankle/Foot Strength Ankle and Foot Manual Muscle Testing Left Dorsiflexion (L4) 0 Zero Plantarflexion (S1) 2 Poor Toe Strength Toe Manual Muscle Testing Left Great Toe Extension 3 Fair PT-OP-Q Treatments Start: 12/22/20 07:36 Freq: Status: Active Protocol: Document 01/26/21 08:15 AMB (Rec: 01/26/21 09:46 AMB [email or web address]) Therapeutic Exercises Sitting Exercises 4 Sitting Exercise Name achilles stretch Comments seated pushing knee down 1 Sitting Exercise Name achilles stretching Comments passive and active in seated Gait Training Gait Activity 3 Description gait with hemiwalker w/ RUE Level of Assistance CGA Surface stable Distance/Duration no w/c follow 250' Treatment Focus upright posture, foot clearance, increase stride Comments no LOB, vc's to reduce ER patterning of L LE PT-OP-T Assessment and Plan Start: 12/22/20 07:36 Freq: Status: Active Protocol: Document 01/26/21 08:15 AMB (Rec: 01/26/21 09:40 AMB [email or web address]) Physical Therapy Assessment Goals Five Impairment Standing balance Short Term Goal (STG) Ajith will gaming floor supervisor his kitchen without UE support for 5 minutes. STG Duration 6 weeks Four Impairment Transfers Short Term Goal (STG) Ajith will perform a car transfer with Arleth. STG Duration 6 weeks Fdc Goal (LTG) Ajith will perform a floor transfer with environmental support with ModA. LTG Duration 12 weeks Three Impairment ankle mobility Short Term Goal (STG) Ajith will consistently wear his night splint throughout the night to prevent worsening of his contracture. STG Duration 6 weeks Candy Spreader Helper Goal (LTG) Ajith will reduce his plantarflexion contracture to lacking 20 degrees. LTG Duration 12 weeks Two Impairment HEP Short Term Goal (STG) Ajith will be independent with a strengthening and stretching HEP. STG Duration 6 weeks One Impairment Gait Short Term Goal (STG) Ajith will ambulate 200' with SBA, hemiwalker, and AFO over smooth terrain. STG Duration 6 weeks Candy Spreader Helper Goal (LTG) Ajith will ambulate 300' with CGA, hemiwalker and AFO over smooth terrain. LTG Duration 12 weeks Assessment Summary Assessment Provided written handout for ankle stretching. Ajith' gait has shown improvement with less hip ER and more even stride length. Physical Therapy Plan Frequency and Duration Frequency of Treatment 2x/Week Duration of Treatment 12 weeks Plan of Care Start Date 12/22/20 Plan of Care End Date 03/16/21 Therapeutic Interventions Therapeutic Interventions Balance Training,Gait Training ,Home Exercise Program,Manual Therapy,Neuromuscular Re- education,Self-Care/Home Management,Therapeutic Activities,Therapeutic Exercises,Wheelchair Management Next Visit Focus/Plan Next Note Type Treatment Note Next Visit Plan Progress gait/balance, review importance of ankle mobility, LE strengthening as tolerated.
--- NOTE | 2021-01-30 09:49 | PT.OTN ---
Current Diagnoses Hemiplegia, unspecified affecting left nondominant side (01/30/21) Paralytic gait (01/30/21) Personal history of transient ischemic attack (TIA), and cerebral infarction without residual deficits (01/30/21) Physical Therapy Treatment Note PT-OP-A Visit Information Start: 12/22/20 07:36 Freq: Status: Active Protocol: Document 01/30/21 08:58 SP (Rec: 01/30/21 16:15 SP [id number]) Out-Patient Physical Therapy Visit Information Visit Information Visit Type Treatment Note Visit Note Father dropped off pt elected to stay in car during appt. CAMERA MAKER discussed need of new insurance card with pt and dad , was told new insurance will be effective 02/05/21 and doesn 't know anymore about this. Will bring by copy of ins card info and call to set up more appts depending upon visits allowed, can make another appt for this week in the meantime . Visit Start Time 09:00 Visit Stop Time 09:49 Total Visit Minutes 49 Visit Number 9 Number of CAMERA MAKER Visits 1 PT-OP-B Current Condition Start: 12/22/20 07:36 Freq: Status: Active Protocol: Document 12/22/20 08:01 AMB (Rec: 12/22/20 08:19 AMB [id number]) Current Condition History of Current Condition Onset Date Mar 2019 Current Complaints L yvrose s/p R CVA History of Current Condition Ajith had a carotid dissection with subsequent craniotomy almost 2 years ago. He lives in a 2 level home and is well known to this therapist. He has an 9 year old daughter and is currently getting , this is significantly impacting his depression. He has 24 hour care from his parents, brother and sisters, he no longer lives with his or daughter. He has a manual w/c, yvrose walker, and quad cane at home. Uses hemiwalker to walk with call center trainer 3x/week, and has a new AFO that has been helpful. Treatment Goals Patient/Caregiver Goals Improve walking, standing in kitchen, cooking. 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 Doesn't get down on ground. Can transfer from w/c to bed and couch independently. Personal Factors Other Personal Factors That May Effect Depression, lacks insight into Therapy/Recovery condition PT-OP-C Subjective Start: 12/22/20 07:36 Freq: Status: Active Protocol: Document 01/30/21 08:58 SP (Rec: 01/30/21 16:15 SP [id number]) OP-PT Subjective Patient Comments Patient Comments Pt stated has new sneakers today, first time wearing them , feel has more room to move toes. PT-OP-E Functional Tests Start: 12/22/20 07:36 Freq: Status: Active Protocol: Document 12/22/20 08:15 AMB (Rec: 12/22/20 15:41 AMB [id number]) Functional Tests 10 Meter Walk Test Distance 1 min 12 sec Device Used hemiwalker PT-OP-G Mobility & Gait Start: 12/22/20 07:36 Freq: Status: Active Protocol: Document 12/22/20 08:15 AMB (Rec: 12/22/20 15:41 AMB [id number]) OP Mobility Evaluation Bed Mobility Rolling BUCK Supine to and from Sit BUCK Transfers Sit to Stand SBA Bed to Chair Transfers SBA Car Transfers From description Min/ModA- pt' s driveway is on a hill and this makes car transfers more challenging Floor Transfers Likely MaxA/dependent, but not tested today OP Gait Assessment Comments Gait Comments Step to gait pattern with hemiwalker and CGA with gait belt. Small steps with yvrose leg externally rotated and adducting when flexed forward. PT-OP-K Range of Motion Start: 12/22/20 07:36 Freq: Status: Active Protocol: Document 12/22/20 08:15 AMB (Rec: 12/22/20 15:37 AMB [id number]) Ankle and Foot Goniometric Range of Motion Ankle and Foot Left Passive Comments lacking 34 degrees from neutral dorsiflexion PT-OP-M Strength Start: 12/22/20 07:36 Freq: Status: Active Protocol: Document 12/22/20 08:15 AMB (Rec: 12/22/20 15:37 AMB [id number]) Hip Strength Hip Manual Muscle Testing Left Flexion (L2) 2- Poor- Extension (S1) 1 Trace Abduction 2- Poor- Knee Strength Knee Manual Muscle Testing Left Flexion (S2) 1 Trace Extension (L3) 2- Poor- Ankle/Foot Strength Ankle and Foot Manual Muscle Testing Left Dorsiflexion (L4) 0 Zero Plantarflexion (S1) 2 Poor Toe Strength Toe Manual Muscle Testing Left Great Toe Extension 3 Fair PT-OP-Q Treatments Start: 12/22/20 07:36 Freq: Status: Active Protocol: Document 01/30/21 08:58 SP (Rec: 01/30/21 16:15 SP [id number]) Gym Equipment Shuttle Recovery Unilateral Squats Details L and the bilateral Resistance 12 Shuttle Recovery Platform Stable Reps/Time 3x15- cues for alignment, better with larger ROM today Therapeutic Activity Therapeutic Activity Transfers Name w/c<>chair Reps/Minutes 4x Comments squat pivot transfer to unaffected side Min- Mod A to affected side, cues for foot placement. Gait Training Gait Activity 3 Description gait with hemiwalker w/ RUE Level of Assistance CGA Surface stable Distance/Duration w/c follow 161ft Treatment Focus upright posture, foot clearance, increase stride Comments no LOB, vc's for tall posture, L quad fac and to reduce ER patterning of L LE for proper gait phases, Min> CGA Manual Therapy Treatment Soft Tissue Mobilization Gastroc Body Location L Comments passive gastroc and achilles STMs and DF stretch, L foot skin assessment post walk due to new shoes, intact no redness or change in normal flesh color PT-OP-T Assessment and Plan Start: 12/22/20 07:36 Freq: Status: Active Protocol: Document 01/30/21 08:58 SP (Rec: 01/30/21 16:15 SP [id number]) Physical Therapy Assessment Goals Five Impairment Standing balance Short Term Goal (STG) Ajith will inspector assemblies and installations his kitchen without UE support for 5 minutes. STG Duration 6 weeks Four Impairment Transfers Short Term Goal (STG) Ajith will perform a car transfer with Arleth. STG Duration 6 weeks Usp Goal (LTG) Ajith will perform a floor transfer with environmental support with ModA. LTG Duration 12 weeks Three Impairment ankle mobility Short Term Goal (STG) Ajith will consistently wear his night splint throughout the night to prevent worsening of his contracture. STG Duration 6 weeks Usp Goal (LTG) Ajith will reduce his plantarflexion contracture to lacking 20 degrees. LTG Duration 12 weeks Two Impairment HEP Short Term Goal (STG) jAith will be independent with a strengthening and stretching HEP. STG Duration 6 weeks One Impairment Gait Short Term Goal (STG) Ajith will ambulate 200' with SBA, hemiwalker, and AFO over smooth terrain. STG Duration 6 weeks Usp Goal (LTG) Ajith will ambulate 300' with CGA, hemiwalker and AFO over smooth terrain. LTG Duration 12 weeks Assessment Summary Assessment Pt L ankle manual PROM & stretching noted clonus into DF ROM, improved with STMs to gastroc/ achilles. Good color inspection post gait. Improved ease of don/ doff new sneakers and comfort performance per pt. Pt decrease required assist during gait and transfers Mod> CGA as reps progresssed, followed w/ w/c today due to forward posture initially. Physical Therapy Plan Frequency and Duration Frequency of Treatment 2x/Week Duration of Treatment 12 weeks Plan of Care Start Date 12/22/20 Plan of Care End Date 03/16/21 Therapeutic Interventions Therapeutic Interventions Balance Training,Gait Training ,Home Exercise Program,Manual Therapy,Neuromuscular Re- education,Self-Care/Home Management,Therapeutic Activities,Therapeutic Exercises,Wheelchair Management Next Visit Focus/Plan Next Note Type Treatment Note Next Visit Plan Pt's family will bring new ins card and make more appts. POC: Progress gait/balance, review importance of ankle mobility, LE strengthening as tolerated.
--- NOTE | 2021-02-23 14:38 | PT.OTN ---
Current Diagnoses Hemiplegia, unspecified affecting left nondominant side (02/23/21) Paralytic gait (02/23/21) Personal history of transient ischemic attack (TIA), and cerebral infarction without residual deficits (02/23/21) Physical Therapy Treatment Note PT-OP-A Visit Information Start: 12/22/20 07:36 Freq: Status: Active Protocol: Document 02/23/21 13:47 SP (Rec: 02/23/21 15:06 SP [id number]) Out-Patient Physical Therapy Visit Information Visit Information Visit Type Treatment Note Visit Note Father dropped off pt elected to stay in car during appt. Visit Start Time 13:47 Visit Stop Time 14:38 Total Visit Minutes 51 Visit Number 10 Number of CYBER OPERATOR Visits 2 PT-OP-B Current Condition Start: 12/22/20 07:36 Freq: Status: Active Protocol: Document 12/22/20 08:01 AMB (Rec: 12/22/20 08:19 AMB [id number]) Current Condition History of Current Condition Onset Date Mar 2019 Current Complaints L yvrose s/p R CVA History of Current Condition Ajith had a carotid dissection with subsequent craniotomy almost 2 years ago. He lives in a 2 level home and is well known to this therapist. He has an 9 year old daughter and is currently getting , this is significantly impacting his depression. He has 24 hour care from his parents, brother and sisters, he no longer lives with his or daughter. He has a manual w/c, yvrose walker, and quad cane at home. Uses hemiwalker to walk with certified personal finance counselor 3x/week, and has a new AFO that has been helpful. Treatment Goals Patient/Caregiver Goals Improve walking, standing in kitchen, cooking. 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 Doesn't get down on ground. Can transfer from w/c to bed and couch independently. Personal Factors Other Personal Factors That May Effect Depression, lacks insight into Therapy/Recovery condition PT-OP-C Subjective Start: 12/22/20 07:36 Freq: Status: Active Protocol: Document 02/23/21 13:47 SP (Rec: 02/23/21 15:06 SP [id number]) OP-PT Subjective Patient Comments Patient Comments Pt stated has been doing some walking in house with HW certified personal finance counselor. Brought his new insurance cards today. PT-OP-E Functional Tests Start: 12/22/20 07:36 Freq: Status: Active Protocol: Document 12/22/20 08:15 AMB (Rec: 12/22/20 15:41 AMB [id number]) Functional Tests 10 Meter Walk Test Distance 1 min 12 sec Device Used hemiwalker PT-OP-G Mobility & Gait Start: 12/22/20 07:36 Freq: Status: Active Protocol: Document 12/22/20 08:15 AMB (Rec: 12/22/20 15:41 AMB [id number]) OP Mobility Evaluation Bed Mobility Rolling BUCK Supine to and from Sit BUCK Transfers Sit to Stand SBA Bed to Chair Transfers SBA Car Transfers From description Min/ModA- pt' s driveway is on a hill and this makes car transfers more challenging Floor Transfers Likely MaxA/dependent, but not tested today OP Gait Assessment Comments Gait Comments Step to gait pattern with hemiwalker and CGA with gait belt. Small steps with yvrose leg externally rotated and adducting when flexed forward. PT-OP-K Range of Motion Start: 12/22/20 07:36 Freq: Status: Active Protocol: Document 12/22/20 08:15 AMB (Rec: 12/22/20 15:37 AMB [id number]) Ankle and Foot Goniometric Range of Motion Ankle and Foot Left Passive Comments lacking 34 degrees from neutral dorsiflexion PT-OP-M Strength Start: 12/22/20 07:36 Freq: Status: Active Protocol: Document 12/22/20 08:15 AMB (Rec: 12/22/20 15:37 AMB [id number]) Hip Strength Hip Manual Muscle Testing Left Flexion (L2) 2- Poor- Extension (S1) 1 Trace Abduction 2- Poor- Knee Strength Knee Manual Muscle Testing Left Flexion (S2) 1 Trace Extension (L3) 2- Poor- Ankle/Foot Strength Ankle and Foot Manual Muscle Testing Left Dorsiflexion (L4) 0 Zero Plantarflexion (S1) 2 Poor Toe Strength Toe Manual Muscle Testing Left Great Toe Extension 3 Fair PT-OP-Q Treatments Start: 12/22/20 07:36 Freq: Status: Active Protocol: Document 08/19/21 13:47 SP (Rec: 02/23/21 15:06 SP [id number]) Gym Equipment Shuttle Recovery Unilateral Squats Details L and the bilateral Resistance 12 Shuttle Recovery Platform Stable Reps/Time 3x15- cues for alignment, better with larger ROM today Gait Training Gait Activity 3 Description gait with hemiwalker w/ RUE Level of Assistance CGA Surface stable Distance/Duration w/c follow 171ft Treatment Focus upright posture, foot clearance, increase stride Comments no LOB, vc's for tall posture, improved neutral LLE alignment, Min> CGA, assist to wt shift R for LLE foot clearance Manual Therapy Treatment Soft Tissue Mobilization Gastroc Body Location L Comments passive gastroc and achilles STMs and DF stretch Neuro Re-Education Treatment Balance Activities standing balance endurance Surface level Equipment cones transfer w/ RUE PT-OP-T Assessment and Plan Start: 12/22/20 07:36 Freq: Status: Active Protocol: Document 02/23/21 13:47 SP (Rec: 02/23/21 15:06 SP [id number]) Physical Therapy Assessment Goals Five Impairment Standing balance Short Term Goal (STG) Ajith will river crossing supervisor his kitchen without UE support for 5 minutes. 02/23/21: progressing: able to stand at counter doing RUE activity with LUE (occasional LUE contact counter for stand bal) for 2m 23 s CG- 5%A before needs to sit secondary to LLE shaky. STG Duration 6 weeks Four Impairment Transfers Short Term Goal (STG) Ajith will perform a car transfer with Arleth. 02/23/21: progressing: CG- Min A using HW SPT transfer chair to front passenger's seat, Total A for L LE reposition into car and RLE self into car the self support using overhead handle to scoot self back in seat. Pt requires assist for safety seat belt secure. STG Duration 6 weeks Usp Goal (LTG) Ajith will perform a floor transfer with environmental support with ModA. LTG Duration 12 weeks Three Impairment ankle mobility Short Term Goal (STG) Ajith will consistently wear his night splint throughout the night to prevent worsening of his contracture. 02/23/21: Progressing: pt wears night splint until needs to use restroom then goes backto bed without donning again. STG Duration 6 weeks Programmer Developer Goal (LTG) Ajith will reduce his plantarflexion contracture to lacking 20 degrees. LTG Duration 12 weeks Two Impairment HEP Short Term Goal (STG) Ajith will be independent with a strengthening and stretching HEP. STG Duration 6 weeks One Impairment Gait Short Term Goal (STG) Ajith will ambulate 200' with SBA, hemiwalker, and AFO over smooth terrain. 02/23/21: progressing: pt able to walk 171 ft using HW CG- Min A with support slight wt shift to R to allow LLE foot clearance during swing phase, transfer chair follow but not needed, no stopped rest required. STG Duration 6 weeks Programmer Developer Goal (LTG) Ajith will ambulate 300' with CGA, hemiwalker and AFO over smooth terrain. LTG Duration 12 weeks Progress Towards Goals Progress Towards Goals Progressing Toward Goals,Slow Progress due to Activity Tolerance Assessment Summary Assessment Pt progressed in distance gait this tx, 5% A wt shift support to R to allow LLE foot clearance during swing phase using HW. Pt able to stand at end of tx for 2m23s performing stationary standing R UE activity with occasional cues for even BLE WB distribution, noted increase WB LLE. Min A for slow descent in to chair with cues for reaching back w/ RUE. Physical Therapy Plan Frequency and Duration Frequency of Treatment 2x/Week Duration of Treatment 12 weeks Plan of Care Start Date 12/22/20 Plan of Care End Date 03/16/21 Therapeutic Interventions Therapeutic Interventions Balance Training,Gait Training ,Home Exercise Program,Manual Therapy,Neuromuscular Re- education,Self-Care/Home Management,Therapeutic Activities,Therapeutic Exercises,Wheelchair Management Next Visit Focus/Plan Next Note Type Treatment Note Next Visit Plan Assess response to standing balance and gait last tx. POC: Progress gait/balance, review importance of ankle mobility, LE strengthening as tolerated.
--- NOTE | 2021-03-02 15:49 | PT.OTN ---
Current Diagnoses Hemiplegia, unspecified affecting left nondominant side (03/02/21) Paralytic gait (03/02/21) Personal history of transient ischemic attack (TIA), and cerebral infarction without residual deficits (03/02/21) Physical Therapy Treatment Note PT-OP-A Visit Information Start: 12/22/20 07:36 Freq: Status: Active Protocol: Document 03/02/21 11:00 AMB (Rec: 03/02/21 15:49 AMB [email or web address]) Out-Patient Physical Therapy Visit Information Visit Information Visit Type Treatment Note Visit Note Mom attended PT Visit Start Time 11:00 Visit Stop Time 11:45 Total Visit Minutes 45 Visit Number 11 Number of GREY GOODS TESTER Visits 0 PT-OP-B Current Condition Start: 12/22/20 07:36 Freq: Status: Active Protocol: Document 12/22/20 08:01 AMB (Rec: 12/22/20 08:19 AMB [id number]) Current Condition History of Current Condition Onset Date Mar 2019 Current Complaints L yvrose s/p R CVA History of Current Condition Ajith had a carotid dissection with subsequent craniotomy almost 2 years ago. He lives in a 2 level home and is well known to this therapist. He has an 9 year old daughter and is currently getting , this is significantly impacting his depression. He has 24 hour care from his parents, brother and sisters, he no longer lives with his or daughter. He has a manual w/c, yvrose walker, and quad cane at home. Uses hemiwalker to walk with personal coach 3x/week, and has a new AFO that has been helpful. Treatment Goals Patient/Caregiver Goals Improve walking, standing in kitchen, cooking. 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 Doesn't get down on ground. Can transfer from w/c to bed and couch independently. Personal Factors Other Personal Factors That May Effect Depression, lacks insight into Therapy/Recovery condition PT-OP-C Subjective Start: 12/22/20 07:36 Freq: Status: Active Protocol: Document 03/02/21 11:00 AMB (Rec: 03/02/21 15:49 AMB [email or web address]) OP-PT Subjective Patient Comments Patient Comments Pt somewhat depressed today, stating that he needs to be able to walk more to see his daughter, but unable to elaborate as to why that is the case. PT-OP-E Functional Tests Start: 12/22/20 07:36 Freq: Status: Active Protocol: Document 12/22/20 08:15 AMB (Rec: 12/22/20 15:41 AMB [id number]) Functional Tests 10 Meter Walk Test Distance 1 min 12 sec Device Used hemiwalker PT-OP-G Mobility & Gait Start: 12/22/20 07:36 Freq: Status: Active Protocol: Document 12/22/20 08:15 AMB (Rec: 12/22/20 15:41 AMB [id number]) OP Mobility Evaluation Bed Mobility Rolling BUCK Supine to and from Sit BUCK Transfers Sit to Stand SBA Bed to Chair Transfers SBA Car Transfers From description Min/ModA- pt' s driveway is on a hill and this makes car transfers more challenging Floor Transfers Likely MaxA/dependent, but not tested today OP Gait Assessment Comments Gait Comments Step to gait pattern with hemiwalker and CGA with gait belt. Small steps with yvrose leg externally rotated and adducting when flexed forward. PT-OP-K Range of Motion Start: 12/22/20 07:36 Freq: Status: Active Protocol: Document 12/22/20 08:15 AMB (Rec: 12/22/20 15:37 AMB [id number]) Ankle and Foot Goniometric Range of Motion Ankle and Foot Left Passive Comments lacking 34 degrees from neutral dorsiflexion PT-OP-M Strength Start: 12/22/20 07:36 Freq: Status: Active Protocol: Document 12/22/20 08:15 AMB (Rec: 12/22/20 15:37 AMB [id number]) Hip Strength Hip Manual Muscle Testing Left Flexion (L2) 2- Poor- Extension (S1) 1 Trace Abduction 2- Poor- Knee Strength Knee Manual Muscle Testing Left Flexion (S2) 1 Trace Extension (L3) 2- Poor- Ankle/Foot Strength Ankle and Foot Manual Muscle Testing Left Dorsiflexion (L4) 0 Zero Plantarflexion (S1) 2 Poor Toe Strength Toe Manual Muscle Testing Left Great Toe Extension 3 Fair PT-OP-Q Treatments Start: 12/22/20 07:36 Freq: Status: Active Protocol: Document 03/02/21 11:00 AMB (Rec: 03/02/21 15:49 AMB [email or web address]) Gym Equipment Shuttle Recovery Unilateral Squats Details L Resistance 12 Shuttle Recovery Platform Stable Reps/Time 3x15- cues for alignment, better with larger ROM today Therapeutic Exercises Supine Exercises 4 Supine Exercise Name hamstring stretch passive Reps/Minutes 30x2 Gait Training Gait Activity 3 Description gait with hemiwalker w/ RUE Level of Assistance CGA Surface stable Distance/Duration 100ft x2, seated rest between Treatment Focus upright posture, foot clearance, increase stride Comments no LOB, vc's for tall posture, improved neutral LLE alignment, Min> CGA, assist to wt shift R for LLE foot clearance PT-OP-T Assessment and Plan Start: 12/22/20 07:36 Freq: Status: Active Protocol: Document 03/02/21 11:00 AMB (Rec: 03/02/21 15:49 AMB [email or web address]) Physical Therapy Assessment Assessment Summary Assessment Ajith did better today with taking appropriate step lengths. He did fatigue quickly and continues to have emotional lability that challenges him. Physical Therapy Plan Next Visit Focus/Plan Next Note Type Treatment Note Next Visit Plan Continue to progress balance and gait
--- NOTE | 2021-03-09 12:00 | PT.OTN ---
Current Diagnoses Hemiplegia, unspecified affecting left nondominant side (03/09/21) Paralytic gait (03/09/21) Personal history of transient ischemic attack (TIA), and cerebral infarction without residual deficits (03/09/21) Physical Therapy Treatment Note PT-OP-A Visit Information Start: 12/22/20 07:36 Freq: Status: Active Protocol: Document 03/09/21 11:00 AMB (Rec: 03/09/21 12:00 AMB [email or web address]) Out-Patient Physical Therapy Visit Information Visit Information Visit Type Treatment Note Visit Note 09/28 units used today Visit Start Time 11:05 Visit Stop Time 11:45 Total Visit Minutes 40 Visit Number 12 PT-OP-B Current Condition Start: 12/22/20 07:36 Freq: Status: Active Protocol: Document 12/22/20 08:01 AMB (Rec: 12/22/20 08:19 AMB [id number]) Current Condition History of Current Condition Onset Date Mar 2019 Current Complaints L yvrose s/p R CVA History of Current Condition Ajith had a carotid dissection with subsequent craniotomy almost 2 years ago. He lives in a 2 level home and is well known to this therapist. He has an 9 year old daughter and is currently getting , this is significantly impacting his depression. He has 24 hour care from his parents, brother and sisters, he no longer lives with his or daughter. He has a manual w/c, yvrose walker, and quad cane at home. Uses hemiwalker to walk with ict trainer 3x/week, and has a new AFO that has been helpful. Treatment Goals Patient/Caregiver Goals Improve walking, standing in kitchen, cooking. 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 Doesn't get down on ground. Can transfer from w/c to bed and couch independently. Personal Factors Other Personal Factors That May Effect Depression, lacks insight into Therapy/Recovery condition PT-OP-C Subjective Start: 12/22/20 07:36 Freq: Status: Active Protocol: Document 03/09/21 11:00 AMB (Rec: 03/09/21 12:00 AMB [email or web address]) OP-PT Subjective Patient Comments Patient Comments Pt states he had medial knee pain last night. PT-OP-E Functional Tests Start: 12/22/20 07:36 Freq: Status: Active Protocol: Document 12/22/20 08:15 AMB (Rec: 12/22/20 15:41 AMB [id number]) Functional Tests 10 Meter Walk Test Distance 1 min 12 sec Device Used hemiwalker PT-OP-G Mobility & Gait Start: 12/22/20 07:36 Freq: Status: Active Protocol: Document 12/22/20 08:15 AMB (Rec: 12/22/20 15:41 AMB [id number]) OP Mobility Evaluation Bed Mobility Rolling BUCK Supine to and from Sit BUCK Transfers Sit to Stand SBA Bed to Chair Transfers SBA Car Transfers From description Min/ModA- pt' s driveway is on a hill and this makes car transfers more challenging Floor Transfers Likely MaxA/dependent, but not tested today OP Gait Assessment Comments Gait Comments Step to gait pattern with hemiwalker and CGA with gait belt. Small steps with yvrose leg externally rotated and adducting when flexed forward. PT-OP-K Range of Motion Start: 12/22/20 07:36 Freq: Status: Active Protocol: Document 12/22/20 08:15 AMB (Rec: 12/22/20 15:37 AMB [id number]) Ankle and Foot Goniometric Range of Motion Ankle and Foot Left Passive Comments lacking 34 degrees from neutral dorsiflexion PT-OP-M Strength Start: 12/22/20 07:36 Freq: Status: Active Protocol: Document 12/22/20 08:15 AMB (Rec: 12/22/20 15:37 AMB [id number]) Hip Strength Hip Manual Muscle Testing Left Flexion (L2) 2- Poor- Extension (S1) 1 Trace Abduction 2- Poor- Knee Strength Knee Manual Muscle Testing Left Flexion (S2) 1 Trace Extension (L3) 2- Poor- Ankle/Foot Strength Ankle and Foot Manual Muscle Testing Left Dorsiflexion (L4) 0 Zero Plantarflexion (S1) 2 Poor Toe Strength Toe Manual Muscle Testing Left Great Toe Extension 3 Fair PT-OP-Q Treatments Start: 12/22/20 07:36 Freq: Status: Active Protocol: Document 03/09/21 11:00 AMB (Rec: 03/09/21 12:00 AMB [email or web address]) Gym Equipment Shuttle Recovery Unilateral Squats Details L Resistance 12 Shuttle Recovery Platform Stable Reps/Time 3x15- cues for alignment, better with larger ROM today Gait Training Gait Activity 3 Description gait with hemiwalker w/ RUE Level of Assistance CGA Surface stable Distance/Duration 50ft x2, seated rest between Treatment Focus upright posture, foot clearance, increase stride Comments no LOB, vc's for tall posture, improved neutral LLE alignment, Min> CGA, assist to wt shift R for LLE foot clearance 1 Description stairs Device Used rail Level of Assistance ModA Distance/Duration 6 4 stairs Neuro Re-Education Treatment Balance Activities 2 Details standing balance with baloon Comments working on equal weightbearing with cues/mirror PT-OP-T Assessment and Plan Start: 12/22/20 07:36 Freq: Status: Active Protocol: Document 03/09/21 11:00 AMB (Rec: 03/09/21 12:00 AMB [email or web address]) Physical Therapy Assessment Assessment Summary Assessment Ajith required ModA today on 6 4 stairs but was happy with that because he hasn't done stairs since his stroke, he did have significant fatigue in the yvrose leg and educated mom that pt should not try stairs at home, it is an only in PT activity for now. Physical Therapy Plan Next Visit Focus/Plan Next Note Type Treatment Note Next Visit Plan Continue to progress balance and gait
--- NOTE | 2021-03-16 14:28 | PT.OTN ---
Current Diagnoses Hemiplegia, unspecified affecting left nondominant side (03/16/21) Paralytic gait (03/16/21) Personal history of transient ischemic attack (TIA), and cerebral infarction without residual deficits (03/16/21) Physical Therapy Treatment Note PT-OP-A Visit Information Start: 12/22/20 07:36 Freq: Status: Active Protocol: Document 03/16/21 08:16 AMB (Rec: 03/16/21 08:47 AMB [id number]) Out-Patient Physical Therapy Visit Information Visit Information Visit Type Treatment Note Visit Note 12/29 units Visit Start Time 08:15 Visit Stop Time 09:00 Total Visit Minutes 45 Visit Number 13 PT-OP-B Current Condition Start: 12/22/20 07:36 Freq: Status: Active Protocol: Document 12/22/20 08:01 AMB (Rec: 12/22/20 08:19 AMB [id number]) Current Condition History of Current Condition Onset Date Mar 2019 Current Complaints L yvrose s/p R CVA History of Current Condition Ajith had a carotid dissection with subsequent craniotomy almost 2 years ago. He lives in a 2 level home and is well known to this therapist. He has an 9 year old daughter and is currently getting , this is significantly impacting his depression. He has 24 hour care from his parents, brother and sisters, he no longer lives with his or daughter. He has a manual w/c, yvrose walker, and quad cane at home. Uses hemiwalker to walk with administrative personal assistant 3x/week, and has a new AFO that has been helpful. Treatment Goals Patient/Caregiver Goals Improve walking, standing in kitchen, cooking. 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 Doesn't get down on ground. Can transfer from w/c to bed and couch independently. Personal Factors Other Personal Factors That May Effect Depression, lacks insight into Therapy/Recovery condition PT-OP-C Subjective Start: 12/22/20 07:36 Freq: Status: Active Protocol: Document 03/16/21 08:15 AMB (Rec: 03/16/21 14:21 AMB [email or web address]) OP-PT Subjective Patient Comments Patient Comments Pt states he is doing well, he is continuing to work hard, his daughter is coming over today and he will make her nachos. PT-OP-E Functional Tests Start: 12/22/20 07:36 Freq: Status: Active Protocol: Document 12/22/20 08:15 AMB (Rec: 12/22/20 15:41 AMB [id number]) Functional Tests 10 Meter Walk Test Distance 1 min 12 sec Device Used hemiwalker PT-OP-G Mobility & Gait Start: 12/22/20 07:36 Freq: Status: Active Protocol: Document 12/22/20 08:15 AMB (Rec: 12/22/20 15:41 AMB [id number]) OP Mobility Evaluation Bed Mobility Rolling BUCK Supine to and from Sit BUCK Transfers Sit to Stand SBA Bed to Chair Transfers SBA Car Transfers From description Min/ModA- pt' s driveway is on a hill and this makes car transfers more challenging Floor Transfers Likely MaxA/dependent, but not tested today OP Gait Assessment Comments Gait Comments Step to gait pattern with hemiwalker and CGA with gait belt. Small steps with yvrose leg externally rotated and adducting when flexed forward. PT-OP-K Range of Motion Start: 12/22/20 07:36 Freq: Status: Active Protocol: Document 12/22/20 08:15 AMB (Rec: 12/22/20 15:37 AMB [id number]) Ankle and Foot Goniometric Range of Motion Ankle and Foot Left Passive Comments lacking 34 degrees from neutral dorsiflexion PT-OP-M Strength Start: 12/22/20 07:36 Freq: Status: Active Protocol: Document 12/22/20 08:15 AMB (Rec: 12/22/20 15:37 AMB [id number]) Hip Strength Hip Manual Muscle Testing Left Flexion (L2) 2- Poor- Extension (S1) 1 Trace Abduction 2- Poor- Knee Strength Knee Manual Muscle Testing Left Flexion (S2) 1 Trace Extension (L3) 2- Poor- Ankle/Foot Strength Ankle and Foot Manual Muscle Testing Left Dorsiflexion (L4) 0 Zero Plantarflexion (S1) 2 Poor Toe Strength Toe Manual Muscle Testing Left Great Toe Extension 3 Fair PT-OP-Q Treatments Start: 12/22/20 07:36 Freq: Status: Active Protocol: Document 03/16/21 08:15 AMB (Rec: 03/16/21 14:16 AMB [email or web address]) Gym Equipment Shuttle Recovery Unilateral Squats Details L Resistance 12 Shuttle Recovery Platform Stable Reps/Time 3x15- cues for alignment, better with larger ROM today Gait Training Gait Activity 3 Description gait with hemiwalker w/ RUE Level of Assistance CGA Surface stable Distance/Duration 100ft x2, seated rest between Treatment Focus upright posture, foot clearance, increase stride Comments no LOB, vc's for tall posture, improved neutral LLE alignment, Min> CGA, assist to wt shift R for LLE foot clearance 1 Description stairs Device Used rail Level of Assistance ModA Distance/Duration 6 4 stairs Comments Assist with yvrose leg positioning on descent, and weightshift Neuro Re-Education Treatment Balance Activities standing balance endurance Surface level Equipment //bars balloon toss PT-OP-T Assessment and Plan Start: 12/22/20 07:36 Freq: Status: Active Protocol: Document 03/16/21 08:16 AMB (Rec: 03/16/21 08:47 AMB [id number]) Physical Therapy Assessment Goals Five Impairment Standing balance Short Term Goal (STG) Ajith will stapler machine his kitchen without UE support for 5 minutes. 03/16/21: progressing: able to stand at counter doing RUE activity with LUE (occasional LUE contact counter for stand bal) for 3 min CG- 5%A before needs to sit secondary to LLE shaky. STG Duration 6 weeks Four Impairment Transfers Short Term Goal (STG) Ajith will perform a car transfer with [place]. 02/23/21: progressing: CG- Min A using HW SPT transfer chair to front passenger's seat, Total A for L LE reposition into car and RLE self into car the self support using overhead handle to scoot self back in seat. Pt requires assist for safety seat belt secure. STG Duration 6 weeks Rn Peritoneal Dialysis Goal (LTG) Ajith will perform a floor transfer with environmental support with ModA. LTG Duration 12 weeks Three Impairment ankle mobility Short Term Goal (STG) Ajith will consistently wear his night splint throughout the night to prevent worsening of his contracture: Progressing: pt wears night splint until needs to use restroom then goes backto bed without donning again. STG Duration 6 weeks Rn Peritoneal Dialysis Goal (LTG) Ajith will reduce his plantarflexion contracture to lacking 20 degrees. LTG Duration 12 weeks Two Impairment HEP Short Term Goal (STG) Ajith will be independent with a strengthening and stretching HEP. STG Duration 6 weeks One Impairment Gait Short Term Goal (STG) Ajith will ambulate 200' with SBA, hemiwalker, and AFO over smooth terrain. STG Duration MET Fdc Goal (LTG) Ajith will ambulate 300' with CGA, hemiwalker and AFO over smooth terrain. LTG Duration 12 weeks Assessment Summary Assessment Ajith has shown some improvement with his gait tolerance. We have been working on stairs and he ascend and descend 6 4 stairs with ModA. He continues to have high hopes for his recovery, but has poor insight into his condition. He is experiencing intermittent knee pain which can limit his gait . 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 Further physical therapy will work on progressing his independence with standing and gait, and continuing to strengthen and stretch his leg to work on decreasing his pain. Physical Therapy Plan Frequency and Duration Frequency of Treatment 2x/Week Duration of Treatment 8 weeks Plan of Care Start Date 03/16/21 Plan of Care End Date 05/11/21 Therapeutic Interventions Therapeutic Interventions Balance Training,Gait Training ,Home Exercise Program,Manual Therapy,Neuromuscular Re- education,Self-Care/Home Management,Therapeutic Activities,Therapeutic Exercises,Wheelchair Management Next Visit Focus/Plan Next Note Type Treatment Note Next Visit Plan Continue to progress balance and gait
--- NOTE | 2021-03-16 14:29 | PT.OPPOC ---
Physical, Occupational & Speech Therapy At [facility] Current Diagnoses Hemiplegia, unspecified affecting left nondominant side (03/16/21) Paralytic gait (03/16/21) Personal history of transient ischemic attack (TIA), and cerebral infarction without residual deficits (03/16/21) Visit Care Team Role Provider Type Haider Albarado MD Attending Provider Non-Staff Primary Care Provider Referring Provider Specialty: Internal Medicine Address: [address] [place] [address], [place], [address] Email: Plan Of Care PT-OP-T Assessment and Plan Start: 12/22/20 07:36 Freq: Status: Active Protocol: Document 03/16/21 08:16 AMB (Rec: 03/16/21 08:47 AMB [id number]) Physical Therapy Assessment Goals Five Impairment Standing balance Short Term Goal (STG) Ajith will chief inspector his kitchen without UE support for 5 minutes. 03/16/21: progressing: able to stand at counter doing RUE activity with LUE (occasional LUE contact counter for stand bal) for 3 min CG- 5%A before needs to sit secondary to LLE shaky. STG Duration 6 weeks Four Impairment Transfers Short Term Goal (STG) Ajith will perform a car transfer with Arleth. 02/23/21: progressing: CG- Min A using HW SPT transfer chair to front passenger's seat, Total A for L LE reposition into car and RLE self into car the self support using overhead handle to scoot self back in seat. Pt requires assist for safety seat belt secure. STG Duration 6 weeks Receiving Operator Goal (LTG) Ajith will perform a floor transfer with environmental support with ModA. LTG Duration 12 weeks Three Impairment ankle mobility Short Term Goal (STG) Ajith will consistently wear his night splint throughout the night to prevent worsening of his contracture: Progressing: pt wears night splint until needs to use restroom then goes backto bed without donning again. STG Duration 6 weeks Senior Care Goal (LTG) Ajiht will reduce his plantarflexion contracture to lacking 20 degrees. LTG Duration 12 weeks Two Impairment HEP Short Term Goal (STG) Ajith will be independent with a strengthening and stretching HEP. STG Duration 6 weeks One Impairment Gait Short Term Goal (STG) Ajith will ambulate 200' with SBA, hemiwalker, and AFO over smooth terrain. STG Duration MET Receiving Operator Goal (LTG) Ajith will ambulate 300' with CGA, hemiwalker and AFO over smooth terrain. LTG Duration 12 weeks Assessment Summary Assessment Ajith has shown improvement with his gait tolerance. We have been working on stairs and he ascend and descend 6 4 stairs with ModA. He continues to have high hopes for his recovery, but has poor insight into his condition. He is experiencing intermittent knee pain which can limit his gait . 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 Further physical therapy will work on progressing his independence with standing and gait, and continuing to strengthen and stretch his leg to work on decreasing his pain. Physical Therapy Plan Frequency and Duration Frequency of Treatment 2x/Week Duration of Treatment 8 weeks Plan of Care Start Date 03/16/21 Plan of Care End Date 05/11/21 Therapeutic Interventions Therapeutic Interventions Balance Training,Gait Training ,Home Exercise Program,Manual Therapy,Neuromuscular Re- education,Self-Care/Home Management,Therapeutic Activities,Therapeutic Exercises,Wheelchair Management Next Visit Focus/Plan Next Note Type Treatment Note Next Visit Plan Continue to progress balance and gait Plan of Care Dates Plan of Care Start Date 03/16/21 Plan of Care End Date 05/11/21 Electronically Signed by: Cecy Mccarthy, PT 03/16/21 [id number] Please Sign and Return: I have reviewed this Plan of Care and certify that the skilled therapy services above are required to meet the patient?s needs. Physician Signature Date Printed Name and Credentials Clinical Instructor Signature Printed Name and Credentials
--- NOTE | 2021-03-21 15:30 | PT.OTN ---
Current Diagnoses Hemiplegia, unspecified affecting left nondominant side (03/21/21) Paralytic gait (03/21/21) Personal history of transient ischemic attack (TIA), and cerebral infarction without residual deficits (03/21/21) Physical Therapy Treatment Note PT-OP-A Visit Information Start: 12/22/20 07:36 Freq: Status: Active Protocol: Document 03/21/21 14:30 AMB (Rec: 03/21/21 15:30 AMB [id number]) Out-Patient Physical Therapy Visit Information Visit Information Visit Type Treatment Note Visit Note 03/31 units Visit Start Time 14:30 Visit Stop Time 15:15 Total Visit Minutes 45 Visit Number 14 PT-OP-B Current Condition Start: 12/22/20 07:36 Freq: Status: Active Protocol: Document 12/22/20 08:01 AMB (Rec: 12/22/20 08:19 AMB [id number]) Current Condition History of Current Condition Onset Date Mar 2019 Current Complaints L yvrose s/p R CVA History of Current Condition Ajith had a carotid dissection with subsequent craniotomy almost 2 years ago. He lives in a 2 level home and is well known to this therapist. He has an 9 year old daughter and is currently getting , this is significantly impacting his depression. He has 24 hour care from his parents, brother and sisters, he no longer lives with his or daughter. He has a manual w/c, yvrose walker, and quad cane at home. Uses hemiwalker to walk with personal development coach 3x/week, and has a new AFO that has been helpful. Treatment Goals Patient/Caregiver Goals Improve walking, standing in kitchen, cooking. 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 Doesn't get down on ground. Can transfer from w/c to bed and couch independently. Personal Factors Other Personal Factors That May Effect Depression, lacks insight into Therapy/Recovery condition PT-OP-C Subjective Start: 12/22/20 07:36 Freq: Status: Active Protocol: Document 03/21/21 14:30 AMB (Rec: 03/21/21 15:30 AMB [id number]) OP-PT Subjective Patient Comments Patient Comments Pt states he is worried about his rate of progress PT-OP-E Functional Tests Start: 12/22/20 07:36 Freq: Status: Active Protocol: Document 12/22/20 08:15 AMB (Rec: 12/22/20 15:41 AMB [id number]) Functional Tests 10 Meter Walk Test Distance 1 min 12 sec Device Used hemiwalker PT-OP-G Mobility & Gait Start: 12/22/20 07:36 Freq: Status: Active Protocol: Document 12/22/20 08:15 AMB (Rec: 12/22/20 15:41 AMB [id number]) OP Mobility Evaluation Bed Mobility Rolling BUCK Supine to and from Sit BUCK Transfers Sit to Stand SBA Bed to Chair Transfers SBA Car Transfers From description Min/ModA- pt' s driveway is on a hill and this makes car transfers more challenging Floor Transfers Likely MaxA/dependent, but not tested today OP Gait Assessment Comments Gait Comments Step to gait pattern with hemiwalker and CGA with gait belt. Small steps with yvrose leg externally rotated and adducting when flexed forward. PT-OP-K Range of Motion Start: 12/22/20 07:36 Freq: Status: Active Protocol: Document 12/22/20 08:15 AMB (Rec: 12/22/20 15:37 AMB [id number]) Ankle and Foot Goniometric Range of Motion Ankle and Foot Left Passive Comments lacking 34 degrees from neutral dorsiflexion PT-OP-M Strength Start: 12/22/20 07:36 Freq: Status: Active Protocol: Document 12/22/20 08:15 AMB (Rec: 12/22/20 15:37 AMB [id number]) Hip Strength Hip Manual Muscle Testing Left Flexion (L2) 2- Poor- Extension (S1) 1 Trace Abduction 2- Poor- Knee Strength Knee Manual Muscle Testing Left Flexion (S2) 1 Trace Extension (L3) 2- Poor- Ankle/Foot Strength Ankle and Foot Manual Muscle Testing Left Dorsiflexion (L4) 0 Zero Plantarflexion (S1) 2 Poor Toe Strength Toe Manual Muscle Testing Left Great Toe Extension 3 Fair PT-OP-Q Treatments Start: 12/22/20 07:36 Freq: Status: Active Protocol: Document 03/21/21 14:30 AMB (Rec: 03/21/21 15:30 AMB [id number]) Gym Equipment Shuttle Recovery Unilateral Squats Details L Resistance 12 Shuttle Recovery Platform Stable Reps/Time 3x15- cues for alignment, better with larger ROM today Therapeutic Exercises Supine Exercises 2 Supine Exercise Name achilles stretch passive 1 Supine Exercise Name hamstring stretch- passive Gait Training Gait Activity 3 Description gait with hemiwalker w/ RUE Level of Assistance CGA Surface stable Distance/Duration 200ft x2, seated rest between Treatment Focus upright posture, foot clearance, increase stride Comments no LOB, vc's for tall posture, improved neutral LLE alignment, Min> CGA, assist to wt shift R for LLE foot clearance PT-OP-T Assessment and Plan Start: 12/22/20 07:36 Freq: Status: Active Protocol: Document 03/21/21 14:30 AMB (Rec: 03/21/21 15:30 AMB [id number]) Physical Therapy Assessment Assessment Summary Assessment Encouraged Ajith to continue to think about his independence vs getting back to normal. Pt continues to be understandably depressed, but encouraged him to focus on his goals for increased independence while he is continuing physical therapy. Physical Therapy Plan Next Visit Focus/Plan Next Note Type Treatment Note Next Visit Plan Continue to progress balance and gait
--- NOTE | 2021-03-28 15:38 | PT.OTN ---
Current Diagnoses Hemiplegia, unspecified affecting left nondominant side (03/28/21) Paralytic gait (03/28/21) Personal history of transient ischemic attack (TIA), and cerebral infarction without residual deficits (03/28/21) Physical Therapy Treatment Note PT-OP-A Visit Information Start: 12/22/20 07:36 Freq: Status: Active Protocol: Document 03/28/21 10:58 AMB (Rec: 03/28/21 11:02 AMB [email or web address]) Out-Patient Physical Therapy Visit Information Visit Information Visit Type Treatment Note Visit Note 06/30 units Visit Start Time 10:15 Visit Stop Time 11:00 Total Visit Minutes 45 Visit Number 15 PT-OP-B Current Condition Start: 12/22/20 07:36 Freq: Status: Active Protocol: Document 12/22/20 08:01 AMB (Rec: 12/22/20 08:19 AMB [id number]) Current Condition History of Current Condition Onset Date Mar 2019 Current Complaints L yvrose s/p R CVA History of Current Condition Ajith had a carotid dissection with subsequent craniotomy almost 2 years ago. He lives in a 2 level home and is well known to this therapist. He has an 9 year old daughter and is currently getting , this is significantly impacting his depression. He has 24 hour care from his parents, brother and sisters, he no longer lives with his or daughter. He has a manual w/c, yvrose walker, and quad cane at home. Uses hemiwalker to walk with personal financial representative 3x/week, and has a new AFO that has been helpful. Treatment Goals Patient/Caregiver Goals Improve walking, standing in kitchen, cooking. 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 Doesn't get down on ground. Can transfer from w/c to bed and couch independently. Personal Factors Other Personal Factors That May Effect Depression, lacks insight into Therapy/Recovery condition PT-OP-C Subjective Start: 12/22/20 07:36 Freq: Status: Active Protocol: Document 03/28/21 10:58 AMB (Rec: 03/28/21 11:02 AMB [email or web address]) OP-PT Subjective Patient Comments Patient Comments Pt attends with his mom Kaitlynn, she is worried about his ingrown toenail PT-OP-E Functional Tests Start: 12/22/20 07:36 Freq: Status: Active Protocol: Document 12/22/20 08:15 AMB (Rec: 12/22/20 15:41 AMB [id number]) Functional Tests 10 Meter Walk Test Distance 1 min 12 sec Device Used hemiwalker PT-OP-G Mobility & Gait Start: 12/22/20 07:36 Freq: Status: Active Protocol: Document 12/22/20 08:15 AMB (Rec: 12/22/20 15:41 AMB [id number]) OP Mobility Evaluation Bed Mobility Rolling BUCK Supine to and from Sit BUCK Transfers Sit to Stand SBA Bed to Chair Transfers SBA Car Transfers From description Min/ModA- pt' s driveway is on a hill and this makes car transfers more challenging Floor Transfers Likely MaxA/dependent, but not tested today OP Gait Assessment Comments Gait Comments Step to gait pattern with hemiwalker and CGA with gait belt. Small steps with yvrose leg externally rotated and adducting when flexed forward. PT-OP-K Range of Motion Start: 12/22/20 07:36 Freq: Status: Active Protocol: Document 12/22/20 08:15 AMB (Rec: 12/22/20 15:37 AMB [id number]) Ankle and Foot Goniometric Range of Motion Ankle and Foot Left Passive Comments lacking 34 degrees from neutral dorsiflexion PT-OP-M Strength Start: 12/22/20 07:36 Freq: Status: Active Protocol: Document 12/22/20 08:15 AMB (Rec: 12/22/20 15:37 AMB [id number]) Hip Strength Hip Manual Muscle Testing Left Flexion (L2) 2- Poor- Extension (S1) 1 Trace Abduction 2- Poor- Knee Strength Knee Manual Muscle Testing Left Flexion (S2) 1 Trace Extension (L3) 2- Poor- Ankle/Foot Strength Ankle and Foot Manual Muscle Testing Left Dorsiflexion (L4) 0 Zero Plantarflexion (S1) 2 Poor Toe Strength Toe Manual Muscle Testing Left Great Toe Extension 3 Fair PT-OP-Q Treatments Start: 12/22/20 07:36 Freq: Status: Active Protocol: Document 03/28/21 10:15 AMB (Rec: 03/28/21 15:38 AMB [email or web address]) Gym Equipment Shuttle Recovery Unilateral Squats Details L Resistance 12 Shuttle Recovery Platform Stable Reps/Time 3x15- cues for alignment, better with larger ROM today Therapeutic Exercises Sitting Exercises 1 Sitting Exercise Name passive ankle stretch Reps/Minutes 5 min Gait Training Gait Activity 3 Description gait with hemiwalker w/ RUE Level of Assistance CGA Surface stable Distance/Duration 200ft x2, seated rest between Treatment Focus upright posture, foot clearance, increase stride Comments no LOB, vc's for tall posture, improved neutral LLE alignment, Min> CGA, assist to wt shift R for LLE foot clearance 1 Description stairs Device Used rail Level of Assistance ModA Distance/Duration 6 4 stairs Comments Assist with yvrose leg positioning on descent, and weightshift PT-OP-T Assessment and Plan Start: 12/22/20 07:36 Freq: Status: Active Protocol: Document 03/28/21 10:58 AMB (Rec: 03/28/21 11:02 AMB [email or web address]) Physical Therapy Assessment Assessment Summary Assessment Ajith' toenail was very long, encouraged family that if they are uncomfortable performing nail care that they should go somewhere where they can follow up with Ajith and that the walk in clinic doesn't do a lot of follow up. Ajith did not have any pain with the nail today. Tolerated ankle stretching, but plantarflexion contracture continues. Physical Therapy Plan Next Visit Focus/Plan Next Note Type Treatment Note Next Visit Plan Continue to progress balance and gait
--- NOTE | 2021-04-06 16:14 | PT.OTN ---
Current Diagnoses Hemiplegia, unspecified affecting left nondominant side (04/06/21) Paralytic gait (04/06/21) Personal history of transient ischemic attack (TIA), and cerebral infarction without residual deficits (04/06/21) Physical Therapy Treatment Note PT-OP-A Visit Information Start: 12/22/20 07:36 Freq: Status: Active Protocol: Document 04/06/21 10:15 AMB (Rec: 04/06/21 16:14 AMB [email or web address]) Out-Patient Physical Therapy Visit Information Visit Information Visit Type Treatment Note Visit Note Visit Start Time 10:15 Visit Stop Time 11:00 Total Visit Minutes 45 Visit Number 16 PT-OP-B Current Condition Start: 12/22/20 07:36 Freq: Status: Active Protocol: Document 12/22/20 08:01 AMB (Rec: 12/22/20 08:19 AMB [id number]) Current Condition History of Current Condition Onset Date Mar 2019 Current Complaints L yvrose s/p R CVA History of Current Condition Ajith had a carotid dissection with subsequent craniotomy almost 2 years ago. He lives in a 2 level home and is well known to this therapist. He has an 9 year old daughter and is currently getting , this is significantly impacting his depression. He has 24 hour care from his parents, brother and sisters, he no longer lives with his or daughter. He has a manual w/c, yvrose walker, and quad cane at home. Uses hemiwalker to walk with applications trainer 3x/week, and has a new AFO that has been helpful. Treatment Goals Patient/Caregiver Goals Improve walking, standing in kitchen, cooking. 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 Doesn't get down on ground. Can transfer from w/c to bed and couch independently. Personal Factors Other Personal Factors That May Effect Depression, lacks insight into Therapy/Recovery condition PT-OP-C Subjective Start: 12/22/20 07:36 Freq: Status: Active Protocol: Document 04/06/21 10:15 AMB (Rec: 04/06/21 16:14 AMB [email or web address]) OP-PT Subjective Patient Comments Patient Comments Ptstates he worked hard with his applications trainer yesterday so his leg is tired. PT-OP-E Functional Tests Start: 12/22/20 07:36 Freq: Status: Active Protocol: Document 12/22/20 08:15 AMB (Rec: 12/22/20 15:41 AMB [id number]) Functional Tests 10 Meter Walk Test Distance 1 min 12 sec Device Used hemiwalker PT-OP-G Mobility & Gait Start: 12/22/20 07:36 Freq: Status: Active Protocol: Document 12/22/20 08:15 AMB (Rec: 12/22/20 15:41 AMB [id number]) OP Mobility Evaluation Bed Mobility Rolling BUCK Supine to and from Sit BUCK Transfers Sit to Stand SBA Bed to Chair Transfers SBA Car Transfers From description Min/ModA- pt' s driveway is on a hill and this makes car transfers more challenging Floor Transfers Likely MaxA/dependent, but not tested today OP Gait Assessment Comments Gait Comments Step to gait pattern with hemiwalker and CGA with gait belt. Small steps with yvrose leg externally rotated and adducting when flexed forward. PT-OP-K Range of Motion Start: 12/22/20 07:36 Freq: Status: Active Protocol: Document 12/22/20 08:15 AMB (Rec: 12/22/20 15:37 AMB [id number]) Ankle and Foot Goniometric Range of Motion Ankle and Foot Left Passive Comments lacking 34 degrees from neutral dorsiflexion PT-OP-M Strength Start: 12/22/20 07:36 Freq: Status: Active Protocol: Document 12/22/20 08:15 AMB (Rec: 12/22/20 15:37 AMB [id number]) Hip Strength Hip Manual Muscle Testing Left Flexion (L2) 2- Poor- Extension (S1) 1 Trace Abduction 2- Poor- Knee Strength Knee Manual Muscle Testing Left Flexion (S2) 1 Trace Extension (L3) 2- Poor- Ankle/Foot Strength Ankle and Foot Manual Muscle Testing Left Dorsiflexion (L4) 0 Zero Plantarflexion (S1) 2 Poor Toe Strength Toe Manual Muscle Testing Left Great Toe Extension 3 Fair PT-OP-Q Treatments Start: 12/22/20 07:36 Freq: Status: Active Protocol: Document 04/06/21 10:15 AMB (Rec: 04/06/21 16:14 AMB [email or web address]) Cardio Equipment Recumbent Stepper (Sci-Fit) Duration (Minutes) 5 Resistance 1 Other physica assist for L LE alignment Gym Equipment Shuttle Recovery Unilateral Squats Details L Resistance 12 Shuttle Recovery Platform Stable Reps/Time 3x15- cues for alignment, better with larger ROM today Therapeutic Exercises Other Exercises Sit<>Stand Reps/Minutes 5x Comments Arleth- vc for foot placement, trunk lean Gait Training Gait Activity 3 Description gait with hemiwalker w/ RUE Level of Assistance CGA Surface stable Distance/Duration 200ft x2, seated rest between Treatment Focus upright posture, foot clearance, increase stride Comments no LOB, vc's for tall posture, improved neutral LLE alignment, Min> CGA, assist to wt shift R for LLE foot clearance 1 Description stairs Device Used rail Level of Assistance ModA Distance/Duration 6 4 stairs Comments Assist with yvrose leg positioning on descent, and weightshift PT-OP-T Assessment and Plan Start: 12/22/20 07:36 Freq: Status: Active Protocol: Document 04/06/21 10:15 AMB (Rec: 04/06/21 16:14 AMB [email or web address]) Physical Therapy Assessment Assessment Summary Assessment Ajith did well with stairs and walking today, continues to need cues to increase weightbearing through the left Physical Therapy Plan Next Visit Focus/Plan Next Note Type Treatment Note Next Visit Plan Continue to progress balance and gait
--- NOTE | 2021-04-11 15:02 | PT.OTN ---
Current Diagnoses Hemiplegia, unspecified affecting left nondominant side (04/11/21) Paralytic gait (04/11/21) Personal history of transient ischemic attack (TIA), and cerebral infarction without residual deficits (04/11/21) Physical Therapy Treatment Note PT-OP-A Visit Information Start: 12/22/20 07:36 Freq: Status: Active Protocol: Document 04/11/21 10:15 AMB (Rec: 04/11/21 15:02 AMB [email or web address]) Out-Patient Physical Therapy Visit Information Visit Information Visit Type Treatment Note Visit Note Visit Start Time 10:20 Visit Stop Time 11:00 Total Visit Minutes 40 Visit Number 17 PT-OP-B Current Condition Start: 12/22/20 07:36 Freq: Status: Active Protocol: Document 12/22/20 08:01 AMB (Rec: 12/22/20 08:19 AMB [id number]) Current Condition History of Current Condition Onset Date Mar 2019 Current Complaints L yvrsoe s/p R CVA History of Current Condition Ajith had a carotid dissection with subsequent craniotomy almost 2 years ago. He lives in a 2 level home and is well known to this therapist. He has an 9 year old daughter and is currently getting , this is significantly impacting his depression. He has 24 hour care from his parents, brother and sisters, he no longer lives with his or daughter. He has a manual w/c, yvrose walker, and quad cane at home. Uses hemiwalker to walk with personal lines underwriter 3x/week, and has a new AFO that has been helpful. Treatment Goals Patient/Caregiver Goals Improve walking, standing in kitchen, cooking. 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 Doesn't get down on ground. Can transfer from w/c to bed and couch independently. Personal Factors Other Personal Factors That May Effect Depression, lacks insight into Therapy/Recovery condition PT-OP-C Subjective Start: 12/22/20 07:36 Freq: Status: Active Protocol: Document 04/11/21 10:15 AMB (Rec: 04/11/21 15:02 AMB [email or web address]) OP-PT Subjective Patient Comments Patient Comments Pt states he wants to work on his ROM and walking independently PT-OP-E Functional Tests Start: 12/22/20 07:36 Freq: Status: Active Protocol: Document 12/22/20 08:15 AMB (Rec: 12/22/20 15:41 AMB [id number]) Functional Tests 10 Meter Walk Test Distance 1 min 12 sec Device Used hemiwalker PT-OP-G Mobility & Gait Start: 12/22/20 07:36 Freq: Status: Active Protocol: Document 12/22/20 08:15 AMB (Rec: 12/22/20 15:41 AMB [id number]) OP Mobility Evaluation Bed Mobility Rolling BUCK Supine to and from Sit BUCK Transfers Sit to Stand SBA Bed to Chair Transfers SBA Car Transfers From description Min/ModA- pt' s driveway is on a hill and this makes car transfers more challenging Floor Transfers Likely MaxA/dependent, but not tested today OP Gait Assessment Comments Gait Comments Step to gait pattern with hemiwalker and CGA with gait belt. Small steps with yvrose leg externally rotated and adducting when flexed forward. PT-OP-K Range of Motion Start: 12/22/20 07:36 Freq: Status: Active Protocol: Document 12/22/20 08:15 AMB (Rec: 12/22/20 15:37 AMB [id number]) Ankle and Foot Goniometric Range of Motion Ankle and Foot Left Passive Comments lacking 34 degrees from neutral dorsiflexion PT-OP-M Strength Start: 12/22/20 07:36 Freq: Status: Active Protocol: Document 12/22/20 08:15 AMB (Rec: 12/22/20 15:37 AMB [id number]) Hip Strength Hip Manual Muscle Testing Left Flexion (L2) 2- Poor- Extension (S1) 1 Trace Abduction 2- Poor- Knee Strength Knee Manual Muscle Testing Left Flexion (S2) 1 Trace Extension (L3) 2- Poor- Ankle/Foot Strength Ankle and Foot Manual Muscle Testing Left Dorsiflexion (L4) 0 Zero Plantarflexion (S1) 2 Poor Toe Strength Toe Manual Muscle Testing Left Great Toe Extension 3 Fair PT-OP-Q Treatments Start: 12/22/20 07:36 Freq: Status: Active Protocol: Document 04/11/21 10:15 AMB (Rec: 04/11/21 15:02 AMB [email or web address]) Therapeutic Exercises Sitting Exercises 4 Sitting Exercise Name achilles stretch Comments seated pushing knee down 1 Sitting Exercise Name passive ankle stretch Reps/Minutes 5 min Gait Training Gait Activity 3 Description gait with hemiwalker w/ RUE Level of Assistance SBA Surface stable Distance/Duration 200ft x2, seated rest between Treatment Focus upright posture, foot clearance, increase stride Comments no LOB, vc's for tall posture, improved neutral LLE alignment, mom following with w/c PT-OP-T Assessment and Plan Start: 12/22/20 07:36 Freq: Status: Active Protocol: Document 04/11/21 10:15 AMB (Rec: 04/11/21 15:02 AMB [email or web address]) Physical Therapy Assessment Assessment Summary Assessment Discussed gait with Ajith and his mom. Stated that having Ajith walk with her following with the w/c is not a zero risk activity, but if it is important to him and they are both in agreement that it is worth the risk, that I would support short walks. She is unable to use a gait belt, and of course I would prefer he walk with someone who can use a gait belt, but if that is not an option, following with a w/c is better than him walking without physical assistance. Reinforced that he should be wearing his brace at home (he reports he prefers being barefoot). Extensive education in use of brace today. Also educated that Ajith will need to continue to use the hemiwalker . Physical Therapy Plan Next Visit Focus/Plan Next Note Type Treatment Note Next Visit Plan Continue to progress balance and gait
--- NOTE | 2021-04-18 12:12 | PT.OTN ---
Current Diagnoses Hemiplegia, unspecified affecting left nondominant side (04/18/21) Paralytic gait (04/18/21) Personal history of transient ischemic attack (TIA), and cerebral infarction without residual deficits (04/18/21) Physical Therapy Treatment Note PT-OP-A Visit Information Start: 12/22/20 07:36 Freq: Status: Active Protocol: Document 04/18/21 10:38 AMB (Rec: 04/18/21 11:06 AMB [id number]) Out-Patient Physical Therapy Visit Information Visit Information Visit Type Treatment Note Visit Note Visit Start Time 10:20 Visit Stop Time 11:00 Total Visit Minutes 40 Visit Number 18 PT-OP-B Current Condition Start: 12/22/20 07:36 Freq: Status: Active Protocol: Document 12/22/20 08:01 AMB (Rec: 12/22/20 08:19 AMB [id number]) Current Condition History of Current Condition Onset Date Mar 2019 Current Complaints L yvrose s/p R CVA History of Current Condition Ajith had a carotid dissection with subsequent craniotomy almost 2 years ago. He lives in a 2 level home and is well known to this therapist. He has an 9 year old daughter and is currently getting , this is significantly impacting his depression. He has 24 hour care from his parents, brother and sisters, he no longer lives with his or daughter. He has a manual w/c, yvrose walker, and quad cane at home. Uses hemiwalker to walk with manager personal 3x/week, and has a new AFO that has been helpful. Treatment Goals Patient/Caregiver Goals Improve walking, standing in kitchen, cooking. 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 Doesn't get down on ground. Can transfer from w/c to bed and couch independently. Personal Factors Other Personal Factors That May Effect Depression, lacks insight into Therapy/Recovery condition PT-OP-C Subjective Start: 12/22/20 07:36 Freq: Status: Active Protocol: Document 04/18/21 10:38 AMB (Rec: 04/18/21 11:06 AMB [id number]) OP-PT Subjective Patient Comments Patient Comments Pt reports he has been pretty low energy. PT-OP-E Functional Tests Start: 12/22/20 07:36 Freq: Status: Active Protocol: Document 12/22/20 08:15 AMB (Rec: 12/22/20 15:41 AMB [id number]) Functional Tests 10 Meter Walk Test Distance 1 min 12 sec Device Used hemiwalker PT-OP-G Mobility & Gait Start: 12/22/20 07:36 Freq: Status: Active Protocol: Document 12/22/20 08:15 AMB (Rec: 12/22/20 15:41 AMB [id number]) OP Mobility Evaluation Bed Mobility Rolling BUCK Supine to and from Sit BUCK Transfers Sit to Stand SBA Bed to Chair Transfers SBA Car Transfers From description Min/ModA- pt' s driveway is on a hill and this makes car transfers more challenging Floor Transfers Likely MaxA/dependent, but not tested today OP Gait Assessment Comments Gait Comments Step to gait pattern with hemiwalker and CGA with gait belt. Small steps with yvrose leg externally rotated and adducting when flexed forward. PT-OP-K Range of Motion Start: 12/22/20 07:36 Freq: Status: Active Protocol: Document 12/22/20 08:15 AMB (Rec: 12/22/20 15:37 AMB [id number]) Ankle and Foot Goniometric Range of Motion Ankle and Foot Left Passive Comments lacking 34 degrees from neutral dorsiflexion PT-OP-M Strength Start: 12/22/20 07:36 Freq: Status: Active Protocol: Document 12/22/20 08:15 AMB (Rec: 12/22/20 15:37 AMB [id number]) Hip Strength Hip Manual Muscle Testing Left Flexion (L2) 2- Poor- Extension (S1) 1 Trace Abduction 2- Poor- Knee Strength Knee Manual Muscle Testing Left Flexion (S2) 1 Trace Extension (L3) 2- Poor- Ankle/Foot Strength Ankle and Foot Manual Muscle Testing Left Dorsiflexion (L4) 0 Zero Plantarflexion (S1) 2 Poor Toe Strength Toe Manual Muscle Testing Left Great Toe Extension 3 Fair PT-OP-Q Treatments Start: 12/22/20 07:36 Freq: Status: Active Protocol: Document 04/18/21 10:15 AMB (Rec: 04/18/21 12:12 AMB [id number]) Therapeutic Exercises Sitting Exercises 4 Sitting Exercise Name achilles stretch Comments seated pushing knee down Gait Training Gait Activity 3 Description gait with hemiwalker w/ RUE Level of Assistance SBA Surface stable Distance/Duration 200ft x2, seated rest between Treatment Focus upright posture, foot clearance, increase stride Comments no LOB, vc's for tall posture, improved neutral LLE alignment, mom following with w/c 1 Description stairs Device Used rail Level of Assistance ModA Distance/Duration 6 4 stairs Comments Assist with yvrose leg positioning on descent, and weightshift. ModA to recover LOB. Neuro Re-Education Treatment Balance Activities standing balance endurance Surface level Equipment //bars balloon toss PT-OP-T Assessment and Plan Start: 12/22/20 07:36 Freq: Status: Active Protocol: Document 04/18/21 10:15 AMB (Rec: 04/18/21 12:12 AMB [id number]) Physical Therapy Assessment Assessment Summary Assessment Ajith needed ModA to recover LOB on stairs today. He states he is going to discuss his decreased energy with his MD next week. Physical Therapy Plan Next Visit Focus/Plan Next Note Type Discharge Summary
--- NOTE | 2021-04-27 13:03 | PT.OTN ---
Current Diagnoses Hemiplegia, unspecified affecting left nondominant side (04/27/21) Paralytic gait (04/27/21) Personal history of transient ischemic attack (TIA), and cerebral infarction without residual deficits (04/27/21) Physical Therapy Treatment Note PT-OP-A Visit Information Start: 12/22/20 07:36 Freq: Status: Active Protocol: Document 04/27/21 11:15 AMB (Rec: 04/27/21 12:57 AMB [email or web address]) Out-Patient Physical Therapy Visit Information Visit Information Visit Type Discharge Summary Visit Start Time 11:15 Visit Stop Time 12:00 Total Visit Minutes 45 Visit Number 19 PT-OP-B Current Condition Start: 12/22/20 07:36 Freq: Status: Active Protocol: Document 12/22/20 08:01 AMB (Rec: 12/22/20 08:19 AMB [id number]) Current Condition History of Current Condition Onset Date Mar 2019 Current Complaints L yvrose s/p R CVA History of Current Condition Ajith had a carotid dissection with subsequent craniotomy almost 2 years ago. He lives in a 2 level home and is well known to this therapist. He has an 9 year old daughter and is currently getting , this is significantly impacting his depression. He has 24 hour care from his parents, brother and sisters, he no longer lives with his or daughter. He has a manual w/c, yvrose walker, and quad cane at home. Uses hemiwalker to walk with personal insurance advisor 3x/week, and has a new AFO that has been helpful. Treatment Goals Patient/Caregiver Goals Improve walking, standing in kitchen, cooking. 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 Doesn't get down on ground. Can transfer from w/c to bed and couch independently. Personal Factors Other Personal Factors That May Effect Depression, lacks insight into Therapy/Recovery condition PT-OP-C Subjective Start: 12/22/20 07:36 Freq: Status: Active Protocol: Document 04/27/21 11:15 AMB (Rec: 04/27/21 12:57 AMB [email or web address]) OP-PT Subjective Patient Comments Patient Comments Pt and his mother attend PT PT-OP-E Functional Tests Start: 12/22/20 07:36 Freq: Status: Active Protocol: Document 12/22/20 08:15 AMB (Rec: 12/22/20 15:41 AMB [id number]) Functional Tests 10 Meter Walk Test Distance 1 min 12 sec Device Used hemiwalker PT-OP-G Mobility & Gait Start: 12/22/20 07:36 Freq: Status: Active Protocol: Document 04/27/21 11:15 AMB (Rec: 04/27/21 12:46 AMB [email or web address]) OP Gait Assessment Comments Gait Comments Step through gait pattern with SBA and yvrose walker, but continues to have limited weightbearing on the left, and does adduct with swing through unless cued not to. PT-OP-K Range of Motion Start: 12/22/20 07:36 Freq: Status: Active Protocol: Document 04/27/21 11:15 AMB (Rec: 04/27/21 12:46 AMB [email or web address]) Ankle and Foot Goniometric Range of Motion Ankle and Foot Left Passive Comments lacking 30 degrees from neutral dorsiflexion PT-OP-M Strength Start: 12/22/20 07:36 Freq: Status: Active Protocol: Document 04/27/21 11:15 AMB (Rec: 04/27/21 12:46 AMB [email or web address]) Hip Strength Hip Manual Muscle Testing Left Flexion (L2) 2 Poor Extension (S1) 1 Trace Abduction 2 Poor Knee Strength Knee Manual Muscle Testing Left Flexion (S2) 1 Trace Extension (L3) 2 Poor Ankle/Foot Strength Ankle and Foot Manual Muscle Testing Left Dorsiflexion (L4) 0 Zero Plantarflexion (S1) 2 Poor PT-OP-Q Treatments Start: 12/22/20 07:36 Freq: Status: Active Protocol: Document 04/27/21 11:00 AMB (Rec: 04/27/21 13:03 AMB [email or web address]) Therapeutic Exercises Standing Exercises 4 Standing Exercise Name weightbearing WBOS Comments cues to weightbear through L leg- challenging for more than 15 seconds 3 Standing Exercise Name mini squat Reps/Minutes 2x10 2 Standing Exercise Name hip ext Reps/Minutes 2x10 Comments at railing 1 Standing Exercise Name march Reps/Minutes 2x10 Comments at railing PT-OP-T Assessment and Plan Start: 12/22/20 07:36 Freq: Status: Active Protocol: Document 04/27/21 11:15 AMB (Rec: 04/27/21 12:57 AMB [email or web address]) Physical Therapy Assessment Goals Five Impairment Standing balance Short Term Goal (STG) 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 03/16/21: progressing: able to stand at counter doing RUE activity with LUE (occasional LUE contact counter for stand bal) for 3 min CG- 5%A before needs to sit secondary to LLE shaky. STG Duration 6 weeks Four Impairment Transfers Short Term Goal (STG) Ajith will perform a car transfer with [place]. 02/23/21: progressing: CG- Min A using HW SPT transfer chair to front passenger's seat, Total A for L LE reposition into car and RLE self into car the self support using overhead handle to scoot self back in seat. Pt requires assist for safety seat belt secure. STG Duration 6 weeks Care Home Goal (LTG) Ajith will perform a floor transfer with environmental support with ModA. LTG Duration NOT MET Three Impairment ankle mobility Short Term Goal (STG) Ajith will consistently wear his night splint throughout the night to prevent worsening of his contracture: Progressing: pt wears night splint until needs to use restroom then goes backto bed without donning again. STG Duration 6 weeks Road Train Driver Goal (LTG) Ajith will reduce his plantarflexion contracture to lacking 20 degrees. LTG Duration NOT MET Two Impairment HEP Short Term Goal (STG) Ajith will be independent with a strengthening and stretching HEP. STG Duration MET One Impairment Gait Short Term Goal (STG) Ajith will ambulate 200' with SBA, hemiwalker, and AFO over smooth terrain. STG Duration MET Road Train Driver Goal (LTG) Ajith will ambulate 300' with CGA, hemiwalker and AFO over smooth terrain. LTG Duration MET Assessment Summary Assessment Reviewed written HEP with pt and mom and answered questions as appropriate. Continued to answer questions about rehab post CVA. Pt is going to continue exercising with his personal insurance advisor and have his parents help with his daily mobility needs. He continues to use his w/c for daily mobility, but will walk at home with his personal insurance advisor . Physical Therapy Plan Discharge Physical Therapy Discharge Comments Insurance cap met
== END 2021-05-18 14:34 ==
LOC: PHYS 10:30
PROVIDERS: PCP Physical Medicine & Rehabilitation; Referring Provider Physical Medicine & Rehabilitation; Visit Provider Physical Medicine & Rehabilitation
DX: G81.94 Hemiplegia, unspecified affecting left nondominant side (principal); Z86.73 Personal history of transient ischemic attack (TIA), and cerebral infarction without residual deficits; R26.1 Paralytic gait
CPT/HCPCS: 97110; 97112; 97116; 97162; 97530

== ENCOUNTER 2021-11-28 06:14 | Emergency (ER) | payer OTHER, MEDICAID, SELFPAY ==
[2021-11-28] VITALS (11 sets, daily range): BP systolic 103–174; BP diastolic 56–94; PULSE 53–66; RESP 12–20; TEMP 37.1; O2SAT 92–97; BMI 27.8
--- NOTE | 2021-11-28 06:08 | DI.RAD.S_ITS ---
PROCEDURE: XR CHEST 1V INDICATIONS: chest congestion TECHNIQUE: One view of the chest was acquired. COMPARISON: None. FINDINGS: Surgical changes and devices: None. Lungs and pleura: Mild pulmonary vascular congestion is seen. No focal infiltrate. No pleural effusions or pneumothorax. Mediastinum: Mediastinal contours appear normal. Heart size is enlarged. Bones and chest wall: No suspicious bony lesions. Overlying soft tissues appear unremarkable. IMPRESSION: Cardiomegaly and mild congestion. No focal infiltrate, pleural effusion or pneumothorax. No significant discrepancies. Dictated by: Darrell Santos M.D. on 11/28/2021 at 8:12 Approved by: Darrell Santos M.D. on 11/28/2021 at 8:13
--- NOTE | 2021-11-28 06:09 | DI.CT.S_ITS ---
PROCEDURE: CT HEAD/BRAIN WO CON INDICATIONS: severe headache TECHNIQUE: Noncontrast 4.5 mm thick angled axial sections acquired from the foramen magnum to the vertex, with coronal and sagittal reformats. For radiation dose reduction, the following was used: automated exposure control, adjustment of mA and/or kV according to patient size. COMPARISON: [facility], CT, CT HEAD/BRAIN WO CON, 04/27/2019, 18:29. [facility], CT, CT HEAD/BRAIN WO CON, 03/23/2019, 18:19. [facility], CT, CT HEAD/BRAIN WO CON, 05/08/2019, 11:08. CT, CT HEAD/BRAIN WO CON, 07/31/2019, 16:58. FINDINGS: Image quality: Excellent. CSF spaces: Basal cisterns are patent. No extra-axial fluid collections. The ventricles are symmetric in size and shape. Brain: Postsurgical changes in the right hemisphere probably related to prior large MCA infarct. There is an old lacunar infarct in right basal ganglia. No intracranial bleeds or masses. There is cerebral volume loss for age, with resultant ventricular and sulcal prominence. There are periventricular and deep white matter chronic small vessel ischemic changes. There is intracranial internal carotid artery atherosclerosis. Skull and face: Right frontal parietal craniotomy. Calvarium and visualized facial bones appear intact, without suspicious lesions. Sinuses: Visualized sinuses and mastoids are clear. IMPRESSION: 1. No acute intracranial abnormalities. 2. Postsurgical changes in the right hemisphere probably related to old large MCA infarct. No significant discrepancy with the oral therapist radiology preliminary report. Dictated by: Lakisha Corrales M.D. on 11/28/2021 at 8:03 Approved by: Lakisha Corrales M.D. on 11/28/2021 at 8:10
--- NOTE | 2021-11-28 06:09 | ED_ITS ---
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 He states he went to bed in his normal state of health and has no concerns and upon waking this morning had some nasal congestion and runny nose as well as wheezing and chest congestion. He developed a frontal headache which is not abnormal for him and nausea. He denies obvious provocation or palliation. He denies any other neurologic symptoms such as blurred vision, trouble with speech or any new numbness, tingling or weakness. EMS was activated and had given some Zofran prior to his arrival here. On his arrival he states that his symptoms are nearly gone and had he felt like this he would not of activated EMS Related Data Home Medications Medication Instructions Recorded Confirmed acetaminophen 325 mg tablet 650 mg PO Q4H PRN MDD 3000 mg 05/08/19 01/05/21 amantadine HCl 100 mg tablet 100 mg PO BID 05/08/19 01/05/21 amlodipine 10 mg tablet 10 mg PO DAILY 05/08/19 01/05/21 aspirin 81 mg tablet,delayed 81 mg PO DAILY 05/08/19 01/05/21 release atorvastatin 20 mg tablet 20 mg PO BEDTIME 05/08/19 01/05/21 famotidine 20 mg tablet 20 mg PO BID 05/08/19 01/05/21 fluoxetine 20 mg tablet 20 mg PO DAILY 05/08/19 01/05/21 ondansetron 4 mg disintegrating 4 mg PO QID 05/08/19 01/05/21 tablet dabigatran etexilate 150 mg 150 mg PO BID 07/31/19 01/05/21 capsule (Pradaxa) gabapentin 300 mg capsule 300 mg PO TID 07/31/19 01/05/21 potassium chloride 10 mEq 10 meq PO DAILY 07/31/19 01/05/21 capsule,extended release quetiapine 25 mg tablet 25 mg PO DAILY 07/31/19 01/05/21 Previous Rx's Medication Instructions Recorded levetiracetam 500 mg tablet 500 mg PO Q12H #60 tab 07/31/19 (Keppra) ondansetron HCl 8 mg tablet 8 mg PO Q8H #14 tab 07/31/19 (Zofran) Allergies Allergy/AdvReac Type Severity Reaction Status Date / Time No Known Drug Allergies Allergy Unverified 11/28/21 06:12 Review of Systems <Eleno Gardner DO - Last Filed: 11/29/21 07:07> Review of Systems Narrative: GENERAL: see HPI HEENT: see HPI RESPIRATORY: Denies dyspnea, cough, wheezing, hemoptysis, sputum. CARDIOVASCULAR: Denies chest pain, palpitations, orthopnea, edema, GASTROINTESTINAL: see HPI : Denies dysuria, frequency, incontinence, hematuria, urinary retention. MUSCULOSKELETAL: denies weakness, joint pain, or bony pain SKIN: Denies rash, skin lesions, or other NEUROLOGIC: Denies weakness, headache, numbness, change in speech, confusion, seizures, incoordination. PSYCHIATRIC: No concerning psychosocial issues. 12 point review of systems is negative except for those stated above Patient History <Eleno Gardner DO - Last Filed: 11/29/21 07:07> Medical History (Updated 11/28/21 @ 08:44 by Estella Carrion MD) Cerebral infarction due to unspecified occlusion or stenosis of unspecified carotid artery Hemiplegia and hemiparesis following cerebral infarction affecting left non- dominant side Major depressive disorder Surgical History H/O craniotomy Social History household members: spouse and children Smoking Status: Never smoker Exam <Eleno Gardner DO - Last Filed: 11/29/21 07:07> Narrative Exam Narrative: GENERAL: [56] year old patient appears stated age. Well-developed patient, in mild distress. HEAD: Atraumatic. Normocephalic. EYES: Pupils equal round and reactive. Extraocular motions intact. No scleral icterus. No injection or drainage. ENT: Nose without bleeding, purulent drainage. Throat without erythema, tonsillar hypertrophy or exudate. Airway patent. NECK: Trachea midline. Non tender CARDIOVASCULAR: Regular rate and rhythm without murmurs, gallops, or rubs. RESPIRATORY: Clear to auscultation. Breath sounds equal bilaterally. No wheezes, rales, or rhonchi. GASTROINTESTINAL: Abdomen soft, non-tender, nondistended. EXTREMITIES: No edema or joint tenderness. BACK: Nontender without deformity or crepitance. No flank tenderness. NEURO: L hemiparesis is at baseline per patient SKIN: No rash or erythema of visible areas Initial Vital Signs Initial Vital Signs: Vital Signs Temperature 98.7 F 11/28/21 06:09 Pulse Rate 57 L 11/28/21 06:09 Respiratory Rate 18 11/28/21 06:09 Blood Pressure 139/89 11/28/21 06:09 Pulse Oximetry 97 11/28/21 06:09 <Estella Carrion MD - Last Filed: 11/28/21 08:44> Initial Vital Signs Initial Vital Signs: Vital Signs Temperature 98.7 F 11/28/21 06:09 Pulse Rate 57 L 11/28/21 06:09 Respiratory Rate 18 11/28/21 06:09 Blood Pressure 139/89 11/28/21 06:09 Pulse Oximetry 97 11/28/21 06:09 Course <Eleno Gardner DO - Last Filed: 11/29/21 07:07> Orders Ordered: Discontinued Medications Acetaminophen (Acetaminophen 325 Mg Tablet) 975 mg PO NOW ONE Stop: 11/28/21 08:13 Last Admin: 11/28/21 09:27 Dose: 975 mg Documented by: JAME Sodium Chloride (Normal Saline 0.9%) 1,000 mls @ 1,000 mls/hr IV BOLUS ONE Stop: 11/28/21 07:06 Last Infusion: 11/28/21 09:01 Dose: 0 mls/hr Documented by: Admin: 11/28/21 06:26 Dose: 1,000 mls/hr Documented by: [email or web address] Pantoprazole Sodium (Pantoprazole 40 Mg Vial) 40 mg IV NOW ONE Stop: 11/28/21 06:08 Last Admin: 11/28/21 06:26 Dose: 40 mg Documented by: [email or web address] Vital Signs Vital signs: Vital Signs - 8 hr 11/28/21 06:09 Temperature 98.7 F Pulse Rate 57 L Respiratory Rate 18 Blood Pressure 139/89 Pulse Oximetry 97 <Estella Carrion MD - Last Filed: 11/28/21 08:44> Orders Ordered: Discontinued Medications Acetaminophen (Acetaminophen 325 Mg Tablet) 975 mg PO NOW ONE Stop: 11/28/21 08:13 Last Admin: 11/28/21 09:27 Dose: 975 mg Documented by: JAME Sodium Chloride (Normal Saline 0.9%) 1,000 mls @ 1,000 mls/hr IV BOLUS ONE Stop: 11/28/21 07:06 Last Infusion: 11/28/21 09:01 Dose: 0 mls/hr Documented by: Admin: 11/28/21 06:26 Dose: 1,000 mls/hr Documented by: [email or web address] Pantoprazole Sodium (Pantoprazole 40 Mg Vial) 40 mg IV NOW ONE Stop: 11/28/21 06:08 Last Admin: 11/28/21 06:26 Dose: 40 mg Documented by: [email or web address] Vital Signs Vital signs: Vital Signs - 8 hr 11/28/21 06:09 Temperature 98.7 F Pulse Rate 57 L Respiratory Rate 18 Blood Pressure 139/89 Pulse Oximetry 97 MDM - Headache <Eleno Gardner DO - Last Filed: 11/29/21 07:07> Lab Data Result diagrams: 11/28/21 06:10 11/28/21 06:10 Labs: Lab Results 11/28/21 11/28/21 11/28/21 Range/Units 06:10 06:10 06:30 WBC 6.6 (4.5-11.0) X10^3/uL RBC 5.43 (4.5-5.9) X10^6/uL Hgb 16.8 (13.5-17.5) g/dL Hct 47.4 (41-53) % MCV 87.4 (80-100) fL MCH 31.0 (26-34) PG MCHC 35.4 (30-36) % RDW 13.3 (11.6-14.8) % Plt Count 233 (150-400) X10^3/uL Neut % (Auto) 58.6 (50-75) % Lymph % (Auto) 30.9 (25-40) % [place] % (Auto) 5.5 (3-14) % Eos % (Auto) 4.3 H (2-4) % Baso % (Auto) 0.7 (0-2) % Neut # (Auto) 3800 (5279-4465) /uL Lymph # (Auto) 2000 (7953-6186) /uL [place] # (Auto) 400 (0-900) /uL Eos # (Auto) 300 (0-450) /uL Baso # (Auto) 0 (0-100) /uL Sodium 139 (137-145) mmol/L Potassium 3.9 (3.4-5.1) mmol/L Chloride 102 (98-107) mmol/L Carbon Dioxide 25 (22-32) mmol/L BUN 16 (9-20) mg/dL Creatinine 0.93 (0.66-1.25) mg/dL Estimated GFR > 60 (>60) mL/min BUN/Creatinine Ratio 17.2 (6-22) Glucose 104 H (70-100) mg/dL Calcium 8.8 (8.4-10.2) mg/dL Magnesium 2.1 (1.6-2.3) mg/dL Total Bilirubin 1.2 (0.2-1.3) mg/dL AST 27 (17-59) IU/L ALT 34 (<50) IU/L Alkaline Phosphatase 75 (38-126) U/L Total Creatine Kinase 57 (55-170) U/L CK-MB (CK-2) TNP CK-MB (CK-2) Rel Index TNP Troponin I < 0.012 (0.01-0.034) ng/mL NT-Pro-B Natriuret Pep 17 (<125) pg/mL Total Protein 7.1 (6.3-8.2) g/dL Albumin 4.5 (3.5-5.0) g/dL Globulin 2.6 (1.7-4.1) g/dL Albumin/Globulin Ratio 1.7 (1.0-2.8) SARS-CoV-2 (PCR) Negative (Negative) <Estella Carrion MD - Last Filed: 11/28/21 08:44> Lab Data Labs: Lab Results 11/28/21 11/28/21 11/28/21 Range/Units 06:10 06:10 06:30 WBC 6.6 (4.5-11.0) X10^3/uL RBC 5.43 (4.5-5.9) X10^6/uL Hgb 16.8 (13.5-17.5) g/dL Hct 47.4 (41-53) % MCV 87.4 (80-100) fL MCH 31.0 (26-34) PG MCHC 35.4 (30-36) % RDW 13.3 (11.6-14.8) % Plt Count 233 (150-400) X10^3/uL Neut % (Auto) 58.6 (50-75) % Lymph % (Auto) 30.9 (25-40) % [place] % (Auto) 5.5 (3-14) % Eos % (Auto) 4.3 H (2-4) % Baso % (Auto) 0.7 (0-2) % Neut # (Auto) 3800 (5336-7629) /uL Lymph # (Auto) 2000 (8185-5395) /uL [place] # (Auto) 400 (0-900) /uL Eos # (Auto) 300 (0-450) /uL Baso # (Auto) 0 (0-100) /uL Sodium 139 (137-145) mmol/L Potassium 3.9 (3.4-5.1) mmol/L Chloride 102 (98-107) mmol/L Carbon Dioxide 25 (22-32) mmol/L BUN 16 (9-20) mg/dL Creatinine 0.93 (0.66-1.25) mg/dL Estimated GFR > 60 (>60) mL/min BUN/Creatinine Ratio 17.2 (6-22) Glucose 104 H (70-100) mg/dL Calcium 8.8 (8.4-10.2) mg/dL Magnesium 2.1 (1.6-2.3) mg/dL Total Bilirubin 1.2 (0.2-1.3) mg/dL AST 27 (17-59) IU/L ALT 34 (<50) IU/L Alkaline Phosphatase 75 (38-126) U/L Total Creatine Kinase 57 (55-170) U/L CK-MB (CK-2) TNP CK-MB (CK-2) Rel Index TNP Troponin I < 0.012 (0.01-0.034) ng/mL NT-Pro-B Natriuret Pep 17 (<125) pg/mL Total Protein 7.1 (6.3-8.2) g/dL Albumin 4.5 (3.5-5.0) g/dL Globulin 2.6 (1.7-4.1) g/dL Albumin/Globulin Ratio 1.7 (1.0-2.8) SARS-CoV-2 (PCR) Negative (Negative) MDM Narrative Medical decision making narrative: Care is assumed and independent evaluation is done. 56-year-old gentleman with an unfortunate history of all large right-sided stroke with permanent left-sided deficits comes in because he was having prodrome will type symptoms and he adache similar to those that he experienced prior to his stroke. At this time he is feeling significantly better. His blood pressure is elevated this morning he is given his usual 10 mg of morning amlodipine. Still waiting for the chest x-ray and head CT official radiology reads. Independent evaluation of the studies do not suggest any significant abnormalities. He states he usually takes Tylenol when he has of low-grade headache such as he has now so Tylenol will be administered. Reviewed findings of his workup, questions were answered, assuming the radiology reads do not show any surprises, patient will be discharged home. Because he has hemiparesis he will need BLS transport home. Discharge Plan Departure Patient Disposition: Home Clinical Impression: Headache Instructions: DI for Headache Activity Restrictions/Additional Instructions: Thank you for coming in today With your history of severe stroke and headache today similar to prodromal symptom associated with that, it was absolutely appropriate to come to the emergency department. Fortunately, your workup today is entirely unremarkable. Your CT scan shows your old stroke and no new findings. Your lab workup was in tire early reassuring. There is no evidence of meningitis, recurrent stroke, sinus infection, or significant kidney/liver or electrolyte abnormalities. At this point, it is safe for you to go home. you did take all of your morning medications in the emergency department. If you find that you are getting worse or develop any new symptoms, please feel free to return to the emergency department for further evaluation. Prescriptions: No Action amantadine HCl 100 mg Tablet 100 mg PO BID 0RF atorvastatin 20 mg Tablet 20 mg PO BEDTIME 0RF aspirin 81 mg Tablet,Delayed Release (Dr/Ec) 81 mg PO DAILY 0RF famotidine 20 mg Tablet 20 mg PO BID 0RF amlodipine 10 mg Tablet 10 mg PO DAILY 0RF Rx Instructions: hold for SBP<100 or HR<60 fluoxetine 20 mg Tablet 20 mg PO DAILY 0RF ondansetron 4 mg Tablet,Disintegrating 4 mg PO QID 0RF acetaminophen 325 mg Tablet 650 mg PO Q4H MDD 3000 mg PRN (Reason: pain) 0RF quetiapine 25 mg Tablet 25 mg PO DAILY 0RF potassium chloride 10 mEq Capsule, Extended Release 10 meq PO DAILY 0RF gabapentin 300 mg Capsule 300 mg PO TID 0RF Pradaxa 150 mg Capsule 150 mg PO BID 0RF levetiracetam [Keppra] 500 mg tablet 500 mg PO Q12H Qty: 60 0RF ondansetron HCl [Zofran] 8 mg tablet 8 mg PO Q8H Qty: 14 0RF Referrals: Miguel Headley MD [Primary Care Provider] - ED Sign-out <Eleno Gardner DO - Last Filed: 11/29/21 07:07> [facility] I was immediately available in the department for consultation. This documentation has been reviewed and I agree with assessment and plan. Supervised by Eleno Gardner DO
[2021-11-28] MEDS: SODIUM CHLORIDE 0.9% 1,000 ML 1000 ML IV (06:26)
[2021-11-28] MEDS: PANTOPRAZOLE 40 MG VIAL IV (06:26)
[2021-11-28 06:35] LABS: Add Manual Diff / Slide Review NO; Basophils Absolute Auto 0 /uL (0-100); Basophils Percent Auto 0.7 % (0-2); Eosinophils Absolute Auto 300 /uL (0-450); Eosinophils Percent Auto 4.3 % (2-4); Hematocrit 47.4 % (41-53); Hemoglobin 16.8 g/dL (13.5-17.5); Lymphocytes Absolute Auto 2000 /uL (1100-4500); Lymphocytes Percent Auto 30.9 % (25-40); Mean Corpuscular HGB Conc 35.4 % (30-36); Mean Corpuscular Volume 87.4 fL (80-100); Monocytes Absolute Auto 400 /uL (0-900); Monocytes Percent Auto 5.5 % (3-14); Neutrophils Absolute Auto 3800 /uL (1500-7000); Neutrophils Percent Auto 58.6 % (50-75); Platelet Count 233 X10^3/uL (150-400); Red Blood Cell Count 5.43 X10^6/uL (4.5-5.9); Red Cell Distribution Width 13.3 % (11.6-14.8); White Blood Cell Count 6.6 X10^3/uL (4.5-11.0)
--- NOTE | 2021-11-28 06:35 | PC.NURSE ---
Pt arrives via EMS for eval of chest congestion and tightness and a headache behind his eyes that concern him for a stroke. Onset of these symptoms were when he awoke this AM. Pt went to sleep feeling his normal self last night. Pt has history of stroke with residual left side weakness/paralysis. Pt is AxOx4, GCS 15. Mother at bedside of pt soon after arrival. Symptoms mostly if not all resolved.
[2021-11-28 06:53] LABS: BUN Creatinine Ratio 17.2 (6-22); Blood Urea Nitrogen 16 mg/dL (9-20); Carbon Dioxide 25 mmol/L (22-32); Chloride 102 mmol/L (98-107); Creatine Kinase 57 U/L (55-170); Estimated Glomerular Filt Rate > 60 mL/min (>60); Glucose 104 mg/dL (70-100); Potassium 3.9 mmol/L (3.4-5.1); Sodium 139 mmol/L (137-145)
[2021-11-28 06:54] LABS: Alanine Aminotransferase 34 IU/L (<50); Albumin 4.5 g/dL (3.5-5.0); Albumin Globulin Ratio 1.7 (1.0-2.8); Alkaline Phosphatase 75 U/L (38-126); Aspartate Aminotransferase 27 IU/L (17-59); Bilirubin Total 1.2 mg/dL (0.2-1.3); Calcium 8.8 mg/dL (8.4-10.2); Globulin 2.6 g/dL (1.7-4.1); HEMOLYSIS < 15 (0-50); Magnesium 2.1 mg/dL (1.6-2.3); Total Protein 7.1 g/dL (6.3-8.2)
[2021-11-28 07:01] LABS: COVID19 -Nasal RAPID Negative (Negative)
[2021-11-28 07:04] LABS: NT-proBNP (BNP-Adult 18+) 17 pg/mL (<125); Troponin I < 0.012 ng/mL (0.01-0.034)
[2021-11-28] MEDS: ACETAMINOPHEN 325 MG TABLET 975 MG PO (09:27)
== END 2021-11-28 10:23 | disposition home or self-care (01) ==
PROVIDERS: Emergency Medicine; Emergency Provider Emergency Medicine; PCP Physical Medicine & Rehabilitation
DX: R51.9 Headache, unspecified (principal); R07.89 Other chest pain; Z20.822 Contact with and (suspected) exposure to COVID-19
CPT/HCPCS: 36415; 70450; 71045; 80053; 82550; 83735; 83880; 84484; 85025; 87635; 96374; 99284; C9803; C9113